=== PATIENT | male | born 1980 | race Caucasian/White ===

== ENCOUNTER 2017-05-12 15:44 | Emergency (ER) | payer OTHER ==
[2017-05-12 16:05] VITALS: TEMP 97.9; BMI 31.6
[2017-05-12] MEDS ORDERED: HEMOQUE TEST 1 EACH EACH ONE (16:27)
[2017-05-12] MEDS ORDERED: SODIUM CHLORIDE 1,000 ML IV STA ×2 (16:53→16:54)
[2017-05-12 17:10] LABS: BASOPHIL 0.4 % (0-2.0); EOSINOPHIL 1.1 % (0-4.5); MCH 30.8 pg (25.7-33.7); MCHC 35.2 g/dl (32.0-35.9); MEAN CELL VOLUME 87.4 fl (80-96); MEAN PLT VOLUME 8.4 fl (7.5-11.1); NEUTROPHILS 58.8 % (42.8-82.8); PLATELET COUNT 168 K/MM3 (134-434); RDW 12.6 % (11.9-15.9); WHITE BLOOD COUNT 4.2 K/mm3 (4.0-10.0)
[2017-05-12 17:41] LABS: ALBUMIN 3.3 g/dl (3.4-5.0); ALK PHOS 137 U/L (45-117); ANION GAP 11 (8-16); BILIRUBIN,TOTAL 0.6 mg/dL (0.2-1.0); CALCIUM 8.2 mg/dL (8.5-10.1); CO2 25 mmol/L (21-32); CREATININE 1.1 mg/dL (0.7-1.3); SGPT/ALT 50 U/L (12-78); TOT PROT 6.2 g/dl (6.4-8.2)
[2017-05-12 17:42] LABS: URINE APPEARANCE CLEAR; URINE BILIRUBIN NEGATIVE (NEGATIVE); URINE BLOOD NEGATIVE (NEGATIVE); URINE COLOR LTYELLOW; URINE GLUCOSE (UA) 3+ (NEGATIVE); URINE KETONE NEGATIVE (NEGATIVE); URINE NITRITE NEGATIVE (NEGATIVE); URINE PROTEIN NEGATIVE (NEGATIVE); URINE UROBILINOGEN NEGATIVE mg/dL (0.2-1.0)
[2017-05-12 18:00] LABS: SGOT/AST 27 U/L (15-37)
--- NOTE | 2017-05-12 18:01 | PDOC ---
History of Present Illness - General Chief Complaint: Blood Sugar Problem Stated Complaint: BLOOD SUGAR PROBLEM Time Seen by Provider: 05/12/17 16:31 History Source: Patient Exam Limitations: No Limitations - History of Present Illness Initial Comments: 05/12/17 17:07 36-year-old male presents to the ED with complaints of high glucose readings states took his glucose this morning was above 500 although he took his Glucophage and his blood pressure medications this morning. Patient states yesterday his glucose was 400 and also states was off his medication about a week ago, a ran out of the medication for about 1 week. Patient denies any polyuria polydipsia polyphagia. Patient denies headache, chest pain, dizziness, visual changes, nausea or abdominal pain. Patient states is not staying and is leaving by 7 since yesterday at work to pay his bills. Timing/Duration: unsure Severity: mild Associated Symptoms: reports: denies symptoms Past History - Travel Traveled outside of the country in the last 30 days: Yes - Past Medical History Allergies/Adverse Reactions: Allergies Allergy/AdvReac Type Severity Reaction Status Date / Time Penicillins Allergy Verified 05/12/17 16:02 Home Medications: Ambulatory Orders Insulin Lispro [Humalog Kwikpen U-100] 15 unit SQ BID #900 units 05/12/17 Lisinopril/Hydrochlorothiazide [Lisinopril-Hctz 20-12.5 mg Tab] 1 each PO DAILY 05/12/17 Metformin HCl 500 mg PO BID 05/12/17 Diabetes: Yes (IDDM) HTN: Yes Psychiatric Problems: Yes (DEPRESSION) - Suicide/Smoking/Psychosocial Hx Smoking History: Never smoked Hx Alcohol Use: No Drug/Substance Use Hx: No Substance Use Type: None Patient Lives Alone: No Lives with/in: spouse/SO Review of Systems - Review of Systems Able to Perform ROS?: Yes Constitutional: No: Symptoms Reported HEENTM: No: Symptoms Reported Respiratory: No: Symptoms reported Cardiac (ROS): No: Symptoms Reported ABD/GI: No: Symptoms Reported : No: Symptoms Reported Musculoskeletal: No: Symptoms Reported Integumentary: No: Symptoms Reported Neurological: No: Symptoms reported Endocrine: No: Symptoms Reported Hematologic/Lymphatic: No: Symptoms Reported *Physical Exam - Vital Signs Last Vital Signs Temp Pulse Resp BP Pulse Ox 97.9 F 112 H 19 138/84 98 05/12/17 16:02 05/12/17 16:02 05/12/17 16:02 05/12/17 16:02 05/12/17 16:02 - Physical Exam General Appearance: Yes: Nourished, Appropriately Dressed. No: Apparent Distress HEENT: positive: Pharynx Normal Neck: positive: Supple Respiratory/Chest: positive: Lungs Clear, Normal Breath Sounds. negative: Respiratory Distress, Accessory Muscle Use Cardiovascular: positive: Regular Rhythm, Regular Rate. negative: Murmur Gastrointestinal/Abdominal: positive: Soft. negative: Tenderness Integumentary: positive: Normal Color, Warm, Moist Neurologic: positive: Normal Mood/Affect, Motor Strength 11/17 ED Treatment Course - LABORATORY CBC & Chemistry Diagram: 05/12/17 17:01 05/12/17 17:01 - ADDITIONAL ORDERS Additional order review: Laboratory Results 05/12/17 17:30 Urine Color Ltyellow Urine Appearance Clear Urine pH 6.0 Urine Protein Negative Urine Glucose (UA) 3+ H Urine Ketones Negative Urine Blood Negative Urine Nitrite Negative Urine Bilirubin Negative Urine Urobilinogen Negative 05/12/17 17:01 RBC 4.64 MCV 87.4 MCHC 35.2 RDW 12.6 MPV 8.4 Neutrophils % 58.8 Lymphocytes % 31.1 Monocytes % 8.6 Eosinophils % 1.1 Basophils % 0.4 - Medications Given in the ED: ED Medications Discontinued Medications Generic Name Dose Route Start Last Admin Trade Name Freq PRN Reason Stop Dose Admin Sodium Chloride 1,000 mls @ 1,000 mls/hr 05/12/17 16:53 05/12/17 17:03 Normal Saline - IV 05/12/17 17:52 1,000 mls/hr ASDIR STA Administration Sodium Chloride 1,000 mls @ 1,000 mls/hr 05/12/17 16:54 05/12/17 17:03 Normal Saline - IV 05/12/17 17:53 1,000 mls/hr ASDIR STA Administration Medical Decision Making - Medical Decision Making 05/12/17 18:00 Patient here for elevated glucose at home. Patient had no other complaints at this time. Patient ordered for labs, fluids in urine. Patient ordered for BGM to be completed after 2 L of fluid and decide disposition. Patient alert he stated he is not staying since he is to be at work at 7. *DC/Admit/Observation/Transfer Diagnosis at time of Disposition: High blood sugar, Insulin dependent diabetes mellitus - Prescriptions Prescriptions: Insulin Lispro [Humalog Kwikpen U-100] 15 unit SQ BID #900 units - Referrals Referrals: Raissa Campbell [Primary Care Provider] - 24 hours - Patient Instructions Printed Discharge Instructions: DI for Hyperglycemia -- Adult Additional Instructions: Please follow up with your primary care doctor on Sunday. Your insulin was refilled today. Drink plenty of fluids Return to the ED if you find your sugars are high, if you feel weak, dizzy, light headed or have any changes in your symptoms. Por favor abi un seguimiento con green mdico de atencin primaria el . Green insulina se volvi a llenar hoy. Beber mucho lquido Regrese al departamento de emergencias si encuentra que domenic azcares son altos, si se siente dbil, mareado, liviano o si tiene algn cambio en domenic sntomas. Print Language: ESTONIAN
--- NOTE | 2017-05-12 18:01 | PDOC ---
*Physical Exam - Vital Signs Last Vital Signs Temp Pulse Resp BP Pulse Ox 97.9 F 112 H 19 138/84 98 05/12/17 16:02 05/12/17 16:02 05/12/17 16:02 05/12/17 16:02 05/12/17 16:02 - Physical Exam Comments: 05/12/17 18:01 The patient was examined by NANNETTE Walker] under my direct supervision. I personally evaluated the patient. I concur with the above findings and the plan of care. ED Treatment Course - LABORATORY CBC & Chemistry Diagram: 05/12/17 17:01 05/12/17 17:01 - ADDITIONAL ORDERS Additional order review: Laboratory Results 05/12/17 17:30 Urine Color Ltyellow Urine Appearance Clear Urine pH 6.0 Urine Protein Negative Urine Glucose (UA) 3+ H Urine Ketones Negative Urine Blood Negative Urine Nitrite Negative Urine Bilirubin Negative Urine Urobilinogen Negative 05/12/17 17:01 RBC 4.64 MCV 87.4 MCHC 35.2 RDW 12.6 MPV 8.4 Neutrophils % 58.8 Lymphocytes % 31.1 Monocytes % 8.6 Eosinophils % 1.1 Basophils % 0.4 - Medications Given in the ED: ED Medications Discontinued Medications Generic Name Dose Route Start Last Admin Trade Name Freq PRN Reason Stop Dose Admin Sodium Chloride 1,000 mls @ 1,000 mls/hr 05/12/17 16:53 05/12/17 17:03 Normal Saline - IV 05/12/17 17:52 1,000 mls/hr ASDIR STA Administration Sodium Chloride 1,000 mls @ 1,000 mls/hr 05/12/17 16:54 05/12/17 17:03 Normal Saline - IV 05/12/17 17:53 1,000 mls/hr ASDIR STA Administration *DC/Admit/Observation/Transfer Diagnosis at time of Disposition: High blood sugar, Insulin dependent diabetes mellitus - Prescriptions Prescriptions: Insulin Lispro [Humalog Kwikpen U-100] 15 unit SQ BID #900 units - Referrals Referrals: Raissa Campbell [Primary Care Provider] - 24 hours - Patient Instructions Printed Discharge Instructions: DI for Hyperglycemia -- Adult Additional Instructions: Please follow up with your primary care doctor on Sunday. Your insulin was refilled today. Drink plenty of fluids Return to the ED if you find your sugars are high, if you feel weak, dizzy, light headed or have any changes in your symptoms. Por favor abi un seguimiento con green mdico de atencin primaria el es. Green insulina se volvi a llenar hoy. Beber mucho lquido Regrese al departamento de emergencias si encuentra que domenic azcares son altos, si se siente dbil, mareado, liviano o si tiene algn cambio en domenic sntomas. Print Language: LAO
[2017-05-12 18:02] LABS: GLUCOSE,RANDOM 487 mg/dL (74-106)
--- NOTE | 2017-05-12 18:18 | PDOC ---
*Physical Exam - Vital Signs Last Vital Signs Temp Pulse Resp BP Pulse Ox 97.9 F 112 H 19 138/84 98 05/12/17 16:02 05/12/17 16:02 05/12/17 16:02 05/12/17 16:02 05/12/17 16:02 - Physical Exam General Appearance: Yes: Nourished, Appropriately Dressed, Other (AAOx3). No: Apparent Distress Respiratory/Chest: positive: Lungs Clear, Normal Breath Sounds. negative: Respiratory Distress, Accessory Muscle Use Cardiovascular: positive: Regular Rhythm, Regular Rate, S1, S2 (present). negative: Edema, JVD, Murmur Gastrointestinal/Abdominal: positive: Normal Bowel Sounds, Soft, Protuberent. negative: Tender, Flat, Organomegaly, Pulsatile Mass Neurologic: positive: anaesthetic technician II-XII NML intact, Fully Oriented, Alert, Normal Mood/ Affect, Normal Response, Motor Strength 5/5 ED Treatment Course - LABORATORY CBC & Chemistry Diagram: 05/12/17 17:01 05/12/17 17:01 - ADDITIONAL ORDERS Additional order review: Laboratory Results 05/12/17 05/12/17 17:30 17:01 Sodium 132 L Potassium 4.5 Chloride 96 L Carbon Dioxide 25 Anion Gap 11 BUN 28 H Creatinine 1.1 Creat Clearance w eGFR > 60 Random Glucose 487 H* Calcium 8.2 L Total Bilirubin 0.6 AST 27 ALT 50 Alkaline Phosphatase 137 H Total Protein 6.2 L Albumin 3.3 L Urine Color Ltyellow Urine Appearance Clear Urine pH 6.0 Urine Protein Negative Urine Glucose (UA) 3+ H Urine Ketones Negative Urine Blood Negative Urine Nitrite Negative Urine Bilirubin Negative Urine Urobilinogen Negative 05/12/17 17:01 RBC 4.64 MCV 87.4 MCHC 35.2 RDW 12.6 MPV 8.4 Neutrophils % 58.8 Lymphocytes % 31.1 Monocytes % 8.6 Eosinophils % 1.1 Basophils % 0.4 - Medications Given in the ED: ED Medications Discontinued Medications Generic Name Dose Route Start Last Admin Trade Name Freq PRN Reason Stop Dose Admin Sodium Chloride 1,000 mls @ 1,000 mls/hr 05/12/17 16:53 05/12/17 17:03 Normal Saline - IV 05/12/17 17:52 1,000 mls/hr ASDIR STA Administration Sodium Chloride 1,000 mls @ 1,000 mls/hr 05/12/17 16:54 05/12/17 17:03 Normal Saline - IV 05/12/17 17:53 1,000 mls/hr ASDIR STA Administration Medical Decision Making - Medical Decision Making 05/12/17 18:49 Sugar coming down after two units of saline. Repeat sugar 408. Will give 8 units of insulin SQ at this time. 05/12/17 18:50 Pt. takes Humalog 15 units twice daily at home. Pt. ran out. Will refill rx. Pt. requesting to leave. Will d/c as pt has no gap and sugars are coming down. *DC/Admit/Observation/Transfer Diagnosis at time of Disposition: High blood sugar, Insulin dependent diabetes mellitus - Discharge Dispostion Admit: No - Prescriptions Prescriptions: Insulin Lispro [Humalog Kwikpen U-100] 15 unit SQ BID #900 units - Referrals Referrals: Raissa Campbell [Primary Care Provider] - 24 hours - Patient Instructions Printed Discharge Instructions: DI for Hyperglycemia -- Adult Additional Instructions: Please follow up with your primary care doctor on Sunday. Your insulin was refilled today. Drink plenty of fluids Return to the ED if you find your sugars are high, if you feel weak, dizzy, light headed or have any changes in your symptoms. Por favor abi un seguimiento con green mdico de atencin primaria el . Green insulina se volvi a llenar hoy. Beber mucho lquido Regrese al departamento de emergencias si encuentra que domenic azcares son altos, si se siente dbil, mareado, liviano o si tiene algn cambio en domenic sntomas. Print Language: FIJIAN
[2017-05-12] MEDS ORDERED: INSULIN REGULAR HUMAN 100 UNITS/ML *VIAL SQ ONE (18:49)
[2017-05-12 19:02] VITALS: BP 134/74; PULSE 97
[2017-05-12 20:23] LABS: ACETONE SERUM NEGATIVE (NEGATIVE)
[2017-05-12 22:28] LABS: URINE LEUK ESTERASE Negative (NEGATIVE)
== END 2017-05-12 19:01 | disposition home or self-care (01) ==
LOC: JER 15:44
PROC: 3E013VG Introduction of Insulin into Subcutaneous Tissue, Percutaneous Approach (ICD-10-PCS; principal; 2017-05-12)
PROC: 3E0337Z Introduction of Electrolytic and Water Balance Substance into Peripheral Vein, Percutaneous Approach (ICD-10-PCS; 2017-05-12)
DX: R73.9 Hyperglycemia, unspecified (principal); E11.9 Type 2 diabetes mellitus without complications; Z79.4 Long term (current) use of insulin
CPT/HCPCS: 36415; 80053; 81003; 82009; 83735; 85025; 96361; 96372; 99283-25

== ENCOUNTER 2017-10-24 20:41 | Emergency (ER) | payer OTHER ==
--- NOTE | 2017-10-24 20:54 | PDOC ---
Rapid Medical Evaluation Time Seen by Provider: 10/24/17 20:50 Medical Evaluation: Allergies Allergy/AdvReac Type Severity Reaction Status Date / Time Penicillins Allergy Verified 05/12/17 16:02 10/24/17 20:51 I have performed a brief in-person evaluation of this patient. The patient presents with a chief complaint of: chronic wound to R foot, now new wound, was supposed to be admitted end of september for abx but refused , just [place] from [place] Pertinent physical exam findings: diabetic ulcers to R foot, HR 120s I have ordered the following: labs, x-ray The patient will proceed to the ED for further evaluation. Discharge Disposition - Diagnosis Wound, open, foot - Referrals - Patient Instructions - Post Discharge Activity
[2017-10-24 20:56] VITALS: BP 137/106; PULSE 114; TEMP 98.1; BMI 32.3
[2017-10-24 21:26] LABS: BASO % 1.4 % (0-2.0); EOS % 2.1 % (0-4.5); HEMATOCRIT 39.3 % (35.4-49); HEMOGLOBIN 14.1 GM/dL (11.7-16.9); LYMPH % 36.8 % (8-40); MCH 30.6 pg (25.7-33.7); MCHC 35.8 g/dl (32.0-35.9); MEAN CELL VOLUME 85.5 fl (80-96); MEAN PLT VOLUME 8.2 fl (7.5-11.1); MONO % 7.3 % (3.8-10.2); NEUT % 52.4 % (42.8-82.8); PLATELET COUNT 183 K/MM3 (134-434); WHITE BLOOD COUNT 5.4 K/mm3 (4.0-10.0)
[2017-10-24 21:42] LABS: INR 1.03 (0.82-1.09); PROTHROMBIN TIME (PATIENT) 11.6 SEC (9.98-11.88)
[2017-10-24 21:53] LABS: ALBUMIN 3.6 g/dl (3.4-5.0); ANION GAP 8 (8-16); BILIRUBIN,TOTAL 0.6 mg/dL (0.2-1.0); BLOOD UREA NITROGEN 20 mg/dL (7-18); CALCIUM 8.6 mg/dL (8.5-10.1); CHLORIDE 101 mmol/L (98-107); CO2 25 mmol/L (21-32); CREATININE 1.2 mg/dL (0.7-1.3); POTASSIUM 4.4 mmol/L (3.5-5.1); SGOT/AST 15 U/L (15-37); SGPT/ALT 44 U/L (12-78); SODIUM 134 mmol/L (136-145); TOT PROT 6.9 g/dl (6.4-8.2)
--- NOTE | 2017-10-24 21:53 | PDOC ---
History of Present Illness - General History Source: Patient Exam Limitations: No Limitations - History of Present Illness Initial Comments: 10/24/17 22:01 The patient is a 37 year old male, with a significant past medical history of diabetes, hypertension, hyperlipidemia, and depression, who presents to the emergency department with worsening right foot wound. Patient reports a chronic right foot wound, for which he was previously admitted and treated with antibiotics for last month. Patient reports he was recently away in the [place] wearing closed toed shoes in the warm weather, which caused one of his wounds to open. Patient denies any recent trauma, erythema, fever, chills, nausea, or vomiting. Patient reports drainage from the wound at the right pinky toe, that was clear in color. Today, patient reports calling his PCPs office regarding his symptoms, and was recommended to follow up in the ED for further evaluation and another antibiotic course. He denies any other symptoms. Allergies: Penicillins Past Surgical History: None reported Social History: Non smoker. No ETOH or recreational drug use. PCP: Dr. Villalta <Elinor Sousa - Last Filed: 10/24/17 22:01> <Rissa Gorman - Last Filed: 10/25/17 00:08> - General Chief Complaint: Wound Stated Complaint: PAIN Time Seen by Provider: 10/24/17 20:50 Past History <Elinor Sousa - Last Filed: 10/24/17 22:01> - Past Medical History Diabetes: Yes (IDDM) HTN: Yes Psychiatric Problems: Yes (DEPRESSION) - Suicide/Smoking/Psychosocial Hx Smoking History: Never smoked Have you smoked in the past 12 months: No Information on smoking cessation initiated: No Hx Alcohol Use: No Drug/Substance Use Hx: No Substance Use Type: None <Rissa Gorman - Last Filed: 10/25/17 00:08> - Past Medical History Allergies/Adverse Reactions: Allergies Allergy/AdvReac Type Severity Reaction Status Date / Time Penicillins Allergy Verified 10/24/17 20:57 Home Medications: Ambulatory Orders Insulin Lispro [Humalog Kwikpen U-100] 15 unit SQ BID #900 units 05/12/17 Lisinopril/Hydrochlorothiazide [Lisinopril-Hctz 20-12.5 mg Tab] 1 each PO DAILY 05/12/17 Metformin HCl 500 mg PO BID 05/12/17 Review of Systems - Review of Systems Able to Perform ROS?: Yes Comments:: 10/24/17 22:01 GENERAL/CONSTITUTIONAL: No fever or chills. No weakness. HEAD, EYES, EARS, NOSE AND THROAT: No change in vision. No ear pain or discharge. No sore throat. GASTROINTESTINAL: No nausea, vomiting, diarrhea or constipation. GENITOURINARY: No dysuria, frequency, or change in urination. CARDIOVASCULAR: No chest pain or shortness of breath. RESPIRATORY: No cough, wheezing, or hemoptysis. MUSCULOSKELETAL: Yes right foot ulcers. No joint or muscle swelling or pain. No neck or back pain. SKIN: No rash NEUROLOGIC: No headache, vertigo, loss of consciousness, or change in strength/ sensation. ENDOCRINE: No increased thirst. No abnormal weight change. HEMATOLOGIC/LYMPHATIC: No anemia, easy bleeding, or history of blood clots. ALLERGIC/IMMUNOLOGIC: No hives or skin allergy. <Elinor Sousa - Last Filed: 10/24/17 22:01> *Physical Exam - Vital Signs Last Vital Signs Temp Pulse Resp BP Pulse Ox 98.1 F 114 H 16 137/106 100 10/24/17 20:53 10/24/17 20:53 10/24/17 20:53 10/24/17 20:53 10/24/17 20:53 - Physical Exam Comments: 10/24/17 22:02 Constitutional: Awake, alert, oriented. No acute distress. Head: Normocephalic. Atraumatic Eyes: PERRL. EOMI. Conjunctivae are not pale. ENT: Mucous membranes are moist and intact. Posterior pharynx without exudates or erythema. Uvula midline. Neck: Supple. Full ROM. No lymphadenopathy. Cardiovascular: Regular rate. Regular rhythm. S1, S2 regular. Distal pulses are 2+ and symmetric. Pulmonary/Chest: No evidence of respiratory distress. Clear to auscultation bilaterally No wheezing, rales or rhonchi. Abdominal: Soft and non-distended. There is no tenderness. No rebound, guarding or rigidity. No organomegaly. No palpable masses. Good bowel sounds. Back: No CVA tenderness. Musculoskeletal: Ulcer at the right 1st toe, but not open, actively draining, or erythematous. Open wound, about the size of a nickel at the Distal aspect of the right 5th toe, but no active drainage or erythema. Distal sensation intact at RLE. 1+ pitting edema to right lower extremity. No cyanosis. No clubbing. Full range of motion in all extremities. No calf tenderness. Radial/pedal pulses are intact and 2+ bilaterally Skin: Skin is warm and dry. No petechiae. No purpura. Neurological: Alert and oriented to person, place, and time. Cranial nerves II -XII are grossly intact. Normal speech. Strength is grossly symmetric. No sensory deficits. <Elinor Sousa - Last Filed: 10/24/17 22:01> - Vital Signs Last Vital Signs Temp Pulse Resp BP Pulse Ox 98.1 F 114 H 16 137/106 100 10/24/17 20:53 10/24/17 20:53 10/24/17 20:53 10/24/17 20:53 10/24/17 20:53 <Rissa Gorman - Last Filed: 10/25/17 00:08> ED Treatment Course - LABORATORY CBC & Chemistry Diagram: 10/24/17 21:10 10/24/17 21:10 - ADDITIONAL ORDERS Additional order review: Laboratory Results 10/24/17 21:10 Sodium 134 L Potassium 4.4 Chloride 101 Carbon Dioxide 25 Anion Gap 8 BUN 20 H D Creatinine 1.2 Creat Clearance w eGFR > 60 Random Glucose 369 H* D Calcium 8.6 Total Bilirubin 0.6 AST 15 D ALT 44 Alkaline Phosphatase 112 Total Protein 6.9 Albumin 3.6 <Elinor Sousa - Last Filed: 10/24/17 22:01> - LABORATORY CBC & Chemistry Diagram: 10/24/17 21:10 10/24/17 21:10 <Rissa Gorman - Last Filed: 10/25/17 00:08> Medical Decision Making - Medical Decision Making 10/24/17 23:55 a/p: 37yo male currently on abx for 2 weeks for a diabetic foot wound -was supposed to be admitted in September for IV abx for a diabetic foot wound -now with a nickel size wound to R plantar surface under the pinky toe -new blister under 1st metatarsal -has not seen wound care -follows with Dr. Villalta -will check labs, xray 10/24/17 23:56 re-eval: no fevers, no redness, no warmth, no drainage from the site however concern for diabetic nonhealing foot wound discussed with the patient staying for wound care eval and vasc sx eval for poss wound debridement pt states he cannot stay states he only wants abx and will not stay 10/24/17 23:58 discussed signing out AMA with the patient pt states he wants to sign out AMA discussed all risks/benefits of signing out ama and an uncontrolled DM with a foot wound discussed that he is already on abx discussed he needs to finish those and follow up with vascular/endocrine/ and dr villalta Note: The patient insists on leaving the emergency dept and is signing out against medical advice. The patient understands the risks and complications that may result from the refusal of medical care and admission which includes and permanent disability. The patient has the mental capacity of understanding the risks of refusing care and is capable of making an informed decision. The patient was instructed to return to the emergency department should he change his mind regarding medical care or should his condition worsen. The patient signed the Against Medical Advice form. <Rissa Gorman - Last Filed: 10/25/17 00:08> *DC/Admit/Observation/Transfer - Attestations Scribe Attestion: 10/24/17 22:02 Documentation prepared by Elinor Sousa, acting as medical instrument cable fabricator for Rissa Gorman DO. <Elinor Sousa - Last Filed: 10/24/17 22:01> - Discharge Dispostion Admit: No - Attestations Physician Attestion: 10/25/17 00:01 I, Dr. Rissa Gorman DO, attest that this document has been prepared under my direction and personally reviewed by me in its entirety. I further attest, that it accurately reflects all work, treatment, procedures and medical decision -making performed by me. <Rissa Gorman - Last Filed: 10/25/17 00:08> Diagnosis at time of Disposition: Wound, open, foot, Diabetic foot ulcer, High blood sugar - Discharge Dispostion Disposition: AGAINST MEDICAL ADVICE Condition at time of disposition: Unchanged/Unknown - Referrals Referrals: Raissa Villalta [Primary Care Provider] - Dionisio Malloy MD [Staff Physician] - - Patient Instructions Printed Discharge Instructions: DI for Diabetic Foot Ulcer Additional Instructions: Please complete your antibiotics as prescribed. Please make an appointment to see the wound doctors jessica. Please make an appointment to see Dr. Villalta tomorrow. Please return to the ED JESSICA with any further concerns. - Post Discharge Activity
[2017-10-24 21:54] LABS: ALK PHOS 112 U/L (45-117)
[2017-10-24 22:00] LABS: GLUCOSE,RANDOM 369 mg/dL (74-106)
== END 2017-10-25 00:10 | disposition left against medical advice (07) ==
LOC: JER 20:41
DX: E11.621 Type 2 diabetes mellitus with foot ulcer (principal); L97.419 Non-pressure chronic ulcer of right heel and midfoot with unspecified severity; I10 Essential (primary) hypertension; F32.9 Major depressive disorder, single episode, unspecified; E78.5 Hyperlipidemia, unspecified
CPT/HCPCS: 36415; 73630-TC-RT-FY; 80053; 85025; 85610; 99282-25

== ENCOUNTER 2017-12-31 11:50 | Inpatient (IN) | payer OTHER ==
--- NOTE | 2017-12-31 12:16 | PDOC ---
History of Present Illness - General Chief Complaint: Blood Sugar Problem Stated Complaint: SUGAR PROBLEM Time Seen by Provider: 12/31/17 12:16 - History of Present Illness Initial Comments: 12/31/17 12:16 Mr. Wilson is a 37 yo male w/ pmh of DM, HTN, HLD, Depression who presents for evaluation of 1 day history of tingling in his hands and feet. He reports that this prompted him to take his blood sugar and he found that he had a BGM of over 500. He otherwise feels well however is concerned about the tingling and blood glucose value. The patient denies chest pain, shortness of breath, headache and dizziness. Denies fever, chills, nausea, vomit, diarrhea and constipation. Denies dysuria, frequency, urgency and hematuria. Allergies: Penicillins Past History - Past Medical History Allergies/Adverse Reactions: Allergies Allergy/AdvReac Type Severity Reaction Status Date / Time Penicillins Allergy Verified 12/31/17 11:56 Home Medications: Ambulatory Orders Lisinopril/Hydrochlorothiazide [Lisinopril-Hctz 20-12.5 mg Tab] 1 each PO DAILY 05/12/17 metFORMIN HCL [Metformin HCl] 1,000 mg PO BID 05/12/17 Atorvastatin Ca [Lipitor] 20 mg PO DAILY 12/31/17 Insulin Glargine,Hum.rec.anlog [Basaglar Kwikpen U-100] 36 unit SQ HS 12/31/17 Insulin Lispro Protamin/Lispro [Humalog Mix 75-25 Kwikpen] 30 unit SQ TID COPD: No Diabetes: Yes (IDDM) HTN: Yes Psychiatric Problems: Yes (DEPRESSION) - Suicide/Smoking/Psychosocial Hx Smoking History: Never smoked Have you smoked in the past 12 months: No Hx Alcohol Use: No Drug/Substance Use Hx: No Substance Use Type: None Review of Systems - Review of Systems Comments:: 12/31/17 12:18 GENERAL/CONSTITUTIONAL: No fever or chills. No weakness. HEAD, EYES, EARS, NOSE AND THROAT: No change in vision. No ear pain or discharge. No sore throat. CARDIOVASCULAR: No chest pain or shortness of breath RESPIRATORY: No cough, wheezing, or hemoptysis. GASTROINTESTINAL: No nausea, vomiting, diarrhea or constipation. GENITOURINARY: No dysuria, frequency, or change in urination. MUSCULOSKELETAL: +Hand and foot parenthesias as described. No joint or muscle swelling or pain. No neck or back pain. SKIN: No rash NEUROLOGIC: No headache, vertigo, loss of consciousness, or change in strength/ sensation. ENDOCRINE: No increased thirst. No abnormal weight change HEMATOLOGIC/LYMPHATIC: No anemia, easy bleeding, or history of blood clots. ALLERGIC/IMMUNOLOGIC: No hives or skin allergy. *Physical Exam - Vital Signs Last Vital Signs Temp Pulse Resp BP Pulse Ox 99.1 F 136 H 20 138/70 97 12/31/17 11:56 12/31/17 11:56 12/31/17 11:56 12/31/17 11:56 12/31/17 11:56 - Physical Exam Comments: 12/31/17 12:19 GENERAL: Awake, alert, and fully oriented, in no acute distress HEAD: No signs of trauma, normocephalic, atraumatic EYES: PERRLA, EOMI, sclera anicteric, conjunctiva clear ENT: Auricles normal inspection, hearing grossly normal, nares patent, oropharynx clear without exudates. Moist mucosa NECK: Normal ROM, supple, no lymphadenopathy, JVD, or masses LUNGS: No distress, speaks full sentences, clear to auscultation bilaterally HEART: Regular rate and rhythm, normal S1 and S2, no murmurs, rubs or gallops, peripheral pulses normal and equal bilaterally. ABDOMEN: Soft, nontender, normoactive bowel sounds. No guarding, no rebound. No masses EXTREMITIES: +2cm ulcer noted at base of right foot. Mild cellulitic process noted to RLE. Normal range of motion, no edema. No clubbing or cyanosis. NEUROLOGICAL: Cranial nerves II through XII grossly intact. Normal speech, normal gait, no focal sensorimotor deficits SKIN: Warm, Dry, normal turgor, no rashes or lesions noted. ED Treatment Course - LABORATORY CBC & Chemistry Diagram: 12/31/17 13:00 12/31/17 13:00 Medical Decision Making - Medical Decision Making 12/31/17 15:51 Mr. Wilson is a 37 yo male w/ pmh as described who presents for evaluation of elevated BGM w/ symptoms concerning for sepsis. Sepsis protocol activated. Patient found to have draining ulcer as described on exam. XR sent for r/o osteo. Patient labs as below concerning for WBC 19.8, lactate 2.9 and BGM 519. Will admit patient for treatment of r/o osteo and sepsis. Laboratory Results - last 24 hr 12/31/17 12/31/17 12/31/17 13:00 13:00 13:00 WBC 19.8 H D RBC 4.91 Hgb 14.1 Hct 42.1 MCV 85.7 MCH 28.7 MCHC 33.6 RDW 12.8 Plt Count 194 MPV 8.3 Absolute Neuts (auto) 18.3 Neutrophils % 92.5 H D Lymphocytes % 4.2 L D Monocytes % 3.1 L Eosinophils % 0.0 D Basophils % 0.2 Nucleated RBC % 0 ESR PT with INR 12.30 INR 1.09 PTT (Actin FS) 27.7 VBG pH POC VBG pCO2 POC VBG pO2 Mixed VBG HCO3 Sodium Potassium Chloride Carbon Dioxide Anion Gap BUN Creatinine Creat Clearance w eGFR Random Glucose Lactic Acid Calcium Total Bilirubin AST ALT Alkaline Phosphatase Troponin I C-Reactive Protein Total Protein Albumin Urine Color Straw Urine Appearance Clear Urine pH 7.0 Ur Specific [place] 1.028 Urine Protein 1+ H Urine Glucose (UA) 3+ H Urine Ketones Negative Urine Blood Negative Urine Nitrite Negative Urine Bilirubin Negative Urine Urobilinogen 2.0 Ur Leukocyte Esterase Negative Urine WBC (Auto) 1 Urine RBC (Auto) None Ur Epithelial Cells Rare 12/31/17 12/31/17 12/31/17 13:00 13:00 13:00 WBC RBC Hgb Hct MCV MCH MCHC RDW Plt Count MPV Absolute Neuts (auto) Neutrophils % Lymphocytes % Monocytes % Eosinophils % Basophils % Nucleated RBC % ESR PT with INR INR PTT (Actin FS) VBG pH 7.47 H POC VBG pCO2 33.8 L POC VBG pO2 33.3 Mixed VBG HCO3 24.5 Sodium 129 L Potassium 4.3 Chloride 94 L Carbon Dioxide 24 Anion Gap 11 BUN 23 H Creatinine 1.4 H Creat Clearance w eGFR 56.72 Random Glucose 519 H* D Lactic Acid 2.9 H* Calcium 9.2 Total Bilirubin 1.1 H D AST 17 ALT 39 Alkaline Phosphatase 99 Troponin I C-Reactive Protein Total Protein 7.4 Albumin 3.8 Urine Color Urine Appearance Urine pH Ur Specific [place] Urine Protein Urine Glucose (UA) Urine Ketones Urine Blood Urine Nitrite Urine Bilirubin Urine Urobilinogen Ur Leukocyte Esterase Urine WBC (Auto) Urine RBC (Auto) Ur Epithelial Cells 12/31/17 12/31/17 13:00 14:50 WBC RBC Hgb Hct MCV MCH MCHC RDW Plt Count MPV Absolute Neuts (auto) Neutrophils % Lymphocytes % Monocytes % Eosinophils % Basophils % Nucleated RBC % ESR 18 H PT with INR INR PTT (Actin FS) VBG pH POC VBG pCO2 POC VBG pO2 Mixed VBG HCO3 Sodium Potassium Chloride Carbon Dioxide Anion Gap BUN Creatinine Creat Clearance w eGFR Random Glucose Lactic Acid Calcium Total Bilirubin AST ALT Alkaline Phosphatase Troponin I < 0.02 C-Reactive Protein 8.0 H Total Protein Albumin Urine Color Urine Appearance Urine pH Ur Specific [place] Urine Protein Urine Glucose (UA) Urine Ketones Urine Blood Urine Nitrite Urine Bilirubin Urine Urobilinogen Ur Leukocyte Esterase Urine WBC (Auto) Urine RBC (Auto) Ur Epithelial Cells *DC/Admit/Observation/Transfer Diagnosis at time of Disposition: Sepsis Qualifiers: Sepsis type: sepsis due to unspecified organism Qualified Code(s): A41.9 - Sepsis, unspecified organism Diabetic foot ulcer Qualifiers: Diabetic foot ulcer location: unspecified part of foot Diabetes mellitus type: other specified (including KNENETH) Laterality: unspecified laterality Non- pressure ulcer stage: unspecified non-pressure ulcer stage Qualified Code(s): E13.621 - Other specified diabetes mellitus with foot ulcer; L97.509 - Non- pressure chronic ulcer of other part of unspecified foot with unspecified severity - Discharge Dispostion Decision to Admit order: Yes - Referrals Referrals: Raissa Campbell [Primary Care Provider] - - Patient Instructions - Post Discharge Activity
[2017-12-31] MEDS ORDERED: IBUPROFEN 400 MG TABLET (FP) PO ONE ×2 (12:49→13:03)
[2017-12-31] MEDS ORDERED: SODIUM CHLORIDE 1,000 ML IV STA ×2 (12:50→14:02)
--- NOTE | 2017-12-31 13:03 | PDOC ---
Attending Attestation - HPI HPI: 12/31/17 14:46 The patient is a 37 year old male with a significant PMH of DM, depression, hypertension, and hyperlipidemia who presents to the emergency department with tingling sensation in his hands and feet for 1 day. The patient reports that he proceeded to check his blood sugar at home and he found it to be elevated to over 500. The patient reports that he was concerned for his symptoms in his extremities. He denies any other symptoms. He denies any fever, chills, nausea, vomit, diarrhea, constipation or urinary symptoms. He denies any chest pain, shortness of breath, headache and dizziness. The patient denies any other complaints. PCP: Dr. Campbell Allergies: Penicillins - Physicial Exam PE: 12/31/17 14:46 Vitals: Triage vital signs reviewed General Appearance: No acute distress, well nourished, well developed Head: Atraumatic Neck: Supple; No nuchal rigidity Chest Wall: Nontender Cardiac: Regular rate and rhythm, no murmurs, no rubs, no gallops Lungs: Clear to auscultation bilateral, good air movement bilaterally Abdomen: Soft, nondistended, normal bowel sounds, nontender to palpation Genitourinary: Rectal: Exam deferred Extremities: (+) 2 cm ulcer to right foot, cellulitis to right calf. Full range of motion to all extremities, no cyanosis, clubbing, or edema Skin: Warm and dry, no rashes or lesions, no rash, no petechiae Neuro: AOX3; Cranial Nerves 2-12 grossly intact, Strength intact to all extremities, Sensation intact to all extremities, gait normal Psych: Normal mood, normal affect Documentation prepared by Sherwin Munroe, acting as medical assistant supervisor for Sachin Colorado MD. - Medical Decision Making 12/31/17 14:46 The patient is a 37 year old male with a significant PMH of DM, depression, hypertension, and hyperlipidemia who presents to the emergency department with tingling sensation in his hands and feet for 1 day. The patient will receive labs, Right foot CT, and EKG. <Sherwin Munroe - Last Filed: 12/31/17 14:46> - Resident Resident Name: Quinn Cassidy - ED Attending Attestation I have performed the following: I have examined & evaluated the patient, The case was reviewed & discussed with the resident, I agree w/resident's findings & plan, Exceptions are as noted - Critical Care Time Total Critical Care Time: 35 Critical Care Statement: The care of this patient involved high complexity decision making to prevent further life threatening deterioration of the patient 's condition and/or to evaluate & treat vital organ system(s) failure or risk of failure. - Medical Decision Making Fever tachycardia elevated white blood cell count issue with cellulitis of the right lower extremity as well as a deep right foot ulcer. No evidence of acute infection of the right foot ulcer however given drainage and symptomatology there is a concern that this foot ulcer may be the nidus for an osteomyelitis Patient covered broad-spectrum antibiotics. He'll be admitted to medicine for further management and to rule out osteomyelitis. <Sachin Colorado - Last Filed: 12/31/17 16:50>
[2017-12-31 13:27] LABS: BASO % 0.2 % (0-2.0); HEMATOCRIT 42.1 % (35.4-49); HEMOGLOBIN 14.1 GM/dL (11.7-16.9); LYMPH % 4.2 % (8-40); MCH 28.7 pg (25.7-33.7); MCHC 33.6 g/dl (32.0-35.9); MEAN CELL VOLUME 85.7 fl (80-96); MEAN PLT VOLUME 8.3 fl (7.5-11.1); MONO % 3.1 % (3.8-10.2); NEUT % 92.5 % (42.8-82.8); PLATELET COUNT 194 K/MM3 (134-434); RBC 4.91 M/mm3 (4.00-5.60); RDW 12.8 % (11.9-15.9); WHITE BLOOD COUNT 19.8 K/mm3 (4.0-10.0)
[2017-12-31 13:32] LABS: URINE APPEARANCE CLEAR; URINE BILIRUBIN NEGATIVE (<2.0 mg/dL); URINE COLOR STRAW; URINE GLUCOSE (UA) 3+ (NEGATIVE); URINE KETONE NEGATIVE (NEGATIVE); URINE LEUK ESTERASE NEGATIVE (NEGATIVE); URINE NITRITE NEGATIVE (NEGATIVE)
[2017-12-31 13:33] LABS: VENOUS PC02 33.8 mmHg (38-52); VENOUS PH 7.47 (7.32-7.42); VENOUS PO2 33.3 mmHg (28-48)
[2017-12-31 13:36] LABS: URINE PROTEIN 1+ (NEGATIVE)
[2017-12-31 13:37] LABS: EPI CELLS RARE /HPF (FEW)
[2017-12-31 13:39] LABS: INR 1.09 (0.82-1.09); PROTHROMBIN TIME (PATIENT) 12.3 SEC (9.7-13.0)
[2017-12-31 13:41] LABS: ACTIVATED PTT 27.7 SECONDS (25.2-36.5)
[2017-12-31 14:11] LABS: ALBUMIN 3.8 g/dl (3.4-5.0); ALK PHOS 99 U/L (45-117); ANION GAP 11 (8-16); BILIRUBIN,TOTAL 1.1 mg/dL (0.2-1.0); BLOOD UREA NITROGEN 23 mg/dL (7-18); CALCIUM 9.2 mg/dL (8.5-10.1); CHLORIDE 94 mmol/L (98-107); CO2 24 mmol/L (21-32); CREATININE 1.4 mg/dL (0.7-1.3); POTASSIUM 4.3 mmol/L (3.5-5.1); SGOT/AST 17 U/L (15-37); SGPT/ALT 39 U/L (12-78); SODIUM 129 mmol/L (136-145); TOT PROT 7.4 g/dl (6.4-8.2)
[2017-12-31 14:23] LABS: GLUCOSE,RANDOM 519 mg/dL (74-106)
[2017-12-31] MEDS ORDERED: AZTREONAM 1 GM in DEXTROSE 5%-WATER - 50 ML IVPB ONE (15:39)
[2017-12-31] MEDS ORDERED: CIPROFLOXACIN 400 MG/D5W 400 MG/200 ML IVPB IVPB ONE (15:39)
[2017-12-31] MEDS ORDERED: VANCOMYCIN 1 GM PREMIX - 1 GM/200 ML BAG IVPB ONE (15:39)
[2017-12-31] MEDS ORDERED: VANCOMYCIN 1 GRAM (PRE-DOCKED) 1,000 MG/250 ML BAG IVPB ONE (16:21)
[2017-12-31] MEDS ORDERED: INSULIN REGULAR HUMAN 100 UNITS/ML *VIAL SQ ONE (16:41)
[2017-12-31] MEDS ORDERED: INSULIN REGULAR HUMAN 100 UNITS/ML *VIAL ONE (16:52)
[2017-12-31 17:00] LABS: PLATELET ESTIMATE ADEQUATE
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
[2017-12-31] MEDS: SODIUM CHLORIDE 1,000 ML IV SCH (18:41)
--- NOTE | 2017-12-31 18:53 | PN ---
Teaching Attending Note Name of Resident: Renato Malloy ATTENDING PHYSICIAN STATEMENT I saw and evaluated the patient. I reviewed the resident's note and discussed the case with the resident. I agree with the resident's findings and plan as documented. SUBJECTIVE: CC: light headedness and fatigue. HPI: 37 y/o man with h/o HLP, HTN, and IDDM who presented with light headedness and not feeling well. patient started feeling unwell wiht light headedness x 4 days . 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 he checked sugar and was 400 , so he took 36 units of levemir. he has DM and takes levemir HS and 75/25 mix AC. He reports compliance with his meds. he reports being treated for R foot ulcer with unknown Abx for unknown duration , he finished 1 week ago. he has chronic ulcer on R foot for which he was advised to take IV abx twice but he declined staying in hospital. he had MRI in September which showed no OM. he rpeorts clear drainage of his wound but no purulent drainage he was supposed to see podiatry ( unknown name ) , but he could not schedule apt OBJECTIVE: NAD. AAox3. MMM. no thrush , can't visualize oropharynx CV: RRR Lungs: CTAB Abd: obese , NT, ND < NL BS . Ext: RLE with erythema , edema and increased warmth on posterior, medial and lateral calf. no TTP. edema over foot. a small ulcer on solar aspect of foot ( 5th MTP joint ) wiht no drainage , clean, no tenderness, no surrounding erythema . L leg with pedal edema , no erythema DP 2+ b/l neuro : EOMi, round equal pupils , reactive to light . tongue at mid line . strength 5/5 in upper and lower ext proximally and distally,sensatio to light touch NL. re ASSESSMENT AND PLAN: 37 y/o man with h/o HLP, HTN, and IDDM who presented with light headedness and not feeling well, and he was found to have sepsis due to RLE cellulitis . 1- Sepsis : due to RLE cellulitis. need to r/o DVT . port of entry could be his foot ulcer . foot ulcer dose not look infected. - given aztreonam and vanco in ER . due to PEN allergy. cont same for now pending ID eval - check US doppler to r/o DVT - podiatry eval for ulcer. ? MRI - IVF - repeat lactic aacid and CBC 2- Severe hyperglycemia due to uncontrolled DM : reports complianc e - place on 40 units of levemir q HS - place on high dose SSI . ACHS - no evidence of DKA 3- DOUGLAS : likley due to volume depletionand sepsis - IVF 4- Pseudohyponaremia : corrected NA 135.4. 5- HTN: hold lisinopril and HCTZ due to DOUGLAS. if needed can start norvac temporarily tomorrow DVT PX: Heparin sq
[2017-12-31 20:17] LABS: BASO % 0.2 % (0-2.0); EOS % 0.1 % (0-4.5); HEMATOCRIT 36.6 % (35.4-49); HEMOGLOBIN 12.4 GM/dL (11.7-16.9); LYMPH % 5.6 % (8-40); MCH 28.8 pg (25.7-33.7); MCHC 33.8 g/dl (32.0-35.9); MEAN CELL VOLUME 85.2 fl (80-96); MEAN PLT VOLUME 8.2 fl (7.5-11.1); MONO % 5.5 % (3.8-10.2); NEUT % 88.6 % (42.8-82.8); PLATELET COUNT 162 K/MM3 (134-434); RBC 4.29 M/mm3 (4.00-5.60); RDW 13.2 % (11.9-15.9); WHITE BLOOD COUNT 13.6 K/mm3 (4.0-10.0)
[2017-12-31 20:40] LABS: ANION GAP 8 (8-16); BLOOD UREA NITROGEN 22 mg/dL (7-18); CALCIUM 8.2 mg/dL (8.5-10.1); CHLORIDE 100 mmol/L (98-107); CO2 25 mmol/L (21-32); CREATININE 1.2 mg/dL (0.7-1.3); POTASSIUM 3.8 mmol/L (3.5-5.1); SODIUM 133 mmol/L (136-145)
[2017-12-31 20:44] LABS: GLUCOSE,RANDOM 357 mg/dL (74-106)
[2017-12-31 21:03] VITALS: BMI 33.7
[2017-12-31] MEDS: ACETAMINOPHEN 325 MG TABLET (FP) PO PRN (21:09)
[2017-12-31] MEDS ORDERED: INSULIN SLIDING SCALE (NOVOLOG) 1 VIAL SQ SCH (22:00)
[2017-12-31] MEDS ORDERED: INSULIN (NOVOLOG) ASPART 100 UNITS/ML 10ML VIAL ONE (22:13)
[2017-12-31] MEDS: INSULIN SLIDING SCALE (NOVOLOG) 1 VIAL SQ SCH (22:46)
[2017-12-31] MEDS: INSULIN (LEVEMIR) 100 UNITS/ML UNITS SQ SCH (22:46)
[2018-01-01] MEDS ORDERED: AZTREONAM 1 GM in DEXTROSE 5%-WATER - 50 ML IVPB ONE ×2 (03:00)
[2018-01-01] MEDS ORDERED: VANCOMYCIN 1,000 MG in DEXTROSE 5%-WATER - 250 ML IVPB ONE ×2 (03:00→10:00)
[2018-01-01] MEDS: INSULIN SLIDING SCALE (NOVOLOG) 1 VIAL SQ SCH ×4 (06:35→21:11)
[2018-01-01] MEDS: HEPARIN NA (PORCINE) 5,000 UNITS/ML 1ML VIAL SQ SCH ×3 (06:35→21:11)
[2018-01-01] MEDS ORDERED: INSULIN (NOVOLOG) ASPART 100 UNITS/ML 10ML VIAL ONE ×4 (06:50→20:13)
[2018-01-01 07:34] LABS: BASO % 0.4 % (0-2.0); EOS % 1.6 % (0-4.5); HEMATOCRIT 35.6 % (35.4-49); HEMOGLOBIN 12.3 GM/dL (11.7-16.9); LYMPH % 9.1 % (8-40); MCH 29.7 pg (25.7-33.7); MCHC 34.7 g/dl (32.0-35.9); MEAN CELL VOLUME 85.8 fl (80-96); MEAN PLT VOLUME 7.9 fl (7.5-11.1); MONO % 6.5 % (3.8-10.2); NEUT % 82.4 % (42.8-82.8); PLATELET COUNT 137 K/MM3 (134-434); RBC 4.15 M/mm3 (4.00-5.60); WHITE BLOOD COUNT 10.3 K/mm3 (4.0-10.0)
[2018-01-01 08:01] LABS: ANION GAP 7 (8-16); BLOOD UREA NITROGEN 18 mg/dL (7-18); CHLORIDE 102 mmol/L (98-107); CO2 27 mmol/L (21-32); CREATININE 0.9 mg/dL (0.7-1.3); GLUCOSE,RANDOM 274 mg/dL (74-106); POTASSIUM 4.2 mmol/L (3.5-5.1); SODIUM 136 mmol/L (136-145)
[2018-01-01] MEDS: SODIUM CHLORIDE 1,000 ML IV SCH (08:16)
[2018-01-01] MEDS: ACETAMINOPHEN 325 MG TABLET (FP) PO PRN (08:20)
--- NOTE | 2018-01-01 12:09 | PN ---
Progress Note (short form) - Note Progress Note: ID consult dictated imp/reccd 37 year old man with DM chronic plantar ulcer/callus- came to ed yesterday with dizziness and hyperglycemia found to have elevated wbc , glucose of 487 and lactic acid 2.9 exam with possible cllulitis of RLE- started on vanco/azactam has pen allergy- ? rash- he is not sure overall poor historian plantar ulcer is dry sepsis syndrome ?RLE cellulitis plantar ulcer is chronic and looks dry pen allergy poorly controlled DM will review xray of foot continue vanco/azactam podiatry to evaluate ?po clindamycin as outpt for several for the cellulitis
[2018-01-01] MEDS ORDERED: PT OWN MED DRAWER 7, Y5N ONE ×3 (13:34→17:40)
[2018-01-01] MEDS: VANCOMYCIN 1,250 MG in SODIUM CHLORIDE 250 ML IVPB SCH (13:50)
[2018-01-01] MEDS: AZTREONAM 1 GM in SODIUM CHLORIDE 50 ML IVPB SCH ×2 (13:50→17:22)
--- NOTE | 2018-01-01 15:10 | CONS ---
INFECTIOUS DISEASE CONSULTATION DATE OF CONSULTATION: DATE OF DICTATION: 01/01/2018 REQUESTING PHYSICIAN: The hospitalist service. This is a 37-year-old man with a history of diabetes, hypertension, hyperlipidemia. Originally, in September, he presented to [facility] apparently with a chronic right foot wound and cellulitis. He left there AMA. He did have an MRI on the that was negative for osteomyelitis. Subsequently came to the ER in October, was again offered admission for his foot. He left AMA. He reports he has been following up with Dr. Campbell and has been on oral antibiotics. He has no idea what, for a very long time, which was stopped about 2 weeks ago. He came yesterday to the ER because he was feeling like his hands and feet were numb and tingling, and he was dizzy. He was found to have a very elevated sugar with a glucose in the 400s. He had a positive lactic acid and a white count of 19.8. He was admitted for sepsis. On exam, he was noted to have venous stasis bilaterally and some warmth and mild erythema of his right lower extremity. He was started on vancomycin, Azactam, and he got a dose of Cipro. I am asked to see him for further recommendations. He is allergic to PENICILLIN. He thinks perhaps his allergy is rash, but he is not sure. As an outpatient, he takes atorvastatin, insulin, metformin, lisinopril, hydrochlorothiazide. PAST MEDICAL HISTORY: As stated before is notable for hypertension, diabetes, hyperlipidemia, and he has had this chronic ulcer on his foot. ALLERGIES: As stated. SOCIAL HISTORY: He is . He was recently in . He got back in October. 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 REVIEW OF SYSTEMS: He denies any purulence or drainage from the foot. FAMILY HISTORY: Positive for diabetes. PHYSICAL EXAMINATION: General: He is awake and alert. Reports feeling much better today. Vital Signs: Temperature is 98.4, pulse of 107, blood pressure 156/95, respiratory rate is 20, saturating 95% on room air. HEENT: He is normocephalic. His eyes are anicteric. Neck: Supple. Lungs: Clear to auscultation. Heart: Regular rate and rhythm. Abdomen: Soft, protuberant. Extremities: He has a dry callus on the lateral aspect of his right foot. There is no drainage or erythema. He has some venous stasis changes with some marked out areas from where he had some mild erythema of the foot, that appears improved. He has bilateral dorsalis pedis pulses that are 2+. DIAGNOSTIC DATA: White count was 19.8 on admission. Today, it is 10.3. BUN is 18 and creatinine 0.9. His hemoglobin A1c is 12.5. His lactic acid was 2.9; on repeat 1.9. Liver function tests are normal except for a total bilirubin of 1.1. Urinalysis is notable for 3+ glucose, 1+ protein. Cultures are pending. Urine culture is negative, and blood cultures are pending. In summary, this is a 37-year-old man with sepsis syndrome, possible right lower extremity cellulitis, plantar ulcer that appears chronic and looks dry, PENICILLIN allergy, and poorly controlled diabetes. Would review the x-ray of his foot. Would continue vancomycin and Azactam for now, with Podiatry to evaluate. Further recommendations to follow. Potentially, if he is ready to go tomorrow, p.o. clindamycin as outpatient for several days for the cellulitis. ROSALIA GONZALEZ M.D. [id number]
--- NOTE | 2018-01-01 15:10 | CONSULT ---
Consult - text type - Consultation Consultation Note: Podiatry Consultation: 37 year old poorly controlled IDDM M presents with elevated blood sugars and diabetic ulcer right foot. Patient has had ulcer since September as it had started as a blister. He notes worsening of ulcer over the past few weeks. Just completed course of PO abx. 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 Blood sugars have been poorly controlled at home. PMHx: poorly controlled IDDM, HTN, HLP Meds: noted ALL: PCN MICHEAL: R foot: pedal pulses palpable, TG wnl, CFT brisk to all toes. Sub-fifth metatarsal diabetic ulcer with mixed fibrogranular base, hyperkeratotic borders , probes about 1.0 cm, no bone palpated, no purulent drainage, no fluctuance, no soft tissue crepitus, ascending cellulitis improved, no tenderness to palpation. WBC: 10.3 ESR: 18 CRP: 8.0 R foot XR: no evidence of osteomyelitis Imp: 37 year old poorly controlled non-compliant IDDM M with R foot diabetic ulcer, cellulitis 1. Abx per Infectious Disease 2. Rx santyl to R foot daily 3. Partial WB R heel with surgical offloading shoe 4. Rx MRI R foot to evaluate for osteomyelitis 5. Discussed case with infectious disease and primary team 6. Discussed with patient his non-compliance. He is clearly at risk for worsening of ulcer, worsening of infection, limb loss given his current situation. He has no intentions to stop working and stay off his foot. He is amenable to outpatient f/u at wound healing center however. I strongly recommend close f/u given patient's hesitancy to pursure treatment. [facility] #[phone]. 7. Will follow. Dilcia Turner DPM
--- NOTE | 2018-01-01 15:15 | EKG ---
Test Reason : Blood Pressure : / mmHG Vent. Rate : 124 BPM Atrial Rate : 124 BPM P-R Int : 154 ms QRS Dur : 074 ms QT Int : 312 ms P-R-T Axes : 065 022 039 degrees QTc Int : 448 ms SINUS TACHYCARDIA OTHERWISE NORMAL ECG WHEN COMPARED WITH ECG OF 26-SEP-2017 16:34, NO SIGNIFICANT CHANGE WAS FOUND Confirmed by MD Ervin Edward ([id number]) on 01/01/2018 3:15:24 PM Referred By: Confirmed By:Oliver Ervin MD
[2018-01-01] MEDS: IBUPROFEN 400 MG TABLET (FP) PO PRN (17:54)
--- NOTE | 2018-01-01 19:03 | PN ---
Teaching Attending Note Name of Resident: Cleve Hendrickson ATTENDING PHYSICIAN STATEMENT I saw and evaluated the patient. I reviewed the resident's note and discussed the case with the resident. I agree with the resident's findings and plan as documented. SUBJECTIVE: No fever or chills. No abd pain. leg feels better OBJECTIVE: 37 y/o man with h/o HLP, HTN, and IDDM who presented with light headedness and not feeling well. patient started feeling unwell wiht light headedness x 4 days . 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 he checked sugar and was 400 , so he took 36 units of levemir. he has DM and takes levemir HS and 75/25 mix AC. He reports compliance with his meds. he reports being treated for R foot ulcer with unknown Abx for unknown duration , he finished 1 week ago. he has chronic ulcer on R foot for which he was advised to take IV abx twice but he declined staying in hospital. he had MRI in September which showed no OM. he rpeorts clear drainage of his wound but no purulent drainage he was supposed to see podiatry ( unknown name ) , but he could not schedule apt OBJECTIVE: NAD. AAox3. CV: RRR Lungs: CTAB Abd: obese , NT, ND ,NL BS . Ext: RLE with erythema , edema and increased warmth on posterior, medial and lateral calf ( much improved form yesterday). a small ulcer on solar aspect of foot ( 5th MTP joint ) wihth no drainage , clean, no tenderness, no surrounding erythema . L leg with pedal edema , no erythema DP 2+ b/l ASSESSMENT AND PLAN: 37 y/o man with h/o HLP, HTN, and IDDM who presented with light headedness and not feeling well, and he was found to have sepsis due to RLE cellulitis . 1- Sepsis : due to RLE cellulitis. - cont aztreonam and vanco - US with no DVT - d/w Dr. Turner . MRI needed to r/o OM 2- Severe hyperglycemia due to uncontrolled DM: - cont 40 units of levemir q HS - increase dose of SSI 3- DOUGLAS : resolved 4- HTN: resume lisinopril . cont to hld HCTZ . can resume later if needed DVT PX: Heparin sq
[2018-01-01] MEDS: INSULIN (LEVEMIR) 100 UNITS/ML UNITS SQ SCH (21:11)
--- NOTE | 2018-01-01 21:49 | PN ---
Physical Exam: SUBJECTIVE: Yesterday presented with worsening RLE pain found to have RLE cellulitis with a diabetic foot ulcer (noninfected). Today pt feels much better. He denies any fever/chills, SOB, CP/discomfort, palpitations, diarrhea, abdominal pain. OBJECTIVE: Vital Signs Period Temp Pulse Resp BP Sys/Marinelli Pulse Ox Last 24 Hr 98 F-98.5 F 94-107 18-20 131-161/65-95 95 GENERAL: The patient is awake, alert, and fully oriented, in no acute distress. HEENT: EOMI, DACIA, sclera anicteric, No Jvd, MMM LUNGS: CTA bilaterally, no wheezes, no crackles, no accessory muscle use. HEART: RRR, S1, S2 without murmur ABDOMEN: Soft, nontender, nondistended, normoactive bowel sounds, no guarding EXTREMITIES: 2+ DP pulses, Hot RLE with receeding erythema below originally drawn line. Diabetic ulcer on R foot noted to be without erythema or purulence or drainage at this point NEUROLOGICAL: Strenght of LExt 5/5 in all mendez, sensation intact. Normal speech, gait not observed. PSYCH: Normal mood, normal affect. SKIN: See EXT exam Laboratory Results - last 24 hr 12/31/17 12/31/17 01/01/18 18:37 22:42 06:00 WBC 10.3 H RBC 4.15 Hgb 12.3 Hct 35.6 MCV 85.8 MCH 29.7 MCHC 34.7 RDW 13.0 Plt Count 137 MPV 7.9 Absolute Neuts (auto) 8.5 Neutrophils % 82.4 Lymphocytes % 9.1 D Monocytes % 6.5 Eosinophils % 1.6 D Basophils % 0.4 Nucleated RBC % 0 Sodium Potassium Chloride Carbon Dioxide Anion Gap BUN Creatinine Creat Clearance w eGFR POC Glucometer 255 Random Glucose Hemoglobin A1c % 12.5 H Calcium Blood Type Antibody Screen 01/01/18 01/01/18 01/01/18 06:00 06:00 06:33 WBC RBC Hgb Hct MCV MCH MCHC RDW Plt Count MPV Absolute Neuts (auto) Neutrophils % Lymphocytes % Monocytes % Eosinophils % Basophils % Nucleated RBC % Sodium 136 Potassium 4.2 Chloride 102 Carbon Dioxide 27 Anion Gap 7 L BUN 18 Creatinine 0.9 D Creat Clearance w eGFR > 60 POC Glucometer 312 Random Glucose 274 H D Hemoglobin A1c % Calcium 8.0 L Blood Type O POSITIVE Antibody Screen Negative 01/01/18 01/01/18 01/01/18 09:40 11:10 16:18 WBC RBC Hgb Hct MCV MCH MCHC RDW Plt Count MPV Absolute Neuts (auto) Neutrophils % Lymphocytes % Monocytes % Eosinophils % Basophils % Nucleated RBC % Sodium Potassium Chloride Carbon Dioxide Anion Gap BUN Creatinine Creat Clearance w eGFR POC Glucometer 310 242 Random Glucose Hemoglobin A1c % Calcium Blood Type O POSITIVE Antibody Screen 01/01/18 21:09 WBC RBC Hgb Hct MCV MCH MCHC RDW Plt Count MPV Absolute Neuts (auto) Neutrophils % Lymphocytes % Monocytes % Eosinophils % Basophils % Nucleated RBC % Sodium Potassium Chloride Carbon Dioxide Anion Gap BUN Creatinine Creat Clearance w eGFR POC Glucometer 332 Random Glucose Hemoglobin A1c % Calcium Blood Type Antibody Screen Active Medications Generic Name Dose Route Start Last Admin Trade Name Freq PRN Reason Stop Dose Admin Acetaminophen 650 mg 12/31/17 18:12 01/01/18 08:20 Tylenol - PO 650 mg Q4H PRN Administration FEVER Collagenase 1 applic 01/02/18 10:00 Santyl - TP DAILY JORDY Heparin Sodium (Porcine) 5,000 unit 01/01/18 06:00 01/01/18 21:11 Heparin - SQ 5,000 unit TID JORDY Administration Sodium Chloride 1,000 mls @ 125 mls/hr 12/31/17 18:45 01/01/18 08:16 Normal Saline - IV 125 mls/hr ASDIR JORDY Administration Aztreonam 1 gm/ Sodium 50 mls @ 100 mls/hr 01/01/18 12:15 01/01/18 17:22 Chloride IVPB 100 mls/hr Q8H-IV JORDY Administration Protocol Vancomycin HCl 1,250 mg/ 250 mls @ 166.667 mls/hr 01/01/18 14:00 01/01/18 13: 50 Sodium Chloride IVPB 166.667 mls/hr Q12H JORDY Administration Protocol Ibuprofen 400 mg 01/01/18 17:37 01/01/18 17:54 Motrin - PO 400 mg Q6H PRN Administration Pain 6-10 Insulin Aspart 1 vial 12/31/17 22:00 01/01/18 21:11 Novolog Vial Sliding Scale - SQ 8 unit HS JORDY Administration Protocol Insulin Aspart 1 vial 01/02/18 07:00 Novolog Vial Sliding Scale - SQ TIDAC [facility] Protocol Insulin Detemir 40 units 12/31/17 22:00 01/01/18 21:11 Levemir Vial SQ 40 units HS [facility] Administration Lisinopril 20 mg 01/02/18 10:00 Prinivil PO DAILY [facility] ASSESSMENT/PLAN: 1) Sepsis 2/2 to RLE cellulitis --Pt currently on Aztreonam and Vancomycin --Vanc trough 30min before 4th dose --Pt pen allergic with unknown reaction (can't remember) --Doppler US w/o DVTs 2) Diabetic foot ulcer --Does not look like infected ulcer at the time --Dr. Turner on the case --MRI tonight to r/o osteo --Santyl to wound 3) Hyperglycemia --Resolving back to pt's baseline --Likely increased due to infection --Continue Levemir 40U HS --ISS with adjusted scale due to persistent elevated levels FEN: Fluids: NS@125cc/hr electrolyte abnormalities: none currently Nutrition: diabetic diet PPX: Heparin Sq - DVT Dispo: continue monitoring; markedly improving Case discussed with Dr. Eleni Hendrickson, DO - IM PGY-1 Visit type - Emergency Visit Emergency Visit: No - New Patient This patient is new to me today: Yes Date on this admission: 01/01/18 - Critical Care Critical Care patient: No
[2018-01-02] MEDS ORDERED: PT OWN MED DRAWER 7, Y5N ONE ×3 (01:19→09:15)
[2018-01-02] MEDS: SODIUM CHLORIDE 1,000 ML IV SCH ×4 (01:21→20:58)
[2018-01-02] MEDS: IBUPROFEN 400 MG TABLET (FP) PO PRN ×4 (01:21→21:02)
[2018-01-02] MEDS: AZTREONAM 1 GM in SODIUM CHLORIDE 50 ML IVPB SCH ×3 (01:21→17:41)
[2018-01-02] MEDS: VANCOMYCIN 1,250 MG in SODIUM CHLORIDE 250 ML IVPB SCH ×2 (02:47→13:11)
[2018-01-02] MEDS: HEPARIN NA (PORCINE) 5,000 UNITS/ML 1ML VIAL SQ SCH ×3 (06:24→21:04)
[2018-01-02] MEDS: INSULIN SLIDING SCALE (NOVOLOG) 1 VIAL SQ SCH ×4 (06:24→21:00)
[2018-01-02 07:47] LABS: HEMATOCRIT 34.6 % (35.4-49); HEMOGLOBIN 12.1 GM/dL (11.7-16.9); MCH 29.7 pg (25.7-33.7); MCHC 34.9 g/dl (32.0-35.9); MEAN CELL VOLUME 85.1 fl (80-96); PLATELET COUNT 133 K/MM3 (134-434); RBC 4.06 M/mm3 (4.00-5.60); RDW 12.9 % (11.9-15.9); WHITE BLOOD COUNT 5.2 K/mm3 (4.0-10.0)
[2018-01-02 08:11] LABS: CHLORIDE 103 mmol/L (98-107); POTASSIUM 4.5 mmol/L (3.5-5.1); SODIUM 137 mmol/L (136-145)
[2018-01-02 08:16] LABS: ANION GAP 6 (8-16); BLOOD UREA NITROGEN 11 mg/dL (7-18); CALCIUM 7.7 mg/dL (8.5-10.1); CO2 28 mmol/L (21-32); CREATININE 0.9 mg/dL (0.7-1.3); GLUCOSE,RANDOM 258 mg/dL (74-106)
--- NOTE | 2018-01-02 09:04 | PN ---
Progress Note (short form) - Note Progress Note: ID vancomycin aztreonam Selected Entries 01/02/18 06:00 Temperature 98.1 F Pulse Rate 100 H Respiratory 20 Rate Blood Pressure 148/97 Exam RLE confluent erythema improving Dry plantar ulcer 5th metatarsal Microbiology 12/31/17 13:15 Throat Throat Culture - Final 12/31/17 13:15 Throat Group A Strep Rapid Antigen - Final NO BETA HEMOLYTIC STREPTOCOCCI ISOLATED 12/31/17 13:00 Urine - Urine Clean Catch Urine Culture - Final NO GROWTH OBTAINED 12/31/17 13:10 Blood - Peripheral Venous Blood Culture - Preliminary NO GROWTH OBTAINED AFTER 24 HOURS, INCUBATION TO CONTINUE FOR 4 DAYS. 12/31/17 13:00 Blood - Peripheral Venous Blood Culture - Preliminary NO GROWTH OBTAINED AFTER 24 HOURS, INCUBATION TO CONTINUE FOR 4 DAYS. Laboratory Tests 12/31/17 01/02/18 01/02/18 14:50 06:45 06:45 WBC 5.2 D Hgb 12.1 Hct 34.6 L Plt Count 133 L ESR 18 H BUN 11 D Creatinine 0.9 Assessment Cellulitis improving Plantar ulcer Diabetes Low platelets ? secondary SSTI Plan Could consider oral Clindamycin for discharge Should have HIV test if he has not had one recently Outpt follow up for SSTI ulcer and low platelets Alejandra PATTERSON
[2018-01-02] MEDS ORDERED: LISINOPRIL 20 MG TABLET (FP) PO SCH (10:00)
[2018-01-02] MEDS ORDERED: COLLAGENASE CLOSTRIDIUM HIST. 30 GRAMS TUBE TP SCH (10:00)
[2018-01-02] MEDS ORDERED: INSULIN (NOVOLOG) ASPART 100 UNITS/ML 10ML VIAL ONE ×3 (11:09→20:55)
--- NOTE | 2018-01-02 17:27 | PN ---
Physical Exam: SUBJECTIVE: Patient seen and examined OBJECTIVE: Vital Signs Period Temp Pulse Resp BP Sys/Marinelli Pulse Ox Last 24 Hr 97.7 F-99.2 F 90-100 18-21 148-163/84-101 95-98 GENERAL: The patient is awake, alert, and fully oriented, in no acute distress. HEAD: Normal with no signs of trauma. EYES: PERRL, extraocular movements intact, sclera anicteric, conjunctiva clear. No ptosis. ENT: Ears normal, nares patent, oropharynx clear without exudates, moist mucous membranes. NECK: Trachea midline, full range of motion, supple. LUNGS: Breath sounds equal, clear to auscultation bilaterally, no wheezes, no crackles, no accessory muscle use. HEART: Regular rate and rhythm, S1, S2 without murmur, rub or gallop. ABDOMEN: Soft, nontender, nondistended, normoactive bowel sounds, no guarding, no rebound, no hepatosplenomegaly, no masses. EXTREMITIES: 2+ pulses, warm, well-perfused, no edema. NEUROLOGICAL: Cranial nerves II through XII grossly intact. Normal speech, gait not observed. PSYCH: Normal mood, normal affect. SKIN: Warm, dry, normal turgor, no rashes or lesions noted Laboratory Results - last 24 hr 01/01/18 01/02/18 01/02/18 21:09 06:23 06:45 WBC 5.2 D RBC 4.06 Hgb 12.1 Hct 34.6 L MCV 85.1 MCH 29.7 MCHC 34.9 RDW 12.9 Plt Count 133 L MPV 8.0 Sodium Potassium Chloride Carbon Dioxide Anion Gap BUN Creatinine Creat Clearance w eGFR POC Glucometer 332 256 Random Glucose Calcium 01/02/18 01/02/18 01/02/18 06:45 10:59 16:33 WBC RBC Hgb Hct MCV MCH MCHC RDW Plt Count MPV Sodium 137 Potassium 4.5 Chloride 103 Carbon Dioxide 28 Anion Gap 6 L BUN 11 D Creatinine 0.9 Creat Clearance w eGFR > 60 POC Glucometer 302 289 Random Glucose 258 H Calcium 7.7 L Active Medications Generic Name Dose Route Start Last Admin Trade Name Freq PRN Reason Stop Dose Admin Acetaminophen 650 mg 12/31/17 18:12 01/01/18 08:20 Tylenol - PO 650 mg Q4H PRN Administration FEVER Collagenase 1 applic 01/02/18 10:00 01/02/18 09:20 Santyl - TP 1 applic DAILY JORDY Administration Heparin Sodium (Porcine) 5,000 unit 01/01/18 06:00 01/02/18 13:11 Heparin - SQ 5,000 unit TID JORDY Administration Sodium Chloride 1,000 mls @ 125 mls/hr 12/31/17 18:45 01/02/18 09:21 Normal Saline - IV 125 mls/hr ASDIR JORDY Administration Aztreonam 1 gm/ Sodium 50 mls @ 100 mls/hr 01/01/18 12:15 01/02/18 09:20 Chloride IVPB 100 mls/hr Q8H-IV JORDY Administration Protocol Vancomycin HCl 1,250 mg/ 250 mls @ 166.667 mls/hr 01/01/18 14:00 01/02/18 13: 11 Sodium Chloride IVPB 166.667 mls/hr Q12H JORDY Administration Protocol Ibuprofen 400 mg 01/01/18 17:37 01/02/18 13:11 Motrin - PO 400 mg Q6H PRN Administration Pain 6-10 Insulin Aspart 1 vial 12/31/17 22:00 01/01/18 21:11 Novolog Vial Sliding Scale - SQ 8 unit HS JORDY Administration Protocol Insulin Aspart 1 vial 01/02/18 07:00 01/02/18 16:54 Novolog Vial Sliding Scale - SQ 12 unit TIDAC JORDY Administration Protocol Insulin Detemir 40 units 12/31/17 22:00 01/01/18 21:11 Levemir Vial SQ 40 units HS JORDY Administration Lisinopril 20 mg 01/02/18 10:00 01/02/18 09:19 Prinivil PO 20 mg DAILY JORDY Administration ASSESSMENT/PLAN:
[2018-01-02] MEDS: ACETAMINOPHEN 325 MG TABLET (FP) PO PRN (17:52)
--- NOTE | 2018-01-02 19:00 | PN ---
Teaching Attending Note Name of Resident: Cleve Hendrickson ATTENDING PHYSICIAN STATEMENT I saw and evaluated the patient. I reviewed the resident's note and discussed the case with the resident. I agree with the resident's findings and plan as documented. SUBJECTIVE: Patient is comfortable with no acute distress. No fever or chills. OBJECTIVE: Vital Signs Temperature 98.1 F 01/02/18 18:00 Pulse Rate 96 H 01/02/18 18:00 Respiratory Rate 18 01/02/18 18:00 Blood Pressure 165/95 01/02/18 18:00 O2 Sat by Pulse Oximetry (%) 98 01/02/18 09:00 CBCD WBC 5.2 K/mm3 (4.0-10.0) D 01/02/18 06:45 RBC 4.06 M/mm3 (4.00-5.60) 01/02/18 06:45 Hgb 12.1 GM/dL (11.7-16.9) 01/02/18 06:45 Hct 34.6 % (35.4-49) L 01/02/18 06:45 MCV 85.1 fl (80-96) 01/02/18 06:45 MCHC 34.9 g/dl (32.0-35.9) 01/02/18 06:45 RDW 12.9 % (11.9-15.9) 01/02/18 06:45 Plt Count 133 K/MM3 (134-434) L 01/02/18 06:45 MPV 8.0 fl (7.5-11.1) 01/02/18 06:45 CMP Sodium 137 mmol/L (136-145) 01/02/18 06:45 Potassium 4.5 mmol/L (3.5-5.1) 01/02/18 06:45 Chloride 103 mmol/L (98-107) 01/02/18 06:45 Carbon Dioxide 28 mmol/L (21-32) 01/02/18 06:45 Anion Gap 6 (8-16) L 01/02/18 06:45 BUN 11 mg/dL (7-18) D 01/02/18 06:45 Creatinine 0.9 mg/dL (0.7-1.3) 01/02/18 06:45 Creat Clearance w eGFR > 60 (>60) 01/02/18 06:45 Random Glucose 258 mg/dL (74-106) H 01/02/18 06:45 Calcium 7.7 mg/dL (8.5-10.1) L 01/02/18 06:45 Total Bilirubin 1.1 mg/dL (0.2-1.0) H D 12/31/17 13:00 AST 17 U/L (15-37) 12/31/17 13:00 ALT 39 U/L (12-78) 12/31/17 13:00 Alkaline Phosphatase 99 U/L (45-117) 12/31/17 13:00 Total Protein 7.4 g/dl (6.4-8.2) 12/31/17 13:00 Albumin 3.0 g/dl (3.4-5.0) L D 12/31/17 19:55 CARDIAC ENZYMES Troponin I < 0.02 ng/ml (0.00-0.05) 12/31/17 13:00 Current Medications Generic Name Dose Route Start Last Admin Trade Name Freq PRN Reason Stop Dose Admin Acetaminophen 650 mg 12/31/17 18:12 01/02/18 17:52 Tylenol - PO 650 mg Q4H PRN Administration FEVER Collagenase 1 applic 01/02/18 10:00 01/02/18 09:20 Santyl - TP 1 applic DAILY JORDY Administration Heparin Sodium (Porcine) 5,000 unit 01/01/18 06:00 01/02/18 13:11 Heparin - SQ 5,000 unit TID JORDY Administration Sodium Chloride 1,000 mls @ 125 mls/hr 12/31/17 18:45 01/02/18 09:21 Normal Saline - IV 125 mls/hr ASDIR JORDY Administration Aztreonam 1 gm/ Sodium 50 mls @ 100 mls/hr 01/01/18 12:15 01/02/18 17:41 Chloride IVPB 100 mls/hr Q8H-IV JORDY Administration Protocol Vancomycin HCl 1,250 mg/ 250 mls @ 166.667 mls/hr 01/01/18 14:00 01/02/18 13: 11 Sodium Chloride IVPB 166.667 mls/hr Q12H JORDY Administration Protocol Ibuprofen 400 mg 01/01/18 17:37 01/02/18 13:11 Motrin - PO 400 mg Q6H PRN Administration Pain 6-10 Insulin Aspart 1 vial 12/31/17 22:00 01/01/18 21:11 Novolog Vial Sliding Scale - SQ 8 unit HS JORDY Administration Protocol Insulin Aspart 1 vial 01/02/18 07:00 01/02/18 16:54 Novolog Vial Sliding Scale - SQ 12 unit TIDAC JORDY Administration Protocol Insulin Detemir 40 units 12/31/17 22:00 01/01/18 21:11 Levemir Vial SQ 40 units HS JORDY Administration Lisinopril 20 mg 01/02/18 10:00 01/02/18 09:19 Prinivil PO 20 mg DAILY JORDY Administration Home Medications Medication Instructions Recorded Lisinopril/Hydrochlorothiazide 1 each PO DAILY 05/12/17 [Lisinopril-Hctz 20-12.5 mg Tab] metFORMIN HCL [Metformin HCl] 1,000 mg PO BID 05/12/17 Atorvastatin Ca [Lipitor] 20 mg PO DAILY 12/31/17 Insulin Glargine,Hum.rec.anlog 36 unit SQ HS 12/31/17 [Basaglar Kwikpen U-100] Insulin Lispro Protamin/Lispro 30 unit SQ TID 12/31/17 [Humalog Mix 75-25 Kwikpen] US : no DVT ASSESSMENT AND PLAN: Patient is a 37 y/o man with h/o HLP, HTN, and IDDM who presented with light headedness and not feeling well, and he was found to have sepsis due to RLE cellulitis . # Sepsis : due to RLE cellulitis. on Azactam and Vancomycin level is 13.5 continue s/p MRI reported no Osteomyelitis. # Severe hyperglycemia due to uncontrolled DM: continue Levemir 40 Units q HS, with SSI # DOUGLAS : resolved # HTN: continue lisinopril since DOUGLAS resolved DVT PX: Heparin sq
[2018-01-02] MEDS ORDERED: amLODIPine BESYLATE 10 MG TABLET (FP) PO ONE (21:00)
[2018-01-02] MEDS: INSULIN (LEVEMIR) 100 UNITS/ML UNITS SQ SCH (21:04)
[2018-01-03] MEDS ORDERED: PT OWN MED DRAWER 7, Y5N ONE (00:39)
[2018-01-03 00:55] VITALS: BP 149/90; PULSE 96; TEMP 97.8
[2018-01-03] MEDS: AZTREONAM 1 GM in SODIUM CHLORIDE 50 ML IVPB SCH (01:04)
[2018-01-03] MEDS: VANCOMYCIN 1,250 MG in SODIUM CHLORIDE 250 ML IVPB SCH (01:04)
[2018-01-03] MEDS: HEPARIN NA (PORCINE) 5,000 UNITS/ML 1ML VIAL SQ SCH (06:47)
[2018-01-03] MEDS: INSULIN SLIDING SCALE (NOVOLOG) 1 VIAL SQ SCH (06:47)
[2018-01-03] MEDS ORDERED: INSULIN (NOVOLOG) ASPART 100 UNITS/ML 10ML VIAL ONE (06:54)
--- NOTE | 2018-01-03 08:01 | DS ---
Physical Exam: SUBJECTIVE: Patient seen and examined OBJECTIVE: Vital Signs Period Temp Pulse Resp BP Sys/Marinelli Pulse Ox Last 24 Hr 97.7 F-98.5 F 92-97 18-21 149-186/90-105 96-98 PHYSICAL EXAM GENERAL: The patient is awake, alert, and fully oriented, in no acute distress. HEAD: Normal with no signs of trauma. EYES: PERRL, extraocular movements intact, sclera anicteric, conjunctiva clear. ENT: Ears normal, nares patent, oropharynx clear without exudates, moist mucous membranes. NECK: Trachea midline, full range of motion, supple. LUNGS: Breath sounds equal, clear to auscultation bilaterally, no wheezes, no crackles, no accessory muscle use. HEART: Regular rate and rhythm, S1, S2 without murmur, rub or gallop. ABDOMEN: Soft, nontender, nondistended, normoactive bowel sounds, no guarding, no rebound, no hepatosplenomegaly, no masses. EXTREMITIES: 2+ pulses, warm, well-perfused, no edema. NEUROLOGICAL: Cranial nerves II through XII grossly intact. Normal speech, gait not observed. PSYCH: Normal mood, normal affect. SKIN: Warm, dry, normal turgor, no rashes or lesions noted. LABS Laboratory Results - last 24 hr 01/02/18 01/02/18 01/02/18 06:45 06:45 10:59 WBC 5.2 D RBC 4.06 Hgb 12.1 Hct 34.6 L MCV 85.1 MCH 29.7 MCHC 34.9 RDW 12.9 Plt Count 133 L MPV 8.0 Sodium 137 Potassium 4.5 Chloride 103 Carbon Dioxide 28 Anion Gap 6 L BUN 11 D Creatinine 0.9 Creat Clearance w eGFR > 60 POC Glucometer 302 Random Glucose 258 H Calcium 7.7 L 01/02/18 01/02/18 01/03/18 16:33 20:41 06:46 WBC RBC Hgb Hct MCV MCH MCHC RDW Plt Count MPV Sodium Potassium Chloride Carbon Dioxide Anion Gap BUN Creatinine Creat Clearance w eGFR POC Glucometer 289 253 240 Random Glucose Calcium HOSPITAL COURSE: Date of Admission:12/31/17 Date of Discharge: 01/03/18 <Cleve Hendrickson - Last Filed: 01/03/18 08:01> Physical Exam: Patient left against medical advise. Given Rx for clindamycin as per recommendation of ID. <Chika Hall - Last Filed: 01/03/18 14:43> Discharge Summary Reason For Visit: DIABETIC FOOT ULCER/SEPSIS Current Active Problems Diabetic foot ulcer (Acute) Sepsis (Acute) - Home Medications Comprehensive Discharge Medication List: Ambulatory Orders Lisinopril/Hydrochlorothiazide [Lisinopril-Hctz 20-12.5 mg Tab] 1 each PO DAILY 05/12/17 metFORMIN HCL [Metformin HCl] 1,000 mg PO BID 05/12/17 Atorvastatin Ca [Lipitor] 20 mg PO DAILY 12/31/17 Insulin Glargine,Hum.rec.anlog [Basaglar Kwikpen U-100] 36 unit SQ HS 12/31/17 Insulin Lispro Protamin/Lispro [Humalog Mix 75-25 Kwikpen] 30 unit SQ TID Clindamycin [Cleocin -] 300 mg PO Q6HPO #12 capsule 01/03/18 <Cleve Hendrickson - Last Filed: 01/03/18 08:01> - Home Medications Comprehensive Discharge Medication List: Ambulatory Orders Lisinopril/Hydrochlorothiazide [Lisinopril-Hctz 20-12.5 mg Tab] 1 each PO DAILY 05/12/17 metFORMIN HCL [Metformin HCl] 1,000 mg PO BID 05/12/17 Atorvastatin Ca [Lipitor] 20 mg PO DAILY 12/31/17 Insulin Glargine,Hum.rec.anlog [Basaglar Kwikpen U-100] 36 unit SQ HS 12/31/17 Insulin Lispro Protamin/Lispro [Humalog Mix 75-25 Kwikpen] 30 unit SQ TID Clindamycin [Cleocin -] 300 mg PO Q6HPO #12 capsule 01/03/18 <Chika Hall - Last Filed: 01/03/18 14:43> Condition: Fair - Instructions Diet, Activity, Other Instructions: You were seen here for your skin infection of your leg. You did not have any infection of your bone. MEDICATIONS: You will be given Clindamycin 300mg to take FOUR TIMES DAILY for 4 more days. --This medication has been sent to your pharmacy at [facility] You can continue to take your diabetes medication as you have been prior to your hospital stay. FOLLOW-UPs: You should follow-up with Dr. Roberts in his clinic to see if the infection has resolved next week You should also continue to follow-up with your primary doctor to let him know what has happened during your hospital stay. Referrals: Junior Roberts MD [Staff Physician] - Raissa Campbell [Primary Care Provider] - Disposition: AGAINST MEDICAL ADVICE
== END 2018-01-03 10:42 | disposition left against medical advice (07) | DRG 720 ==
LOC: JER 11:50 → JERBED 15:53 → J7W 18:55
PROVIDERS: ADMIT Internal Medicine; ATTEND Internal Medicine
DX: A41.9 Sepsis, unspecified organism (principal); N17.9 Acute kidney failure, unspecified; E11.621 Type 2 diabetes mellitus with foot ulcer; E11.65 Type 2 diabetes mellitus with hyperglycemia; E87.1 Hypo-osmolality and hyponatremia; I10 Essential (primary) hypertension; E78.5 Hyperlipidemia, unspecified; Z79.84 Long term (current) use of oral hypoglycemic drugs; Z79.4 Long term (current) use of insulin; L03.115 Cellulitis of right lower limb; Z88.0 Allergy status to penicillin; Z91.14 Patient's other noncompliance with medication regimen
CPT/HCPCS: 36415; 71045-TC-FY; 73630-TC-RT-FY; 73718-TC; 80048; 80053; 81003; 81015; 82040; 82803; 82962; 83036; 83605; 84484; 85025; 85027; 85610; 85651; 85730; 86140; 86850; 86900; 86901; 87040; 87070; 87086; 87430; 93005; 93010; 93971-TC; 99284-25; J1644; J7030

== ENCOUNTER 2018-02-17 08:13 | Inpatient (IN) | payer OTHER ==
[2018-02-17 08:30] VITALS: BMI 33.0
--- NOTE | 2018-02-17 08:57 | PDOC ---
History of Present Illness - General Chief Complaint: Respiratory Stated Complaint: BODY PAIN Time Seen by Provider: 02/17/18 08:48 - History of Present Illness Initial Comments: 02/17/18 11:14 The patient is a 37 year old male with a history of IDDM, HTN who presents for evaluation of generalized body aches and tingling in the extremities. The patient reports onset of generalized body aches and tingling in his hands and feet prompting his presentation to the ED for further evaluation. He notes some increased thirst and upper back pain, but otherwise denies fevers, chills, SOB, chest pain, nausea, vomiting, abdominal pain or changes with urination or bowel movements. Past History - Past Medical History Allergies/Adverse Reactions: Allergies Allergy/AdvReac Type Severity Reaction Status Date / Time Penicillins Allergy Verified 02/17/18 08:30 Home Medications: Ambulatory Orders Lisinopril/Hydrochlorothiazide [Lisinopril-Hctz 20-12.5 mg Tab] 1 each PO DAILY 05/12/17 metFORMIN HCL [Metformin HCl] 1,000 mg PO BID 05/12/17 Atorvastatin Ca [Lipitor] 20 mg PO DAILY 12/31/17 Insulin Glargine,Hum.rec.anlog [Basaglar Kwikpen U-100] 36 unit SQ HS 12/31/17 Insulin Lispro Protamin/Lispro [Humalog Mix 75-25 Kwikpen] 30 unit SQ TID Clindamycin [Cleocin -] 300 mg PO Q6HPO #12 capsule 01/03/18 COPD: No Diabetes: Yes (IDDM) HTN: Yes Psychiatric Problems: Yes (DEPRESSION) - Suicide/Smoking/Psychosocial Hx Smoking History: Never smoked Have you smoked in the past 12 months: No Hx Alcohol Use: No Drug/Substance Use Hx: No Substance Use Type: None Hx Substance Use Treatment: No Review of Systems - Review of Systems Comments:: 02/17/18 11:17 Constitutional: Fatigue, Body aches. No fevers, chills HEENT: No Rhinorrhea, nasal congestion, visual changes Cardiovascular: No chest pain, syncope, palpitations, lightheadedness Respiratory: No Cough, SOB, Hemoptysis, Gastrointestinal: No Abdominal pain, Nausea, Vomiting, Constipation, Diarrhea, Melena Genitourinary: No Dysuria, Frequency, Urgency, Hesitancy, Hematuria, Flank pain Musculoskeletal: Back pain. No Myalgia, arthralgia Skin: No rashes, itching, bruising, pallor Neurologic: No Headache, Dizziness, Numbness, Weakness, or Tingling Psychiatric: No Hallucinations. No SI or HI *Physical Exam - Vital Signs Last Vital Signs Temp Pulse Resp BP Pulse Ox 98.6 F 140 H 20 166/95 98 02/17/18 08:26 02/17/18 08:26 02/17/18 08:26 02/17/18 08:26 02/17/18 08:26 - Physical Exam Comments: 02/17/18 11:22 General Appearance: Nourished. No Apparent Distress HEENT: No Pharyngeal Erythema, Tonsillar Exudate, Tonsillar Erythema Neck: No Cervical Lymphadenopathy Respiratory/Chest: Lungs Clear, Normal Breath Sounds. No Crackles, Rales, Rhonchi, Wheezing Cardiovascular: Regular Rhythm, Tachycardic Rate. No Murmur, Gallops, Rubs Gastrointestinal/Abdominal: Normal Bowel Sounds, Soft. No Guarding, Rebound, Tenderness Musculoskeletal: No CVA Tenderness Extremity: Erythma and warmth to the right lower extremity. Normal Capillary Refill Integumentary: Normal Color, Dry, Warm Neurologic: Fully Oriented, Alert, Normal Mood/Affect, Normal Response, Heart Score/ECG Review #1 ECG reviewed & interpreted by me at: 09:12 (Sinus Tachycardia) General ECG Interpretation: Sinus Rhythm, Normal Intervals, No acute ischemic changes ED Treatment Course - LABORATORY CBC & Chemistry Diagram: 02/17/18 09:20 02/17/18 09:20 Medical Decision Making - Medical Decision Making 02/17/18 11:26 The patient is a 37 year old male with a history of IDDM, HTN who presents for evaluation of generalized body aches and tingling in the extremities. Differential include but is not limited to: DKA, DVT, Pneumonia, Infectious, Metabolic Derangement. Given the patient's history and physical exam, we will obtain a cbc, cmp, d-dimer, dvt US, vbg, acetone, chest plain film, ekg to evaluate further. We will treat the patient with iv fluids and tylenol and continue to monitor and reassess while here in the ED. 02/17/18 16:24 CBC demonstrates a wbc to 18. Glucose is elevated to 300s. Given the patient' s persistent tachycardia and elevated WBC, we believe he requires admission for further management. We will treat the patient with vancomycin as the only source of the patients elevated wbc is a possible cellulitis to the patient's right lower extremity. We will continue to treat the patient with iv fluids. We discussed the case with the admitting team who accepted the patient for admission. *DC/Admit/Observation/Transfer Diagnosis at time of Disposition: Tachycardia Cellulitis Qualifiers: Site of cellulitis: unspecified site Qualified Code(s): L03.90 - Cellulitis, unspecified - Discharge Dispostion Condition at time of disposition: Stable Decision to Admit order: Yes - Referrals - Patient Instructions - Post Discharge Activity
--- NOTE | 2018-02-17 09:07 | PDOC ---
Attending Attestation - Resident Resident Name: Jean Carlos Garcia - ED Attending Attestation I have performed the following: I have examined & evaluated the patient, The case was reviewed & discussed with the resident, I agree w/resident's findings & plan, Exceptions are as noted - HPI HPI: 02/17/18 09:06 The patient is a 37 year old male, with a significant past medical history of DM , depression, hypertension, and hyperlipidemia, who presents to the emergency department with,nset of body aches last night (extermity, backpain, headache). 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 He describes his back pain as achy and as if someone punched him, worsening when standing, and alleviated while lying on his side. The patient reports associated chills, tingling of his hands and feet and rapid breathing without shortness of breath, and diffuse body aches. The patient checks his blood sugars everyday but, reports not checking his levels yesterday. His baseline blood glucose range is between 190-200 and occasionally within the 400s. Pt also endorses some frequency recently. He reports similar episodes in the past which he followed up with his PCP. He denies any calf pain. He denies any change in bowel movements. He denies any recent head trauma. He denies any recent dizziness. He denies any recent diarrhea or constipation. He denies any recent chest pain or shortness of breath. He denies any recent dysuria, urgency or hematuria. Allergies: Penicillins Past surgical history: None reported. Social History: Nonsmoker. Denies EtOH use and recreational drug use. Primary Care Physician: Dr. Campbell - Physicial Exam PE: 02/17/18 11:08 GENERAL: The patient is awake, alert, and fully oriented, Nontoxic - in no acute distress. HEAD: Normocephalic, atraumatic. EYES: extraocular movements intact, sclera anicteric, conjunctiva clear. ENT: Normal voice, Moist mucous membranes. NECK: Normal range of motion, supple, without signs of meningismus LUNGS: Breath sounds equal, clear to auscultation bilaterally. No wheezes, no rhonchi, no rales. HEART: Regular rate and rhythm, normal S1 and S2 without murmur, rub or gallop. ABDOMEN: Soft, nontender, No guarding, no rebound. No CVA tenderness EXTREMITIES: R centeno - circumferential erythema/warmth to the touch, nontender, neg homans, no calf tenderness NEUROLOGICAL: No facial assymetry, Normal speech, PSYCH: Normal mood, normal affect. SKIN: Warm, Dry, normal turgor, - Medical Decision Making 02/17/18 09:36 37y M hx of IDDM, hypertension, hyperlipidemia, and depression, pw complaint body aches/bacl pain , polyuria exam noted for tachycardia, mild warmtherythema to his RLE ddx dka, dvt/pe, metabolic derangement will ck labs will give fluids/tylenol for pain/tachycarida dvt study will send dimer to screen for pe 02/17/18 11:34 labs reviewed - noted for leukocytosis 02/17/18 12:19 D-dimer resulted (but not on meditech ) - discussed with lab <200 Heart Score/ECG Review - ECG Impressions Comment:: 02/17/18 09:45 Twelve-lead EKG was performed and reviewed by me. There is normal sinus rhythm with a rate of 136 The axis is normal. The intervals are normal. There is normal R wave progression There are no ST or T wave abnormalities. Impression: sinus tachcyardia
[2018-02-17] MEDS ORDERED: SODIUM CHLORIDE 1,000 ML IV ONE ×2 (09:31→11:54)
[2018-02-17] MEDS ORDERED: ACETAMINOPHEN 325 MG TABLET (FP) PO ONE (09:31)
[2018-02-17 10:00] LABS: HEMATOCRIT 41.6 % (35.4-49); HEMOGLOBIN 14.5 GM/dL (11.7-16.9); MCH 29.2 pg (25.7-33.7); MCHC 34.9 g/dl (32.0-35.9); MEAN CELL VOLUME 83.6 fl (80-96); MEAN PLT VOLUME 7.9 fl (7.5-11.1); PLATELET COUNT 160 K/MM3 (134-434); RBC 4.98 M/mm3 (4.00-5.60); RDW 13.3 % (11.9-15.9); WHITE BLOOD COUNT 18.8 K/mm3 (4.0-10.0)
[2018-02-17] MEDS ORDERED: ACETAMINOPHEN 325 MG TABLET (FP) ONE (10:00)
[2018-02-17 10:05] LABS: VENOUS PC02 34.6 mmHg (38-52); VENOUS PH 7.48 (7.32-7.42); VENOUS PO2 27.2 mmHg (28-48)
[2018-02-17 10:24] LABS: ALBUMIN 3.5 g/dl (3.4-5.0); ALK PHOS 101 U/L (45-117); ANION GAP 10 (8-16); BLOOD UREA NITROGEN 19 mg/dL (7-18); CHLORIDE 100 mmol/L (98-107); CO2 25 mmol/L (21-32); CREATININE 1.2 mg/dL (0.7-1.3); POTASSIUM 4.3 mmol/L (3.5-5.1); SGOT/AST 21 U/L (15-37); SGPT/ALT 35 U/L (12-78); SODIUM 135 mmol/L (136-145); TOT PROT 6.7 g/dl (6.4-8.2)
[2018-02-17 10:34] LABS: GLUCOSE,RANDOM 374 mg/dL (74-106)
[2018-02-17 11:20] LABS: URINE APPEARANCE CLEAR; URINE BILIRUBIN NEGATIVE (<2.0 mg/dL); URINE COLOR LTYELLOW; URINE GLUCOSE (UA) 3+ (NEGATIVE); URINE KETONE NEGATIVE (NEGATIVE); URINE LEUK ESTERASE NEGATIVE (NEGATIVE); URINE NITRITE NEGATIVE (NEGATIVE); URINE UROBILINOGEN NEGATIVE mg/dL (0.2-1.0)
[2018-02-17 11:46] LABS: URINE PROTEIN 2+ (NEGATIVE)
[2018-02-17] MEDS ORDERED: VANCOMYCIN 1,500 MG in DEXTROSE 5%-WATER - 500 ML IVPB ONE (11:59)
[2018-02-17] MEDS ORDERED: SODIUM CHLORIDE 1,000 ML IV STA (12:05)
[2018-02-17 12:10] LABS: PLATELET ESTIMATE ADEQUATE
--- NOTE | 2018-02-17 13:49 | HP ---
CHIEF COMPLAINT: back pain PCP: HISTORY OF PRESENT ILLNESS: 37M w/ pmhx of DM, depression, HTN, HLD who presented in the ED with fever, chills, back pain, and diffuse body aches that started last night during his driving shift aroun 9pm. 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 He says he took Motrin that alleviated the back pain. He also admits to associated symptoms of tingling in his hands and feet and rapid rapid breathing. Upon initial examination in the ED, he denied fever/chills, headaches, shortness of breath. He did admit to persistent back pain in the mid-thoracic region that radiates to the upper thoracics. ER course was notable for: (1) Vancomycin 1500cc @ 250cc/hr (2) ECG showed sinus tachycardia (3) LE Doppler U/S showed no evidence of acute DVT Recent Travel: PAST MEDICAL HISTORY: DM, depression, HTN, HLD PAST SURGICAL HISTORY: hand sx, childhood foot sx, childhood Social History: Smoking: denies Alcohol: denies Drugs: denies Family History: Father- HTN Allergies Penicillins Allergy (Verified 02/17/18 08:30) HOME MEDICATIONS: Home Medications Medication Instructions Recorded Lisinopril/Hydrochlorothiazide 1 each PO DAILY 05/12/17 [Lisinopril-Hctz 20-12.5 mg Tab] metFORMIN HCL [Metformin HCl] 1,000 mg PO BID 05/12/17 Atorvastatin Ca [Lipitor] 20 mg PO DAILY 12/31/17 Insulin Glargine,Hum.rec.anlog 36 unit SQ HS 12/31/17 [Basaglar Kwikpen U-100] Insulin Lispro Protamin/Lispro 30 unit SQ TID 12/31/17 [Humalog Mix 75-25 Kwikpen] Clindamycin [Cleocin -] 300 mg PO Q6HPO #12 capsule 01/03/18 REVIEW OF SYSTEMS CONSTITUTIONAL: Denies fever, chills HEENT: Denies headaches, dizziness, fainting episodes, loss of appetite Absent: rhinorrhea, nasal congestion, throat pain, throat swelling, difficulty swallowing, mouth swelling, ear pain, eye pain, visual changes CARDIOVASCULAR: Denies chest pain, palpitations, lightheadedness, syncope RESPIRATORY: Denies cough, shortness of breath, wheezing GASTROINTESTINAL: Denies abdominal pain, nausea, vomiting, diarrhea, constipation, blood in stool Absent: abdominal pain, abdominal distension, nausea, vomiting, diarrhea, constipation, melena, hematochezia GENITOURINARY: Denies urinary symptoms, denies hematuria or flank pain MUSCULOSKELETAL: Admits to mid-thoracic back pain that radiates to the upper thoracic region SKIN: Denies rash, itching, pallor HEMATOLOGIC/IMMUNOLOGIC: Admits to a healing R foot wound ulcer NEUROLOGIC: Denies headache, dizziness, unsteady gait, bladder or bowel incontinence PHYSICAL EXAMINATION Vital Signs - 24 hr 02/17/18 02/17/18 02/17/18 08:26 11:19 12:28 Temperature 98.6 F 97.8 F 97.8 F Pulse Rate 140 H Pulse Rate [ 124 H 113 H Left Apical] Respiratory 20 18 18 Rate Blood Pressure 166/95 Blood Pressure 128/77 124/86 [Left Arm] O2 Sat by Pulse 98 98 98 Oximetry (%) GENERAL: AAOx3. NAD. Resting comfortably. Obese. HEENT: AT/NC. Moist mucus membranes. NECK: Normal range of motion, supple without lymphadenopathy, JVD, or masses. LUNGS: CTA B/L. No wheezes, rhonchi, rales noted. No use of accessory muscles. HEART: Tachycardic. Normal S1, S2. No murmurs, rubs, or gallop noted. ABDOMEN: Soft, nontender, not distended, normoactive bowel sounds, no guarding, no rebound, no masses. No hepatomegaly or splenomegaly. MUSCULOSKELETAL: Normal range of motion at all joints. No bony deformities or tenderness. No CVA tenderness. UPPER EXTREMITIES: 2+ pulses, warm, well-perfused. No cyanosis. No clubbing. No peripheral edema. 5/5 muscle strength b/l. LOWER EXTREMITIES: 2+ pulses, warm, well-perfused. No calf tenderness. No peripheral edema. 5/5 muscle strength b/l. NEUROLOGICAL: Cranial nerves II-XII intact. Normal speech. PSYCHIATRIC: Cooperative. Good eye contact. Appropriate mood and affect. SKIN: +cellulitis in distal RLE. +0.5cm R foot wound ulcer on plantar surface at distal end of 5th metatarsal, non-draining, non-tender, non-odorous Laboratory Results - last 24 hr 08/05/18 08/05/18 08/05/18 09:20 09:20 09:20 WBC 18.8 H RBC 4.98 Hgb 14.5 Hct 41.6 D MCV 83.6 MCH 29.2 MCHC 34.9 RDW 13.3 Plt Count 160 D MPV 7.9 Absolute Neuts (auto) 17.3 Total Counted 100 Neutrophils % No Result Required. Neutrophils % (Manual) 81.0 Band Neutrophils % 11.0 Lymphocytes % No Result Required. Lymphocytes % (Manual) 4.0 L D Monocytes % (Manual) 3 L D Basophils % (Manual) 1.0 Nucleated RBC % 0 Platelet Estimate Adequate VBG pH POC VBG pCO2 POC VBG pO2 Mixed VBG HCO3 Sodium 135 L Potassium 4.3 Chloride 100 Carbon Dioxide 25 Anion Gap 10 BUN 19 H Creatinine 1.2 Creat Clearance w eGFR > 60 POC Glucometer Random Glucose 374 H* D Lactic Acid Calcium 9.0 Total Bilirubin 1.0 AST 21 D ALT 35 Alkaline Phosphatase 101 Creatine Kinase Creatine Kinase Index CK-MB (CK-2) Troponin I Total Protein 6.7 Albumin 3.5 Urine Color Ltyellow Urine Appearance Clear Urine pH 6.0 Ur Specific Renner 1.031 Urine Protein 2+ H Urine Glucose (UA) 3+ H Urine Ketones Negative Urine Blood 1+ H Urine Nitrite Negative Urine Bilirubin Negative Urine Urobilinogen Negative Ur Leukocyte Esterase Negative Urine WBC (Auto) <1 Urine RBC (Auto) 7 Acetone, Qual 02/17/18 02/17/18 02/17/18 09:20 09:20 09:35 WBC RBC Hgb Hct MCV MCH MCHC RDW Plt Count MPV Absolute Neuts (auto) Total Counted Neutrophils % Neutrophils % (Manual) Band Neutrophils % Lymphocytes % Lymphocytes % (Manual) Monocytes % (Manual) Basophils % (Manual) Nucleated RBC % Platelet Estimate VBG pH 7.48 H POC VBG pCO2 34.6 L POC VBG pO2 27.2 L Mixed VBG HCO3 25.6 H Sodium Potassium Chloride Carbon Dioxide Anion Gap BUN Creatinine Creat Clearance w eGFR POC Glucometer > 400 Random Glucose Lactic Acid Calcium Total Bilirubin AST ALT Alkaline Phosphatase Creatine Kinase Creatine Kinase Index CK-MB (CK-2) Troponin I Total Protein Albumin Urine Color Urine Appearance Urine pH Ur Specific Renner Urine Protein Urine Glucose (UA) Urine Ketones Urine Blood Urine Nitrite Urine Bilirubin Urine Urobilinogen Ur Leukocyte Esterase Urine WBC (Auto) Urine RBC (Auto) Acetone, Qual Negative 02/17/18 02/17/18 12:09 12:13 WBC RBC Hgb Hct MCV MCH MCHC RDW Plt Count MPV Absolute Neuts (auto) Total Counted Neutrophils % Neutrophils % (Manual) Band Neutrophils % Lymphocytes % Lymphocytes % (Manual) Monocytes % (Manual) Basophils % (Manual) Nucleated RBC % Platelet Estimate VBG pH POC VBG pCO2 POC VBG pO2 Mixed VBG HCO3 Sodium Potassium Chloride Carbon Dioxide Anion Gap BUN Creatinine Creat Clearance w eGFR POC Glucometer Random Glucose Lactic Acid 1.5 Calcium Total Bilirubin AST ALT Alkaline Phosphatase Creatine Kinase 192 Creatine Kinase Index 3.2 CK-MB (CK-2) 6.31 H Troponin I < 0.02 Total Protein Albumin Urine Color Urine Appearance Urine pH Ur Specific Renner Urine Protein Urine Glucose (UA) Urine Ketones Urine Blood Urine Nitrite Urine Bilirubin Urine Urobilinogen Ur Leukocyte Esterase Urine WBC (Auto) Urine RBC (Auto) Acetone, Qual ASSESSMENT/PLAN: 37M w/ pmhx of DM, depression, HTN, HLD who was admitted for sepsis 2/2 RLE cellulitis. #Sepsis 2/2 RLE cellulitis; Tachycardic 132, WBC 18.8. Pt currently afebrile. Stable. -cont Vancomycin 1500cc @ 250cc/hr -f/u blood cx and urine cx -ID consulted (Dr. Prado); await recs #R foot wound ulcer -podiatry consulted (Dr. Cohen), await recs #DM -ISS ACHS -will add long-acting agent after tomorrow according to # units needed daily #HTN -will call pharmacy for home meds #HLD -will call pharmacy for home meds #DVT Ppx -cont Heparin SQ 5000 TID #FEN -no IVf needed -recheck lytes in AM -diabetic/sodium diet dispo -cont to monitor on med-surg -needs to be med rec'd Visit type - Emergency Visit Emergency Visit: Yes ED Registration Date: 02/17/18 Care time: The patient presented to the Emergency Department on the above date and was hospitalized for further evaluation of their emergent condition. - New Patient This patient is new to me today: Yes Date on this admission: 02/17/18 - Critical Care Critical Care patient: No Hospitalist Screening - Colonoscopy Questionnaire Colonoscopy Questionnaire: Colonoscopy Questionnaire - Patient: 50 - 75 years old and never had a screening colonoscopy: Unknown History of colon or rectal polyps, or CA: Unknown History of IBD, Crohn's disease or UC: Unknown History of abdominal radiation therapy as a child: Unknown - Relative: 1 with colon or rectal CA, or polyps at age 60 or younger: Unknown Colon or rectal CA diagnosed at age 45 or younger: Unknown Multiple relatives with colon or rectal CA: Unknown - Outcome: Screening Result: Negative Screen
[2018-02-17] MEDS ORDERED: INSULIN SLIDING SCALE (NOVOLOG) 1 VIAL SQ SCH (16:30)
[2018-02-17] MEDS: INSULIN SLIDING SCALE (NOVOLOG) 1 VIAL SQ SCH ×2 (16:37→23:50)
[2018-02-17] MEDS ORDERED: INSULIN (NOVOLOG) ASPART 100 UNITS/ML 10ML VIAL ONE (17:27)
--- NOTE | 2018-02-17 19:51 | EKG ---
Test Reason : Blood Pressure : / mmHG Vent. Rate : 132 BPM Atrial Rate : 132 BPM P-R Int : 148 ms QRS Dur : 072 ms QT Int : 280 ms P-R-T Axes : 061 016 035 degrees QTc Int : 414 ms SINUS TACHYCARDIA OTHERWISE NORMAL ECG WHEN COMPARED WITH ECG OF 31-DEC-2017 13:36, NO SIGNIFICANT CHANGE WAS FOUND Confirmed by JOE NUNEZ MD ([id number]) on 02/17/2018 7:51:34 PM Referred By: Confirmed By:JOE NUNEZ MD
--- NOTE | 2018-02-17 20:58 | PN ---
Teaching Attending Note Name of Resident: Shanice Larson ATTENDING PHYSICIAN STATEMENT I saw and evaluated the patient. I reviewed the resident's note and discussed the case with the resident. I agree with the resident's findings and plan as documented. SUBJECTIVE: Patient is lying in bed with no acute distress, no shortness of breath, no nausea or vomiting. N fever, no chills. OBJECTIVE: Vital Signs Temperature 98.3 F 02/17/18 17:00 Pulse Rate 105 H 02/17/18 17:00 Respiratory Rate 18 02/17/18 17:00 Blood Pressure 138/93 02/17/18 17:00 O2 Sat by Pulse Oximetry (%) 97 02/17/18 17:00 CBCD WBC 18.8 K/mm3 (4.0-10.0) H 02/17/18 09:20 RBC 4.98 M/mm3 (4.00-5.60) 02/17/18 09:20 Hgb 14.5 GM/dL (11.7-16.9) 02/17/18 09:20 Hct 41.6 % (35.4-49) D 02/17/18 09:20 MCV 83.6 fl (80-96) 02/17/18 09:20 MCHC 34.9 g/dl (32.0-35.9) 02/17/18 09:20 RDW 13.3 % (11.9-15.9) 02/17/18 09:20 Plt Count 160 K/MM3 (134-434) D 02/17/18 09:20 MPV 7.9 fl (7.5-11.1) 02/17/18 09:20 CMP Sodium 135 mmol/L (136-145) L 02/17/18 09:20 Potassium 4.3 mmol/L (3.5-5.1) 02/17/18 09:20 Chloride 100 mmol/L (98-107) 02/17/18 09:20 Carbon Dioxide 25 mmol/L (21-32) 02/17/18 09:20 Anion Gap 10 (8-16) 02/17/18 09:20 BUN 19 mg/dL (7-18) H 02/17/18 09:20 Creatinine 1.2 mg/dL (0.7-1.3) 02/17/18 09:20 Creat Clearance w eGFR > 60 (>60) 02/17/18 09:20 Random Glucose 374 mg/dL (74-106) H* D 02/17/18 09:20 Calcium 9.0 mg/dL (8.5-10.1) 02/17/18 09:20 Total Bilirubin 1.0 mg/dL (0.2-1.0) 02/17/18 09:20 AST 21 U/L (15-37) D 02/17/18 09:20 ALT 35 U/L (12-78) 02/17/18 09:20 Alkaline Phosphatase 101 U/L (45-117) 02/17/18 09:20 Total Protein 6.7 g/dl (6.4-8.2) 02/17/18 09:20 Albumin 3.5 g/dl (3.4-5.0) 02/17/18 09:20 CARDIAC ENZYMES Creatine Kinase 192 IU/L (39-308) 02/17/18 12:09 Troponin I < 0.02 ng/ml (0.00-0.05) 02/17/18 12:09 Current Medications Generic Name Dose Route Start Last Admin Trade Name Freq PRN Reason Stop Dose Admin Heparin Sodium (Porcine) 5,000 unit 02/17/18 22:00 Heparin - SQ TID [facility] Vancomycin HCl 1,500 mg/ 500 mls @ 250 mls/hr 02/18/18 12:00 Dextrose IVPB Q24H [facility] Protocol Insulin Aspart 1 vial 02/17/18 16:23 02/17/18 16:37 Novolog Vial Sliding Scale - SQ 10 unit ACHS [facility] Administration Protocol Home Medications Medication Instructions Recorded Lisinopril/Hydrochlorothiazide 1 each PO DAILY 05/12/17 [Lisinopril-Hctz 20-12.5 mg Tab] metFORMIN HCL [Metformin HCl] 1,000 mg PO BID 05/12/17 Atorvastatin Ca [Lipitor] 20 mg PO DAILY 12/31/17 Insulin Glargine,Hum.rec.anlog 36 unit SQ HS 12/31/17 [Basaglar Kwikpen U-100] Insulin Lispro Protamin/Lispro 30 unit SQ TID 12/31/17 [Humalog Mix 75-25 Kwikpen] Clindamycin [Cleocin -] 300 mg PO Q6HPO #12 capsule 01/03/18 PE: per resident's note Extremities: cellulitis RLE ASSESSMENT AND PLAN: Patient is a 37yo male with PMHx of DM, depression, HTN, HLD who was admitted for sepsis due to having RLE cellulitis. #Sepsis due to have RLE cellulitis; ID consult, iV Vanco since allergic to PCN , Bx and Urine Cx pending #Right diabetic foot ulcer podiatry (Dr. Cohen) ,consulted #T2DM ISS ACHS, on levemir will continue , hold metformin #HTN continue lisinopril and HCtz #HLD continue with Lipitor 20mg po daily #DVT Ppx: cont Heparin SQ 5000 TID
[2018-02-17] MEDS: LISINOPRIL 20 MG TABLET (FP) PO SCH (21:25)
[2018-02-17] MEDS ORDERED: ATORVASTATIN CA 20 MG TABLET (FP) PO SCH (22:00)
[2018-02-17] MEDS: HEPARIN NA (PORCINE) 5,000 UNITS/ML 1ML VIAL SQ SCH (22:15)
[2018-02-17] MEDS ORDERED: HEPARIN NA (PORCINE) 5,000 UNITS/ML 1ML VIAL ONE (23:09)
[2018-02-17] MEDS ORDERED: ATORVASTATIN CA 40 MG TABLET (FP) ONE (23:09)
[2018-02-17] MEDS ORDERED: LISINOPRIL 20 MG TABLET (FP) ONE (23:09)
[2018-02-17] MEDS ORDERED: INSULIN REGULAR HUMAN 100 UNITS/ML *VIAL ONE (23:59)
[2018-02-18] MEDS ORDERED: INSULIN (NOVOLOG) ASPART 100 UNITS/ML 10ML VIAL ONE ×2 (00:02→22:31)
[2018-02-18] MEDS: HEPARIN NA (PORCINE) 5,000 UNITS/ML 1ML VIAL SQ SCH ×3 (06:08→22:15)
[2018-02-18] MEDS ORDERED: HEPARIN NA (PORCINE) 5,000 UNITS/ML 1ML VIAL ONE ×2 (06:43→22:30)
[2018-02-18 07:23] LABS: BASO % 0.6 % (0-2.0); EOS % 0.7 % (0-4.5); HEMATOCRIT 36.6 % (35.4-49); HEMOGLOBIN 12.9 GM/dL (11.7-16.9); LYMPH % 9.1 % (8-40); MCH 29.6 pg (25.7-33.7); MCHC 35.3 g/dl (32.0-35.9); MEAN CELL VOLUME 83.9 fl (80-96); MEAN PLT VOLUME 7.9 fl (7.5-11.1); MONO % 7.2 % (3.8-10.2); NEUT % 82.4 % (42.8-82.8); PLATELET COUNT 132 K/MM3 (134-434); RBC 4.37 M/mm3 (4.00-5.60); RDW 13.3 % (11.9-15.9); WHITE BLOOD COUNT 9.2 K/mm3 (4.0-10.0)
[2018-02-18] MEDS ORDERED: ACETAMINOPHEN 325 MG TABLET (FP) PO ONE (07:59)
[2018-02-18 08:00] LABS: CHLORIDE 99 mmol/L (98-107); SODIUM 133 mmol/L (136-145)
[2018-02-18] MEDS ORDERED: INSULIN REGULAR HUMAN 100 UNITS/ML *VIAL ONE ×3 (08:09→17:11)
[2018-02-18] MEDS ORDERED: ACETAMINOPHEN 325 MG TABLET (FP) ONE ×3 (08:09→22:30)
[2018-02-18 08:10] LABS: ALBUMIN 2.7 g/dl (3.4-5.0); ALK PHOS 72 U/L (45-117); ANION GAP 8 (8-16); BILIRUBIN,TOTAL 0.7 mg/dL (0.2-1.0); BLOOD UREA NITROGEN 16 mg/dL (7-18); CALCIUM 8.2 mg/dL (8.5-10.1); CO2 26 mmol/L (21-32); CREATININE 0.8 mg/dL (0.7-1.3); GLUCOSE,RANDOM 283 mg/dL (74-106); SGOT/AST 22 U/L (15-37); SGPT/ALT 32 U/L (12-78); TOT PROT 5.7 g/dl (6.4-8.2)
[2018-02-18] MEDS: INSULIN SLIDING SCALE (NOVOLOG) 1 VIAL SQ SCH ×4 (08:13→22:15)
--- NOTE | 2018-02-18 09:13 | PN ---
Progress Note (short form) - Note Progress Note: ID consult dictated imp/reccd cellulitis RLE diabetic foot ulcer (chronic) diabetes continue vancomycin f/u cultures esr/crp Problem List - Problems (1) Cellulitis Code(s): L03.90 - CELLULITIS, UNSPECIFIED Qualifiers: Site of cellulitis: unspecified site Qualified Code(s): L03.90 - Cellulitis , unspecified (2) Diabetic foot ulcer Code(s): E11.621 - TYPE 2 DIABETES MELLITUS WITH FOOT ULCER; L97.509 - NON- PRESSURE CHRONIC ULCER OTH PRT UNSP FOOT W UNSP SEVERITY Qualifiers: Diabetic foot ulcer location: unspecified part of foot Diabetes mellitus type: other specified (including KENNETH) Laterality: unspecified laterality Non-pressure ulcer stage: unspecified non-pressure ulcer stage Qualified Code( s): E13.621 - Other specified diabetes mellitus with foot ulcer; L97.509 - Non- pressure chronic ulcer of other part of unspecified foot with unspecified severity (3) Insulin dependent diabetes mellitus Code(s): E11.9 - TYPE 2 DIABETES MELLITUS WITHOUT COMPLICATIONS; Z79.4 - HALFWAY (CURRENT) USE OF INSULIN
[2018-02-18] MEDS: LISINOPRIL 20 MG TABLET (FP) PO SCH (10:10)
[2018-02-18] MEDS: VANCOMYCIN 1,250 MG in DEXTROSE 5%-WATER - 250 ML IVPB SCH ×2 (10:37→22:15)
[2018-02-18] MEDS ORDERED: VANCOMYCIN 1,500 MG in DEXTROSE 5%-WATER - 500 ML IVPB SCH (12:00)
[2018-02-18] MEDS ORDERED: VANCOMYCIN 1,250 MG in DEXTROSE 5%-WATER - 250 ML IVPB SCH (12:00)
[2018-02-18] MEDS: ACETAMINOPHEN 325 MG TABLET (FP) PO PRN (17:13)
--- NOTE | 2018-02-18 18:04 | PN ---
Physical Exam: SUBJECTIVE: Patient seen and examined at bedside. No acute events overnight. OBJECTIVE: Vital Signs Vital Signs - 8 hr 02/18/18 02/18/18 02/18/18 10:17 14:42 17:17 Temperature 98.8 F 98.9 F Pulse Rate [ 95 H 100 H Left Apical] Respiratory 20 16 Rate Blood Pressure 178/106 165/97 [Left Arm] O2 Sat by Pulse 96 98 98 Oximetry (%) PHYSICAL EXAMINATION GENERAL: AAOx3. NAD. Resting comfortably. Obese. HEENT: AT/NC. Moist mucus membranes. NECK: Normal range of motion, supple without lymphadenopathy, JVD, or masses. LUNGS: CTA B/L. No wheezes, rhonchi, rales noted. No use of accessory muscles. HEART: Tachycardic. Normal S1, S2. No murmurs, rubs, or gallop noted. ABDOMEN: Soft, nontender, not distended, normoactive bowel sounds, no guarding, no rebound, no masses. No hepatomegaly or splenomegaly. MUSCULOSKELETAL: Normal range of motion at all joints. No bony deformities or tenderness. No CVA tenderness. UPPER EXTREMITIES: 2+ pulses, warm, well-perfused. No cyanosis. No clubbing. No peripheral edema. 5/5 muscle strength b/l. LOWER EXTREMITIES: 2+ pulses, warm, well-perfused. No calf tenderness. No peripheral edema. 5/5 muscle strength b/l. NEUROLOGICAL: Cranial nerves II-XII intact. Normal speech. PSYCHIATRIC: Cooperative. Good eye contact. Appropriate mood and affect. SKIN: +cellulitis in distal RLE. +0.5cm R foot wound ulcer on plantar surface at distal end of 5th metatarsal, non-draining, non-tender, non-odorous Laboratory Results - last 24 hr 02/17/18 02/18/18 02/18/18 23:46 02:47 04:25 WBC RBC Hgb Hct MCV MCH MCHC RDW Plt Count MPV Absolute Neuts (auto) Neutrophils % Lymphocytes % Monocytes % Eosinophils % Basophils % Nucleated RBC % Sodium Potassium Chloride Carbon Dioxide Anion Gap BUN Creatinine Creat Clearance w eGFR POC Glucometer [phone] 317.99873 Random Glucose Calcium Total Bilirubin AST ALT Alkaline Phosphatase Total Protein Albumin HIV 1&2 Antibody Screen HIV P24 Antigen 02/18/18 02/18/18 02/18/18 06:00 06:00 06:00 WBC 9.2 RBC 4.37 Hgb 12.9 Hct 36.6 MCV 83.9 MCH 29.6 MCHC 35.3 RDW 13.3 Plt Count 132 L MPV 7.9 Absolute Neuts (auto) 7.5 Neutrophils % 82.4 Lymphocytes % 9.1 Monocytes % 7.2 Eosinophils % 0.7 Basophils % 0.6 Nucleated RBC % 0 Sodium 133 L Potassium 4.0 Chloride 99 Carbon Dioxide 26 Anion Gap 8 BUN 16 Creatinine 0.8 Creat Clearance w eGFR > 60 POC Glucometer Random Glucose 283 H D Calcium 8.2 L Total Bilirubin 0.7 AST 22 ALT 32 Alkaline Phosphatase 72 D Total Protein 5.7 L Albumin 2.7 L HIV 1&2 Antibody Screen Negative HIV P24 Antigen Negative 02/18/18 02/18/18 02/18/18 07:51 11:27 16:39 WBC RBC Hgb Hct MCV MCH MCHC RDW Plt Count MPV Absolute Neuts (auto) Neutrophils % Lymphocytes % Monocytes % Eosinophils % Basophils % Nucleated RBC % Sodium Potassium Chloride Carbon Dioxide Anion Gap BUN Creatinine Creat Clearance w eGFR POC Glucometer 304.17151 345.37578 [phone] Random Glucose Calcium Total Bilirubin AST ALT Alkaline Phosphatase Total Protein Albumin HIV 1&2 Antibody Screen HIV P24 Antigen Active Medications Generic Name Dose Route Start Last Admin Trade Name Aguila PRN Reason Stop Dose Admin Acetaminophen 650 mg 02/18/18 16:53 02/18/18 17:13 Tylenol - PO 650 mg Q6H PRN Administration PAIN 1-3 Atorvastatin Calcium 20 mg 02/17/18 22:00 02/17/18 22:10 Lipitor - PO 20 mg HS [facility] Administration Heparin Sodium (Porcine) 5,000 unit 02/17/18 22:00 02/18/18 15:02 Heparin - SQ 5,000 unit TID [facility] Administration Vancomycin HCl 1,250 mg/ 250 mls @ 166.667 mls/hr 02/18/18 10:00 02/18/18 10: 37 Dextrose IVPB 166.667 mls/hr BID [facility] Administration Protocol Insulin Aspart 1 vial 02/18/18 07:00 02/18/18 17:14 Novolog Vial Sliding Scale - SQ 11 units ACHS [facility] Administration Protocol Insulin Detemir 18 units 02/18/18 22:00 Levemir Vial SQ HS [facility] Lisinopril 20 mg 02/17/18 21:15 02/18/18 10:10 Prinivil PO 20 mg DAILY [facility] Administration ASSESSMENT/PLAN: 37M w/ pmhx of DM, depression, HTN, HLD who was admitted for sepsis 2/2 RLE cellulitis. #Sepsis 2/2 RLE cellulitis; Tachycardic 100, WBC 9.2. Pt currently afebrile. Stable. -cont Vancomycin 1500cc @ 250cc/hr -Per ID (Dr. Motta): continue vancomycin, f/u ESR/CRP -blood cx no growth x24h -urine cx pending #R foot wound ulcer -podiatry consulted (Dr. Cohen), await recs #DM -ISS ACHS -will add long-acting agent after 24h according to # units needed daily #HTN -cont Lisinopril 20 mg PO QD #HLD -cont Atorvastatin 20 mg PO HS #DVT Ppx -cont Heparin SQ 5000 TID #FEN -no IVf needed -recheck lytes in AM -diabetic/sodium diet dispo -cont to monitor on med-surg -med rec'd Visit type - Emergency Visit Emergency Visit: Yes ED Registration Date: 02/17/18 Care time: The patient presented to the Emergency Department on the above date and was hospitalized for further evaluation of their emergent condition. - New Patient This patient is new to me today: No - Critical Care Critical Care patient: No
--- NOTE | 2018-02-18 18:08 | CONS ---
DATE OF CONSULTATION: DATE OF DICTATION: 02/18/2018 INFECTIOUS DISEASE CONSULTATION REQUESTING DEMOCRAT: [facility] CONSULTING PHYSICIAN: Rosalia Gonzalez M.D. HISTORY OF PRESENT ILLNESS: This is a 37-year-old man with a past medical history of diabetes. He has hypertension. 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 He was originally in the hospital in December with a cellulitis of his leg. He has a chronic ulcer of the sole of the foot. He was PENICILLIN allergic. He had an MRI that was negative for osteomyelitis. He was discharged home on oral clindamycin. He now presents with a 1-day history of fever, chills, body aches. He again notes for the last 3 days he has had progressive erythema of his right leg. He denies any nausea, vomiting, diarrhea, or dysuria. He has chronic low back pain. PAST MEDICAL HISTORY: Notable for hypertension, diabetes, hyperlipidemia, chronic ulcer of his right foot. He is allergic to PENICILLIN; the nature of the allergy is unknown. SOCIAL HISTORY: He is . 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 There is no history of any recent travel, and there is no history of any cigarette use. SURGICAL HISTORY: Notable for hand surgery and foot surgery as a child. FAMILY HISTORY: Notable for hypertension. MEDICATION: As an outpatient include lisinopril, hydrochlorothiazide, metformin, atorvastatin, insulin, and he was discharged on clindamycin in December. REVIEW OF SYSTEMS: He is currently feeling improved. He reports his foot is markedly getting better, except especially the ulcer on his foot. PHYSICAL EXAMINATION: VITAL SIGNS: He is afebrile. He reports having had a fever at home. HEENT: Normocephalic. Eyes are anicteric. NECK: Supple. LUNGS: Clear to auscultation. HEART: Regular rate and rhythm. ABDOMEN: Soft, nontender. Protuberant. EXTREMITIES: Notable for erythema of the right lower extremity extending up to the lower knee. He has got a dry ulcer on the plantar aspect of the foot. He has 2+ pulses bilaterally. LABORATORY: White count on admission was 18.8, today is 9.2, hemoglobin 12.9, platelets of 132. BUN and creatinine are normal. Glucose of 283. Urinalysis is negative except for protein and glucose. HIV is negative. Blood and urine cultures are pending. Duplex of his leg shows no evidence of DVT. IMPRESSION: In summary, this is a 37-year-old man with cellulitis of the right lower extremity, diabetic foot ulcer chronic and diabetes. I would continue the vancomycin given his PENICILLIN allergy. Follow up his cultures and check a sedimentation rate and CRP. Further recommendations to follow. ROSALIA GONZALEZ M.D. [id number]
--- NOTE | 2018-02-18 19:12 | PN ---
Teaching Attending Note Name of Resident: Shanice Larson ATTENDING PHYSICIAN STATEMENT I saw and evaluated the patient. I reviewed the resident's note and discussed the case with the resident. I agree with the resident's findings and plan as documented. SUBJECTIVE: Patient is feeling better , no fever or chills. OBJECTIVE: Vital Signs Temperature 98.9 F 02/18/18 17:17 Pulse Rate 100 H 02/18/18 17:17 Respiratory Rate 16 02/18/18 17:17 Blood Pressure 165/97 02/18/18 17:17 O2 Sat by Pulse Oximetry (%) 98 02/18/18 17:17 CBCD WBC 9.2 K/mm3 (4.0-10.0) 02/18/18 06:00 RBC 4.37 M/mm3 (4.00-5.60) 02/18/18 06:00 Hgb 12.9 GM/dL (11.7-16.9) 02/18/18 06:00 Hct 36.6 % (35.4-49) 02/18/18 06:00 MCV 83.9 fl (80-96) 02/18/18 06:00 MCHC 35.3 g/dl (32.0-35.9) 02/18/18 06:00 RDW 13.3 % (11.9-15.9) 02/18/18 06:00 Plt Count 132 K/MM3 (134-434) L 02/18/18 06:00 MPV 7.9 fl (7.5-11.1) 02/18/18 06:00 CMP Sodium 133 mmol/L (136-145) L 02/18/18 06:00 Potassium 4.0 mmol/L (3.5-5.1) 02/18/18 06:00 Chloride 99 mmol/L (98-107) 02/18/18 06:00 Carbon Dioxide 26 mmol/L (21-32) 02/18/18 06:00 Anion Gap 8 (8-16) 02/18/18 06:00 BUN 16 mg/dL (7-18) 02/18/18 06:00 Creatinine 0.8 mg/dL (0.7-1.3) 02/18/18 06:00 Creat Clearance w eGFR > 60 (>60) 02/18/18 06:00 Random Glucose 283 mg/dL (74-106) H D 02/18/18 06:00 Calcium 8.2 mg/dL (8.5-10.1) L 02/18/18 06:00 Total Bilirubin 0.7 mg/dL (0.2-1.0) 02/18/18 06:00 AST 22 U/L (15-37) 02/18/18 06:00 ALT 32 U/L (12-78) 02/18/18 06:00 Alkaline Phosphatase 72 U/L (45-117) D 02/18/18 06:00 Total Protein 5.7 g/dl (6.4-8.2) L 02/18/18 06:00 Albumin 2.7 g/dl (3.4-5.0) L 02/18/18 06:00 CARDIAC ENZYMES Creatine Kinase 192 IU/L (39-308) 02/17/18 12:09 Troponin I < 0.02 ng/ml (0.00-0.05) 02/17/18 12:09 Current Medications Generic Name Dose Route Start Last Admin Trade Name Aguila PRN Reason Stop Dose Admin Acetaminophen 650 mg 02/18/18 16:53 02/18/18 17:13 Tylenol - PO 650 mg Q6H PRN Administration PAIN 1-3 Atorvastatin Calcium 20 mg 02/18/18 22:00 Lipitor - PO HS [facility] Heparin Sodium (Porcine) 5,000 unit 02/17/18 22:00 02/18/18 15:02 Heparin - SQ 5,000 unit TID [facility] Administration Vancomycin HCl 1,250 mg/ 250 mls @ 166.667 mls/hr 02/18/18 10:00 02/18/18 10: 37 Dextrose IVPB 166.667 mls/hr BID [facility] Administration Protocol Insulin Aspart 1 vial 02/18/18 07:00 02/18/18 17:14 Novolog Vial Sliding Scale - SQ 11 units ACHS [facility] Administration Protocol Lisinopril 20 mg 02/17/18 21:15 02/18/18 10:10 Prinivil PO 20 mg DAILY [facility] Administration Home Medications Medication Instructions Recorded Lisinopril/Hydrochlorothiazide 1 each PO DAILY 05/12/17 [Lisinopril-Hctz 20-12.5 mg Tab] metFORMIN HCL [Metformin HCl] 1,000 mg PO BID 10/28/17 Atorvastatin Ca [Lipitor] 20 mg PO DAILY 12/31/17 Insulin Glargine,Hum.rec.anlog 36 unit SQ HS 12/31/17 [Basaglar Kwikpen U-100] Insulin Lispro Protamin/Lispro 30 unit SQ TID 12/31/17 [Humalog Mix 75-25 Kwikpen] Clindamycin [Cleocin -] 300 mg PO Q6HPO #12 capsule 01/03/18 Microbiology 02/17/18 14:30 Blood - Peripheral Venous Blood Culture - Preliminary NO GROWTH OBTAINED AFTER 24 HOURS, INCUBATION TO CONTINUE FOR 4 DAYS. 02/17/18 14:30 Blood - Peripheral Venous Blood Culture - Preliminary NO GROWTH OBTAINED AFTER 24 HOURS, INCUBATION TO CONTINUE FOR 4 DAYS. PE: per resident's note Extremities: cellulitis RLE , no change from yesterday ASSESSMENT AND PLAN: Patient is a 37yo male with PMHx of DM, depression, HTN, HLD who was admitted for sepsis due to having RLE cellulitis. #Sepsis due to have RLE cellulitis; ID consult appreciated, continue iV Vanco since allergic to PCN , Bcx no growth so far, and Urine Cx pending #Right diabetic foot ulcer podiatry (Dr. Cohen) ,consulted ,appreciated #T2DM ISS ACHS, on levemir will continue , hold metformin #HTN continue lisinopril and HCtz #HLD continue with Lipitor 20mg po daily #DVT Ppx: cont Heparin SQ 5000 TID
--- NOTE | 2018-02-18 20:20 | CONSULT ---
Consult - text type - Consultation Consultation Note: Patient seen in ER about 445pm. States he had been admitted months ago for wound right foot. 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 Santyl dressing change to right foot. Will follow.
[2018-02-18] MEDS ORDERED: ATORVASTATIN CA 20 MG TABLET (FP) PO SCH (22:00)
[2018-02-18] MEDS ORDERED: INSULIN (LEVEMIR) 100 UNITS/ML UNITS SQ SCH (22:00)
[2018-02-18] MEDS ORDERED: ATORVASTATIN CA 10 MG TABLET (FP) ONE (22:30)
[2018-02-18] MEDS ORDERED: VANCOMYCIN 1 GRAM (PRE-DOCKED) 1,000 MG/250 ML BAG IVPB ONE (22:31)
[2018-02-19] MEDS: HEPARIN NA (PORCINE) 5,000 UNITS/ML 1ML VIAL SQ SCH ×3 (05:41→21:01)
[2018-02-19] MEDS: INSULIN SLIDING SCALE (NOVOLOG) 1 VIAL SQ SCH ×5 (06:42→21:02)
[2018-02-19 06:43] LABS: HEMATOCRIT 35.8 % (35.4-49); HEMOGLOBIN 12.5 GM/dL (11.7-16.9); MCH 29.3 pg (25.7-33.7); MEAN CELL VOLUME 83.6 fl (80-96); MEAN PLT VOLUME 7.8 fl (7.5-11.1); PLATELET COUNT 136 K/MM3 (134-434); RBC 4.28 M/mm3 (4.00-5.60); RDW 13.1 % (11.9-15.9); WHITE BLOOD COUNT 4.4 K/mm3 (4.0-10.0)
[2018-02-19] MEDS ORDERED: INSULIN (NOVOLOG) ASPART 100 UNITS/ML 10ML VIAL ONE (06:48)
[2018-02-19] MEDS: ACETAMINOPHEN 325 MG TABLET (FP) PO PRN (07:02)
[2018-02-19 07:04] LABS: ANION GAP 5 (8-16); BLOOD UREA NITROGEN 12 mg/dL (7-18); CALCIUM 8.5 mg/dL (8.5-10.1); CHLORIDE 98 mmol/L (98-107); CO2 31 mmol/L (21-32); CREATININE 0.8 mg/dL (0.7-1.3); GLUCOSE,RANDOM 276 mg/dL (74-106); POTASSIUM 3.8 mmol/L (3.5-5.1); SODIUM 134 mmol/L (136-145)
--- NOTE | 2018-02-19 08:55 | PN ---
Teaching Attending Note Name of Resident: Shanice Larson ATTENDING PHYSICIAN STATEMENT I saw and evaluated the patient. I reviewed the resident's note and discussed the case with the resident. I agree with the resident's findings and plan as documented. SUBJECTIVE: Patient is comfortable no fever or chills OBJECTIVE: Vital Signs Temperature 98.2 F 02/19/18 05:53 Pulse Rate 102 H 02/18/18 23:00 Respiratory Rate 20 02/19/18 05:53 Blood Pressure 173/94 02/19/18 05:53 O2 Sat by Pulse Oximetry (%) 95 02/18/18 23:40 CBCD WBC 4.4 K/mm3 (4.0-10.0) 02/19/18 06:00 RBC 4.28 M/mm3 (4.00-5.60) 02/19/18 06:00 Hgb 12.5 GM/dL (11.7-16.9) 02/19/18 06:00 Hct 35.8 % (35.4-49) 02/19/18 06:00 MCV 83.6 fl (80-96) 02/19/18 06:00 MCHC 35.0 g/dl (32.0-35.9) 02/19/18 06:00 RDW 13.1 % (11.9-15.9) 02/19/18 06:00 Plt Count 136 K/MM3 (134-434) 02/19/18 06:00 MPV 7.8 fl (7.5-11.1) 02/19/18 06:00 CMP Sodium 134 mmol/L (136-145) L 02/19/18 06:00 Potassium 3.8 mmol/L (3.5-5.1) 02/19/18 06:00 Chloride 98 mmol/L (98-107) 02/19/18 06:00 Carbon Dioxide 31 mmol/L (21-32) 02/19/18 06:00 Anion Gap 5 (8-16) L 02/19/18 06:00 BUN 12 mg/dL (7-18) 02/19/18 06:00 Creatinine 0.8 mg/dL (0.7-1.3) 02/19/18 06:00 Creat Clearance w eGFR > 60 (>60) 02/19/18 06:00 Random Glucose 276 mg/dL (74-106) H 02/19/18 06:00 Calcium 8.5 mg/dL (8.5-10.1) 02/19/18 06:00 Total Bilirubin 0.7 mg/dL (0.2-1.0) 02/18/18 06:00 AST 22 U/L (15-37) 02/18/18 06:00 ALT 32 U/L (12-78) 02/18/18 06:00 Alkaline Phosphatase 72 U/L (45-117) D 02/18/18 06:00 Total Protein 5.7 g/dl (6.4-8.2) L 02/18/18 06:00 Albumin 2.7 g/dl (3.4-5.0) L 02/18/18 06:00 CARDIAC ENZYMES Creatine Kinase 192 IU/L (39-308) 02/17/18 12:09 Troponin I < 0.02 ng/ml (0.00-0.05) 02/17/18 12:09 Current Medications Generic Name Dose Route Start Last Admin Trade Name Aguila PRN Reason Stop Dose Admin Acetaminophen 650 mg 02/18/18 16:53 02/19/18 07:02 Tylenol - PO 650 mg Q6H PRN Administration PAIN 1-3 Atorvastatin Calcium 20 mg 02/18/18 22:00 02/18/18 22:15 Lipitor - PO 20 mg HS JORDY Administration Heparin Sodium (Porcine) 5,000 unit 02/17/18 22:00 02/19/18 05:41 Heparin - SQ 5,000 unit TID [facility] Administration Vancomycin HCl 1,250 mg/ 250 mls @ 166.667 mls/hr 02/18/18 10:00 02/18/18 22: 15 Dextrose IVPB 166.667 mls/hr BID [facility] Administration Protocol Insulin Aspart 1 vial 02/18/18 07:00 02/19/18 06:42 Novolog Vial Sliding Scale - SQ 7 units ACHS [facility] Administration Protocol Lisinopril 20 mg 02/17/18 21:15 02/18/18 10:10 Prinivil PO 20 mg DAILY [facility] Administration Home Medications Medication Instructions Recorded Lisinopril/Hydrochlorothiazide 1 each PO DAILY 05/12/17 [Lisinopril-Hctz 20-12.5 mg Tab] metFORMIN HCL [Metformin HCl] 1,000 mg PO BID 05/12/17 Atorvastatin Ca [Lipitor] 20 mg PO DAILY 12/31/17 Insulin Glargine,Hum.rec.anlog 36 unit SQ HS 12/31/17 [Basaglar Kwikpen U-100] Insulin Lispro Protamin/Lispro 30 unit SQ TID 12/31/17 [Humalog Mix 75-25 Kwikpen] Clindamycin [Cleocin -] 300 mg PO Q6HPO #12 capsule 01/03/18 02/17/18 14:30 Blood - Peripheral Venous Blood Culture - Preliminary NO GROWTH OBTAINED AFTER 24 HOURS, INCUBATION TO CONTINUE FOR 4 DAYS. 02/17/18 14:30 Blood - Peripheral Venous Blood Culture - Preliminary NO GROWTH OBTAINED AFTER 24 HOURS, INCUBATION TO CONTINUE FOR 4 DAYS. PE: per resident's note Extremities: cellulitis RLE , no change from yesterday ASSESSMENT AND PLAN: Patient is a 37yo male with PMHx of DM, depression, HTN, HLD who was admitted for sepsis due to having RLE cellulitis. #Sepsis due to have RLE cellulitis; ID consult appreciated, continue iV Vanco since allergic to PCN , Bcx no growth so far, and Urine Cx pending #Right diabetic foot ulcer podiatry (Dr. Cohen) ,consulted ,appreciated #T2DM ISS ACHS, on levemir will continue , hold metformin #HTN Uncontrolled will add Norvasc 5mg ,continue lisinopril and HCtz #HLD continue with Lipitor 20mg po daily #DVT Ppx: cont Heparin SQ 5000 TID
[2018-02-19] MEDS ORDERED: PT OWN MED DRAWER 7, Y5N ONE (09:55)
[2018-02-19] MEDS ORDERED: PATIENT'S OWN MEDICATION (NON-FORMULARY) (Lisinopril/Hydrochlorothiazide [Lisinopril-Hctz PO SCH (10:00)
[2018-02-19] MEDS ORDERED: amLODIPine BESYLATE 5 MG TABLET (FP) PO SCH (10:00)
[2018-02-19] MEDS: LISINOPRIL 20 MG TABLET (FP) PO SCH (10:00)
[2018-02-19] MEDS: VANCOMYCIN 1,250 MG in DEXTROSE 5%-WATER - 250 ML IVPB SCH ×2 (10:17→23:05)
--- NOTE | 2018-02-19 12:30 | PN ---
Physical Exam: SUBJECTIVE: Patient seen and examined. No acute events overnight. Pt feels wells. Denies fever/chills, nausea, vomiting, urinary/bowel symptoms. OBJECTIVE: Vital Signs Period Temp Pulse Resp BP Sys/Marinelli Pulse Ox Last 24 Hr 98 F-99.3 F 95-105 16-20 145-178/82-106 95-98 GENERAL: AAOx3. NAD. Resting comfortably. Obese. HEENT: AT/NC. Moist mucus membranes. NECK: Normal range of motion, supple without lymphadenopathy, JVD, or masses. LUNGS: CTA B/L. No wheezes, rhonchi, rales noted. No use of accessory muscles. HEART: Tachycardic. Normal S1, S2. No murmurs, rubs, or gallop noted. ABDOMEN: Soft, nontender, not distended, normoactive bowel sounds, no guarding, no rebound, no masses. No hepatomegaly or splenomegaly. MUSCULOSKELETAL: Normal range of motion at all joints. No bony deformities or tenderness. No CVA tenderness. UPPER EXTREMITIES: 2+ pulses, warm, well-perfused. No cyanosis. No clubbing. No peripheral edema. 5/5 muscle strength b/l. LOWER EXTREMITIES: 2+ pulses, warm, well-perfused. No calf tenderness. No peripheral edema. 5/5 muscle strength b/l. NEUROLOGICAL: Cranial nerves II-XII intact. Normal speech. PSYCHIATRIC: Cooperative. Good eye contact. Appropriate mood and affect. SKIN: +cellulitis in distal RLE. +0.5cm R foot wound ulcer on plantar surface at distal end of 5th metatarsal, non-draining, non-tender, non-odorous. Laboratory Results - last 24 hr 02/18/18 02/18/18 02/18/18 07:51 11:27 16:39 WBC RBC Hgb Hct MCV MCH MCHC RDW Plt Count MPV ESR Sodium Potassium Chloride Carbon Dioxide Anion Gap BUN Creatinine Creat Clearance w eGFR POC Glucometer 304.17252 345.12617 351.62432 Random Glucose Hemoglobin A1c % Calcium C-Reactive Protein 02/18/18 02/18/18 02/19/18 21:16 22:21 05:40 WBC RBC Hgb Hct MCV MCH MCHC RDW Plt Count MPV ESR Sodium Potassium Chloride Carbon Dioxide Anion Gap BUN Creatinine Creat Clearance w eGFR POC Glucometer [phone] Random Glucose Hemoglobin A1c % Calcium C-Reactive Protein 16.8 H 02/19/18 02/19/18 02/19/18 06:00 06:00 06:00 WBC 4.4 RBC 4.28 Hgb 12.5 Hct 35.8 MCV 83.6 MCH 29.3 MCHC 35.0 RDW 13.1 Plt Count 136 MPV 7.8 ESR 68 H Sodium 134 L Potassium 3.8 Chloride 98 Carbon Dioxide 31 Anion Gap 5 L BUN 12 Creatinine 0.8 Creat Clearance w eGFR > 60 POC Glucometer Random Glucose 276 H Hemoglobin A1c % Calcium 8.5 C-Reactive Protein 02/19/18 06:00 WBC RBC Hgb Hct MCV MCH MCHC RDW Plt Count MPV ESR Sodium Potassium Chloride Carbon Dioxide Anion Gap BUN Creatinine Creat Clearance w eGFR POC Glucometer Random Glucose Hemoglobin A1c % 11.2 H D Calcium C-Reactive Protein Active Medications Generic Name Dose Route Start Last Admin Trade Name Freq PRN Reason Stop Dose Admin Acetaminophen 650 mg 02/18/18 16:53 02/19/18 07:02 Tylenol - PO 650 mg Q6H PRN Administration PAIN 1-3 Amlodipine Besylate 5 mg 02/19/18 10:00 02/19/18 10:00 Norvasc - PO 5 mg DAILY JORDY Administration Atorvastatin Calcium 20 mg 02/18/18 22:00 02/18/18 22:15 Lipitor - PO 20 mg HS JORDY Administration Heparin Sodium (Porcine) 5,000 unit 02/17/18 22:00 02/19/18 05:41 Heparin - SQ 5,000 unit TID JORDY Administration Vancomycin HCl 1,250 mg/ 250 mls @ 166.667 mls/hr 02/18/18 10:00 02/19/18 10: 17 Dextrose IVPB 166.667 mls/hr BID JORDY Administration Protocol Insulin Aspart 1 vial 02/18/18 07:00 02/19/18 12:15 Novolog Vial Sliding Scale - SQ 11 units ACHS [facility] Administration Protocol Lisinopril 20 mg 02/17/18 21:15 02/19/18 10:00 Prinivil PO 20 mg DAILY JORDY Administration IMAGING: XRAY R foot: Flexion deformity of the 2nd through 5th toe on lateral view compatible w/ hammertoes. Alignment is otherwise satisfactory w/o evidence of focal bone destruction. There is mod soft tissue swelling over dorsal aspect of the foot. MRI R foot: pending ASSESSMENT/PLAN: 37M w/ pmhx of DM, depression, HTN, HLD who was admitted for sepsis 2/2 RLE cellulitis. #Sepsis 2/2 RLE cellulitis; Pt currently afebrile with no white count. -cont Vancomycin 1500cc @ 250cc/hr (Day 2) -Per ID (Dr. Motta): continue vancomycin, f/u ESR/CRP -blood cx no growth x48h -urine cx showed no growth #R foot wound ulcer -Per pod (Dr. Cohen): Santyl dressing change to right foot. MRI foot ordered. Vasc consult ordered. #DM. BS in 200-300s. Uncontrolled. -ISS ACHS -will add long-acting agent after 24h according to # units needed daily -f/u endo consult #HTN -cont Lisinopril 20 mg PO QD #HLD -cont Atorvastatin 20 mg PO HS #DVT Ppx -cont Heparin SQ 5000 TID #FEN -no IVf needed -recheck lytes in AM -diabetic/sodium diet dispo -cont to monitor on med-surg -med rec'd Visit type - Emergency Visit Emergency Visit: Yes ED Registration Date: 02/17/18 Care time: The patient presented to the Emergency Department on the above date and was hospitalized for further evaluation of their emergent condition. - New Patient This patient is new to me today: No - Critical Care Critical Care patient: No
--- NOTE | 2018-02-19 18:26 | PN ---
Progress Note (short form) - Note Progress Note: FUV right foot. Feeling better. VSS. Tmax 97.9 +improving right foot, +redness noted from foot to mid leg right, vasculitis? cellulitis?, +wound submet 5 right, wbc=4.4, esr=68, crp=16.8 Grade 2-3 wound right cellulitis Vasculitis Vascular consult right. MRI right foot. Santyl to wound right foot. ID on case. Will follow. Xray reviewed.
[2018-02-19] MEDS: ATORVASTATIN CA 20 MG TABLET (FP) PO SCH (21:01)
[2018-02-19] MEDS: COLLAGENASE CLOSTRIDIUM HIST. 30 GRAMS TUBE TP SCH (21:15)
[2018-02-20] MEDS: ACETAMINOPHEN 325 MG TABLET (FP) PO PRN ×2 (06:44→22:10)
[2018-02-20] MEDS: INSULIN SLIDING SCALE (NOVOLOG) 1 VIAL SQ SCH ×4 (06:44→22:01)
[2018-02-20] MEDS: HEPARIN NA (PORCINE) 5,000 UNITS/ML 1ML VIAL SQ SCH ×3 (06:44→22:00)
[2018-02-20 07:28] LABS: HEMATOCRIT 37.4 % (35.4-49); HEMOGLOBIN 13.3 GM/dL (11.7-16.9); MCH 29.6 pg (25.7-33.7); MCHC 35.7 g/dl (32.0-35.9); MEAN CELL VOLUME 83.1 fl (80-96); MEAN PLT VOLUME 7.6 fl (7.5-11.1); PLATELET COUNT 168 K/MM3 (134-434); RDW 13.1 % (11.9-15.9); WHITE BLOOD COUNT 4.1 K/mm3 (4.0-10.0)
[2018-02-20 08:36] LABS: CHLORIDE 96 mmol/L (98-107); POTASSIUM 4.7 mmol/L (3.5-5.1); SODIUM 133 mmol/L (136-145)
[2018-02-20 09:07] LABS: ANION GAP 9 (8-16); BLOOD UREA NITROGEN 16 mg/dL (7-18); CALCIUM 9.1 mg/dL (8.5-10.1); CO2 28 mmol/L (21-32)
[2018-02-20 09:34] LABS: GLUCOSE,RANDOM 334 mg/dL (74-106)
[2018-02-20] MEDS ORDERED: amLODIPine BESYLATE 5 MG TABLET (FP) PO SCH (10:00)
[2018-02-20] MEDS ORDERED: LISINOPRIL 20 MG TABLET (FP) PO SCH (10:00)
[2018-02-20] MEDS: COLLAGENASE CLOSTRIDIUM HIST. 30 GRAMS TUBE TP SCH (11:00)
[2018-02-20] MEDS: VANCOMYCIN 1,250 MG in DEXTROSE 5%-WATER - 250 ML IVPB SCH ×2 (11:00→22:01)
--- NOTE | 2018-02-20 12:41 | CONSULT ---
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 he has been taking pills and insulin without improvement in sugars,he denies cough nausea or vomiting.r - History Source History Provided By: Patient - Alcohol/Substance Use Hx Alcohol Use: No - Smoking History Smoking history: Never smoked Have you smoked in the past 12 months: No Home Medications - Allergies Allergies/Adverse Reactions: Allergies Allergy/AdvReac Type Severity Reaction Status Date / Time Penicillins Allergy Verified 02/17/18 08:30 - Home Medications Home Medications: Ambulatory Orders Lisinopril/Hydrochlorothiazide [Lisinopril-Hctz 20-12.5 mg Tab] 1 each PO DAILY 05/12/17 metFORMIN HCL [Metformin HCl] 1,000 mg PO BID 05/12/17 Atorvastatin Ca [Lipitor] 20 mg PO DAILY 12/31/17 Insulin Glargine,Hum.rec.anlog [Basaglar Kwikpen U-100] 36 unit SQ HS 12/31/17 Insulin Lispro Protamin/Lispro [Humalog Mix 75-25 Kwikpen] 30 unit SQ TID Clindamycin [Cleocin -] 300 mg PO Q6HPO #12 capsule 01/03/18 Review of Systems - Review of Systems Constitutional: reports: Lethargy, Weakness Eyes: reports: No Symptoms HENT: reports: No Symptoms Neck: reports: No Symptoms Cardiovascular: reports: No Symptoms Respiratory: reports: No Symptoms Gastrointestinal: reports: Constipation Breasts: reports: No Symptoms Reported Musculoskeletal: reports: Joint Swelling, Muscle Pain, Muscle Cramps, Muscle Weakness Integumentary: reports: No Symptoms Endocrine: reports: Unexplained Weight Gain Physical Exam Vital Signs: Vital Signs Temperature 97.5 F L 02/20/18 11:10 Pulse Rate 80 02/20/18 11:10 Respiratory Rate 18 08/08/18 11:10 Blood Pressure 136/84 02/20/18 11:10 O2 Sat by Pulse Oximetry (%) 96 02/19/18 21:00 Constitutional: Yes: Anxious Eyes: Yes: EOM Intact HENT: Yes: Normocephalic Neck: Yes: Trachea Midline Cardiovascular: Yes: Regular Rate and Rhythm Respiratory: Yes: CTA Bilaterally Gastrointestinal: Yes: Normal Bowel Sounds ...Rectal Exam: Yes: Deferred Renal/: Yes: WNL Breast(s): Yes: WNL Musculoskeletal: Yes: Muscle Weakness Extremities: Yes: WNL Integumentary: Yes: Onychomycosis, Venous Stasis Changes Wound/Incision: Yes: Clean/Dry, Open to air Neurological: Yes: Alert, Oriented Labs: CBC, BMP 02/20/18 06:30 02/20/18 06:30 Problem List - Problems (1) Cellulitis Code(s): L03.90 - CELLULITIS, UNSPECIFIED Qualifiers: Site of cellulitis: unspecified site Qualified Code(s): L03.90 - Cellulitis , unspecified (2) Diabetic foot ulcer Code(s): E11.621 - TYPE 2 DIABETES MELLITUS WITH FOOT ULCER; L97.509 - NON- PRESSURE CHRONIC ULCER OTH PRT UNSP FOOT W UNSP SEVERITY Qualifiers: Diabetic foot ulcer location: unspecified part of foot Diabetes mellitus type: other specified (including KENNETH) Laterality: unspecified laterality Non-pressure ulcer stage: unspecified non-pressure ulcer stage Qualified Code( s): E13.621 - Other specified diabetes mellitus with foot ulcer; L97.509 - Non- pressure chronic ulcer of other part of unspecified foot with unspecified severity (3) Insulin dependent diabetes mellitus Code(s): E11.9 - TYPE 2 DIABETES MELLITUS WITHOUT COMPLICATIONS; Z79.4 - [place] (CURRENT) USE OF INSULIN (4) High blood sugar Code(s): R73.9 - HYPERGLYCEMIA, UNSPECIFIED Assessment/Plan Current Active Problems Cellulitis (Acute) Tachycardia (Acute) iddm hyperglycemia/ diabetic neuropathy diabetic foot infection hypertension hyperlipidemia morbid obesity Abnormal Lab Results 02/20/18 06:30 Sodium 133 L Chloride 96 L Random Glucose 334 H* D Laboratory Results - last 24 hr 02/19/18 02/19/18 02/19/18 16:30 21:00 23:11 WBC RBC Hgb Hct MCV MCH MCHC RDW Plt Count MPV Sodium Potassium Chloride Carbon Dioxide Anion Gap BUN Creatinine Creat Clearance w eGFR POC Glucometer 376 414 380 Random Glucose Calcium 02/20/18 02/20/18 02/20/18 06:22 06:30 06:30 WBC 4.1 RBC 4.50 Hgb 13.3 Hct 37.4 MCV 83.1 MCH 29.6 MCHC 35.7 RDW 13.1 Plt Count 168 D MPV 7.6 Sodium 133 L Potassium 4.7 D Chloride 96 L Carbon Dioxide 28 Anion Gap 9 BUN 16 Creatinine 1.0 Creat Clearance w eGFR > 60 POC Glucometer 340 Random Glucose 334 H* D Calcium 9.1 02/20/18 11:10 WBC RBC Hgb Hct MCV MCH MCHC RDW Plt Count MPV Sodium Potassium Chloride Carbon Dioxide Anion Gap BUN Creatinine Creat Clearance w eGFR POC Glucometer 359 Random Glucose Calcium plan: bgm qid novolog insulin doses levemir 20 units bid titirate dose of levemir as diet improves \ck hba1c ck tsh free t4 diet nutrition consult
--- NOTE | 2018-02-20 16:03 | PN ---
Teaching Attending Note Name of Resident: Shanice Larson ATTENDING PHYSICIAN STATEMENT I saw and evaluated the patient. I reviewed the resident's note and discussed the case with the resident. I agree with the resident's findings and plan as documented. SUBJECTIVE: Patient has no complaints and wants to go home because he needs to go back to work. OBJECTIVE: Vital Signs Period Temp Pulse Resp BP Sys/Marinelli Pulse Ox Last 24 Hr 97.5 F-98 F 80-109 18-20 136-167/76-94 96 HEART: S1S2, RRR LUNGS: Clear ABDOMEN: Obese, soft, non-tender, non-distended, normal BS EXTREMITIES: Venous stasis changes. Clean plantar ulcer overlying right 5th metatarsal head. Laboratory Results - last 24 hr 02/19/18 02/19/18 02/19/18 16:30 21:00 23:11 WBC RBC Hgb Hct MCV MCH MCHC RDW Plt Count MPV Sodium Potassium Chloride Carbon Dioxide Anion Gap BUN Creatinine Creat Clearance w eGFR POC Glucometer 376 414 380 Random Glucose Calcium 02/20/18 02/20/18 02/20/18 06:22 06:30 06:30 WBC 4.1 RBC 4.50 Hgb 13.3 Hct 37.4 MCV 83.1 MCH 29.6 MCHC 35.7 RDW 13.1 Plt Count 168 D MPV 7.6 Sodium 133 L Potassium 4.7 D Chloride 96 L Carbon Dioxide 28 Anion Gap 9 BUN 16 Creatinine 1.0 Creat Clearance w eGFR > 60 POC Glucometer 340 Random Glucose 334 H* D Calcium 9.1 02/20/18 11:10 WBC RBC Hgb Hct MCV MCH MCHC RDW Plt Count MPV Sodium Potassium Chloride Carbon Dioxide Anion Gap BUN Creatinine Creat Clearance w eGFR POC Glucometer 359 Random Glucose Calcium Current Medications Generic Name Dose Route Start Last Admin Trade Name Freq PRN Reason Stop Dose Admin Acetaminophen 650 mg 02/19/18 13:41 02/20/18 06:44 Tylenol - PO 650 mg Q6H PRN Administration PAIN 1-3 Amlodipine Besylate 5 mg 02/20/18 10:00 02/20/18 11:00 Norvasc - PO 5 mg DAILY JORDY Administration Atorvastatin Calcium 20 mg 02/19/18 22:00 02/19/18 21:01 Lipitor - PO 20 mg HS JORDY Administration Collagenase 1 applic 02/19/18 19:00 02/20/18 11:00 Santyl - TP 1 applic DAILY [facility] Administration Protocol Heparin Sodium (Porcine) 5,000 unit 02/19/18 14:00 02/20/18 15:25 Heparin - SQ 5,000 unit TID JORDY Administration Vancomycin HCl 1,250 mg/ 250 mls @ 150 mls/hr 02/19/18 22:00 02/20/18 11:00 Dextrose IVPB 150 mls/hr BID [facility] Administration Protocol Insulin Aspart 1 vial 02/20/18 12:18 Novolog Vial Sliding Scale - SQ ACHS [facility] Protocol Insulin Detemir 20 units 02/20/18 22:00 Levemir Vial SQ BID@0700,2200 [facility] Lisinopril 20 mg 02/20/18 10:00 02/20/18 11:00 Prinivil PO 20 mg DAILY [facility] Administration ASSESSMENT AND PLAN: This is a 37 year old man with a history of type 2 DM, depression, HTN, hyperlipidemia who was presented to the ED with fever, chills, and body aches. 1. Sepsis secondary to RLE cellulitis - Continue Vancomycin 2. Diabetic ulcer of right foot - Continue wound care with Santyl - ESR 68, C-RP 16.8 - MRI pending 3. Type 2 DM, uncontrolled - Metformin held - Continue Levemir, Novolog sliding scale 4. HTN - Continue Lisinopril, Norvasc 5. Hyperlipidemia - Continue Lipitor 6. Depression 7. Obesity
--- NOTE | 2018-02-20 17:36 | PN ---
Progress Note (short form) - Note Progress Note: erythema improved no complaints Vital Signs Period Temp Pulse Resp BP Sys/Marinelli Pulse Ox Last 24 Hr 97.5 F-98 F 80-109 18-20 136-167/76-94 96 +venous stasis decreased erythema of the RLE +plantar ulcer CBC, BMP 02/20/18 06:30 02/20/18 06:30 Laboratory Tests 12/31/17 12/31/17 12/31/17 13:00 13:00 14:50 ESR 18 H Hemoglobin A1c % Lactic Acid 2.9 H* C-Reactive Protein 8.0 H 12/31/17 02/18/18 02/19/18 18:37 21:16 06:00 ESR 68 H Hemoglobin A1c % 12.5 H Lactic Acid C-Reactive Protein 16.8 H Microbiology 02/17/18 14:30 Blood - Peripheral Venous Blood Culture - Preliminary NO GROWTH OBTAINED AFTER 72 HOURS, INCUBATION TO CONTINUE FOR 2 DAYS. 02/17/18 14:30 Blood - Peripheral Venous Blood Culture - Preliminary NO GROWTH OBTAINED AFTER 72 HOURS, INCUBATION TO CONTINUE FOR 2 DAYS. 02/17/18 17:30 Urine - Urine Clean Catch Urine Culture - Final NO GROWTH OBTAINED imp/reccd cellulitis RLE diabetic foot ulcer (chronic) diabetes continue vancomycin check vancomycin trough MRI ordered by podiatry Problem List - Problems (1) Cellulitis Code(s): L03.90 - CELLULITIS, UNSPECIFIED Qualifiers: Site of cellulitis: unspecified site Qualified Code(s): L03.90 - Cellulitis , unspecified (2) Diabetic foot ulcer Code(s): E11.621 - TYPE 2 DIABETES MELLITUS WITH FOOT ULCER; L97.509 - NON- PRESSURE CHRONIC ULCER OTH PRT UNSP FOOT W UNSP SEVERITY Qualifiers: Diabetic foot ulcer location: unspecified part of foot Diabetes mellitus type: other specified (including KENNETH) Laterality: unspecified laterality Non-pressure ulcer stage: unspecified non-pressure ulcer stage Qualified Code( s): E13.621 - Other specified diabetes mellitus with foot ulcer; L97.509 - Non- pressure chronic ulcer of other part of unspecified foot with unspecified severity (3) Insulin dependent diabetes mellitus Code(s): E11.9 - TYPE 2 DIABETES MELLITUS WITHOUT COMPLICATIONS; Z79.4 - [facility] (CURRENT) USE OF INSULIN
--- NOTE | 2018-02-20 18:11 | PN ---
Physical Exam: SUBJECTIVE: Patient seen and examined. No acute events overnight. Pt feels wells. Denies fever/chills, nausea, vomiting, urinary/bowel symptoms. OBJECTIVE: Vital Signs Period Temp Pulse Resp BP Sys/Marinelli Pulse Ox Last 24 Hr 97.5 F-97.8 F 80-109 18-20 136-167/76-94 96 GENERAL: AAOx3. NAD. Resting comfortably. Obese. HEENT: AT/NC. Moist mucus membranes. NECK: Normal range of motion, supple without lymphadenopathy, JVD, or masses. LUNGS: CTA B/L. No wheezes, rhonchi, rales noted. No use of accessory muscles. HEART: Tachycardic. Normal S1, S2. No murmurs, rubs, or gallop noted. ABDOMEN: Soft, nontender, not distended, normoactive bowel sounds, no guarding, no rebound, no masses. No hepatomegaly or splenomegaly. MUSCULOSKELETAL: Normal range of motion at all joints. No bony deformities or tenderness. No CVA tenderness. UPPER EXTREMITIES: 2+ pulses, warm, well-perfused. No cyanosis. No clubbing. No peripheral edema. 5/5 muscle strength b/l. LOWER EXTREMITIES: 2+ pulses, warm, well-perfused. No calf tenderness. No peripheral edema. 5/5 muscle strength b/l. NEUROLOGICAL: Cranial nerves II-XII intact. Normal speech. PSYCHIATRIC: Cooperative. Good eye contact. Appropriate mood and affect. SKIN: +cellulitis in distal RLE. +0.5cm R foot wound ulcer on plantar surface at distal end of 5th metatarsal, non-draining, non-tender, non-odorous. Laboratory Results - last 24 hr 02/19/18 02/19/18 02/20/18 21:00 23:11 06:22 WBC RBC Hgb Hct MCV MCH MCHC RDW Plt Count MPV Sodium Potassium Chloride Carbon Dioxide Anion Gap BUN Creatinine Creat Clearance w eGFR POC Glucometer 414 380 340 Random Glucose Calcium 02/20/18 02/20/18 02/20/18 06:30 06:30 11:10 WBC 4.1 RBC 4.50 Hgb 13.3 Hct 37.4 MCV 83.1 MCH 29.6 MCHC 35.7 RDW 13.1 Plt Count 168 D MPV 7.6 Sodium 133 L Potassium 4.7 D Chloride 96 L Carbon Dioxide 28 Anion Gap 9 BUN 16 Creatinine 1.0 Creat Clearance w eGFR > 60 POC Glucometer 359 Random Glucose 334 H* D Calcium 9.1 02/20/18 17:17 WBC RBC Hgb Hct MCV MCH MCHC RDW Plt Count MPV Sodium Potassium Chloride Carbon Dioxide Anion Gap BUN Creatinine Creat Clearance w eGFR POC Glucometer 426 Random Glucose Calcium Active Medications Generic Name Dose Route Start Last Admin Trade Name Freq PRN Reason Stop Dose Admin Acetaminophen 650 mg 02/19/18 13:41 02/20/18 06:44 Tylenol - PO 650 mg Q6H PRN Administration PAIN 1-3 Amlodipine Besylate 5 mg 02/20/18 10:00 02/20/18 11:00 Norvasc - PO 5 mg DAILY JORDY Administration Atorvastatin Calcium 20 mg 02/19/18 22:00 02/19/18 21:01 Lipitor - PO 20 mg HS JORDY Administration Collagenase 1 applic 02/19/18 19:00 02/20/18 11:00 Santyl - TP 1 applic DAILY [facility] Administration Protocol Heparin Sodium (Porcine) 5,000 unit 02/19/18 14:00 02/20/18 15:25 Heparin - SQ 5,000 unit TID JORDY Administration Vancomycin HCl 1,250 mg/ 250 mls @ 150 mls/hr 02/19/18 22:00 02/20/18 11:00 Dextrose IVPB 150 mls/hr BID JORDY Administration Protocol Insulin Aspart 1 vial 02/20/18 12:18 02/20/18 17:21 Novolog Vial Sliding Scale - SQ 12 unit ACHS [facility] Administration Protocol Insulin Detemir 20 units 02/20/18 22:00 Levemir Vial SQ BID@0700,2200 [facility] Lisinopril 20 mg 02/20/18 10:00 02/20/18 11:00 Prinivil PO 20 mg DAILY JORDY Administration ASSESSMENT/PLAN: IMAGING: XRAY R foot: Flexion deformity of the 2nd through 5th toe on lateral view compatible w/ hammertoes. Alignment is otherwise satisfactory w/o evidence of focal bone destruction. There is mod soft tissue swelling over dorsal aspect of the foot. MRI R foot: pending ASSESSMENT/PLAN: 37M w/ pmhx of DM, depression, HTN, HLD who was admitted for sepsis 2/2 RLE cellulitis. #Sepsis 2/2 RLE cellulitis; Pt currently afebrile with no white count. -cont Vancomycin 1500cc @ 250cc/hr (Day 3) -Per ID (Dr. Motta): continue vancomycin, Check vanc trough before 4th dose -blood cx no growth x48h -urine cx showed no growth -ESR 68, CRP 16.8 #R foot wound ulcer -Per pod (Dr. Cohen): Santyl dressing change to right foot. MRI foot ordered. Vasc consult ordered. #DM. BS in 200-300s. Uncontrolled. -ISS ACHS -Per Endo: startd on Levemir 20U BID #HTN -cont Lisinopril 20 mg PO QD #HLD -cont Atorvastatin 20 mg PO HS #DVT Ppx -cont Heparin SQ 5000 TID #FEN -no IVf needed -recheck lytes in AM -diabetic/sodium diet dispo -cont to monitor on med-surg -med rec'd Visit type - Emergency Visit Emergency Visit: Yes ED Registration Date: 02/17/18 Care time: The patient presented to the Emergency Department on the above date and was hospitalized for further evaluation of their emergent condition. - New Patient This patient is new to me today: No - Critical Care Critical Care patient: No
[2018-02-20] MEDS ORDERED: INSULIN (LEVEMIR) 100 UNITS/ML UNITS SQ ONE (18:45)
--- NOTE | 2018-02-20 21:13 | PN ---
Progress Note (short form) - Note Progress Note: FUV right foot. Patient seen this am. Feeling better. VSS. Tmax 98.8 +improving right foot, +redness noted from foot to mid leg right, vasculitis? cellulitis?, +wound submet 5 right, wbc=4.1, esr=68, crp=16.8 Grade 2-3 wound right cellulitis Vasculitis Vascular consult right. MRI right foot not done yet. Santyl to wound right foot. ID on case. Will follow. HGBA1c tomorrow.
[2018-02-20] MEDS: ATORVASTATIN CA 20 MG TABLET (FP) PO SCH (22:00)
[2018-02-20] MEDS ORDERED: INSULIN (LEVEMIR) 100 UNITS/ML UNITS SQ SCH (22:00)
--- NOTE | 2018-02-20 23:41 | CONSULT ---
Consult - History of Present Illness History of Present Illness: 37 year old man DM with peripheral neuropathy. No history of PAD. He has a plantar ulcer of the right 5th metatarsal. No evidence for abscess or sepsis. - Alcohol/Substance Use Hx Alcohol Use: No - Smoking History Smoking history: Never smoked Have you smoked in the past 12 months: No Home Medications - Allergies Allergies/Adverse Reactions: Allergies Allergy/AdvReac Type Severity Reaction Status Date / Time Penicillins Allergy Verified 02/17/18 08:30 - Home Medications Home Medications: Ambulatory Orders Lisinopril/Hydrochlorothiazide [Lisinopril-Hctz 20-12.5 mg Tab] 1 each PO DAILY 05/12/17 metFORMIN HCL [Metformin HCl] 1,000 mg PO BID 05/12/17 Atorvastatin Ca [Lipitor] 20 mg PO DAILY 12/31/17 Insulin Glargine,Hum.rec.anlog [Basaglar Kwikpen U-100] 36 unit SQ HS 12/31/17 Insulin Lispro Protamin/Lispro [Humalog Mix 75-25 Kwikpen] 30 unit SQ TID Clindamycin [Cleocin -] 300 mg PO Q6HPO #12 capsule 01/03/18 Physical Exam Vital Signs: Vital Signs Temperature 98.8 F 02/20/18 18:00 Pulse Rate 96 H 02/20/18 18:00 Respiratory Rate 20 02/20/18 18:00 Blood Pressure 109/72 02/20/18 18:00 O2 Sat by Pulse Oximetry (%) 96 02/19/18 21:00 Edema: LLE: 1+, RLE: 1+ Peripheral Pulses WNL: Yes (Palpable DP bilaterally) Wound/Incision: Yes: Other (Right 5th met head mal perforans ulcer. Callused edges, no erythema.) Labs: CBC, BMP 02/20/18 06:30 02/20/18 06:30 Problem List - Problems (1) Diabetic foot ulcer Assessment/Plan: Right plantar ulcer. Work-up for osteomyelitis pending. No evidence for arterial insufficiency or vascultitis. Code(s): E11.621 - TYPE 2 DIABETES MELLITUS WITH FOOT ULCER; L97.509 - NON- PRESSURE CHRONIC ULCER OTH PRT UNSP FOOT W UNSP SEVERITY Qualifiers: Diabetic foot ulcer location: unspecified part of foot Diabetes mellitus type: other specified (including KENNETH) Laterality: unspecified laterality Non-pressure ulcer stage: unspecified non-pressure ulcer stage Qualified Code( s): E13.621 - Other specified diabetes mellitus with foot ulcer; L97.509 - Non- pressure chronic ulcer of other part of unspecified foot with unspecified severity
[2018-02-21] MEDS ORDERED: INSULIN (LEVEMIR) 100 UNITS/ML UNITS SQ SCH (00:28)
[2018-02-21 01:05] VITALS: BP 163/87; PULSE 90; TEMP 98.7
[2018-02-21] MEDS: HEPARIN NA (PORCINE) 5,000 UNITS/ML 1ML VIAL SQ SCH (06:32)
--- NOTE | 2018-02-21 18:00 | PN ---
Teaching Attending Note Name of Resident: Shanice Larson ATTENDING PHYSICIAN STATEMENT I saw and evaluated the patient. I reviewed the resident's note and discussed the case with the resident. I agree with the resident's findings and plan as documented. SUBJECTIVE: Patient wants to leave. He refused to talk or be examined. OBJECTIVE: Vital Signs Period Temp Pulse Resp BP Sys/Marinelli Pulse Ox Last 24 Hr 98.7 F-98.8 F 90-96 20-20 109-163/72-87 Examination refused Laboratory Results - last 24 hr 02/20/18 21:59 POC Glucometer 400 ASSESSMENT AND PLAN: This is a 37 year old man with a history of type 2 DM, depression, HTN, hyperlipidemia who was presented to the ED with fever, chills, and body aches. Patient refusing examination and treatment as he wants to leave to go back to work. Risks of leaving explained to him and he understands. Patient is leaving against medical advice. 1. Sepsis secondary to RLE cellulitis 2. Diabetic ulcer of right foot 3. Type 2 DM, uncontrolled 4. HTN 5. Hyperlipidemia 6. Depression 7. Obesity
--- NOTE | 2018-02-21 18:45 | DS ---
Physical Exam: SUBJECTIVE: Patient patient examined at bedside. Refused examination and requested to sign out AMA. OBJECTIVE: Vital Signs Period Temp Pulse Resp BP Sys/Marinelli Pulse Ox Last 24 Hr 98.7 F 90 20 163/87 PHYSICAL EXAM GENERAL: AAOx3. NAD. Resting comfortably. Obese. HEENT: AT/NC. Moist mucus membranes. NECK: Normal range of motion, supple without lymphadenopathy, JVD, or masses. LUNGS: CTA B/L. No wheezes, rhonchi, rales noted. No use of accessory muscles. HEART: Tachycardic. Normal S1, S2. No murmurs, rubs, or gallop noted. ABDOMEN: Soft, nontender, not distended, normoactive bowel sounds, no guarding, no rebound, no masses. No hepatomegaly or splenomegaly. MUSCULOSKELETAL: Normal range of motion at all joints. No bony deformities or tenderness. No CVA tenderness. UPPER EXTREMITIES: 2+ pulses, warm, well-perfused. No cyanosis. No clubbing. No peripheral edema. 5/5 muscle strength b/l. LOWER EXTREMITIES: 2+ pulses, warm, well-perfused. No calf tenderness. No peripheral edema. 5/5 muscle strength b/l. NEUROLOGICAL: Cranial nerves II-XII intact. Normal speech. PSYCHIATRIC: Cooperative. Good eye contact. Appropriate mood and affect. SKIN: +cellulitis in distal RLE. +0.5cm R foot wound ulcer on plantar surface at distal end of 5th metatarsal, non-draining, non-tender, non-odorous. LABS Laboratory Results - last 24 hr 02/20/18 21:59 POC Glucometer 400 HOSPITAL COURSE: Date of Admission:02/17/18 IMAGING: XRAY R foot: Flexion deformity of the 2nd through 5th toe on lateral view compatible w/ hammertoes. Alignment is otherwise satisfactory w/o evidence of focal bone destruction. There is mod soft tissue swelling over dorsal aspect of the foot. 37M w/ pmhx of uncontrolled DM, depression, HTN, HLD was admitted for sepsis 2/ 2 RLE cellulitis. Upon initial presentation, pt was found to be tachycardic, with no fever. Physical exam was remarkable for a RLE cellulitis as well as an open diabetic wound ulcer on the plantar surface of the R foot located at the distal end of the 5th metatarsal. In the ED, pt was given Vancomycin. A RLE Doppler U/S showed no evidence of acute DVT. Lab work was significant for elevated WBC. ID was consulted. Upon ID eval, pt was continued on vancomycin. Due to pt's nonhealing wound ulcer, podiatry was consulted. Upon podiatry eval, an Xray was ordered that showed flexion deformity of the 2nd through 5th toe on lateral view compatible w/ hammertoes; alignment otherwise satisfactory w/o evidence of focal bone destruction and mod soft tissue swelling over dorsal aspect of the foot. Wound ulcer was treated with Santyl and dry dressings. Additionally, blood glucose checks revealed sugars in the 200-300s. Hgb A1C was noted to be 11.2. Endo was consulted. Pt was subsequently started on insulin for glucose control. Per podiatry recommendation, an MRI was ordered to rule out osteomyelitis, however, pt elected to leave AMA prior to having MRI done. By leaving AMA, pt was advised of risks including risk of spread of his current infection, bacteremia, osteomyelitis, amputation of the limb, and . He verbalized understanding of these risks and agreed to leave AMA. He was given the option to return to the ED if he wanted to be treated medically in the future. Date of Discharge: 02/21/18 Minutes to complete discharge: 35 Discharge Summary Reason For Visit: CELLULITIS; TACHYCARDIA Condition: Stable - Instructions Diet, Activity, Other Instructions: You were treated for a skin infection of your right leg. You were given antibiotics to treat your infection. You were supposed to get an MRI to rule out osteomyelitis, but you elected to sign out AMA. You were given the risks and benefits when signing out AMA including: risk of spread of infection, worsening of your infection, blood infection, bone infection, amputation of your limb, and/or . You were given a recommendation to return to the emergency room at any time if you feel you start to experience worsening symptoms and would like to be treated. Referrals: Raissa Campbell [Primary Care Provider] - Disposition: AGAINST MEDICAL ADVICE - Home Medications Comprehensive Discharge Medication List: Ambulatory Orders Lisinopril/Hydrochlorothiazide [Lisinopril-Hctz 20-12.5 mg Tab] 1 each PO DAILY 05/12/17 metFORMIN HCL [Metformin HCl] 1,000 mg PO BID 05/12/17 Atorvastatin Ca [Lipitor] 20 mg PO DAILY 12/31/17 Insulin Glargine,Hum.rec.anlog [Basaglar Kwikpen U-100] 36 unit SQ HS 12/31/17 Insulin Lispro Protamin/Lispro [Humalog Mix 75-25 Kwikpen] 30 unit SQ TID Clindamycin [Cleocin -] 300 mg PO Q6HPO #12 capsule 01/03/18 This patient is new to me today: No Emergency Visit: Yes ED Registration Date: 02/17/18 Care time: The patient presented to the Emergency Department on the above date and was hospitalized for further evaluation of their emergent condition. Critical Care patient: No - Discharge Referral Referred to [facility] No
== END 2018-02-21 08:41 | disposition left against medical advice (07) | DRG 720 ==
LOC: JER 08:13 → JERBED 12:20 → J4S 02-18 23:13 → J7W 02-19 12:50
PROVIDERS: ADMIT Internal Medicine; ATTEND Internal Medicine
DX: A41.9 Sepsis, unspecified organism (principal); E11.621 Type 2 diabetes mellitus with foot ulcer; L97.519 Non-pressure chronic ulcer of other part of right foot with unspecified severity; E11.65 Type 2 diabetes mellitus with hyperglycemia; E66.01 Morbid (severe) obesity due to excess calories; E11.40 Type 2 diabetes mellitus with diabetic neuropathy, unspecified; L03.115 Cellulitis of right lower limb; Z79.4 Long term (current) use of insulin; R00.0 Tachycardia, unspecified; F32.9 Major depressive disorder, single episode, unspecified; E78.5 Hyperlipidemia, unspecified; I10 Essential (primary) hypertension; Z88.0 Allergy status to penicillin; Z68.33 Body mass index [BMI] 33.0-33.9, adult
CPT/HCPCS: 36415; 71046-TC-FY; 73630-TC-RT-FY; 80048; 80053; 81003; 81015; 82009; 82550; 82553; 82803; 82962; 83036; 83605; 84484; 85025; 85027; 85379; 85651; 86140; 87040; 87086; 87389; 93005; 93010; 93970-TC; 99285-25; J1644; J7030

== ENCOUNTER 2018-05-12 10:56 | Emergency (ER) | payer OTHER ==
[2018-05-12 11:02] VITALS: BMI 32.0
--- NOTE | 2018-05-12 11:08 | PDOC ---
History of Present Illness - General Chief Complaint: Blood Sugar Problem Stated Complaint: SUGAR PROBLEM - History of Present Illness Initial Comments: The patient is a 37M w/ a PMH of HTH, HLD, T2DM presenting for evaluation of hyperglycemia reported to him by his MD 3d ago. Patient denies any symptoms or complaints since that time. Patient denies recent illness, fevers/chill, [place], chest pain, SOB, abdominal pain, N/V/C/D. BG 200-300 avg @ home Endorses associated peripheral neuropathy, chronic PCP: Dr. Campbell Insulin regimen 36 Glargine at night 12 Humalog TID s/p meals 05/12/18 11:33 Past History - Past Medical History Allergies/Adverse Reactions: Allergies Allergy/AdvReac Type Severity Reaction Status Date / Time Penicillins Allergy Verified 05/12/18 11:02 Home Medications: Ambulatory Orders Lisinopril/Hydrochlorothiazide [Lisinopril-Hctz 20-12.5 mg Tab] 1 each PO DAILY 05/12/17 metFORMIN HCL [Metformin HCl] 1,000 mg PO BID 05/12/17 Atorvastatin Ca [Lipitor] 20 mg PO DAILY 12/31/17 Insulin Glargine,Hum.rec.anlog [Basaglar Kwikpen U-100] 36 unit SQ HS 12/31/17 Insulin Lispro Protamin/Lispro [Humalog Mix 75-25 Kwikpen] 36 unit SQ TID Gabapentin 300 mg PO BID 05/12/18 COPD: No Diabetes: Yes (IDDM) HTN: Yes Hypercholesterolemia: Yes Psychiatric Problems: Yes (DEPRESSION) - Suicide/Smoking/Psychosocial Hx Smoking History: Never smoked Have you smoked in the past 12 months: No Hx Alcohol Use: No Drug/Substance Use Hx: No Substance Use Type: None Hx Substance Use Treatment: No Review of Systems - Review of Systems Able to Perform ROS?: Yes Comments:: GENERAL/CONSTITUTIONAL: No fever or chills. No weakness HEAD, EYES, EARS, NOSE AND THROAT: No change in vision. No ear pain or discharge. No sore throat CARDIOVASCULAR: No chest pain or shortness of breath RESPIRATORY: No cough, wheezing, or hemoptysis GASTROINTESTINAL: No nausea, vomiting, diarrhea or constipation GENITOURINARY: No dysuria, frequency, or change in urination MUSCULOSKELETAL: No joint or muscle swelling or pain. No neck or back pain SKIN: No rash NEUROLOGIC: +chronic neuropathy BLE ENDOCRINE: No increased thirst. No abnormal weight change HEMATOLOGIC/LYMPHATIC: No anemia, easy bleeding, or history of blood clots ALLERGIC/IMMUNOLOGIC: No hives or skin allergy 05/12/18 11:25 Is the patient limited Moldovan proficient: No *Physical Exam - Vital Signs Last Vital Signs Temp Pulse Resp BP Pulse Ox 97.7 F 114 H 20 173/99 H 99 05/12/18 10:59 05/12/18 10:59 05/12/18 10:59 05/12/18 10:59 05/12/18 10:59 - Physical Exam Comments: GENERAL: Awake, alert, and fully oriented, in no acute distress HEAD: No signs of trauma, normocephalic, atraumatic EYES: PERRL, EOMI, sclera anicteric, conjunctiva clear ENT: Hearing grossly normal, nares patent, oropharynx clear without exudates NECK: Normal ROM, supple, no lymphadenopathy LUNGS: No distress, speaks full sentences, clear to auscultation bilaterally HEART:Regular rate and rhythm, normal S1 and S2, no murmurs appreciated, peripheral pulses normal and equal bilaterally ABDOMEN: Soft, nontender, normoactive bowel sounds. No guarding, no rebound EXTREMITIES : Normal inspection, Normal range of motion, 2+ edema BLE. No clubbing or cyanosis NEUROLOGICAL: Cranial nerves II through XII grossly intact. Normal speech, normal gait SKIN: Warm, Dry, normal turgor, no rashes or lesions noted 05/12/18 11:24 ED Treatment Course - LABORATORY CBC & Chemistry Diagram: 05/12/18 12:00 05/12/18 12:00 Medical Decision Making - Medical Decision Making The patient is a 37M w/ a history of T2DM, HTN, HLD who presents for evaluation of hyperglycemia BG 369 -Will give Insulin 6u SQ once CMP, CBC 05/12/18 11:21 Mild protinuria Acetone still pending Lytes wnl No leukocytosis No anemia 05/12/18 13:01 Acetone negative Blood sugar 305 Plan for D/C w/ PCP f/u. Patient reports that he will see his PCP tomorrow. Discharge instructions and return precautions given Patient is in agreement and verbalized understanding Dispo: Home 05/12/18 14:40 *DC/Admit/Observation/Transfer Diagnosis at time of Disposition: Hyperglycemia - Discharge Dispostion Disposition: HOME Condition at time of disposition: Improved Decision to Admit order: No - Referrals Referrals: Raissa Campbell [Primary Care Provider] - Emma Albert [Other] (Turbo Operator) - Patient Instructions Printed Discharge Instructions: DI for Hyperglycemia -- Adult Additional Instructions: You were seen in the Emergency Department today for hyperglycemia (high blood sugar). Please review the handouts provided at discharge. Please follow up with your primary care provider within the next 1-3 days. Return to the Emergency Department if you develop fevers/chills, nausea/vomiting , abdominal pain, or any new/concerning symptoms. Print Language: UGANDAN - Post Discharge Activity
--- NOTE | 2018-05-12 11:39 | PDOC ---
Attending Attestation - Resident Resident Name: Theo Sullivan - ED Attending Attestation I have performed the following: I have examined & evaluated the patient, The case was reviewed & discussed with the resident, I agree w/resident's findings & plan, Exceptions are as noted - HPI HPI: 05/12/18 11:34 The patient is a 37-year-old male with past medical history significant for HTN , HLD, DM Type 2 was sent to the emergency department by PCP for elevated blood sugar. The patient reports following up with PCP 3 days ago, where he was instructed to follow up at the ER for hyperglycemia. The patient reports her average blood sugar level is 200-300 at home. The patient reports an additional concern of tingling to the fingers, thats chronic. The patient denies fever, chills, chest pain shortness of breath, abdominal pain. Increased thirst, urinary frequency, blurry vision, fatigue or a headache. Allergies: Penicillins Social history: No past or present use of tobacco, alcohol or recreational drug use. PCP: Dr. Campbell - Physicial Exam PE: 05/12/18 13:12 General: no acute distress Abd: obese, nontender card: rrr no mrg pulm: cta b/l - Medical Decision Making 05/12/18 13:13 suspect hyperglycemia due to poorly controlled DM seconary to dietary indiscretion will ck labs to r/o dka fluids;insulin pt seems to have poor insight into dietary habits/exercise - had extensive discussion with the patient regarding importance of avoiding carbohydrates, increasing vegetables/protein as substitue also recommended increased physical activity, pt expressed interest in going to the gym will have pt fu with PMD if pts labs unremarkble
[2018-05-12] MEDS ORDERED: SODIUM CHLORIDE 0.9% 500 ML INFUS.BAG IV ONE (11:54)
[2018-05-12 12:09] LABS: VENOUS PH 7.35 (7.32-7.42); VENOUS PO2 35.6 mmHg (28-48)
[2018-05-12 12:10] LABS: HEMATOCRIT 41.7 % (35.4-49); HEMOGLOBIN 14.2 GM/dL (11.7-16.9); MCH 29.1 pg (25.7-33.7); MCHC 34.1 g/dl (32.0-35.9); MEAN CELL VOLUME 85.3 fl (80-96); MEAN PLT VOLUME 7.7 fl (7.5-11.1); PLATELET COUNT 196 K/MM3 (134-434); RBC 4.89 M/mm3 (4.00-5.60); WHITE BLOOD COUNT 5.2 K/mm3 (4.0-10.0)
[2018-05-12 12:21] LABS: URINE APPEARANCE SLCLOUDY; URINE BILIRUBIN NEGATIVE (<2.0 mg/dL); URINE COLOR LTYELLOW; URINE GLUCOSE (UA) 3+ (NEGATIVE); URINE KETONE NEGATIVE (NEGATIVE); URINE LEUK ESTERASE TRACE (NEGATIVE); URINE NITRITE NEGATIVE (NEGATIVE); URINE PROTEIN 2+ (NEGATIVE); URINE UROBILINOGEN NEGATIVE mg/dL (0.2-1.0)
[2018-05-12 12:30] LABS: EPI CELLS FEW /HPF (FEW); URINE MUCUS RARE
[2018-05-12 12:38] LABS: ALBUMIN 3.5 g/dl (3.4-5.0); ALK PHOS 116 U/L (45-117); ANION GAP 12 MMOL/L (8-16); BILIRUBIN,TOTAL 0.4 mg/dL (0.2-1); BLOOD UREA NITROGEN 30 mg/dL (7-18); CALCIUM 8.7 mg/dL (8.5-10.1); CHLORIDE 100 mmol/L (98-107); CO2 23 mmol/L (21-32); CREATININE 1.2 mg/dL (0.55-1.3); POTASSIUM 4.6 mmol/L (3.5-5.1); SGOT/AST 16 U/L (15-37); SGPT/ALT 36 U/L (13-61); SODIUM 135 mmol/L (136-145); TOT PROT 6.8 g/dl (6.4-8.2)
[2018-05-12 12:40] LABS: GLUCOSE,RANDOM 340 mg/dL (74-106)
[2018-05-12 12:57] LABS: ACETONE SERUM NEGATIVE (NEGATIVE)
[2018-05-12] MEDS ORDERED: INSULIN (NOVOLOG) ASPART 100 UNITS/ML 10ML VIAL SQ ONE (13:25)
[2018-05-12] MEDS ORDERED: INSULIN (NOVOLOG) ASPART 100 UNITS/ML 10ML VIAL ONE (13:29)
[2018-05-12 14:53] VITALS: BP 149/89; PULSE 94; TEMP 98
== END 2018-05-12 14:54 | disposition home or self-care (01) ==
LOC: JER 10:56
PROC: 3E013VG Introduction of Insulin into Subcutaneous Tissue, Percutaneous Approach (ICD-10-PCS; principal; 2018-05-12)
DX: E11.65 Type 2 diabetes mellitus with hyperglycemia (principal); Z79.4 Long term (current) use of insulin; I10 Essential (primary) hypertension; E78.00 Pure hypercholesterolemia, unspecified; F32.9 Major depressive disorder, single episode, unspecified; I73.9 Peripheral vascular disease, unspecified
CPT/HCPCS: 36415; 80053; 81003; 81015; 82009; 82803; 82962; 85027; 96372; 99283-25

== ENCOUNTER 2018-07-02 15:41 | Emergency (ER) | payer OTHER ==
[2018-07-02 15:48] VITALS: TEMP 97.9; BMI 32.0
--- NOTE | 2018-07-02 15:48 | PDOC ---
Rapid Medical Evaluation Chief Complaint: Blood Sugar Problem Medical Evaluation: Allergies Allergy/AdvReac Type Severity Reaction Status Date / Time Penicillins Allergy Verified 07/02/18 15:44 07/02/18 15:45 I have performed a brief in-person evaluation of this patient. The patient presents with a chief complaint of:headache, called by PMD, told to come from WITH bs yesterday 700. Pertinent physical exam findings: pale, HR 120, I have ordered the following: CBC, CMP, Acetone, IV The patient will proceed to the ED for further evaluation. Discharge Disposition - Diagnosis Hyperglycemia - Referrals Referrals: Raissa Campbell [Primary Care Provider] - - Patient Instructions - Post Discharge Activity
[2018-07-02 16:16] LABS: BASO % 0.9 % (0-2.0); EOS % 2.9 % (0-4.5); HEMATOCRIT 41.8 % (35.4-49); HEMOGLOBIN 14.8 GM/dL (11.7-16.9); LYMPH % 24.4 % (8-40); MCH 30.3 pg (25.7-33.7); MCHC 35.4 g/dl (32.0-35.9); MEAN CELL VOLUME 85.6 fl (80-96); MEAN PLT VOLUME 8.6 fl (7.5-11.1); NEUT % 63.8 % (42.8-82.8); PLATELET COUNT 183 K/MM3 (134-434); RBC 4.89 M/mm3 (4.00-5.60); WHITE BLOOD COUNT 5.8 K/mm3 (4.0-10.0)
--- NOTE | 2018-07-02 16:32 | PDOC ---
History of Present Illness - General Chief Complaint: Blood Sugar Problem Stated Complaint: BLOOD SUGAR PROBLEM Time Seen by Provider: 07/02/18 15:53 History Source: Patient Exam Limitations: No Limitations - History of Present Illness Initial Comments: 07/02/18 16:27 38 YOM with h/o IDDM (also on metformin, does not take insulin regularly), HTN, and HLD who p/w mild lightheadedness in the setting of having routine chemistry labs resulting with high BG as drawn at his PCP's office yesterday. The patient denies any current symptoms, no LOC, chest pain, SOB, f/c/n/v/d/c, abdominal pain, imbalance, vertigo, headache, neck pain, n/t/w focally, polyuria, polydipsia, etc. Past History - Past Medical History Allergies/Adverse Reactions: Allergies Allergy/AdvReac Type Severity Reaction Status Date / Time Penicillins Allergy Verified 07/02/18 15:44 Home Medications: Ambulatory Orders Lisinopril/Hydrochlorothiazide [Lisinopril-Hctz 20-12.5 mg Tab] 1 each PO DAILY 05/12/17 metFORMIN HCL [Metformin HCl] 1,000 mg PO BID 05/12/17 Atorvastatin Ca [Lipitor] 20 mg PO DAILY 12/31/17 Insulin Glargine,Hum.rec.anlog [Basaglar Kwikpen U-100] 36 unit SQ HS 12/31/17 Insulin Lispro Protamin/Lispro [Humalog Mix 75-25 Kwikpen] 0 unit SQ TID Gabapentin 300 mg PO BID 05/12/18 Acetaminophen [Mapap] 325 mg PO Q8H 07/02/18 Docusate Sodium [Doc-Q-Lace] 100 mg PO BID 07/02/18 Famotidine [Pepcid] 40 mg PO DAILY 07/02/18 COPD: No Diabetes: Yes (IDDM) HTN: Yes Hypercholesterolemia: Yes Psychiatric Problems: Yes (DEPRESSION) - Suicide/Smoking/Psychosocial Hx Smoking History: Never smoked Have you smoked in the past 12 months: No Hx Alcohol Use: No Drug/Substance Use Hx: No Substance Use Type: None Hx Substance Use Treatment: No Review of Systems - Review of Systems Able to Perform ROS?: Yes Comments:: 07/02/18 16:29 GEN: no fever, chills, malaise, generalized weakness, or weight change HEENT: no ear pain, sore throat, vision change, or eye pain CV: mild lightheadedness, no chest pain, palpitations, syncope, or edema RESP: no cough, wheezing, or SOB GI: no abdominal pain, nausea, vomiting, diarrhea, constipation, or white/black/ bloody stool : no dysuria, hematuria, incontinence, retention, bleeding, or discharge ENDO: no polyuria or polydipsia, MSK: no neck/back pain, muscle weakness/pain, or joint swelling/pain NEURO: no headache, seizure, vertigo, numbness, tingling, or focal weakness PSYCH: no substance use, no behavior change SKIN: no jaundice, no rash ROS otherwise negative except as noted in HPI *Physical Exam - Vital Signs Last Vital Signs Temp Pulse Resp BP Pulse Ox 97.9 F 120 H 18 155/101 H 99 07/02/18 15:45 07/02/18 15:45 07/02/18 15:45 07/02/18 15:45 07/02/18 15:45 07/02/18 16:30 GENERAL: comfortable, well-appearing, A/Ox4, no distress, answers questions appropriately, Nigerien speaking, initially talking on phone HEENT: PERRLA, EOMI, moist mucous membranes NECK/BACK: no midline ttp, no spinal stepoff or deformity, no hematoma, full ROM , neck supple CARDIOVASCULAR: regular rate/rhythm, normal S1S2, no MGR, strong peripheral pulses, capillary refill <2 seconds, extremities wwp, no edema LUNGS/RESPIRATORY: no respiratory distress, CTAB GI/ABDOMEN: protuberant, symmetric [id number], normoactive BS, soft, no ttp, no midline pulsatile masses : no CVA tenderness EXTREMITIES: no muscle atrophy, no acute deformity, no edema SKIN: warm and dry, no pallor, no jaundice, no rash, no bruising, no skin breakdown, no cuts, no lesions NEUROLOGICAL: GCS 15, CN II-XII grossly intact, 5/5 strength proximally and distally, no facial droop Moderate Sedation - Procedure Monitoring Vital Signs: Procedure Monitoring Vital Signs Temperature 97.9 F 07/02/18 15:45 Pulse Rate 120 H 07/02/18 15:45 Respiratory Rate 18 07/02/18 15:45 Blood Pressure 155/101 H 07/02/18 15:45 O2 Sat by Pulse Oximetry (%) 99 07/02/18 15:45 ED Treatment Course - LABORATORY CBC & Chemistry Diagram: 07/02/18 15:40 07/02/18 15:40 - ADDITIONAL ORDERS Additional order review: 07/02/18 15:40 RBC 4.89 MCV 85.6 MCHC 35.4 RDW 13.0 MPV 8.6 D Neutrophils % 63.8 D Lymphocytes % 24.4 D Monocytes % 8.0 Eosinophils % 2.9 D Basophils % 0.9 Medical Decision Making - Medical Decision Making 07/02/18 16:32 Pt with DM p/w hyperglycemia without AMS, polydipsia, abdominal pain, or other symptoms. Initial Vital Signs Temp Pulse Resp BP Pulse Ox 97.9 F 120 H 18 155/101 H 99 07/02/18 15:45 07/02/18 15:45 07/02/18 15:45 07/02/18 15:45 07/02/18 15:45 Exam: As noted in Physical Exam section. DDX IBNLT: simple hyperglycemia (e.g. non-adherence, stress hyperglycemia, etc) , HHS, DKA, possible provoking factors non-adherence, infection/inflammation/ sepsis (i.e. UTI/pyelonephritis, PNA, bronchitis, skin infection, pancreatitis, etc), very unlikely to be any of the following: alcoholic ketosis, starvation ketosis, drug-induced acidosis, salicylate toxicity, uremic acidosis, or provoking factors of ACS, CVA/TIA, renal failure, etc. W/U ordered: CBCD CMP Serum Acetone VBG EKGUA UCx Initial TX ordered: IVF EKG: Reviewed; results as noted in ECG Review section. Laboratory Tests 07/02/18 07/02/18 07/02/18 15:40 15:40 15:40 WBC 5.8 RBC 4.89 Hgb 14.8 Hct 41.8 MCV 85.6 MCH 30.3 MCHC 35.4 RDW 13.0 Plt Count 183 MPV 8.6 D Absolute Neuts (auto) 3.7 Neutrophils % 63.8 D Lymphocytes % 24.4 D Monocytes % 8.0 Eosinophils % 2.9 D Basophils % 0.9 Nucleated RBC % 0 VBG pH POC VBG pCO2 POC VBG pO2 Mixed VBG HCO3 Sodium 130 L Potassium 4.5 Chloride 94 L Carbon Dioxide 28 Anion Gap 8 BUN 29 H Creatinine 1.4 H Creat Clearance w eGFR 56.42 Random Glucose 511 H* Calcium 8.5 Total Bilirubin 0.5 AST 21 ALT 38 Alkaline Phosphatase 123 H Total Protein 7.0 Albumin 3.4 Urine Color Urine Appearance Urine pH Ur Specific [place] Urine Protein Urine Glucose (UA) Urine Ketones Urine Blood Urine Nitrite Urine Bilirubin Urine Urobilinogen Ur Leukocyte Esterase Urine WBC (Auto) Urine RBC (Auto) Ur Epithelial Cells Acetone, Qual Negative 07/02/18 07/02/18 16:18 16:45 WBC RBC Hgb Hct MCV MCH MCHC RDW Plt Count MPV Absolute Neuts (auto) Neutrophils % Lymphocytes % Monocytes % Eosinophils % Basophils % Nucleated RBC % VBG pH 7.35 POC VBG pCO2 50.6 POC VBG pO2 25.6 L Mixed VBG HCO3 27.4 H Sodium Potassium Chloride Carbon Dioxide Anion Gap BUN Creatinine Creat Clearance w eGFR Random Glucose Calcium Total Bilirubin AST ALT Alkaline Phosphatase Total Protein Albumin Urine Color Straw Urine Appearance Clear Urine pH 6.0 Ur Specific [place] 1.025 Urine Protein 1+ H Urine Glucose (UA) 3+ H Urine Ketones Negative Urine Blood Negative Urine Nitrite Negative Urine Bilirubin Negative Urine Urobilinogen Negative Ur Leukocyte Esterase Negative Urine WBC (Auto) 2 Urine RBC (Auto) 3 Ur Epithelial Cells Rare Acetone, Qual Patient given the IVF bolus and 6 U IVPUSH insulin. Repeat FSBG is 261. On last reassessment, vitals are wnl, and exam is benign. Workup is not concerning for emergency-level pathology at this time. This patient is appropriate for discharge with close outpatient follow up. They are comfortable with this plan and will follow up with their PCP tomorrow. Specific return precautions are discussed and they will come back to the ER if necessary. *DC/Admit/Observation/Transfer Diagnosis at time of Disposition: Hyperglycemia - Discharge Dispostion Disposition: HOME Condition at time of disposition: Stable Decision to Admit order: No - Referrals Referrals: Raissa Campbell [Primary Care Provider] - - Patient Instructions Additional Instructions: You were seen in the ER for high blood sugar of 511. We did blood and urine laboratories, and there was nothing detected on this workup that requires admission to the hospital. We gave you insulin and this brought your blood sugar down to 261. After our assessment, we do not believe you are having a medical emergency at this time, and we believe you are safe to go home. Please take all your diabetes medications as prescribed. Letting your blood sugar go too high or too low can be very dangerous and can result in severe confusion/ coma/ in the short term, and heart/kidney/vascular complications in the snf. Please follow up with your primary care provider in 1-3 days. Call their clinic as soon as possible, tell them you were seen in the ER, and tell them you need an appointment. If you have any new or worsening symptoms, especially inability to control your blood sugars, loss of consciousness, excessive thirst or urination, abdominal pain, or other symptoms, please come back to the ER at any time (24 hours a day). If you are having severe or life threatening symptoms, or symptoms that make it unsafe to drive or have someone drive you, please call 911. - Post Discharge Activity
[2018-07-02] MEDS ORDERED: SODIUM CHLORIDE 0.9% 500 ML INFUS.BAG IV ONE (16:33)
[2018-07-02 16:34] LABS: VENOUS PC02 50.6 mmHg (38-52); VENOUS PH 7.35 (7.32-7.42); VENOUS PO2 25.6 mmHg (28-48)
--- NOTE | 2018-07-02 16:41 | PDOC ---
Attending Attestation - Resident Resident Name: Elsy Howard - ED Attending Attestation I have performed the following: I have examined & evaluated the patient, The case was reviewed & discussed with the resident, I agree w/resident's findings & plan, Exceptions are as noted - HPI HPI: 07/02/18 18:52 38 M hx of IDDM, HTN, and HLD who presents to the ED for elevated BGL. Pt states he was encouraged to visit the ED after having chemistries drawn from PCP yesterday which resulted in a BGL around 700. He notes his BGL is around 200 -300 at baseline. Pt states he is compliant with his insulin and metformin regiment. Pt has no other complaints at this time. Denies polyuria, polydipsia, melena, and diarrhea. No cp, sob, palpitations, abd pain, back pain, dysuria, diarrhea, melena. - Physicial Exam PE: 07/02/18 16:59 GENERAL: The patient is awake, alert, and fully oriented, Nontoxic - in no acute distress. HEAD: Normocephalic, atraumatic. EYES: extraocular movements intact, sclera anicteric, conjunctiva clear. ENT: Normal voice, Moist mucous membranes. NECK: Normal range of motion, supple LUNGS: Breath sounds equal, clear to auscultation bilaterally. No wheezes, no rhonchi, no rales. HEART: Tachycardic ABDOMEN: Soft, nontender, abdomen slightly distended. No guarding, no rebound. . No CVA tenderness EXTREMITIES: Normal range of motion, no edema. No clubbing or cyanosis. No cords, erythema, or tenderness. NEUROLOGICAL: No facial assymetry, Normal speech, PSYCH: Normal mood, normal affect. SKIN: Warm, Dry, normal turgor, - Medical Decision Making 07/02/18 16:40 38y M hx of IDDM, htn, hl presenst with elevated BGM, denies any other sypmtoms. had lab work done showing elevated BGM yesterday - an was notified and told to come to the ED today. pt dnies any focal complaints. 07/02/18 16:59 The patient noted be tachycardic at triage, suspect possible a lot of volume contraction, will hydrate, will obtain blood work rule out metabolic derangements, DKA Give fluids for hydration, will give insulin once we have electrolyts back.. 07/02/18 18:54 Patient's labs were reviewed the patient's creatinine is 1.4 up from previously 1.2. Patient's glucose is elevated, there are no signs of DKA. We'll give the patient's fluids, insulin to bring his glucose down anticipate discharge with outpatient management. Heart Score/ECG Review - ECG Impressions Comment:: 07/02/18 17:00 Twelve-lead EKG was performed and reviewed by me. There is normal sinus rhythm with a rate opf [address]-T wave changes suggestive of acute infarction NIH Stroke Scale - Initial Evaluation Motor Function: Right Leg: No effort against gravity
[2018-07-02 16:49] LABS: ALBUMIN 3.4 g/dl (3.4-5.0); ALK PHOS 123 U/L (45-117); ANION GAP 8 MMOL/L (8-16); BILIRUBIN,TOTAL 0.5 mg/dL (0.2-1); BLOOD UREA NITROGEN 29 mg/dL (7-18); CALCIUM 8.5 mg/dL (8.5-10.1); CHLORIDE 94 mmol/L (98-107); CO2 28 mmol/L (21-32); CREATININE 1.4 mg/dL (0.55-1.3); POTASSIUM 4.5 mmol/L (3.5-5.1); SGOT/AST 21 U/L (15-37); SGPT/ALT 38 U/L (13-61); SODIUM 130 mmol/L (136-145)
[2018-07-02 16:50] LABS: GLUCOSE,RANDOM 511 mg/dL (74-106)
[2018-07-02 16:52] LABS: URINE APPEARANCE CLEAR; URINE BILIRUBIN NEGATIVE (<2.0 mg/dL); URINE COLOR STRAW; URINE GLUCOSE (UA) 3+ (NEGATIVE); URINE KETONE NEGATIVE (NEGATIVE); URINE LEUK ESTERASE NEGATIVE (NEGATIVE); URINE NITRITE NEGATIVE (NEGATIVE); URINE PROTEIN 1+ (NEGATIVE); URINE UROBILINOGEN NEGATIVE mg/dL (0.2-1.0)
[2018-07-02 16:54] LABS: EPI CELLS RARE /HPF (FEW)
[2018-07-02] MEDS ORDERED: INSULIN REGULAR HUMAN 100 UNITS/ML *VIAL IVPUSH ONE (18:20)
[2018-07-02 18:24] VITALS: BP 157/92; PULSE 105
[2018-07-02] MEDS ORDERED: INSULIN REGULAR HUMAN 100 UNITS/ML *VIAL ONE (18:37)
--- NOTE | 2018-07-03 09:50 | EKG ---
Test Reason : Blood Pressure : / mmHG Vent. Rate : 114 BPM Atrial Rate : 114 BPM P-R Int : 152 ms QRS Dur : 080 ms QT Int : 318 ms P-R-T Axes : 053 028 037 degrees QTc Int : 438 ms SINUS TACHYCARDIA OTHERWISE NORMAL ECG WHEN COMPARED WITH ECG OF 17-FEB-2018 08:34, NO SIGNIFICANT CHANGE WAS FOUND Confirmed by JOE NUNEZ MD ([id number]) on 07/03/2018 9:50:18 AM Referred By: Confirmed By:JOE NUNEZ MD
== END 2018-07-02 20:10 | disposition home or self-care (01) ==
LOC: JER 15:41
PROC: 3E013VG Introduction of Insulin into Subcutaneous Tissue, Percutaneous Approach (ICD-10-PCS; principal; 2018-07-02)
DX: E10.65 Type 1 diabetes mellitus with hyperglycemia (principal); Z79.4 Long term (current) use of insulin; Z79.84 Long term (current) use of oral hypoglycemic drugs; I10 Essential (primary) hypertension; E78.00 Pure hypercholesterolemia, unspecified
CPT/HCPCS: 36415; 80053; 81003; 81015; 82009; 82803; 82962; 85025; 87086; 93005; 93010; 99283-25

== ENCOUNTER 2018-09-11 16:36 | Inpatient (IN) | payer OTHER ==
[2018-09-11 16:58] VITALS: BMI 31.6
--- NOTE | 2018-09-11 16:58 | PDOC ---
Rapid Medical Evaluation Time Seen by Provider: 09/11/18 16:56 Medical Evaluation: Allergies Allergy/AdvReac Type Severity Reaction Status Date / Time Penicillins Allergy Verified 07/02/18 15:44 09/11/18 16:56 I have performed a brief in-person evaluation of this patient. The patient presents with a chief complaint of: Body aches w/ malaise w/ fever x 2 days. H/o IDDM, chronic ulcer to R foot Pertinent physical exam findings:marnie uncomfortable w/ HR of 117 I have ordered the following:Flu swab/labs The patient will proceed to the ED for further evaluation. Discharge Disposition - Diagnosis Malaise - Referrals - Patient Instructions - Post Discharge Activity
[2018-09-11 17:28] LABS: BASO % 1.2 % (0-2.0); EOS % 10.5 % (0-4.5); HEMATOCRIT 39.6 % (35.4-49); HEMOGLOBIN 14.2 GM/dL (11.7-16.9); LYMPH % 13.2 % (8-40); MCH 30.5 pg (25.7-33.7); MCHC 35.9 g/dl (32.0-35.9); MEAN CELL VOLUME 85.1 fl (80-96); MEAN PLT VOLUME 8.4 fl (7.5-11.1); NEUT % 67.1 % (42.8-82.8); PLATELET COUNT 219 K/MM3 (134-434); RBC 4.66 M/mm3 (4.00-5.60); RDW 12.6 % (11.9-15.9); WHITE BLOOD COUNT 7.4 K/mm3 (4.0-10.0)
[2018-09-11 17:50] LABS: ALBUMIN 3.3 g/dl (3.4-5.0); ALK PHOS 145 U/L (45-117); ANION GAP 5 MMOL/L (8-16); BILIRUBIN,TOTAL 0.5 mg/dL (0.2-1); BLOOD UREA NITROGEN 31 mg/dL (7-18); CALCIUM 8.9 mg/dL (8.5-10.1); CHLORIDE 97 mmol/L (98-107); CO2 25 mmol/L (21-32); CREATININE 1.5 mg/dL (0.55-1.3); POTASSIUM 4.8 mmol/L (3.5-5.1); SGOT/AST 16 U/L (15-37); SGPT/ALT 32 U/L (13-61); SODIUM 127 mmol/L (136-145); TOT PROT 7.1 g/dl (6.4-8.2)
[2018-09-11] MEDS ORDERED: ACETAMINOPHEN 1000 MG/100 ML VIAL (NON FORMULARY) IVPB ONE (17:54)
[2018-09-11] MEDS ORDERED: SODIUM CHLORIDE 1,000 ML IV STA (17:54)
--- NOTE | 2018-09-11 17:59 | PDOC ---
Attending Attestation - HPI HPI: 09/11/18 20:16 The patient is a 38 year old male, with a significant past medical history of IDDM and diabetic foot wounds (uncontrolled), HTN, and HLD (uncontrolled) who presents to the emergency department with generalized body aches and pain on his right foot for the past 2 weeks. The patient notes his right foot diabetic wound has gotten worse and has had bloody drainage. The patient notes he has been cleaning the wound everyday and it has not gotten better. 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 The patient denies chest pain, shortness of breath, headache or dizziness. The patient denies fever, chills, nausea, vomit, diarrhea or constipation. The patient denies dysuria, frequency, urgency or hematuria. Allergies: penicillins Past surgical history:None reported Social history: None reported PCP:Odalis Samuel - Physicial Exam PE: 09/11/18 20:18 GENERAL: (+) obese. Awake, alert, and fully oriented, in no acute distress HEAD: No signs of trauma EYES: PERRLA, EOMI, sclera anicteric, conjunctiva clear ENT: Auricles normal inspection, hearing grossly normal, nares patent, oropharynx clear without exudates. Moist mucosa NECK: Normal ROM, supple, no lymphadenopathy, JVD, or masses LUNGS: Breath sounds equal, clear to auscultation bilaterally. No wheezes, and no crackles HEART: Regular rate and rhythm, normal S1 and S2, no murmurs, rubs or gallops ABDOMEN: Soft, nontender, normoactive bowel sounds. No guarding, no rebound. No masses EXTREMITIES: (+) 1+ pitting edema warm to touch. (+) cracked heels bilaterally. Normal range of motion, no edema. No clubbing or cyanosis. No cords, erythema , or tenderness NEUROLOGICAL: Cranial nerves II through XII grossly intact. Normal speech, normal gait SKIN: Warm, Dry, normal turgor. <Bisi Chin - Last Filed: 09/11/18 20:16> - Resident Resident Name: Bertha Reyes - ED Attending Attestation I have performed the following: I have examined & evaluated the patient, The case was reviewed & discussed with the resident, I agree w/resident's findings & plan, Exceptions are as noted - Medical Decision Making 09/11/18 17:59 I, Dr. Rissa Gorman DO, attest that this document has been prepared under my direction and personally reviewed by me in its entirety. I further attest, that it accurately reflects all work, treatment, procedures and medical decision -making performed by me. 09/11/18 19:39 a/p: 38yo male with hx of dm - uncontrolled and diabetic foot wounds that are not healing with elevated glucose and redness to RLE -pt with diabetic foot wound to b/l feet under 5th metatarsal -mold serous drainage from R wound -RLE cellulitis-redness/erythema -will obtain xrays -will need cultures/labs/iv abx -will need admission 09/11/18 19:41 will start broad spectrum abx 09/11/18 19:41 elevated glucose-will give insulin and ivf hydraiton, no gap 09/11/18 19:41 pt will need admission for iv abx for diabetic foot wound and cellulitis to RLE 09/11/18 19:43 microblog sent to [facility] 09/11/18 20:35 case discussed with resident from [facility] who accept pt under dr. Lazar <Rissa Gorman - Last Filed: 09/11/18 20:37> *DC/Admit/Observation/Transfer - Attestations Scribe Attestion: 09/11/18 20:18 Documentation prepared by Bisi Chin, acting as pediatrician/medical doctor for Rissa Gorman DO, MD <Bisi Chin - Last Filed: 09/11/18 20:16> - Discharge Dispostion Decision to Admit order: Yes <Rissa Gorman - Last Filed: 09/11/18 20:37> Diagnosis at time of Disposition: Malaise, Cellulitis, Hyperglycemia, Diabetic foot ulcer - Discharge Dispostion Condition at time of disposition: Guarded - Referrals Referrals: Raissa Campbell [Primary Care Provider] - - Patient Instructions - Post Discharge Activity Heart Score/ECG Review - ECG Intrepretation Comment:: 09/11/18 20:36 sinus tach at 108, nl axis, nl interval, no acute st/t wave findings <Rissa Gorman - Last Filed: 09/11/18 20:37>
[2018-09-11 18:09] LABS: GLUCOSE,RANDOM 518 mg/dL (74-106)
[2018-09-11] MEDS ORDERED: INSULIN REGULAR HUMAN 100 UNITS/ML *VIAL SQ ONE (18:34)
--- NOTE | 2018-09-11 18:45 | PDOC ---
History of Present Illness - General Chief Complaint: Wound Stated Complaint: BODY PAIN Time Seen by Provider: 09/11/18 16:56 History Source: Patient Exam Limitations: No Limitations - History of Present Illness Initial Comments: Pt is a 38 yo M, with PMH of IDDM (with prior hx of DM foot ulcers), HTN, HLD, who is presenting with complaints of generalized body aches and pain on the plantar side of his R foot, which has worsened over the past 2 weeks. Pt states he also noticed purulent and sometimes bloody drainage from the non-healing ulcer on his R foot. 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 He has noticed his lower R leg appears more red and swollen than the left. Pt denies any recent fevers/chills, headache, vision changes, syncope, chest pain, palpitations, SOB, nausea/vomiting, abdominal pain, urinary symptoms, or diarrhea/constipation. Social: Pt denies any cigarette, alcohol, or drug use. Pt denies any recent travel or sick contacts. Surgical: no relevant history. Family: no relevant history. 09/12/18 23:07 Past History - Travel Traveled outside of the country in the last 30 days: No Close contact w/someone who was outside of country & ill: No - Past Medical History Allergies/Adverse Reactions: Allergies Allergy/AdvReac Type Severity Reaction Status Date / Time Penicillins Allergy Verified 09/11/18 16:58 Home Medications: Ambulatory Orders Lisinopril/Hydrochlorothiazide [Lisinopril-Hctz 20-12.5 mg Tab] 1 each PO DAILY 05/12/17 metFORMIN HCL [Metformin HCl] 1,000 mg PO BID 05/12/17 Atorvastatin Ca [Lipitor] 20 mg PO DAILY 12/31/17 Insulin Glargine,Hum.rec.anlog [Basaglar Kwikpen U-100] 36 unit SQ HS 12/31/17 Insulin Lispro Protamin/Lispro [Humalog Mix 75-25 Kwikpen] 0 unit SQ TID Gabapentin 300 mg PO BID 05/12/18 Acetaminophen [Mapap] 325 mg PO Q8H 07/02/18 Docusate Sodium [Doc-Q-Lace] 100 mg PO BID 07/02/18 Famotidine [Pepcid] 40 mg PO DAILY 07/02/18 COPD: No Diabetes: Yes (IDDM) HTN: Yes Hypercholesterolemia: Yes Psychiatric Problems: Yes (DEPRESSION) - Suicide/Smoking/Psychosocial Hx Smoking History: Never smoked Have you smoked in the past 12 months: No Hx Alcohol Use: No Drug/Substance Use Hx: No Substance Use Type: None Hx Substance Use Treatment: No Review of Systems - Review of Systems Able to Perform ROS?: Yes Is the patient limited Moldovan proficient: No Constitutional: Yes: Malaise, Weight Stable. No: Chills, Diaphoresis, Fever, Loss of Appetite, Weakness HEENTM: No: Recent change in vision, Double Vision, Nose Congestion, Throat Pain , Throat Swelling Respiratory: No: Cough, Shortness of Breath Cardiac (ROS): No: Chest Pain, Edema, Irregular Heart Rate, Lightheadedness, Palpitations, Syncope, Chest Tightness ABD/GI: No: Constipated, Diarrhea, Nausea, Poor Appetite, Poor Fluid Intake, Vomiting : No: Burning, Dysuria, Pain, Urgency Musculoskeletal: Yes: See HPI, Joint Pain, Joint Swelling. No: Back Pain, Muscle Pain, Muscle Weakness Integumentary: Yes: See HPI, Erythema. No: Rash Neurological: No: Headache, Numbness, Paresthesia, Tingling, Weakness, Dizziness Psychiatric: No: Sleep Pattern Change, Change in Appetite Endocrine: No: Increased Urine, Change in Weight Hematologic/Lymphatic: No: Anemia, Blood Clots, Easy Bleeding All Other Systems: Reviewed and Negative *Physical Exam - Vital Signs Last Vital Signs Temp Pulse Resp BP Pulse Ox 98.0 F 117 H 18 139/98 97 09/11/18 16:54 09/11/18 16:54 09/11/18 16:54 09/11/18 16:54 09/11/18 16:54 - Physical Exam Comments: Vitals stable, pt afebrile. Pt in NAD, obese body habitus. PE showed pt alert and oriented. nutritional chemist generally intact, muscular strength and sensation intact. Eyes PERRLA, EOMI. Oropharynx without erythema or exudates, no LAD b/l. No nasal congestion, hearing intact. Clear heart sounds, S1/S2, no JVD, b/l pedal edema, or heart murmur. Clear lung sounds, no respiratory distress, wheezes, crackles, or accessory muscle use. No abdominal or CVA tenderness to palpation, no rebound, no guarding. Abdomen soft, non-distended, and with normoactive bowel sounds. RLE erythematous to mid-centeno, more edematous than the L. Open 1 cm circular ulcer present on plantar R 1st metatarsal, no active drainage at this time. Muscle strength and sensation equal in b/l feet and ankles. DP pulses equal and strong b/l. 09/12/18 23:14 Moderate Sedation - Procedure Monitoring Vital Signs: Procedure Monitoring Vital Signs Temperature 98.0 F 09/11/18 16:54 Pulse Rate 117 H 09/11/18 16:54 Respiratory Rate 18 09/11/18 16:54 Blood Pressure 139/98 09/11/18 16:54 O2 Sat by Pulse Oximetry (%) 97 09/11/18 16:54 ED Treatment Course - LABORATORY CBC & Chemistry Diagram: 09/12/18 05:20 09/12/18 05:20 - ADDITIONAL ORDERS Additional order review: Laboratory Results 09/11/18 17:03 Sodium 127 L Potassium 4.8 Chloride 97 L Carbon Dioxide 25 Anion Gap 5 L BUN 31 H Creatinine 1.5 H Creat Clearance w eGFR 52.10 Random Glucose 518 H* Calcium 8.9 Total Bilirubin 0.5 AST 16 ALT 32 Alkaline Phosphatase 145 H Total Protein 7.1 Albumin 3.3 L 09/11/18 17:03 RBC 4.66 MCV 85.1 MCHC 35.9 RDW 12.6 MPV 8.4 Neutrophils % 67.1 Lymphocytes % 13.2 D Monocytes % 8.0 Eosinophils % 10.5 H D Basophils % 1.2 - RADIOLOGY Radiology Studies Ordered: Category Date Time Status FOOT-RIGHT [RAD] Stat Radiology 09/11/18 18:09 Ordered DUPLEX VASCUL US-1 LEG [US] Stat Ultrasound 09/11/18 17:54 Ordered Medical Decision Making - Medical Decision Making Pt was seen at bedside, also will be seen by attending Dr. Gorman. Pt presenting with complaints of generalized body aches and pain on the plantar side of his R foot, which has worsened over the past 2 weeks. Pt states he also noticed purulent and sometimes bloody drainage from the non-healing ulcer on his R foot. 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 He has noticed his lower R leg appears more red and swollen than the left. Pt denies any recent fevers/chills, headache, vision changes, syncope, chest pain, palpitations, SOB, nausea/vomiting, abdominal pain, urinary symptoms , or diarrhea/constipation. Vitals stable, pt afebrile. Pt in NAD, obese body habitus. PE showed pt alert and oriented. nutritional chemist generally intact, muscular strength and sensation intact. Eyes PERRLA, EOMI. Oropharynx without erythema or exudates, no LAD b/l. No nasal congestion, hearing intact. Clear heart sounds, S1/S2, no JVD, b/l pedal edema, or heart murmur. Clear lung sounds, no respiratory distress, wheezes, crackles, or accessory muscle use. No abdominal or CVA tenderness to palpation, no rebound, no guarding. Abdomen soft, non-distended, and with normoactive bowel sounds. RLE erythematous to mid-centeno, more edematous than the L. Open 1 cm circular ulcer present on plantar R 1st metatarsal, no active drainage at this time. Muscle strength and sensation equal in b/l feet and ankles. DP pulses equal and strong b/l. Considering superficial cellulitis vs osteomyelitis; unlikely DVT as pulses are intact distally, margins of erythema appear clear, and pt has active drainage from R foot. Ordered work-up including CBC, CMP, blood cultures, UA, chest x-ray, R foot x- ray, ECG. Provided 2 g aztreonam, 1.5 g vanc, 1 g ofirmev, 1 L IV NS, 6 units SQ insulin for improvement of antibiotic control and hyperglycemia. Will continue to reassess pt and monitor for symptomatic improvement. 09/11/18 18:37 CBC WNL CMP: BUN/Cr 31/1.5, glucose 518 -- providing fluids and insulin; no anion gap present. Pending R foot x-ray and chest x-ray. Pt was signed out to Dr. Gorman; pt was pending admission to hospitalist service for IV antibiotics and x-ray images. Pt was stable and pain was controlled. 09/11/18 19:13 09/12/18 23:03 *DC/Admit/Observation/Transfer Diagnosis at time of Disposition: Malaise, Hyperglycemia Cellulitis Qualifiers: Site of cellulitis: extremity Site of cellulitis of extremity: lower extremity Laterality: right Qualified Code(s): L03.115 - Cellulitis of right lower limb Diabetic foot ulcer Qualifiers: Diabetic foot ulcer location: toe Diabetes mellitus type: type 2 Laterality: right Non-pressure ulcer stage: unspecified non-pressure ulcer stage Qualified Code(s): E11.621 - Type 2 diabetes mellitus with foot ulcer; L97.519 - Non- pressure chronic ulcer of other part of right foot with unspecified severity - Discharge Dispostion Condition at time of disposition: Stable Decision to Admit order: Yes - Referrals - Patient Instructions - Post Discharge Activity
[2018-09-11] MEDS ORDERED: AZTREONAM 2 GM in DEXTROSE 5%-WATER 100 ML IVPB ONE (18:56)
[2018-09-11] MEDS ORDERED: VANCOMYCIN 1,500 MG in DEXTROSE 5%-WATER - 250 ML IVPB ONE (18:56)
[2018-09-11] MEDS ORDERED: ACETAMINOPHEN INJECTION 100 ML IVPB ONE (19:15)
[2018-09-11] MEDS ORDERED: INSULIN REGULAR HUMAN 100 UNITS/ML *VIAL ONE (19:16)
[2018-09-11] MEDS ORDERED: SODIUM CHLORIDE 0.9% 1000 ML INFUS.BAG IV ONE (20:37)
--- NOTE | 2018-09-11 20:48 | PN ---
Teaching Attending Note Name of Resident: Isamar Cole ATTENDING PHYSICIAN STATEMENT I saw and evaluated the patient. I reviewed the resident's note and discussed the case with the resident. I agree with the resident's findings and plan as documented. SUBJECTIVE: Patient is a 38 year old man with a PMH of Insulin-treated DM, Penicillin allergy, chronic diabetic foot wounds, HTN and HLD who presents to the ER with generalized body aches and pain on his right foot for the past 2 weeks. The patient notes his right foot diabetic wound has gotten worse and has had bloody drainage. The patient notes he has been cleaning the wound everyday and it has not gotten better. 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 Patient denies fever, chills, nausea, vomit, change in bowel habit, chest pain, shortness of breath, headache, dizziness,dysuria, frequency, urgency or hematuria. OBJECTIVE: Alert Vital Signs Period Temp Pulse Resp BP Sys/Marinelli Pulse Ox Last 24 Hr 98.0 F 117 18 139/98 97 HEENT: No Jaundice, eye redness or discharge, PERRLA, EOMI. Normocephalic, atraumatic. External ears are normal and hearing is grossly intact. No nasal discharge. Neck: Supple, nontender. No palpable adenopathy or thyromegaly. No JVD Chest: Good effort. Clear to auscultation and percussion. Heart: Regular. No S3, rub or murmur Abdomen: Not distended, soft, nontender and no HSM. No rebound or guarding. Normoactive bowel sounds. Ext: Peripheral pulses intact. Leg edema. Ulcer on plantar surface of right foot just below the 5th toe with purulent discharge. Cracked heels. Skin: Warm and dry. No petechiae, rash or ecchymosis. Neuro: Alert. Oriented x3. CN 2-12 grossly intact. Sensation grossly intact in all four extremities and DTR are symmetric. Home Medications Medication Instructions Recorded Lisinopril/Hydrochlorothiazide 1 each PO DAILY 05/12/17 [Lisinopril-Hctz 20-12.5 mg Tab] metFORMIN HCL [Metformin HCl] 1,000 mg PO BID 05/12/17 Atorvastatin Ca [Lipitor] 20 mg PO DAILY 12/31/17 Insulin Glargine,Hum.rec.anlog 36 unit SQ HS 12/31/17 [Basaglar Kwikpen U-100] Insulin Lispro Protamin/Lispro 0 unit SQ TID 12/31/17 [Humalog Mix 75-25 Kwikpen] Gabapentin 300 mg PO BID 05/12/18 Acetaminophen [Mapap] 325 mg PO Q8H 07/02/18 Docusate Sodium [Doc-Q-Lace] 100 mg PO BID 07/02/18 Famotidine [Pepcid] 40 mg PO DAILY 07/02/18 Abnormal Lab Results 09/11/18 09/11/18 17:03 17:03 Eosinophils % 10.5 H D Sodium 127 L Chloride 97 L Anion Gap 5 L BUN 31 H Creatinine 1.5 H Random Glucose 518 H* Alkaline Phosphatase 145 H Albumin 3.3 L ASSESSMENT AND PLAN: 1. Right foot infected diabetic foot wound - Patient completed a 7 day course of oral antibiotics yesterday - does not remember the name but says he took it twice a day. Wound culture sent. Will send blood cultures and Urinalysis. Treat with IV vancomycin, aztreonam and flagyl. Daily wound care. Consult ID and Wound Care service. Flu swab negative. 2. Hypoalbuminemia - Possibly due to combined effects of malnutrition and inflammation associated with comorbid chronic conditions. Will ensure adequate dietary protein intake and also consult backside grinder. Rule out proteinuria. 3. DM Uncontrolled DM. Getting IVF and insulin. No evidence of DKA. Will hold the home diabetes drugs and implement sliding scale insulin regimen. Provide comprehensive diabetes care with patient teaching and counseling about the importance of adherence to prescribed diabetes regimen, euglycemia, eye care and foot care. 4. Obesity - Will provide patient all the necessary assistance, counseling and positive reinforcement to facilitate weight loss. Consult backside grinder. 5. Hypertension - Restart outpatient antihypertensive drugs and revise regimen to ensure smooth [id number] good BP control. Nonpharmacologic measures to control hypertension like weight loss, salt restriction and exercise discussed. 6. DOUGLAS - Likely due to dehydartion though he has risk factors for CKD. Being hydrated. Will avoid nephrotoxic agents such as NSAIDS, aminoglycosides, contrast dyes and certain Alternative medicine products. Consult nephrology if azotemia fails to resolve with hydration. 7. DVT prophylaxis - Heparin 5000 u SQ q tid. 8. Advance directives - Full code
[2018-09-11] MEDS ORDERED: INSULIN (LEVEMIR) 100 UNITS/ML UNITS SQ SCH (22:00)
[2018-09-11] MEDS ORDERED: SODIUM CHLORIDE 1,000 ML IV SCH (22:00)
--- NOTE | 2018-09-11 22:04 | HP ---
CHIEF COMPLAINT:right foot wound PCP:Dr. Campbell HISTORY OF PRESENT ILLNESS: Patient is a 38 year old male with past medical history of IDDM, HTN, HLD, and chronic right foot wound, presented with non-healing draining right plantar foot wound for 2 weeks. Patient had the right foot wound for about a year. He has had multiple admissions where he was treated with antibiotics and debridement of the wound, with the last done in February 2018. Patient has not been compliant with follow-ups and has had multiple ED visits, where poor glucose control was noted. Two weeks ago, carlin noted some yellowish discharge on his right plantar foot wound. He denies any warmth or tenderness in the area, and he would press on the wound "to get the discharge out". He was seen by his PCP and was given antibiotics, but could not recall the name, which he completed for 7 days. For the last 2 days, patient has been having generalized body aches and fatigue. Today, patient wasn't feeling well and decided to go to the ED. He denies any fever, chills, headache, dizziness, nausea, vomiting, chest pain, SOB, abdominal pain, diarrhea, urinary symptoms. ER course was notable for: (1)Na 127, BUN/Cr 31/1.5, glu 518 (2)Vanc, Aztreonam (3)Insulin 6units Recent Travel:denies PAST MEDICAL HISTORY: IDDM HTN HLD PAST SURGICAL HISTORY: none Social History: Smoking:denies Alcohol:denies Drugs: denies Family History: noncontributory Allergies Penicillins Allergy (Verified 09/11/18 16:58) HOME MEDICATIONS: Home Medications Medication Instructions Recorded Lisinopril/Hydrochlorothiazide 1 each PO DAILY 05/12/17 [Lisinopril-Hctz 20-12.5 mg Tab] metFORMIN HCL [Metformin HCl] 1,000 mg PO BID 05/12/17 Atorvastatin Ca [Lipitor] 20 mg PO DAILY 12/31/17 Insulin Glargine,Hum.rec.anlog 36 unit SQ HS 12/31/17 [Basaglar Kwikpen U-100] Insulin Lispro Protamin/Lispro 0 unit SQ TID 12/31/17 [Humalog Mix 75-25 Kwikpen] Gabapentin 300 mg PO BID 05/12/18 Acetaminophen [Mapap] 325 mg PO Q8H 07/02/18 Docusate Sodium [Doc-Q-Lace] 100 mg PO BID 07/02/18 Famotidine [Pepcid] 40 mg PO DAILY 07/02/18 REVIEW OF SYSTEMS CONSTITUTIONAL: Absent: fever, chills, diaphoresis, generalized weakness, malaise, loss of appetite, weight change HEENT: Absent: rhinorrhea, nasal congestion, throat pain, throat swelling, difficulty swallowing, mouth swelling, ear pain, eye pain, visual changes CARDIOVASCULAR: Absent: chest pain, syncope, palpitations, irregular heart rate, lightheadedness , peripheral edema RESPIRATORY: Absent: cough, shortness of breath, dyspnea with exertion, orthopnea, wheezing, stridor, hemoptysis GASTROINTESTINAL: Absent: abdominal pain, abdominal distension, nausea, vomiting, diarrhea, constipation, melena, hematochezia GENITOURINARY: Absent: dysuria, frequency, urgency, hesitancy, hematuria, flank pain, genital pain MUSCULOSKELETAL: Absent: myalgia, arthralgia, joint swelling, back pain, neck pain SKIN: Absent: rash, itching, pallor HEMATOLOGIC/IMMUNOLOGIC: Absent: easy bleeding, easy bruising, lymphadenopathy, frequent infections ENDOCRINE: Absent: unexplained weight gain, unexplained weight loss, heat intolerance, cold intolerance NEUROLOGIC: Absent: headache, focal weakness or paresthesias, dizziness, unsteady gait, seizure, mental status changes, bladder or bowel incontinence PSYCHIATRIC: Absent: anxiety, depression, suicidal or homicidal ideation, hallucinations. PHYSICAL EXAMINATION Vital Signs - 24 hr 09/11/18 16:54 Temperature 98.0 F Pulse Rate 117 H Respiratory 18 Rate Blood Pressure 139/98 O2 Sat by Pulse 97 Oximetry (%) GENERAL: Awake, alert, and fully oriented, in no acute distress. HEAD: Normal with no signs of trauma. EYES: PERRLA, EOMI, sclera anicteric, conjunctiva clear. EARS, NOSE, THROAT: Ears normal, oropharynx clear without exudates. Moist mucous membranes. NECK: Normal range of motion, supple without lymphadenopathy, JVD, or masses. LUNGS: Breath sounds equal, clear to auscultation bilaterally. HEART: Regular rate and rhythm, normal S1 and S2 without murmur, rub or gallop. ABDOMEN: Soft, nontender, not distended, normoactive bowel sounds. MUSCULOSKELETAL: Normal range of motion at all joints.No CVA tenderness. UPPER EXTREMITIES: 2+ pulses, warm, well-perfused. No peripheral edema. LOWER EXTREMITIES: 2+ pulses, warm, well-perfused. No calf tenderness. RLE: +1 nonpitting edema, no tenderness or warmth, +right plantar foot wound with purulent discharge with no surrounding warmth, tenderness or erythema. NEUROLOGICAL: Cranial nerves II-XII intact. Motor strength 5/5, Sensation intact. Normal speech. Normal gait. PSYCHIATRIC: Cooperative. Good eye contact. Appropriate mood and affect. SKIN: Warm, dry, normal turgor, no rashes or lesions noted. Laboratory Results - last 24 hr 09/11/18 09/11/18 09/11/18 17:00 17:03 17:03 WBC 7.4 RBC 4.66 Hgb 14.2 Hct 39.6 MCV 85.1 MCH 30.5 MCHC 35.9 RDW 12.6 Plt Count 219 MPV 8.4 Absolute Neuts (auto) 4.9 Neutrophils % 67.1 Lymphocytes % 13.2 D Monocytes % 8.0 Eosinophils % 10.5 H D Basophils % 1.2 Nucleated RBC % 0 Sodium 127 L Potassium 4.8 Chloride 97 L Carbon Dioxide 25 Anion Gap 5 L BUN 31 H Creatinine 1.5 H Creat Clearance w eGFR 52.10 Random Glucose 518 H* Calcium 8.9 Total Bilirubin 0.5 AST 16 ALT 32 Alkaline Phosphatase 145 H Total Protein 7.1 Albumin 3.3 L Influenza A (Rapid) Negative Influenza B (Rapid) Negative ASSESSMENT/PLAN: Patient is a 38 year old male with past medical history of IDDM, HTN, HLD, and chronic right foot wound, presented with non-healing draining right plantar foot wound for 2 weeks. #Right diabetic foot wound -Given Aztreonam and Vancomycin in the ED -Will continue Aztreonam 2gm q8, Vancomycin 1000mg daily -Add Flagyl 500mg q8h -Wound culture -Blood culture pending -ID (Dr. Motta) consulted -Podiatry (Dr. Cohen) consulted -wound care -MRI of R foot to rule out osteomyelitis -Tylenol PRN for pain #IDDM:uncontrolled -Hold home metformin and humalog -Continue Basaglar 36units at bedtime -Insulin sliding scale implemented -BGM ACHS #Hyponatremia -Corrected Na 134 -Will start IV NS #HTN -Continue home Lisinopril/HCTZ 20/12.5 daily #HLD -Continue home Lipitor 20mg daily #FEN -Iv NS @100cc/hr -Routine bmp monitoring -Diabetic/sodium restricted diet #Prophylaxis -Heparin 5000units sq tid #Disposition -full code -med-surg Visit type - Emergency Visit Emergency Visit: Yes ED Registration Date: 09/11/18 Care time: The patient presented to the Emergency Department on the above date and was hospitalized for further evaluation of their emergent condition. - New Patient This patient is new to me today: Yes Date on this admission: 09/13/18 - Critical Care Critical Care patient: No
[2018-09-12] MEDS: DOCUSATE SODIUM 100 MG CAPSULE (FP) PO SCH ×3 (00:30→22:57)
[2018-09-12] MEDS: GABAPENTIN 300 MG CAPSULE (FP) PO SCH ×3 (00:30→22:57)
[2018-09-12] MEDS ORDERED: INSULIN (LEVEMIR) 100 UNITS/ML UNITS SQ ONE (01:24)
[2018-09-12] MEDS: INSULIN SLIDING SCALE (NOVOLOG) 1 VIAL SQ SCH ×5 (01:29→22:59)
[2018-09-12] MEDS ORDERED: AZTREONAM 2 GM in DEXTROSE 5%-WATER 100 ML IVPB SCH (02:00)
[2018-09-12] MEDS: AZTREONAM 2 GM in DEXTROSE 5%-WATER 100 ML IVPB SCH ×2 (03:02→19:44)
[2018-09-12 06:29] LABS: EOS % 14.6 % (0-4.5); HEMATOCRIT 35.9 % (35.4-49); HEMOGLOBIN 12.4 GM/dL (11.7-16.9); LYMPH % 18.6 % (8-40); MCHC 34.6 g/dl (32.0-35.9); MEAN CELL VOLUME 83.8 fl (80-96); MEAN PLT VOLUME 8.2 fl (7.5-11.1); MONO % 10.1 % (3.8-10.2); NEUT % 55.7 % (42.8-82.8); PLATELET COUNT 200 K/MM3 (134-434); RBC 4.29 M/mm3 (4.00-5.60); RDW 12.7 % (11.9-15.9); WHITE BLOOD COUNT 6.8 K/mm3 (4.0-10.0)
[2018-09-12] MEDS: HEPARIN NA (PORCINE) 5,000 UNITS/ML 1ML VIAL SQ SCH ×3 (06:39→23:00)
[2018-09-12 07:12] LABS: ALBUMIN 2.7 g/dl (3.4-5.0); ALK PHOS 111 U/L (45-117); ANION GAP 5 MMOL/L (8-16); BILIRUBIN,TOTAL 0.4 mg/dL (0.2-1); BLOOD UREA NITROGEN 26 mg/dL (7-18); CALCIUM 7.9 mg/dL (8.5-10.1); CHLORIDE 99 mmol/L (98-107); CO2 29 mmol/L (21-32); CREATININE 1.3 mg/dL (0.55-1.3); MAGNESIUM 2.2 mg/dL (1.8-2.4); PHOSPHOROUS 2.6 mg/dL (2.5-4.9); POTASSIUM 4.4 mmol/L (3.5-5.1); SGOT/AST 13 U/L (15-37); SGPT/ALT 27 U/L (13-61); SODIUM 133 mmol/L (136-145)
[2018-09-12 07:21] LABS: GLUCOSE,RANDOM 340 mg/dL (74-106)
--- NOTE | 2018-09-12 08:03 | PN ---
Teaching Attending Note Name of Resident: Ras Funk ATTENDING PHYSICIAN STATEMENT I saw and evaluated the patient. I reviewed the resident's note and discussed the case with the resident. I agree with the resident's findings and plan as documented. SUBJECTIVE: Feels less pain not in distress OBJECTIVE: Vital Signs Temperature 98.0 F 09/11/18 16:54 Pulse Rate 117 H 09/11/18 16:54 Respiratory Rate 18 09/11/18 16:54 Blood Pressure 139/98 09/11/18 16:54 O2 Sat by Pulse Oximetry (%) 97 09/11/18 16:54 Middle aged M not in distress HEENT: Mm moist, no anemia, PERRLA EOMI NECK: No JVd nO Bruit CHEST: CTA b/l good AE CVS: S1S2 Irr ABD: No distention, non tender Bs + EXT: + edema feet, no calf tenderness, Rt foot at great toe base chronic ulcer with serous exudates. APPLICATION DEVELOPMENT CONSULTANT: AOX3 non focal, somnolent but answering appropriately, non focal LABS: CBC, BMP 09/12/18 05:20 09/12/18 05:20 Active Medications Acetaminophen (Tylenol -) 650 mg PO Q6H PRN PRN Reason: PAIN OR FEVER Atorvastatin Calcium (Lipitor -) 20 mg PO HS [facility]ORDY Docusate Sodium (Colace -) 100 mg PO BID [facility] Last Admin: 09/12/18 00:30 Dose: 100 mg Gabapentin (Neurontin -) 300 mg PO BID [facility] Last Admin: 09/12/18 00:30 Dose: 300 mg Heparin Sodium (Porcine) (Heparin -) 5,000 unit SQ TID [facility] Last Admin: 09/12/18 06:39 Dose: 5,000 unit Hydrochlorothiazide (Hctz -) 12.5 mg PO DAILY [facility] Sodium Chloride (Normal Saline -) 1,000 mls @ 100 mls/hr IV ASDIR [facility]ORDY Last Admin: 09/12/18 00:31 Dose: 100 mls/hr Aztreonam 2 gm/ Dextrose 100 mls @ 100 mls/hr IVPB Q8H-IV JORDY; Protocol Metronidazole (Flagyl 500mg Premixed Ivpb -) 500 mg in 100 mls @ 100 mls/hr IVPB Q6H-IV [facility]ORDY Last Admin: 09/12/18 04:00 Dose: 100 mls/hr Aztreonam 2 gm/ Dextrose 100 mls @ 200 mls/hr IVPB Q8H-IV JORDY Stop: 09/12/18 10:29 Last Admin: 09/12/18 03:02 Dose: 200 mls/hr Vancomycin HCl (Vancomycin (Pre-Docked)) 1,000 mg in 250 mls @ 250 mls/hr IVPB ONCE ONE Stop: 09/12/18 10:59 Insulin Aspart (Novolog Vial Sliding Scale -) 1 vial SQ ACHS JORDY; Protocol Last Admin: 09/12/18 01:29 Dose: 12 units Insulin Detemir (Levemir Vial) 36 units SQ HS [facility]ORDY Last Admin: 09/12/18 01:28 Dose: 36 unit Lisinopril (Prinivil) 20 mg PO DAILY [facility] Ranitidine HCl (Zantac -) 300 mg PO DAILY [facility]ORDY Vancomycin HCl (Vancomycin (Pre-Docked)) 1,000 mg IVPB DAILY JORDY; Protocol ASSESSMENT AND PLAN: 38 yrs old man with long standing T2DM, Diabetic neuropathy cjhronic non healing ulcer Rt foot, HTN, Dyslipedemia, obesity, present with uncontrolled T2DM with hyperglycemia and Rt foot pain and body pain, in the Ed lab shows uncontrolled DM with RPG > 500 and DOUGLAS , X ray foot shows possible OM. Problem List - Problems (1) Diabetic foot ulcer Assessment/Plan: PCn allergy on IV aztrenam, Flagyl and vancomycine f/u ESR, CRP, Culture, MRI to R/o OM ID and Podiatry consult wound care. Code(s): E11.621 - TYPE 2 DIABETES MELLITUS WITH FOOT ULCER; L97.509 - NON- PRESSURE CHRONIC ULCER OTH PRT UNSP FOOT W UNSP SEVERITY (2) Hyperglycemia Assessment/Plan: Uncontrolled T2DM due to non compliance and infectious process , increse Levimir to 45 units and 13 unit pre meal bolus with correction dose insulin hold Metformin. Encourage PO Hydration. Code(s): R73.9 - HYPERGLYCEMIA, UNSPECIFIED (3) DOUGLAS (acute kidney injury) Assessment/Plan: Due to dehydration improving f/u BMP Code(s): N17.9 - ACUTE KIDNEY FAILURE, UNSPECIFIED (4) HTN (hypertension) Assessment/Plan: resume Lisinopril once Creat at base line Hold HCTZ Code(s): I10 - ESSENTIAL (PRIMARY) HYPERTENSION (5) Diabetic neuropathy Assessment/Plan: Cont Gabapentin Podiatry consult Code(s): E11.40 - TYPE 2 DIABETES MELLITUS WITH DIABETIC NEUROPATHY, UNSP Qualifiers: Diabetes mellitus type: type 2 (6) Obesity (BMI 30.0-34.9) Assessment/Plan: Nutrition consult. Code(s): E66.9 - OBESITY, UNSPECIFIED (7) Hyponatremia Assessment/Plan: improving on IV NS infusion F/U BMP Code(s): E87.1 - HYPO-OSMOLALITY AND HYPONATREMIA
--- NOTE | 2018-09-12 08:41 | CONSULT ---
Consult Consult Specialty:: Podiatry Reason for Consultation:: wound right foot 1 month - History of Present Illness Chief Complaint: wound right foot History of Present Illness: 1 month duration wound right foot. - History Source History Provided By: Patient - Alcohol/Substance Use Hx Alcohol Use: No - Smoking History Smoking history: Never smoked Have you smoked in the past 12 months: No Home Medications - Allergies Allergies/Adverse Reactions: Allergies Allergy/AdvReac Type Severity Reaction Status Date / Time Penicillins Allergy Verified 09/11/18 16:58 - Home Medications Home Medications: Ambulatory Orders Lisinopril/Hydrochlorothiazide [Lisinopril-Hctz 20-12.5 mg Tab] 1 each PO DAILY 05/12/17 metFORMIN HCL [Metformin HCl] 1,000 mg PO BID 05/12/17 Atorvastatin Ca [Lipitor] 20 mg PO DAILY 12/31/17 Insulin Glargine,Hum.rec.anlog [Basaglar Kwikpen U-100] 36 unit SQ HS 12/31/17 Insulin Lispro Protamin/Lispro [Humalog Mix 75-25 Kwikpen] 0 unit SQ TID Gabapentin 300 mg PO BID 05/12/18 Acetaminophen [Mapap] 325 mg PO Q8H 07/02/18 Docusate Sodium [Doc-Q-Lace] 100 mg PO BID 07/02/18 Famotidine [Pepcid] 40 mg PO DAILY 07/02/18 Physical Exam Vital Signs: Vital Signs Temperature 98.0 F 09/11/18 16:54 Pulse Rate 117 H 09/11/18 16:54 Respiratory Rate 18 09/11/18 16:54 Blood Pressure 139/98 09/11/18 16:54 O2 Sat by Pulse Oximetry (%) 97 09/11/18 16:54 Extremities: Yes: Other (+grade 2-3 wound sub met 5 right, -drainage, + granulation, +localized vellulitis, +changes on 5th met head as compared to ,) Labs: CBC, BMP 09/12/18 05:20 09/12/18 05:20 Imaging - Results X-ray: Image Reviewed (compared to 02/18/18 film changes noted at 5th met head) Assessment/Plan om? diabetic neuropathic wound Wound c&s to be done. Dimitri after culture to wound daily. MRI to be ordered due to changes noted on xray from 02/18/18. Post op shoe. Will follow. Vascular consult Dr. Malloy.
[2018-09-12] MEDS ORDERED: INSULIN (LEVEMIR) 100 UNITS/ML UNITS SQ SCH ×2 (08:52→22:00)
[2018-09-12] MEDS ORDERED: PT OWN MED DRAWER 7, Y5N ONE ×2 (09:37→14:15)
[2018-09-12] MEDS: LISINOPRIL 20 MG TABLET (FP) PO SCH (09:41)
[2018-09-12] MEDS: RANITIDINE HCL 150 MG TABLET (FP) PO SCH (09:41)
[2018-09-12] MEDS: HYDROCHLOROTHIAZIDE 12.5 MG CAPSULE (FP) PO SCH (09:41)
[2018-09-12] MEDS ORDERED: PATIENT'S OWN MEDICATION (NON-FORMULARY) (Lisinopril/Hydrochlorothiazide [Lisinopril-Hctz PO SCH (10:00)
[2018-09-12] MEDS ORDERED: VANCOMYCIN 1 GM in D5W (PRE-DOCKED) 1,000 MG/250 ML IVPB SCH (10:00)
[2018-09-12] MEDS ORDERED: VANCOMYCIN 1 GRAM (PRE-DOCKED) 1,000 MG/250 ML BAG IVPB ONE (10:00)
[2018-09-12] MEDS ORDERED: INSULIN (NOVOLOG) ASPART 100 UNITS/ML 10ML VIAL SQ SCH (11:00)
[2018-09-12] MEDS ORDERED: Insulin (LOG) Aspart 100 UNITS/ML VIAL SQ SCH (11:00)
--- NOTE | 2018-09-12 12:01 | CONSULT ---
<Tano Steve - Last Filed: 09/12/18 12:45> - Consultation REQUESTING PROVIDER: CONSULT REQUEST: We have been asked to surgically evaluate this patient for (R foot ulcer). PCP:Conrad Jaimes MD HISTORY OF PRESENT ILLNESS: 38 y/o M w/ PMHx IDDM (diagnosed 10 years ago; last a1c in February 23.2), HTN, HLD, now admitted for evaluation of R foot ulcer. Pt reports ulcer first began 1 year ago at the site of a callus, he has had multiple admissions for IV abx and debridement of the wound with Podiatry, last done in February 2018. Reports ulcer healed 2months ago, however reopened 2 weeks ago after he soaked his foot in an Epsom salt bath for a prolonged period of time. States he has been able to express "white and red stuff" from the wound for the past few days. Was seen by his PCP who gave him a 1 week antibiotic prescription which he reports he completed (unsure of name). Endorses subjective fevers. Has been cleaning the wound with water and applying Betadine solution. Does not have Diabetic shoes, does not follow with a Right Of Way Worker regularly. Denies cp/sob, n/v/d, calf pain/edema. Denies h/o tobacco use. PMHx: as above PSHx: denies Home Medications Medication Instructions Recorded Lisinopril/Hydrochlorothiazide 1 each PO DAILY 05/12/17 [Lisinopril-Hctz 20-12.5 mg Tab] metFORMIN HCL [Metformin HCl] 1,000 mg PO BID 05/12/17 Atorvastatin Ca [Lipitor] 20 mg PO DAILY 12/31/17 Insulin Glargine,Hum.rec.anlog 36 unit SQ HS 12/31/17 [Basaglar Kwikpen U-100] Insulin Lispro Protamin/Lispro 0 unit SQ TID 12/31/17 [Humalog Mix 75-25 Kwikpen] Gabapentin 300 mg PO BID 05/12/18 Acetaminophen [Mapap] 325 mg PO Q8H 07/02/18 Docusate Sodium [Doc-Q-Lace] 100 mg PO BID 07/02/18 Famotidine [Pepcid] 40 mg PO DAILY 07/02/18 Allergies Allergy/AdvReac Type Severity Reaction Status Date / Time Penicillins Allergy Verified 09/11/18 16:58 REVIEW OF SYSTEMS: CONSTITUTIONAL: Absent: + subjective fevers CARDIOVASCULAR: Absent: chest pain, syncope RESPIRATORY: Absent: cough, shortness of breath GASTROINTESTINAL: Absent: abdominal pain hallucinations. PHYSICAL EXAM: GENERAL: Awake, alert, and fully oriented, in no acute distress. HEAD: Normal with no signs of trauma. LUNGS: Unlabored on RA. LOWER EXTREMITIES: B/L le's with +hyperpigmented scaling skin c/w Ichthyosis vulgaris. +xerosis b/l feet. R foot with approx 2x2cm circular ulcer over 5th metatarsal head, with approx 1cm of undermining medially. Wound bed granular with callused edges. +Seropurulent drainage expressed, no surrounding erythema, no ttp. R foot with 1+ edema to ankle. Vasc: 2+ dp/pt pulses, warm, well-perfused. Vital Signs Temperature 97.7 F 09/12/18 09:41 Pulse Rate 112 H 09/12/18 09:41 Respiratory Rate 20 09/12/18 09:41 Blood Pressure 120/64 09/12/18 09:41 O2 Sat by Pulse Oximetry (%) 98 09/12/18 10:08 Lab Results WBC 6.8 K/mm3 (4.0-10.0) 09/12/18 05:20 RBC 4.29 M/mm3 (4.00-5.60) 09/12/18 05:20 Hgb 12.4 GM/dL (11.7-16.9) 09/12/18 05:20 Hct 35.9 % (35.4-49) 09/12/18 05:20 MCV 83.8 fl (80-96) 09/12/18 05:20 MCHC 34.6 g/dl (32.0-35.9) 09/12/18 05:20 RDW 12.7 % (11.9-15.9) 09/12/18 05:20 Plt Count 200 K/MM3 (134-434) 09/12/18 05:20 Sodium 133 mmol/L (136-145) L 09/12/18 05:20 Potassium 4.4 mmol/L (3.5-5.1) 09/12/18 05:20 Chloride 99 mmol/L (98-107) 09/12/18 05:20 Carbon Dioxide 29 mmol/L (21-32) 09/12/18 05:20 Anion Gap 5 MMOL/L (8-16) L 09/12/18 05:20 BUN 26 mg/dL (7-18) H 09/12/18 05:20 Creatinine 1.3 mg/dL (0.55-1.3) 09/12/18 05:20 Random Glucose 340 mg/dL (74-106) H* 09/12/18 05:20 Calcium 7.9 mg/dL (8.5-10.1) L 09/12/18 05:20 A/P: 38 y/o M w/ PMHx IDDM (diagnosed 10 years ago; last a1c in February 23.2), HTN, HLD, now admitted for evaluation of R foot ulcer. R foot ulcer, no signs of sepsis. No arterial insufficiency. Osteomyelitis workup ongoing -No acute vascular intervention at this time -F/U MRI -Glucose control -Wound care per DPM -Continue abx per primary team d/w attending Dr Jones <Ba Jones - Last Filed: 09/13/18 08:31> - Consultation REQUESTING PROVIDER: CONSULT REQUEST: We have been asked to surgically evaluate this patient for ( specify). PCP:Conrad Jaimes MD HISTORY OF PRESENT ILLNESS: PMHx: PSHx: Home Medications Medication Instructions Recorded Lisinopril/Hydrochlorothiazide 1 each PO DAILY 05/12/17 [Lisinopril-Hctz 20-12.5 mg Tab] metFORMIN HCL [Metformin HCl] 1,000 mg PO BID 05/12/17 Atorvastatin Ca [Lipitor] 20 mg PO DAILY 12/31/17 Insulin Glargine,Hum.rec.anlog 36 unit SQ HS 12/31/17 [Basaglar Kwikpen U-100] Insulin Lispro Protamin/Lispro 0 unit SQ TID 12/31/17 [Humalog Mix 75-25 Kwikpen] Gabapentin 300 mg PO BID 05/12/18 Acetaminophen [Mapap] 325 mg PO Q8H 07/02/18 Docusate Sodium [Doc-Q-Lace] 100 mg PO BID 07/02/18 Famotidine [Pepcid] 40 mg PO DAILY 07/02/18 Allergies Allergy/AdvReac Type Severity Reaction Status Date / Time Penicillins Allergy Verified 09/11/18 16:58 REVIEW OF SYSTEMS: CONSTITUTIONAL: Absent: fever, chills, diaphoresis, generalized weakness, malaise, loss of appetite, weight change CARDIOVASCULAR: Absent: chest pain, syncope, palpitations, irregular heart rate, lightheadedness , peripheral edema RESPIRATORY: Absent: cough, shortness of breath, dyspnea with exertion, wheezing, stridor, hemoptysis GASTROINTESTINAL: Absent: abdominal pain, abdominal distension, nausea, vomiting, diarrhea, constipation, melena, hematochezia GENITOURINARY: Absent: dysuria, frequency, urgency, hesitancy, hematuria, flank pain, genital pain MUSCULOSKELETAL: Absent: myalgia, arthralgia, joint swelling, back pain, neck pain SKIN: Absent: rash, itching, pallor HEMATOLOGIC/IMMUNOLOGIC: Absent: easy bleeding, easy bruising, lymphadenopathy NEUROLOGIC: Absent: headache, focal weakness, paresthesias, dizziness, unsteady gait, seizure, mental status changes, bladder or bowel incontinence PSYCHIATRIC: Absent: anxiety, depression, suicidal or homicidal ideation, hallucinations. PHYSICAL EXAM: GENERAL: Awake, alert, and fully oriented, in no acute distress. HEAD: Normal with no signs of trauma. EYES: PERRL, sclera anicteric, conjunctiva clear. NECK: Normal ROM, supple without lymphadenopathy, JVD, or masses. LUNGS: Clear to auscultation bilat anteriorly. No wheezes, and no crackles. No accessory muscle use. HEART: Regular rate and rhythm. No murmurs ABDOMEN: Soft, nontender, not distended, normoactive bowel sounds, no guarding, no rebound, no masses. No organomegaly. MUSCULOSKELETAL: Normal ROM at all joints. No bony deformities or tenderness. No CVA tenderness. UPPER EXTREMITIES: 2+ pulses, warm, well-perfused. No cyanosis. Cap refill <2 seconds. No peripheral edema. LOWER EXTREMITIES: 2+ pulses, warm, well-perfused. No calf tenderness. No peripheral edema. NEUROLOGICAL: Normal speech, gait not observed. PSYCH: Cooperative. Good eye contact. Appropriate mood and affect. SKIN: Warm, dry, normal turgor, no rashes or lesions noted. Vital Signs Temperature 99.5 F 09/13/18 06:00 Pulse Rate 114 H 09/13/18 06:00 Respiratory Rate 20 09/13/18 06:00 Blood Pressure 150/94 09/13/18 06:00 O2 Sat by Pulse Oximetry (%) 98 09/12/18 21:00 Lab Results WBC 9.2 K/mm3 (4.0-10.0) 09/13/18 06:20 RBC 4.11 M/mm3 (4.00-5.60) 09/13/18 06:20 Hgb 12.3 GM/dL (11.7-16.9) 09/13/18 06:20 Hct 34.7 % (35.4-49) L 09/13/18 06:20 MCV 84.5 fl (80-96) 09/13/18 06:20 MCHC 35.5 g/dl (32.0-35.9) 09/13/18 06:20 RDW 12.5 % (11.9-15.9) 09/13/18 06:20 Plt Count 179 K/MM3 (134-434) 09/13/18 06:20 Sodium 133 mmol/L (136-145) L 09/12/18 05:20 Potassium 4.4 mmol/L (3.5-5.1) 09/12/18 05:20 Chloride 99 mmol/L (98-107) 09/12/18 05:20 Carbon Dioxide 29 mmol/L (21-32) 09/12/18 05:20 Anion Gap 5 MMOL/L (8-16) L 09/12/18 05:20 BUN 26 mg/dL (7-18) H 09/12/18 05:20 Creatinine 1.3 mg/dL (0.55-1.3) 09/12/18 05:20 Random Glucose 340 mg/dL (74-106) H* 09/12/18 05:20 Calcium 7.9 mg/dL (8.5-10.1) L 09/12/18 05:20 Patient seen in February 2018 with diabetic foot ulcer and palpable pulses. He still has diabetic ulcer, palpable pulses and abscess on MRI Podiatry needs to intervene. No vascular issues requiring care at this time.
[2018-09-12] MEDS: INSULIN (NOVOLOG) ASPART 100 UNITS/ML 10ML VIAL SQ SCH ×2 (12:37→18:25)
--- NOTE | 2018-09-12 12:40 | PN ---
Physical Exam: SUBJECTIVE: Patient seen and examined no new events over night blood sugar running high ID and vascular on case mri pending Pt states he has this wound from year . It heals up and opens up again, When ever it opens up he gets antibiotics from his primary. Last time it opened up about 2 week ago when he removed the callus. reporst yesterday he had fever s o he came to hospital. No foul discharge but reports watery discharge. OBJECTIVE: Vital Signs Period Temp Pulse Resp BP Sys/Marinelli Pulse Ox Last 24 Hr 97.7 F-98.0 F 112-117 18-20 120-158/64-98 97-98 GENERAL: Awake, alert, and fully oriented, in no acute distress. HEAD: Normal with no signs of trauma. LUNGS: Breath sounds equal, clear to auscultation bilaterally. HEART: Regular rate and rhythm, normal S1 and S2 without murmur, rub or gallop. ABDOMEN: Soft, nontender, not distended, normoactive bowel sounds. UPPER EXTREMITIES: 2+ pulses, warm, well-perfused. No peripheral edema. LOWER EXTREMITIES: 2+ pulses, warm, well-perfused. No calf tenderness. RLE: +1 pitting edema, no tenderness, +right plantar foot wound, no discharge, granuloma present. NEUROLOGICAL: Cranial nerves II-XII intact. Motor strength 5/5, Sensation intact. Normal speech. Normal gait. PSYCHIATRIC: Cooperative. Good eye contact. Appropriate mood and affect. SKIN: Warm, dry, Laboratory Results - last 24 hr 09/11/18 09/11/18 09/11/18 17:00 17:03 17:03 WBC 7.4 RBC 4.66 Hgb 14.2 Hct 39.6 MCV 85.1 MCH 30.5 MCHC 35.9 RDW 12.6 Plt Count 219 MPV 8.4 Absolute Neuts (auto) 4.9 Neutrophils % 67.1 Lymphocytes % 13.2 D Monocytes % 8.0 Eosinophils % 10.5 H D Basophils % 1.2 Nucleated RBC % 0 ESR Sodium 127 L Potassium 4.8 Chloride 97 L Carbon Dioxide 25 Anion Gap 5 L BUN 31 H Creatinine 1.5 H Creat Clearance w eGFR 52.10 POC Glucometer Random Glucose 518 H* Calcium 8.9 Phosphorus Magnesium Total Bilirubin 0.5 AST 16 ALT 32 Alkaline Phosphatase 145 H C-Reactive Protein Total Protein 7.1 Albumin 3.3 L Influenza A (Rapid) Negative Influenza B (Rapid) Negative 09/12/18 09/12/18 09/12/18 00:49 04:19 05:20 WBC 6.8 RBC 4.29 Hgb 12.4 Hct 35.9 MCV 83.8 MCH 29.0 MCHC 34.6 RDW 12.7 Plt Count 200 MPV 8.2 Absolute Neuts (auto) 3.8 Neutrophils % 55.7 Lymphocytes % 18.6 D Monocytes % 10.1 Eosinophils % 14.6 H Basophils % 1.0 Nucleated RBC % 0 ESR Sodium Potassium Chloride Carbon Dioxide Anion Gap BUN Creatinine Creat Clearance w eGFR POC Glucometer 434 359 Random Glucose Calcium Phosphorus Magnesium Total Bilirubin AST ALT Alkaline Phosphatase C-Reactive Protein Total Protein Albumin Influenza A (Rapid) Influenza B (Rapid) 09/12/18 09/12/18 09/12/18 05:20 06:30 09:17 WBC RBC Hgb Hct MCV MCH MCHC RDW Plt Count MPV Absolute Neuts (auto) Neutrophils % Lymphocytes % Monocytes % Eosinophils % Basophils % Nucleated RBC % ESR 72 H Sodium 133 L Potassium 4.4 Chloride 99 Carbon Dioxide 29 Anion Gap 5 L BUN 26 H Creatinine 1.3 Creat Clearance w eGFR > 60 POC Glucometer 330 Random Glucose 340 H* Calcium 7.9 L Phosphorus 2.6 Magnesium 2.2 Total Bilirubin 0.4 AST 13 L ALT 27 Alkaline Phosphatase 111 C-Reactive Protein 7.9 H Total Protein 6.0 L Albumin 2.7 L Influenza A (Rapid) Influenza B (Rapid) 09/12/18 12:12 WBC RBC Hgb Hct MCV MCH MCHC RDW Plt Count MPV Absolute Neuts (auto) Neutrophils % Lymphocytes % Monocytes % Eosinophils % Basophils % Nucleated RBC % ESR Sodium Potassium Chloride Carbon Dioxide Anion Gap BUN Creatinine Creat Clearance w eGFR POC Glucometer 373 Random Glucose Calcium Phosphorus Magnesium Total Bilirubin AST ALT Alkaline Phosphatase C-Reactive Protein Total Protein Albumin Influenza A (Rapid) Influenza B (Rapid) Active Medications Generic Name Dose Route Start Last Admin Trade Name Freq PRN Reason Stop Dose Admin Acetaminophen 650 mg 09/11/18 21:49 Tylenol - PO Q6H PRN PAIN OR FEVER Atorvastatin Calcium 20 mg 09/12/18 22:00 Lipitor - PO HS JORDY Collagenase 1 applic 09/12/18 10:00 Santyl - TP DAILY JORDY Protocol Docusate Sodium 100 mg 09/11/18 22:00 09/12/18 09:41 Colace - PO 100 mg BID JORDY Administration Gabapentin 300 mg 09/11/18 22:00 09/12/18 09:41 Neurontin - PO 300 mg BID JORDY Administration Heparin Sodium (Porcine) 5,000 unit 09/12/18 06:00 09/12/18 06:39 Heparin - SQ 5,000 unit TID JORDY Administration Hydrochlorothiazide 12.5 mg 09/12/18 10:00 09/12/18 09:41 Hctz - PO 12.5 mg DAILY JORDY Administration Aztreonam 2 gm/ Dextrose 100 mls @ 100 mls/hr 09/12/18 02:00 IVPB Q8H-IV JORDY Protocol Metronidazole 500 mg in 100 mls @ 100 mls/hr 09/12/18 03:00 09/12/18 10:01 Flagyl 500mg Premixed Ivpb - IVPB 100 mls/hr Q6H-IV JORDY Administration Insulin Aspart 1 vial 09/11/18 22:00 09/12/18 09:32 Novolog Vial Sliding Scale - SQ 8 units ACHS JORDY Administration Protocol Insulin Aspart 10 units 09/12/18 12:23 Novolog Vial SQ TIDAC JORDY Insulin Detemir 45 units 09/12/18 22:00 Levemir Vial SQ HS [facility] Lisinopril 20 mg 09/12/18 10:00 09/12/18 09:41 Prinivil PO 20 mg DAILY JORDY Administration Ranitidine HCl 300 mg 09/12/18 10:00 09/12/18 09:41 Zantac - PO 300 mg DAILY JORDY Administration Vancomycin HCl 1,000 mg 09/12/18 10:00 Vancomycin (Pre-Docked) IVPB DAILY [facility] Protocol ASSESSMENT/PLAN: Patient is a 38 year old male with past medical history of IDDM, HTN, HLD, and chronic right foot wound, presented with non-healing draining right plantar foot wound for 2 weeks. #Right diabetic foot wound ? osteo on vanco, aztreonam, flagyl mri pending crp 7.9 esr 72 podiatry vascular suregry on case. id on case #IDDM:uncontrolled hba1c levemir 45 standing coverage of 10unit tid sliding scale diabetic diet bgm #pseudoHyponatremia monitor #HTN -Continue home Lisinopril/HCTZ 20/12.5 daily #HLD -Continue home Lipitor 20mg daily #FEN - orally allowed -Routine bmp monitoring -Diabetic/sodium restricted diet #Prophylaxis -Heparin 5000units sq tid #Disposition -full code -med-surg Visit type - Emergency Visit Emergency Visit: Yes ED Registration Date: 09/11/18 Care time: The patient presented to the Emergency Department on the above date and was hospitalized for further evaluation of their emergent condition. - New Patient This patient is new to me today: No - Critical Care Critical Care patient: No
--- NOTE | 2018-09-12 12:49 | PN ---
Progress Note (short form) - Note Progress Note: ID CONSULT DICTATED INFECTED DIABETIC FOOT ULCER R/O FOOT ABSCESS/ OSTEOMYELITIS AZOTEMIA PCN ALLERGY AWAIT C/S MRI EMPIRIC VANCO/AZTREONAM/ FLAGYL
--- NOTE | 2018-09-12 13:39 | CONS ---
DATE OF CONSULTATION: DATE OF DICTATION: 09/12/2018 HISTORY OF PRESENT ILLNESS: The patient is a 38-year-old insulin-dependent diabetic who is evaluated for infected diabetic foot wound. The patient has had a longstanding history of right diabetic foot wound. He does not give a reliable history. He reports that it has been present for several months and sometimes worsens and sometimes improves with his home remedies. He reports that at times he was able to express pus from that area. He now presents with a 2-day history of body ache, malaise, and subjective fever. He reports that he has had a wound present on the right foot for approximately 1 month. He apparently had taken an oral antibiotic for 7 days prior to admission without significant improvement. He presented to the hospital where he was found to have a foot ulcer over the right 5th metatarsal head. X-rays of the foot showed soft tissue swelling and subcutaneous air adjacent to the wound. He reports expressing purulent drainage from that area. The patient was admitted to the hospital and empirically treated with vancomycin, Azactam, and Flagyl. His course has been complicated by uncontrolled blood sugars. Patient has had foot infections in the past. He was hospitalized in February of last year. He gives a history of PENICILLIN allergy, reporting rash and questionable shortness of breath after receiving PENICILLIN in childhood. He has received Azactam in the past without adverse reaction. On review of his cultures, there are no wound cultures present in the chart from previous visits. No documented history of MRSA. PAST MEDICAL HISTORY: Positive for insulin-dependent diabetes mellitus, diabetic peripheral neuropathy, hypertension, hyperlipidemia. ALLERGIES: To PENICILLIN. MEDICATIONS: Include lisinopril, metformin, Lipitor, insulin, Neurontin, Pepcid. SOCIAL HISTORY: Negative for tobacco use. 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 LABORATORY DATA: White count 6.8, hematocrit 35.9, platelet count 200. BUN 26, creatinine 1.3, blood sugar 340, ESR 72, C-reactive protein 7.9. Cultures are pending. PHYSICAL EXAMINATION: General: He is awake and alert. He is in no acute distress. Vital signs: Temperature 97.7, blood pressure 120/64, pulse 112 and regular, respirations per minute. HEENT: Sclerae anicteric. Heart: Heart sounds S1, S2. Lungs: Clear. Abdomen: Soft, obese, nontender. Extremities: Right foot, there is a 1-cm ulceration present over the lateral aspect of the right 5th metatarsal head. There is swelling at the area of the 5th metatarsal head with some questionable fluctuance. There is no expressible pus. No tenderness elicited. No crepitus. No erythema noted. IMPRESSION: 1. Infected diabetic foot wound. 2. Rule out underlying soft tissue abscess/osteomyelitis. 3. Uncontrolled diabetes mellitus. 4. Azotemia. 5. PENICILLIN allergy. Await cultures, podiatry followup, may need incision and drainage of the area, MRI to rule out soft tissue abscess and osteomyelitis, empiric antibiotic coverage in this patient with PENICILLIN allergy with vancomycin, Azactam, and Flagyl, local wound care. Thank you for the kind referral. PABLO SOTO M.D. PATTI/[id number]
[2018-09-12 13:50] LABS: URINE APPEARANCE CLEAR; URINE BILIRUBIN NEGATIVE (<2.0 mg/dL); URINE COLOR YELLOW; URINE GLUCOSE (UA) 3+ (NEGATIVE); URINE KETONE NEGATIVE (NEGATIVE); URINE LEUK ESTERASE NEGATIVE (NEGATIVE); URINE NITRITE NEGATIVE (NEGATIVE); URINE PROTEIN 2+ (NEGATIVE)
[2018-09-12 13:52] LABS: EPI CELLS RARE /HPF (FEW)
[2018-09-12] MEDS: VANCOMYCIN 1 GRAM (PRE-DOCKED) 1,000 MG/250 ML BAG IVPB SCH (14:11)
[2018-09-12] MEDS: COLLAGENASE CLOSTRIDIUM HIST. 30 GRAMS TUBE TP SCH (14:40)
[2018-09-12] MEDS: AZTREONAM 1 GM in DEXTROSE 5%-WATER - 50 ML IVPB SCH ×2 (14:40→18:28)
--- NOTE | 2018-09-12 16:56 | EKG ---
Test Reason : Blood Pressure : / mmHG Vent. Rate : 108 BPM Atrial Rate : 108 BPM P-R Int : 152 ms QRS Dur : 076 ms QT Int : 312 ms P-R-T Axes : 060 034 031 degrees QTc Int : 418 ms SINUS TACHYCARDIA OTHERWISE NORMAL ECG WHEN COMPARED WITH ECG OF 02-JUL-2018 16:55, NO SIGNIFICANT CHANGE WAS FOUND Confirmed by FABIOLA TAMAYO MD ([id number]) on 09/12/2018 4:56:24 PM Referred By: Confirmed By:FABIOLA TAMAYO MD
[2018-09-12] MEDS: ACETAMINOPHEN 325 MG TABLET (FP) PO PRN (18:30)
[2018-09-12] MEDS ORDERED: INSULIN (NOVOLOG) ASPART 100 UNITS/ML 10ML VIAL ONE ×2 (18:44→21:20)
[2018-09-12] MEDS ORDERED: KETOROLAC TROMETHAMINE 10 MG TABLET PO ONE (19:59)
[2018-09-12] MEDS ORDERED: ATORVASTATIN CA 20 MG TABLET (FP) PO SCH (22:00)
[2018-09-13] MEDS ORDERED: PT OWN MED DRAWER 7, Y5N ONE ×2 (00:55→10:54)
[2018-09-13] MEDS: AZTREONAM 1 GM in DEXTROSE 5%-WATER - 50 ML IVPB SCH ×2 (02:10→11:01)
[2018-09-13] MEDS: ACETAMINOPHEN 325 MG TABLET (FP) PO PRN ×2 (03:08→11:40)
[2018-09-13] MEDS: HEPARIN NA (PORCINE) 5,000 UNITS/ML 1ML VIAL SQ SCH ×2 (06:50→14:47)
[2018-09-13] MEDS: INSULIN SLIDING SCALE (NOVOLOG) 1 VIAL SQ SCH ×4 (06:55→21:55)
[2018-09-13] MEDS ORDERED: INSULIN (LEVEMIR) 100 UNITS/ML UNITS SQ SCH ×4 (07:00→22:00)
[2018-09-13 07:34] LABS: BASO % 0.6 % (0-2.0); EOS % 6.9 % (0-4.5); HEMATOCRIT 34.7 % (35.4-49); HEMOGLOBIN 12.3 GM/dL (11.7-16.9); LYMPH % 8.6 % (8-40); MCHC 35.5 g/dl (32.0-35.9); MEAN CELL VOLUME 84.5 fl (80-96); MONO % 10.2 % (3.8-10.2); NEUT % 73.7 % (42.8-82.8); PLATELET COUNT 179 K/MM3 (134-434); RBC 4.11 M/mm3 (4.00-5.60); RDW 12.5 % (11.9-15.9); WHITE BLOOD COUNT 9.2 K/mm3 (4.0-10.0)
[2018-09-13] MEDS: INSULIN (NOVOLOG) ASPART 100 UNITS/ML 10ML VIAL SQ SCH ×3 (07:52→16:32)
[2018-09-13 08:38] LABS: ALBUMIN 2.4 g/dl (3.4-5.0); ALK PHOS 118 U/L (45-117); ANION GAP 8 MMOL/L (8-16); BILIRUBIN,TOTAL 0.5 mg/dL (0.2-1); BLOOD UREA NITROGEN 36 mg/dL (7-18); CALCIUM 8.3 mg/dL (8.5-10.1); CHLORIDE 100 mmol/L (98-107); CO2 24 mmol/L (21-32); CREATININE 1.3 mg/dL (0.55-1.3); POTASSIUM 4.5 mmol/L (3.5-5.1); SGOT/AST 39 U/L (15-37); SGPT/ALT 50 U/L (13-61); SODIUM 132 mmol/L (136-145); TOT PROT 5.8 g/dl (6.4-8.2)
--- NOTE | 2018-09-13 09:03 | PN ---
Teaching Attending Note Name of Resident: Ras Funk ATTENDING PHYSICIAN STATEMENT I saw and evaluated the patient. I reviewed the resident's note and discussed the case with the resident. I agree with the resident's findings and plan as documented. SUBJECTIVE: Remained afebrile wound is improving OBJECTIVE: Vital Signs Temperature 99.5 F 09/13/18 06:00 Pulse Rate 114 H 09/13/18 06:00 Respiratory Rate 20 09/13/18 06:00 Blood Pressure 150/94 09/13/18 06:00 O2 Sat by Pulse Oximetry (%) 98 09/12/18 21:00 Middle aged M not in distress HEENT: Mm moist, no anemia, PERRLA EOMI NECK: No JVd nO Bruit CHEST: CTA b/l good AE CVS: S1S2 R ABD: No distention, non tender Bs + EXT: + edema feet, no calf tenderness, Rt foot at great toe base chronic ulcer with serous exudates. CPR INSTRUCTOR: AOX3 non focal, LABS: CBC, BMP 09/13/18 06:20 09/13/18 06:20 Active Medications Acetaminophen (Tylenol -) 650 mg PO Q6H PRN PRN Reason: PAIN OR FEVER Atorvastatin Calcium (Lipitor -) 20 mg PO HS JORDY Docusate Sodium (Colace -) 100 mg PO BID [facility] Last Admin: 09/12/18 00:30 Dose: 100 mg Gabapentin (Neurontin -) 300 mg PO BID [facility] Last Admin: 09/12/18 00:30 Dose: 300 mg Heparin Sodium (Porcine) (Heparin -) 5,000 unit SQ TID [facility] Last Admin: 09/12/18 06:39 Dose: 5,000 unit Hydrochlorothiazide (Hctz -) 12.5 mg PO DAILY [facility] Sodium Chloride (Normal Saline -) 1,000 mls @ 100 mls/hr IV ASDIR JORDY Last Admin: 09/12/18 00:31 Dose: 100 mls/hr Aztreonam 2 gm/ Dextrose 100 mls @ 100 mls/hr IVPB Q8H-IV JORDY; Protocol Metronidazole (Flagyl 500mg Premixed Ivpb -) 500 mg in 100 mls @ 100 mls/hr IVPB Q6H-IV JORDY Last Admin: 09/12/18 04:00 Dose: 100 mls/hr Aztreonam 2 gm/ Dextrose 100 mls @ 200 mls/hr IVPB Q8H-IV JORDY Stop: 09/12/18 10:29 Last Admin: 09/12/18 03:02 Dose: 200 mls/hr Vancomycin HCl (Vancomycin (Pre-Docked)) 1,000 mg in 250 mls @ 250 mls/hr IVPB ONCE ONE Stop: 09/12/18 10:59 Insulin Aspart (Novolog Vial Sliding Scale -) 1 vial SQ ACHS [facility]; Protocol Last Admin: 09/12/18 01:29 Dose: 12 units Insulin Detemir (Levemir Vial) 36 units SQ HS JORDY Last Admin: 09/12/18 01:28 Dose: 36 unit Lisinopril (Prinivil) 20 mg PO DAILY JORDY Ranitidine HCl (Zantac -) 300 mg PO DAILY JORDY Vancomycin HCl (Vancomycin (Pre-Docked)) 1,000 mg IVPB DAILY [facility]; Protocol ASSESSMENT AND PLAN: 38 yrs old man with long standing T2DM, Diabetic neuropathy cjhronic non healing ulcer Rt foot, HTN, Dyslipedemia, obesity, present with uncontrolled T2DM with hyperglycemia and Rt foot pain and body pain, in the Ed lab shows uncontrolled DM with RPG > 500 and DOUGLAS , X ray foot shows possible OM. MRI discussed with the patient ID and Podiatry considering OM and fluid collection patient will go for I&D, bone and soft tissue resection 5thmetatarsophalangeal joint, and possible amputation of 5th toe right Problem List - Problems (1) Diabetic foot ulcer Assessment/Plan: PCn allergy on IV aztrenam, Flagyl and vancomycine f/u MRI shows OM and fluid collection, MRI discussed with the patient ID and Podiatry considering OM and fluid collection patient will go for I&D, bone and soft tissue resection 5thmetatarsophalangeal joint, and possible amputation of 5th toe right Code(s): E11.621 - TYPE 2 DIABETES MELLITUS WITH FOOT ULCER; L97.509 - NON- PRESSURE CHRONIC ULCER OTH PRT UNSP FOOT W UNSP SEVERITY Qualifiers: Diabetic foot ulcer location: toe Diabetes mellitus type: type 2 Laterality: right Non-pressure ulcer stage: unspecified non-pressure ulcer stage Qualified Code(s): E11.621 - Type 2 diabetes mellitus with foot ulcer; L97.519 - Non-pressure chronic ulcer of other part of right foot with unspecified severity (2) Hyperglycemia Assessment/Plan: Uncontrolled T2DM due to non compliance and infectious process , increse Levimir to 50 units and 15 unit pre meal bolus with correction dose insulin hold Metformin. Encourage PO Hydration. Code(s): R73.9 - HYPERGLYCEMIA, UNSPECIFIED (3) DOUGLAS (acute kidney injury) Assessment/Plan: Due to dehydration improving f/u BMP Code(s): N17.9 - ACUTE KIDNEY FAILURE, UNSPECIFIED (4) HTN (hypertension) Code(s): I10 - ESSENTIAL (PRIMARY) HYPERTENSION (5) Diabetic neuropathy Assessment/Plan: Cont Gabapentin Podiatry consult Code(s): E11.40 - TYPE 2 DIABETES MELLITUS WITH DIABETIC NEUROPATHY, UNSP Qualifiers: Diabetes mellitus type: type 2 (6) Obesity (BMI 30.0-34.9) Assessment/Plan: Nutrition consult. Code(s): E66.9 - OBESITY, UNSPECIFIED (7) Hyponatremia Assessment/Plan: improving on IV NS infusion F/U BMP Code(s): E87.1 - HYPO-OSMOLALITY AND HYPONATREMIA
--- NOTE | 2018-09-13 10:04 | PN ---
Progress Note (short form) - Note Progress Note: Patient seen in bed today. vss, tmax 99.5 +mri for om, +abscess on MRI, +cellutis, +drainage, -mal odor, +fluctuant om abscess? foreign body or gas? Discussed case with vascular, ID, and Radiology. After discussion patient would be best served by I&D and debridement of bone and or soft tissue. Vascular cleared for intervention. Discused with radiology Dr. Bronson. More likely gas/air than foreign body. Discussed with Dr. Prado as well. Discussed at length with patient. Options given were as follows: No surgery and tx with just abx and hbo, I&D bone bippsy abx and HBO, I&D, bone and soft tissue resection 5th metatrsal head and possible 5th toe. Patient understood all options fully. Patient has consented to I&D, bone and soft tissue resection 5th metatarsophalangeal joint, HBO, and possible amputation of 5th toe right. Nurse present to witness. Had long conversation about post operative compliance and complications if patient continues to live his life carelessly without proper medical treatment for his diabetes and co-morbidities. Patient had breakfast at 8am. OR scheduled for 4:30pm today.
--- NOTE | 2018-09-13 10:39 | PN ---
Progress Note, Physician History of Present Illness: NO C/O FOOT PAIN NO FEVER/ CHILLS MRI SHOWS FLUID COLLECTION BC, WOUND C/S PENDING ESR 72 CRP 7.9 - Current Medication List Current Medications: Active Medications Acetaminophen (Tylenol -) 650 mg PO Q6H PRN PRN Reason: PAIN OR FEVER Last Admin: 09/13/18 03:08 Dose: 650 mg Atorvastatin Calcium (Lipitor -) 20 mg PO HS [facility] Last Admin: 09/12/18 22:57 Dose: 20 mg Collagenase (Santyl -) 1 applic TP DAILY [facility]; Protocol Last Admin: 09/12/18 14:40 Dose: 1 applic Docusate Sodium (Colace -) 100 mg PO BID [facility] Last Admin: 09/12/18 22:57 Dose: 100 mg Gabapentin (Neurontin -) 300 mg PO BID [facility] Last Admin: 09/12/18 22:57 Dose: 300 mg Heparin Sodium (Porcine) (Heparin -) 5,000 unit SQ TID [facility] Last Admin: 09/13/18 06:50 Dose: 5,000 unit Hydrochlorothiazide (Hctz -) 12.5 mg PO DAILY [facility] Last Admin: 09/12/18 09:41 Dose: 12.5 mg Vancomycin HCl (Vancomycin (Pre-Docked)) 1,000 mg in 250 mls @ 166.667 mls/hr IVPB Q24H [facility]; Protocol Last Admin: 09/12/18 14:11 Dose: Not Given Metronidazole (Flagyl 500mg Premixed Ivpb -) 500 mg in 100 mls @ 100 mls/hr IVPB Q8H-IV [facility] Last Admin: 09/13/18 02:10 Dose: 100 mls/hr Aztreonam 1 gm/ Dextrose 50 mls @ 100 mls/hr IVPB Q8H-IV [facility]; Protocol Last Admin: 09/13/18 02:10 Dose: 100 mls/hr Insulin Aspart (Novolog Vial Sliding Scale -) 1 vial SQ ACHS [facility]; Protocol Last Admin: 09/13/18 06:55 Dose: 12 units Insulin Aspart (Novolog Vial) 10 units SQ TIDAC [facility] Last Admin: 09/13/18 07:52 Dose: Not Given Insulin Detemir (Levemir Vial) 50 units SQ HS [facility] Insulin Detemir (Levemir Vial) 14 units SQ AM JORDY Lisinopril (Prinivil) 20 mg PO DAILY [facility] Last Admin: 09/12/18 09:41 Dose: 20 mg Ranitidine HCl (Zantac -) 300 mg PO DAILY [facility] Last Admin: 09/12/18 09:41 Dose: 300 mg - Objective Vital Signs: Vital Signs Temperature 99.5 F 09/13/18 06:00 Pulse Rate 114 H 09/13/18 06:00 Respiratory Rate 20 09/13/18 06:00 Blood Pressure 150/94 09/13/18 06:00 O2 Sat by Pulse Oximetry (%) 98 09/12/18 21:00 Constitutional: Yes: No Distress Cardiovascular: Yes: Regular Rate and Rhythm, S1, S2 Respiratory: Yes: CTA Bilaterally Gastrointestinal: Yes: Normal Bowel Sounds, Soft. No: Tenderness Extremities: Yes: Other (+ DRY ULCER R [address]TH [address] WITH [address] FLUCTUANCE; NO ERYTHEMA OR EXPRESSIBLE PUS) Labs: CBC, BMP 09/13/18 06:20 09/13/18 06:20 Assessment/Plan INFECTED DIABETIC FOOT WOUND ? SOFT TISSUE ABSCESS PODIATRY FOLLOW UP ?I&D CONTINUE EMPIRIC VANCO/AZTREONAM/ FLAGYL
[2018-09-13] MEDS: DOCUSATE SODIUM 100 MG CAPSULE (FP) PO SCH ×2 (11:01→21:53)
[2018-09-13] MEDS: GABAPENTIN 300 MG CAPSULE (FP) PO SCH ×2 (11:01→21:53)
[2018-09-13] MEDS: HYDROCHLOROTHIAZIDE 12.5 MG CAPSULE (FP) PO SCH (11:01)
[2018-09-13] MEDS: LISINOPRIL 20 MG TABLET (FP) PO SCH (11:02)
[2018-09-13] MEDS: COLLAGENASE CLOSTRIDIUM HIST. 30 GRAMS TUBE TP SCH (11:02)
[2018-09-13] MEDS: RANITIDINE HCL 150 MG TABLET (FP) PO SCH (11:03)
[2018-09-13 12:52] LABS: GLUCOSE,RANDOM 390 mg/dL (74-106)
[2018-09-13] MEDS: VANCOMYCIN 1 GRAM (PRE-DOCKED) 1,000 MG/250 ML BAG IVPB SCH (13:00)
[2018-09-13] MEDS ORDERED: ACETAMINOPHEN 1000 MG/100 ML VIAL (NON FORMULARY) IVPB ONE (14:54)
[2018-09-13] MEDS ORDERED: LIDOCAINE HCL 1%, 10 MG/ML (20ML VIAL) ONE (16:10)
[2018-09-13] MEDS ORDERED: INSULIN REGULAR HUMAN 100 UNITS/ML *VIAL IVPUSH ONE ×3 (16:58→19:07)
--- NOTE | 2018-09-13 17:44 | PN ---
Physical Exam: SUBJECTIVE: Patient seen and examined no new complaints overnight OBJECTIVE: Vital Signs Period Temp Pulse Resp BP Sys/Marinelli Pulse Ox Last 24 Hr 98.0 F-99.5 F 59-114 20-20 139-182/83-101 98-100 GENERAL: Awake, alert, and fully oriented, in no acute distress. HEAD: Normal with no signs of trauma. LUNGS: Breath sounds equal, clear to auscultation bilaterally. HEART: Regular rate and rhythm, normal S1 and S2 without murmur, rub or gallop. ABDOMEN: Soft, nontender, not distended, normoactive bowel sounds. UPPER EXTREMITIES: 2+ pulses, warm, well-perfused. No peripheral edema. LOWER EXTREMITIES: 2+ pulses, warm, well-perfused. No calf tenderness. RLE: +1 pitting edema, no tenderness, +right plantar foot wound, no discharge, granuloma present. NEUROLOGICAL: Cranial nerves II-XII intact. Motor strength 5/5, Sensation intact. Normal speech. Normal gait. PSYCHIATRIC: Cooperative. Good eye contact. Appropriate mood and affect. SKIN: Warm, dry, Laboratory Results - last 24 hr 09/12/18 09/12/18 09/13/18 18:24 22:24 06:20 WBC RBC Hgb Hct MCV MCH MCHC RDW Plt Count MPV Absolute Neuts (auto) Neutrophils % Lymphocytes % Monocytes % Eosinophils % Basophils % Nucleated RBC % Sodium Potassium Chloride Carbon Dioxide Anion Gap BUN Creatinine Creat Clearance w eGFR POC Glucometer 339 469 Random Glucose Hemoglobin A1c % < 4.2 L Calcium Total Bilirubin AST ALT Alkaline Phosphatase Total Protein Albumin 09/13/18 09/13/18 09/13/18 06:20 06:20 06:54 WBC 9.2 RBC 4.11 Hgb 12.3 Hct 34.7 L MCV 84.5 MCH 30.0 MCHC 35.5 RDW 12.5 Plt Count 179 MPV 8.0 Absolute Neuts (auto) 6.8 Neutrophils % 73.7 D Lymphocytes % 8.6 D Monocytes % 10.2 Eosinophils % 6.9 H Basophils % 0.6 Nucleated RBC % 0 Sodium 132 L Potassium 4.5 Chloride 100 Carbon Dioxide 24 Anion Gap 8 BUN 36 H Creatinine 1.3 Creat Clearance w eGFR > 60 POC Glucometer 410 Random Glucose 390 H* Hemoglobin A1c % Calcium 8.3 L Total Bilirubin 0.5 AST 39 H ALT 50 Alkaline Phosphatase 118 H Total Protein 5.8 L Albumin 2.4 L 09/13/18 09/13/18 09/13/18 11:13 16:16 17:28 WBC RBC Hgb Hct MCV MCH MCHC RDW Plt Count MPV Absolute Neuts (auto) Neutrophils % Lymphocytes % Monocytes % Eosinophils % Basophils % Nucleated RBC % Sodium Potassium Chloride Carbon Dioxide Anion Gap BUN Creatinine Creat Clearance w eGFR POC Glucometer 381 363 335 Random Glucose Hemoglobin A1c % Calcium Total Bilirubin AST ALT Alkaline Phosphatase Total Protein Albumin Active Medications Generic Name Dose Route Start Last Admin Trade Name Freq PRN Reason Stop Dose Admin Acetaminophen 650 mg 09/11/18 21:49 09/13/18 11:40 Tylenol - PO 650 mg Q6H PRN Administration PAIN OR FEVER Atorvastatin Calcium 20 mg 09/12/18 22:00 09/12/18 22:57 Lipitor - PO 20 mg HS JORDY Administration Collagenase 1 applic 09/12/18 10:00 09/13/18 11:02 Santyl - TP Not Given DAILY JORDY Protocol Docusate Sodium 100 mg 09/11/18 22:00 09/13/18 11:01 Colace - PO Not Given BID JORDY Gabapentin 300 mg 09/11/18 22:00 09/13/18 11:01 Neurontin - PO 300 mg BID JORDY Administration Heparin Sodium (Porcine) 5,000 unit 09/12/18 06:00 09/13/18 14:47 Heparin - SQ Not Given TID JORDY Hydrochlorothiazide 12.5 mg 09/12/18 10:00 09/13/18 11:01 Hctz - PO 12.5 mg DAILY JORDY Administration Vancomycin HCl 1,000 mg in 250 mls @ 166.667 mls/hr 09/12/18 13:00 09/13/18 13:00 Vancomycin (Pre-Docked) IVPB 166.667 mls/hr Q24H JORDY Administration Protocol Metronidazole 500 mg in 100 mls @ 100 mls/hr 09/12/18 13:00 09/13/18 11:01 Flagyl 500mg Premixed Ivpb - IVPB 100 mls/hr Q8H-IV JORDY Administration Aztreonam 1 gm/ Dextrose 50 mls @ 100 mls/hr 09/12/18 13:00 09/13/18 11:01 IVPB 100 mls/hr Q8H-IV JORDY Administration Protocol Insulin Aspart 1 vial 02/27/19 22:00 09/13/18 16:32 Novolog Vial Sliding Scale - SQ Not Given ACHS JORDY Protocol Insulin Aspart 10 units 09/12/18 12:23 09/13/18 16:32 Novolog Vial SQ Not Given TIDAC JORDY Insulin Detemir 50 units 09/13/18 22:00 Levemir Vial SQ HS [facility] Insulin Detemir 14 units 09/13/18 08:52 Levemir Vial SQ AM [facility] Insulin Human Regular 5 units 09/13/18 16:58 Novolin R Vial *For Ivpush Or Iv Drip Only* IVPUSH 09/13/18 16:59 ONCE ONE Lisinopril 20 mg 09/12/18 10:00 09/13/18 11:02 Prinivil PO 20 mg DAILY JORDY Administration Ranitidine HCl 300 mg 09/12/18 10:00 09/13/18 11:03 Zantac - PO Not Given DAILY [facility] ASSESSMENT/PLAN: Patient is a 38 year old male with past medical history of IDDM , HTN, HLD, and chronic right foot wound, presented with non-healing draining right plantar foot wound for 2 weeks. #Right diabetic foot wound with osteo on vanco, aztreonam, flagyl mri pending crp 7.9 esr 72 id on case culyure pending going for debridement today #IDDM:uncontrolled hba1c levemir 50 in hs, 10 in am standing coverage of 14unit tid sliding scale diabetic diet bgm #pseudoHyponatremia monitor #HTN -Continue home Lisinopril/HCTZ 20/12.5 daily #HLD -Continue home Lipitor 20mg daily #FEN - orally allowed -Routine bmp monitoring -Diabetic/sodium restricted diet #Prophylaxis -Heparin 5000units sq tid #Disposition -full code -med-surg Visit type - Emergency Visit Emergency Visit: Yes ED Registration Date: 09/11/18 Care time: The patient presented to the Emergency Department on the above date and was hospitalized for further evaluation of their emergent condition. - New Patient This patient is new to me today: No - Critical Care Critical Care patient: No
[2018-09-13] MEDS ORDERED: MIDAZOLAM HCL 2 MG/2 ML SINGLE DOSE VIAL ONE ×2 (18:04)
[2018-09-13] MEDS ORDERED: BACITRACIN 50,000 UNITS VIAL TP ONE (18:11)
[2018-09-13] MEDS ORDERED: PROMETHAZINE HCL 25 MG/1 ML VIAL IVPUSH PRN (18:46)
[2018-09-13] MEDS ORDERED: ONDANSETRON 4 MG/2 ML VIAL IVPUSH PRN (18:46)
--- NOTE | 2018-09-13 18:51 | OP ---
Operative Note - Note: Operative Date: 09/13/18 Pre-Operative Diagnosis: abscess, om, possible air/gas/foreign body Operation: Incision and drainage right foot fifth metatarsal phalangeal joint. Resection distal 5th metatarsal including head. Wound culture. Bone Culture. Bone Biopsy. Findings: abscess, necrotic soft tissue, bony changes 5th met head area Post-Operative Diagnosis: Other (no evidence of foreign body, no evidence of gas ) Surgeon: Wing Cohen Relationship Assoc: [facility] Anesthesia: MAC Specimens Removed: bone and soft tissue Estimated Blood Loss (mls): 30 Instrument used (Debridements only): blade, power saw, Drains & Tubes with Location: 1/4 inch iodoform packing Operative Report Dictated: No
[2018-09-13 21:21] LABS: BASO % 0.5 % (0-2.0); EOS % 2.5 % (0-4.5); HEMATOCRIT 35.2 % (35.4-49); HEMOGLOBIN 12.3 GM/dL (11.7-16.9); LYMPH % 4.9 % (8-40); MCH 29.8 pg (25.7-33.7); MEAN CELL VOLUME 85.3 fl (80-96); MEAN PLT VOLUME 8.2 fl (7.5-11.1); MONO % 6.8 % (3.8-10.2); NEUT % 85.3 % (42.8-82.8); PLATELET COUNT 196 K/MM3 (134-434); RBC 4.12 M/mm3 (4.00-5.60); RDW 12.7 % (11.9-15.9); WHITE BLOOD COUNT 11.9 K/mm3 (4.0-10.0)
[2018-09-13] MEDS: oxyCODONE HCL 5 MG TABLET PO PRN (21:51)
[2018-09-13] MEDS: ATORVASTATIN CA 20 MG TABLET (FP) PO SCH (21:53)
[2018-09-14 01:00] LABS: URINE APPEARANCE CLEAR; URINE BILIRUBIN NEGATIVE (<2.0 mg/dL); URINE COLOR YELLOW; URINE GLUCOSE (UA) 3+ (NEGATIVE); URINE KETONE TRACE (NEGATIVE); URINE LEUK ESTERASE NEGATIVE (NEGATIVE); URINE NITRITE NEGATIVE (NEGATIVE); URINE PROTEIN 2+ (NEGATIVE)
[2018-09-14 01:07] LABS: EPI CELLS RARE /HPF (FEW); URINE MUCUS RARE
[2018-09-14] MEDS: AZTREONAM 1 GM in DEXTROSE 5%-WATER - 50 ML IVPB SCH ×3 (02:58→17:37)
[2018-09-14] MEDS: oxyCODONE HCL 5 MG TABLET PO PRN ×3 (06:49→22:34)
[2018-09-14] MEDS: INSULIN (NOVOLOG) ASPART 100 UNITS/ML 10ML VIAL SQ SCH ×3 (06:50→17:01)
[2018-09-14] MEDS: INSULIN SLIDING SCALE (NOVOLOG) 1 VIAL SQ SCH ×4 (06:50→22:34)
[2018-09-14] MEDS: INSULIN (LEVEMIR) 100 UNITS/ML UNITS SQ SCH ×2 (06:52→22:35)
--- NOTE | 2018-09-14 07:59 | PN ---
Progress Note, Physician Chief Complaint: no complaints History of Present Illness: 38 yrs old man with long standing T2DM, Diabetic neuropathy cjhronic non healing ulcer Rt foot, HTN, Dyslipedemia, obesity, present with uncontrolled T2DM with hyperglycemia and Rt foot pain and body pain, in the Ed lab shows uncontrolled DM with RPG > 500 and DOUGLAS , X ray foot shows possible OM. MRI confirmed OM of 5th toe with abscess formation, underwent surgery 09/13/2018. - Current Medication List Current Medications: Active Medications Acetaminophen (Tylenol -) 650 mg PO Q6H PRN PRN Reason: PAIN OR FEVER Atorvastatin Calcium (Lipitor -) 20 mg PO HS [facility] Last Admin: 09/13/18 21:53 Dose: 20 mg Docusate Sodium (Colace -) 100 mg PO BID [facility] Last Admin: 09/13/18 21:53 Dose: 100 mg Gabapentin (Neurontin -) 300 mg PO BID [facility] Last Admin: 09/13/18 21:53 Dose: 300 mg Hydrochlorothiazide (Hctz -) 12.5 mg PO DAILY [facility] Aztreonam 1 gm/ Dextrose 50 mls @ 100 mls/hr IVPB Q8H-IV JORDY; Protocol Last Admin: 09/14/18 02:58 Dose: 100 mls/hr Metronidazole (Flagyl 500mg Premixed Ivpb -) 500 mg in 100 mls @ 100 mls/hr IVPB Q8H-IV JORDY Last Admin: 09/14/18 02:59 Dose: 100 mls/hr Vancomycin HCl (Vancomycin (Pre-Docked)) 1,000 mg in 250 mls @ 166.667 mls/hr IVPB Q24H JORDY; Protocol Insulin Aspart (Novolog Vial) 10 units SQ TIDAC [facility] Last Admin: 09/14/18 06:50 Dose: 10 units Insulin Aspart (Novolog Vial Sliding Scale -) 1 vial SQ ACHS JORDY; Protocol Last Admin: 09/14/18 06:50 Dose: 8 units Insulin Detemir (Levemir Vial) 50 units SQ HS [facility] Last Admin: 09/13/18 21:54 Dose: 50 units Insulin Detemir (Levemir Vial) 14 units SQ AM [facility] Last Admin: 09/14/18 06:52 Dose: 14 units Lisinopril (Prinivil) 20 mg PO DAILY [facility] Ondansetron HCl (Zofran Injection) 4 mg IVPUSH Q6H PRN PRN Reason: NAUSEA AND/OR VOMITING Oxycodone HCl (Roxicodone -) 10 mg PO Q4H PRN PRN Reason: PAIN LEVEL 6-10 Last Admin: 09/14/18 06:49 Dose: 10 mg Promethazine HCl (Phenergan Injection -) 12.5 mg IVPUSH Q6H PRN PRN Reason: NAUSEA-FOR RESCUE AFTER 15 MIN Ranitidine HCl (Zantac -) 300 mg PO DAILY JORDY - Objective Vital Signs: Vital Signs Temperature 98.1 F 09/14/18 06:24 Pulse Rate 90 09/14/18 06:24 Respiratory Rate 20 09/14/18 06:24 Blood Pressure 150/90 09/14/18 06:24 O2 Sat by Pulse Oximetry (%) 98 09/13/18 21:00 Middle aged M not in distress HEENT: Mm moist, no anemia, PERRLA EOMI NECK: No JVd nO Bruit CHEST: CTA b/l good AE CVS: S1S2 R ABD: No distention, non tender Bs + EXT: Rt LE + edema feet, no calf tenderness, Rt foot s/p surgery in dressing.. INTERMEDIATE FRAME TENDER: AOX3 non focal, Labs: CBC, BMP 09/14/18 07:00 09/14/18 07:00 Problem List - Problems (1) Diabetic foot ulcer Assessment/Plan: On IV abx MRI shows OM and collection of fluid s/p I and D F/U culture result prelim culture Grew Polymicrobial growth. Code(s): E11.621 - TYPE 2 DIABETES MELLITUS WITH FOOT ULCER; L97.509 - NON- PRESSURE CHRONIC ULCER OTH PRT UNSP FOOT W UNSP SEVERITY Qualifiers: Diabetic foot ulcer location: toe Diabetes mellitus type: type 2 Laterality: right Non-pressure ulcer stage: unspecified non-pressure ulcer stage Qualified Code(s): E11.621 - Type 2 diabetes mellitus with foot ulcer; L97.519 - Non-pressure chronic ulcer of other part of right foot with unspecified severity (2) Hyperglycemia Assessment/Plan: Uncontrolled T2DM due to non compliance and infectious process , increse Levimir to 50 units and 15 unit pre meal bolus with correction dose insulin hold Metformin. Encourage PO Hydration. Code(s): R73.9 - HYPERGLYCEMIA, UNSPECIFIED (3) DOUGLAS (acute kidney injury) Assessment/Plan: Due to dehydration improving f/u BMP Code(s): N17.9 - ACUTE KIDNEY FAILURE, UNSPECIFIED (4) HTN (hypertension) Assessment/Plan: resume Lisinopril once Creat at base line Hold HCTZ Code(s): I10 - ESSENTIAL (PRIMARY) HYPERTENSION (5) Diabetic neuropathy Assessment/Plan: Cont Gabapentin Podiatry consult Code(s): E11.40 - TYPE 2 DIABETES MELLITUS WITH DIABETIC NEUROPATHY, UNSP Qualifiers: Diabetes mellitus type: type 2 (6) Obesity (BMI 30.0-34.9) Assessment/Plan: Nutrition consult. Code(s): E66.9 - OBESITY, UNSPECIFIED (7) Hyponatremia Assessment/Plan: improving on IV NS infusion F/U BMP Code(s): E87.1 - HYPO-OSMOLALITY AND HYPONATREMIA (8) T2DM (type 2 diabetes mellitus) Assessment/Plan: uncontrolled increase basal insulin to 55 units with correction dose insulin and premeal 15 units TID AC Code(s): E11.9 - TYPE 2 DIABETES MELLITUS WITHOUT COMPLICATIONS
[2018-09-14 08:06] LABS: BASO % 0.2 % (0-2.0); EOS % 0.9 % (0-4.5); HEMATOCRIT 35.6 % (35.4-49); HEMOGLOBIN 12.6 GM/dL (11.7-16.9); LYMPH % 9.7 % (8-40); MCHC 35.3 g/dl (32.0-35.9); MEAN PLT VOLUME 8.1 fl (7.5-11.1); MONO % 6.7 % (3.8-10.2); NEUT % 82.5 % (42.8-82.8); PLATELET COUNT 201 K/MM3 (134-434); RBC 4.19 M/mm3 (4.00-5.60); RDW 12.7 % (11.9-15.9); WHITE BLOOD COUNT 10.8 K/mm3 (4.0-10.0)
[2018-09-14 08:44] LABS: ANION GAP 7 MMOL/L (8-16); BLOOD UREA NITROGEN 27 mg/dL (7-18); CALCIUM 8.3 mg/dL (8.5-10.1); CHLORIDE 99 mmol/L (98-107); CO2 28 mmol/L (21-32); CREATININE 1.1 mg/dL (0.55-1.3); POTASSIUM 4.7 mmol/L (3.5-5.1); SODIUM 134 mmol/L (136-145)
[2018-09-14 09:28] LABS: GLUCOSE,RANDOM 317 mg/dL (74-106)
[2018-09-14] MEDS ORDERED: PT OWN MED DRAWER 7, Y5N ONE ×2 (10:09→16:43)
[2018-09-14] MEDS: LISINOPRIL 20 MG TABLET (FP) PO SCH (10:59)
[2018-09-14] MEDS: HYDROCHLOROTHIAZIDE 12.5 MG CAPSULE (FP) PO SCH (10:59)
[2018-09-14] MEDS: GABAPENTIN 300 MG CAPSULE (FP) PO SCH ×2 (10:59→22:34)
[2018-09-14] MEDS: DOCUSATE SODIUM 100 MG CAPSULE (FP) PO SCH ×2 (10:59→22:34)
[2018-09-14] MEDS: RANITIDINE HCL 150 MG TABLET (FP) PO SCH (10:59)
[2018-09-14] MEDS: VANCOMYCIN 1 GRAM (PRE-DOCKED) 1,000 MG/250 ML BAG IVPB SCH (14:02)
[2018-09-14] MEDS: ACETAMINOPHEN 325 MG TABLET (FP) PO PRN (14:08)
--- NOTE | 2018-09-14 16:54 | PN ---
Progress Note (short form) - Note Progress Note: Patient seen in bed today. Postoperative day one. no pain on palpation. vss, tmax 97.8 +clean, dry dressing right foot, no xray available post op, wbc=10.8 om Dressing change Sunday or Sunday. Bathroom privelages. Do not remove dressing. Post op shoe right. x-rays re-ordered.
[2018-09-14] MEDS: ATORVASTATIN CA 20 MG TABLET (FP) PO SCH (22:34)
[2018-09-15] MEDS: AZTREONAM 1 GM in DEXTROSE 5%-WATER - 50 ML IVPB SCH ×3 (02:11→17:48)
[2018-09-15] MEDS: oxyCODONE HCL 5 MG TABLET PO PRN ×2 (02:42→17:51)
[2018-09-15] MEDS: INSULIN (NOVOLOG) ASPART 100 UNITS/ML 10ML VIAL SQ SCH ×3 (06:47→17:21)
[2018-09-15] MEDS: INSULIN (LEVEMIR) 100 UNITS/ML UNITS SQ SCH ×2 (06:47→21:56)
[2018-09-15] MEDS: INSULIN SLIDING SCALE (NOVOLOG) 1 VIAL SQ SCH ×4 (06:48→21:56)
[2018-09-15 07:05] LABS: BASO % 0.7 % (0-2.0); HEMATOCRIT 34.2 % (35.4-49); HEMOGLOBIN 11.9 GM/dL (11.7-16.9); LYMPH % 19.1 % (8-40); MCH 29.9 pg (25.7-33.7); MCHC 34.9 g/dl (32.0-35.9); MEAN CELL VOLUME 85.6 fl (80-96); MEAN PLT VOLUME 7.9 fl (7.5-11.1); MONO % 10.9 % (3.8-10.2); NEUT % 56.3 % (42.8-82.8); PLATELET COUNT 213 K/MM3 (134-434); RBC 3.99 M/mm3 (4.00-5.60); RDW 12.9 % (11.9-15.9); WHITE BLOOD COUNT 6.8 K/mm3 (4.0-10.0)
[2018-09-15 07:28] LABS: ANION GAP 6 MMOL/L (8-16); BLOOD UREA NITROGEN 27 mg/dL (7-18); CALCIUM 8.4 mg/dL (8.5-10.1); CHLORIDE 100 mmol/L (98-107); CO2 29 mmol/L (21-32); CREATININE 1.1 mg/dL (0.55-1.3); GLUCOSE,RANDOM 292 mg/dL (74-106); POTASSIUM 4.3 mmol/L (3.5-5.1); SODIUM 134 mmol/L (136-145)
[2018-09-15] MEDS ORDERED: PT OWN MED DRAWER 7, Y5N ONE (09:43)
[2018-09-15] MEDS: DOCUSATE SODIUM 100 MG CAPSULE (FP) PO SCH ×2 (09:46→21:56)
[2018-09-15] MEDS: HYDROCHLOROTHIAZIDE 12.5 MG CAPSULE (FP) PO SCH (09:47)
[2018-09-15] MEDS: RANITIDINE HCL 150 MG TABLET (FP) PO SCH (09:47)
[2018-09-15] MEDS: GABAPENTIN 300 MG CAPSULE (FP) PO SCH ×2 (09:47→21:56)
[2018-09-15] MEDS: LISINOPRIL 20 MG TABLET (FP) PO SCH (09:47)
[2018-09-15] MEDS: VANCOMYCIN 1 GRAM (PRE-DOCKED) 1,000 MG/250 ML BAG IVPB SCH (13:18)
--- NOTE | 2018-09-15 14:26 | PN ---
Progress Note, Physician Chief Complaint: no complaints History of Present Illness: 38 yrs old man with long standing T2DM, Diabetic neuropathy cjhronic non healing ulcer Rt foot, HTN, Dyslipedemia, obesity, present with uncontrolled T2DM with hyperglycemia and Rt foot pain and body pain, in the Ed lab shows uncontrolled DM with RPG > 500 and DOUGALS , X ray foot shows possible OM. MRI confirmed OM of 5th toe with abscess formation, underwent surgery 09/13/2018. - Current Medication List Current Medications: Active Medications Acetaminophen (Tylenol -) 650 mg PO Q6H PRN PRN Reason: PAIN OR FEVER Last Admin: 09/14/18 14:08 Dose: 650 mg Atorvastatin Calcium (Lipitor -) 20 mg PO HS [facility] Last Admin: 09/14/18 22:34 Dose: 20 mg Docusate Sodium (Colace -) 100 mg PO BID [facility] Last Admin: 09/15/18 09:46 Dose: 100 mg Gabapentin (Neurontin -) 300 mg PO BID [facility] Last Admin: 09/15/18 09:47 Dose: 300 mg Hydrochlorothiazide (Hctz -) 12.5 mg PO DAILY [facility] Last Admin: 09/15/18 09:47 Dose: 12.5 mg Aztreonam 1 gm/ Dextrose 50 mls @ 100 mls/hr IVPB Q8H-IV JORDY; Protocol Last Admin: 09/15/18 11:00 Dose: 100 mls/hr Metronidazole (Flagyl 500mg Premixed Ivpb -) 500 mg in 100 mls @ 100 mls/hr IVPB Q8H-IV JORDY Last Admin: 09/15/18 09:52 Dose: 100 mls/hr Vancomycin HCl (Vancomycin (Pre-Docked)) 1,000 mg in 250 mls @ 166.667 mls/hr IVPB Q24H JORDY; Protocol Last Admin: 09/15/18 13:18 Dose: 166.667 mls/hr Insulin Aspart (Novolog Vial Sliding Scale -) 1 vial SQ ACHS [facility]; Protocol Last Admin: 09/15/18 11:00 Dose: 4 units Insulin Aspart (Novolog Vial) 15 units SQ TIDAC [facility] Last Admin: 09/15/18 11:01 Dose: 15 units Insulin Detemir (Levemir Vial) 55 units SQ HS [facility] Last Admin: 09/14/18 22:35 Dose: 55 units Insulin Detemir (Levemir Vial) 20 units SQ AM [facility] Lisinopril (Prinivil) 20 mg PO DAILY [facility] Last Admin: 09/15/18 09:47 Dose: 20 mg Ondansetron HCl (Zofran Injection) 4 mg IVPUSH Q6H PRN PRN Reason: NAUSEA AND/OR VOMITING Oxycodone HCl (Roxicodone -) 10 mg PO Q4H PRN PRN Reason: PAIN LEVEL 6-10 Last Admin: 09/15/18 02:42 Dose: 10 mg Ranitidine HCl (Zantac -) 300 mg PO DAILY [facility] Last Admin: 09/15/18 09:47 Dose: 300 mg - Objective Vital Signs: Vital Signs Temperature 97.2 F L 09/15/18 06:00 Pulse Rate 80 09/15/18 10:00 Respiratory Rate 18 09/15/18 10:00 Blood Pressure 130/78 09/15/18 10:00 O2 Sat by Pulse Oximetry (%) 98 09/15/18 09:00 Middle aged M not in distress HEENT: Mm moist, no anemia, PERRLA EOMI NECK: No JVd nO Bruit CHEST: CTA b/l good AE CVS: S1S2 R ABD: No distention, non tender Bs + EXT: Rt LE + edema feet, no calf tenderness, Rt foot s/p surgery in dressing.. BEAUTY COUNSELOR: AOX3 non focal, Labs: CBC, BMP 09/15/18 06:25 09/15/18 06:25 Problem List - Problems (1) Diabetic foot ulcer Assessment/Plan: On IV abx MRI shows OM and collection of fluid s/p 5th toe amputtaion on Rt F/ U culture result prelim culture Grew Polymicrobial growth. Code(s): E11.621 - TYPE 2 DIABETES MELLITUS WITH FOOT ULCER; L97.509 - NON- PRESSURE CHRONIC ULCER OTH PRT UNSP FOOT W UNSP SEVERITY Qualifiers: Diabetic foot ulcer location: toe Diabetes mellitus type: type 2 Laterality: right Non-pressure ulcer stage: unspecified non-pressure ulcer stage Qualified Code(s): E11.621 - Type 2 diabetes mellitus with foot ulcer; L97.519 - Non-pressure chronic ulcer of other part of right foot with unspecified severity (2) Hyperglycemia Assessment/Plan: Uncontrolled T2DM due to non compliance and infectious process , increse Levimir to 55 units PM 20 units am and 15 unit pre meal bolus with correction dose insulin hold Metformin. Encourage PO Hydration. Code(s): R73.9 - HYPERGLYCEMIA, UNSPECIFIED (3) DOUGLAS (acute kidney injury) Assessment/Plan: Due to dehydration improving f/u BMP Code(s): N17.9 - ACUTE KIDNEY FAILURE, UNSPECIFIED (4) HTN (hypertension) Assessment/Plan: resume Lisinopril once Creat at base line Hold HCTZ Code(s): I10 - ESSENTIAL (PRIMARY) HYPERTENSION (5) Diabetic neuropathy Assessment/Plan: Cont Gabapentin Podiatry consult Code(s): E11.40 - TYPE 2 DIABETES MELLITUS WITH DIABETIC NEUROPATHY, UNSP Qualifiers: Diabetes mellitus type: type 2 (6) Obesity (BMI 30.0-34.9) Code(s): E66.9 - OBESITY, UNSPECIFIED (7) Hyponatremia Code(s): E87.1 - HYPO-OSMOLALITY AND HYPONATREMIA (8) T2DM (type 2 diabetes mellitus) Assessment/Plan: uncontrolled increase basal insulin to 55 units with correction dose insulin and premeal 15 units TID AC Code(s): E11.9 - TYPE 2 DIABETES MELLITUS WITHOUT COMPLICATIONS
[2018-09-15] MEDS ORDERED: MAG HYDROX/AL HYDROX/SIMETH 30 ML UNIT-DOSE CUP PO PRN (17:12)
[2018-09-15] MEDS: ATORVASTATIN CA 20 MG TABLET (FP) PO SCH (21:56)
[2018-09-15] MEDS: ACETAMINOPHEN 325 MG TABLET (FP) PO PRN (22:03)
[2018-09-16 01:50] VITALS: PULSE 92
[2018-09-16] MEDS: AZTREONAM 1 GM in DEXTROSE 5%-WATER - 50 ML IVPB SCH (02:00)
[2018-09-16] MEDS: INSULIN (NOVOLOG) ASPART 100 UNITS/ML 10ML VIAL SQ SCH ×2 (07:55→08:16)
[2018-09-16] MEDS: INSULIN (LEVEMIR) 100 UNITS/ML UNITS SQ SCH ×2 (07:55→08:17)
[2018-09-16] MEDS: INSULIN SLIDING SCALE (NOVOLOG) 1 VIAL SQ SCH ×2 (07:56→08:16)
[2018-09-16 08:26] LABS: BASO % 0.8 % (0-2.0); EOS % 14.9 % (0-4.5); HEMATOCRIT 37.1 % (35.4-49); LYMPH % 20.5 % (8-40); MCH 29.4 pg (25.7-33.7); MCHC 35.1 g/dl (32.0-35.9); MEAN CELL VOLUME 83.6 fl (80-96); MEAN PLT VOLUME 7.5 fl (7.5-11.1); MONO % 9.7 % (3.8-10.2); NEUT % 54.1 % (42.8-82.8); PLATELET COUNT 288 K/MM3 (134-434); RBC 4.43 M/mm3 (4.00-5.60); RDW 12.7 % (11.9-15.9); WHITE BLOOD COUNT 5.5 K/mm3 (4.0-10.0)
[2018-09-16 08:53] LABS: ANION GAP 6 MMOL/L (8-16); BLOOD UREA NITROGEN 22 mg/dL (7-18); CALCIUM 8.3 mg/dL (8.5-10.1); CHLORIDE 97 mmol/L (98-107); CO2 30 mmol/L (21-32); GLUCOSE,RANDOM 273 mg/dL (74-106); POTASSIUM 4.7 mmol/L (3.5-5.1); SODIUM 133 mmol/L (136-145)
[2018-09-16] MEDS ORDERED: PT OWN MED DRAWER 7, Y5N ONE ×2 (09:01→09:04)
[2018-09-16] MEDS ORDERED: INSULIN (NOVOLOG) ASPART 100 UNITS/ML 10ML VIAL ONE (09:02)
[2018-09-16 09:15] VITALS: BP 122/108
[2018-09-16] MEDS: GABAPENTIN 300 MG CAPSULE (FP) PO SCH (09:15)
[2018-09-16] MEDS: DOCUSATE SODIUM 100 MG CAPSULE (FP) PO SCH (09:15)
[2018-09-16] MEDS: LISINOPRIL 20 MG TABLET (FP) PO SCH (09:15)
[2018-09-16] MEDS: HYDROCHLOROTHIAZIDE 12.5 MG CAPSULE (FP) PO SCH (09:15)
[2018-09-16] MEDS: RANITIDINE HCL 150 MG TABLET (FP) PO SCH ×2 (09:15→09:25)
[2018-09-16 09:29] VITALS: TEMP 98
--- NOTE | 2018-09-16 09:44 | PN ---
Physical Exam: SUBJECTIVE: Patient seen and examined OBJECTIVE: Vital Signs Period Temp Pulse Resp BP Sys/Marinelli Pulse Ox Last 24 Hr 97.7 F-98.3 F 80-92 18-20 122-158/77-108 98 GENERAL: The patient is awake, alert, and fully oriented, in no acute distress. LUNGS: Breath sounds equal, clear to auscultation bilaterally, no wheezes, no crackles, no accessory muscle use. HEART: Regular rate and rhythm, S1, S2 without murmur, rub or gallop. ABDOMEN: Soft, nontender, nondistended, normoactive bowel sounds, no guarding, no rebound, no hepatosplenomegaly, no masses. EXTREMITIES: dressing present on right foot PSYCH: Normal mood, normal affect. SKIN: Warm, dry, normal turgor, no rashes or lesions noted Laboratory Results - last 24 hr 09/15/18 09/15/18 09/15/18 11:00 17:17 20:49 WBC RBC Hgb Hct MCV MCH MCHC RDW Plt Count MPV Absolute Neuts (auto) Neutrophils % Lymphocytes % Monocytes % Eosinophils % Basophils % Nucleated RBC % Sodium Potassium Chloride Carbon Dioxide Anion Gap BUN Creatinine Creat Clearance w eGFR POC Glucometer 241 259 250 Random Glucose Calcium 09/16/18 09/16/18 09/16/18 07:35 07:35 08:13 WBC 5.5 RBC 4.43 Hgb 13.0 Hct 37.1 MCV 83.6 MCH 29.4 MCHC 35.1 RDW 12.7 Plt Count 288 D MPV 7.5 Absolute Neuts (auto) 3.0 Neutrophils % 54.1 Lymphocytes % 20.5 Monocytes % 9.7 Eosinophils % 14.9 H Basophils % 0.8 Nucleated RBC % 0 Sodium 133 L Potassium 4.7 Chloride 97 L Carbon Dioxide 30 Anion Gap 6 L BUN 22 H Creatinine 1.0 Creat Clearance w eGFR > 60 POC Glucometer 280 Random Glucose 273 H Calcium 8.3 L Active Medications Generic Name Dose Route Start Last Admin Trade Name Freq PRN Reason Stop Dose Admin Acetaminophen 650 mg 09/13/18 19:07 09/15/18 22:03 Tylenol - PO 650 mg Q6H PRN Administration PAIN OR FEVER Al Hydroxide/Mg Hydroxide 30 ml 09/15/18 17:12 09/15/18 23:58 Mylanta Oral Suspension - PO 30 ml Q6H PRN Administration DYSPEPSIA Atorvastatin Calcium 20 mg 09/13/18 22:00 09/15/18 21:56 Lipitor - PO 20 mg HS JORDY Administration Docusate Sodium 100 mg 09/13/18 22:00 09/16/18 09:15 Colace - PO 100 mg BID JORDY Administration Gabapentin 300 mg 09/13/18 22:00 09/16/18 09:15 Neurontin - PO 300 mg BID JORDY Administration Hydrochlorothiazide 12.5 mg 09/14/18 10:00 09/16/18 09:15 Hctz - PO 12.5 mg DAILY JORDY Administration Aztreonam 1 gm/ Dextrose 50 mls @ 100 mls/hr 09/14/18 02:00 09/16/18 02:00 IVPB 100 mls/hr Q8H-IV JORDY Administration Protocol Metronidazole 500 mg in 100 mls @ 100 mls/hr 09/14/18 02:00 09/16/18 02:26 Flagyl 500mg Premixed Ivpb - IVPB 100 mls/hr Q8H-IV JORDY Administration Vancomycin HCl 1,000 mg in 250 mls @ 166.667 mls/hr 09/14/18 13:00 09/15/18 13:18 Vancomycin (Pre-Docked) IVPB 166.667 mls/hr Q24H JORDY Administration Protocol Insulin Aspart 1 vial 09/13/18 22:00 09/16/18 08:16 Novolog Vial Sliding Scale - SQ 6 units ACHS JORDY Administration Protocol Insulin Aspart 15 units 09/15/18 07:00 09/16/18 08:16 Novolog Vial SQ 15 units TIDAC JORDY Administration Insulin Detemir 55 units 09/14/18 10:25 09/15/18 21:56 Levemir Vial SQ 55 units HS JORDY Administration Insulin Detemir 20 units 09/15/18 14:24 09/16/18 08:17 Levemir Vial SQ 20 units AM JORDY Administration Lisinopril 20 mg 09/14/18 10:00 09/16/18 09:15 Prinivil PO 20 mg DAILY JORDY Administration Ondansetron HCl 4 mg 09/13/18 18:46 Zofran Injection IVPUSH Q6H PRN NAUSEA AND/OR VOMITING Oxycodone HCl 10 mg 09/13/18 18:46 09/15/18 17:51 Roxicodone - PO 10 mg Q4H PRN Administration PAIN LEVEL 6-10 Ranitidine HCl 300 mg 09/14/18 10:00 09/16/18 09:25 Zantac - PO Not Given DAILY JORDY ASSESSMENT/PLAN: Pt wants to sign ama. Pt exlained in detail rearding complications of levaing without completing a treatment. We have also explained it to him that he needs IV antibiotics. He understands and still wants to leave. We have explained it to him that if is notgoing to complete a course of antibiotics required he can loose his foot. He understands and still wants to leave ama. We have also explained him that his blood sugar is running high and he needs to be complaint with his meds. Pt states that he will follow up with his primary care doctor today or tomorrow. Discussed with ID if pt wants to to sign ama we can give him clinda as culutre reports is still not finalized and is growing eneterocccous and ot is allergic to penicillin so it will be bifficult to treat if pt leaves ama. Again discussed with pt and still wants to leave ama. Pt also states that he will follow up with podiatry. Rx for clindamycin 300mg q8h sent to [facility]. Pt informed Visit type - Emergency Visit Emergency Visit: Yes ED Registration Date: 09/11/18 Care time: The patient presented to the Emergency Department on the above date and was hospitalized for further evaluation of their emergent condition. - New Patient This patient is new to me today: No - Critical Care Critical Care patient: No
--- NOTE | 2018-09-16 13:52 | PN ---
Progress Note (short form) - Note Progress Note: Went in to see patient around 12pm. Had already signed out AMA. Told everyone he would follow up in office.
--- NOTE | 2018-09-18 16:22 | PATH ---
Surgical Pathology Report Patient Name: WILLIAM STARKS [facility]. Rec. #: [id number] /Age/Gender: 1980 (Age: 38) / M Account: [id number] Location: [address] [place] [address]/[facility] Taken: 09/13/2018 Received: 09/16/2018 Reported: 09/18/2018 Physicians: ABIMAEL Lechuga M.D. Specimen(s) Received FIFTH METATARSAL BONE Clinical History Diabetic foot ulcer, cellulitis, hyperglycemia Final Diagnosis FIFTH METATARSAL BONE, EXCISION: BONE WITH FOCAL ACUTE OSTEOMYELITIS. Electronically Signed Kyle Duffy M.D. Gross Description Received in formalin labeled "fifth metatarsal bone," is a 1.8 x 1.4 x 1.3 cm de santiago portion of bone. A senior sales representative section is submitted in one cassette, following decalcification. /09/17/201809/17/2018
== END 2018-09-16 10:10 | disposition left against medical advice (07) | DRG 314 ==
LOC: JER 16:36 → JERBED 19:44 → J5S 09-12 07:18
PROVIDERS: ADMIT Internal Medicine
PROC: 0QTN0ZZ Resection of Right Metatarsal, Open Approach (ICD-10-PCS; 2018-09-13)
PROC: 0QBN0ZX Excision of Right Metatarsal, Open Approach, Diagnostic (ICD-10-PCS; 2018-09-13)
PROC: 0S9M0ZX Drainage of Right Metatarsal-Phalangeal Joint, Open Approach, Diagnostic (ICD-10-PCS; principal; 2018-09-13 16:30)
DX: E11.69 Type 2 diabetes mellitus with other specified complication (principal); E11.40 Type 2 diabetes mellitus with diabetic neuropathy, unspecified; I10 Essential (primary) hypertension; E78.5 Hyperlipidemia, unspecified; E11.65 Type 2 diabetes mellitus with hyperglycemia; E11.621 Type 2 diabetes mellitus with foot ulcer; L97.519 Non-pressure chronic ulcer of other part of right foot with unspecified severity; N17.9 Acute kidney failure, unspecified; E66.9 Obesity, unspecified; Z68.31 Body mass index [BMI] 31.0-31.9, adult; E87.1 Hypo-osmolality and hyponatremia; L03.115 Cellulitis of right lower limb; E86.0 Dehydration; R79.89 Other specified abnormal findings of blood chemistry; E46 Unspecified protein-calorie malnutrition; M86.171 Other acute osteomyelitis, right ankle and foot
CPT/HCPCS: 36415; 71046-TC-FY; 73630-TC-RT-FY; 73718-TC-RT; 80048; 80053; 81003; 81015; 82962; 83036; 83735; 84100; 85025; 85651; 86140; 87040; 87070; 87076; 87077; 87186; 87205; 87804; 88304-TC; 88311-TC; 93005; 93010; 93970-TC; 94760; 99283-25; J0131; J1644; J7030

== ENCOUNTER 2018-10-03 14:47 | Inpatient (IN) | payer OTHER ==
--- NOTE | 2018-10-03 15:16 | PDOC ---
Rapid Medical Evaluation Chief Complaint: Pain Time Seen by Provider: 10/03/18 15:13 Medical Evaluation: Allergies Allergy/AdvReac Type Severity Reaction Status Date / Time Penicillins Allergy Verified 09/11/18 16:58 10/03/18 15:14 Pt c/o: rt foot wound x 1 month, on abx, sent from [facility] for iv abx, pt denies fever, bs this am 266, no smoking hx pt on brief exam: vss, dressing not removed (placed by wound care 1/2 hr ago) pt ordered for: labs and imaging pt to proceed to the ED
[2018-10-03 16:42] LABS: BASO % 1.2 % (0-2.0); HEMATOCRIT 38.4 % (35.4-49); HEMOGLOBIN 13.5 GM/dL (11.7-16.9); LYMPH % 28.6 % (8-40); MCH 29.8 pg (25.7-33.7); MCHC 35.2 g/dl (32.0-35.9); MEAN CELL VOLUME 84.8 fl (80-96); MEAN PLT VOLUME 7.9 fl (7.5-11.1); MONO % 8.2 % (3.8-10.2); PLATELET COUNT 217 K/MM3 (134-434); RBC 4.52 M/mm3 (4.00-5.60); RDW 13.2 % (11.9-15.9); WHITE BLOOD COUNT 5.6 K/mm3 (4.0-10.0)
[2018-10-03 16:54] LABS: INR 0.97 (0.83-1.09); PROTHROMBIN TIME (PATIENT) 11.5 SEC (9.7-13.0)
[2018-10-03 17:26] LABS: ALBUMIN 3.3 g/dl (3.4-5.0); ALK PHOS 122 U/L (45-117); ANION GAP 7 MMOL/L (8-16); BILIRUBIN,TOTAL 0.4 mg/dL (0.2-1); BLOOD UREA NITROGEN 27 mg/dL (7-18); CALCIUM 8.9 mg/dL (8.5-10.1); CHLORIDE 100 mmol/L (98-107); CO2 25 mmol/L (21-32); CREATININE 1.1 mg/dL (0.55-1.3); POTASSIUM 4.7 mmol/L (3.5-5.1); SGOT/AST 17 U/L (15-37); SGPT/ALT 28 U/L (13-61); SODIUM 132 mmol/L (136-145); TOT PROT 7.1 g/dl (6.4-8.2)
[2018-10-03 17:33] LABS: GLUCOSE,RANDOM 361 mg/dL (74-106)
--- NOTE | 2018-10-03 18:15 | PDOC ---
History of Present Illness - General Chief Complaint: Pain Stated Complaint: RT FOOT PAIN Time Seen by Provider: 10/03/18 15:13 History Source: Patient Exam Limitations: Clinical Condition - History of Present Illness Initial Comments: 10/03/18 18:15 Patient with history of diabetes and diabetic also to right foot to the base of fifth metatarsal which is being followed up by wound care for almost a year now. Patient was seen and wound care 3 weeks ago and debridement done to days of fifth metatarsal and wound care clinic and patient given Levaquin and clindamycin antibiotics which patient has been taking Levaquin orally and be putting clindamycin capsule into the wound. Patient went to wound care clinic today and was told to come into ER for IV antibiotics given cellulitis and possible ulcer myelitis or base of right fifth metatarsal. Patient denies any fever or chills. She denies any other symptoms Past History - Past Medical History Allergies/Adverse Reactions: Allergies Allergy/AdvReac Type Severity Reaction Status Date / Time Penicillins Allergy Verified 09/11/18 16:58 Home Medications: Ambulatory Orders Lisinopril/Hydrochlorothiazide [Lisinopril-Hctz 20-12.5 mg Tab] 1 each PO DAILY 05/12/17 metFORMIN HCL [Metformin HCl] 1,000 mg PO BID 05/12/17 Atorvastatin Ca [Lipitor] 20 mg PO DAILY 12/31/17 Insulin Glargine,Hum.rec.anlog [Basaglar Kwikpen U-100] 36 unit SQ HS 12/31/17 Insulin Lispro Protamin/Lispro [Humalog Mix 75-25 Kwikpen] 0 unit SQ TID Gabapentin 300 mg PO BID 05/12/18 Acetaminophen [Mapap] 325 mg PO Q8H 07/02/18 Docusate Sodium [Doc-Q-Lace] 100 mg PO BID 07/02/18 Famotidine [Pepcid] 40 mg PO DAILY 07/02/18 Clindamycin [Cleocin -] 300 mg PO Q8H #30 capsule 09/16/18 Clindamycin [Cleocin -] 300 mg PO TID #21 capsule 09/26/18 Lactobacillus Acidophilus [Bacid -] 1 each PO DAILY #30 capsule 09/26/18 levoFLOXacin [Levaquin -] 500 mg PO DAILY #14 tablet 09/26/18 Anemia: No Asthma: No Cancer: No Cardiac Disorders: Yes (OCC PALIPATIONS) CVA: No COPD: No CHF: No Dementia: No Diabetes: Yes (IDDM) GI Disorders: No Disorders: No HTN: Yes Hypercholesterolemia: Yes Liver Disease: No Psychiatric Problems: Yes (DEPRESSION) Seizures: No Thyroid Disease: No - Surgical History Abdominal Surgery: No Appendectomy: No Cardiac Surgery: No Cholecystectomy: No Lung Surgery: No Neurologic Surgery: No Orthopedic Surgery: Yes (r hand surgery and l le surgery) - Suicide/Smoking/Psychosocial Hx Smoking History: Never smoked Have you smoked in the past 12 months: No Cigars Per Day: 0 Information on smoking cessation initiated: No Hx Alcohol Use: No Drug/Substance Use Hx: No Substance Use Type: None Hx Substance Use Treatment: No Review of Systems - Review of Systems Able to Perform ROS?: Yes Is the patient limited Lao proficient: No Constitutional: No: Chills, Fever HEENTM: No: Symptoms Reported Respiratory: No: Symptoms reported Cardiac (ROS): No: Symptoms Reported ABD/GI: No: Symptoms Reported Musculoskeletal: Yes: See HPI, Muscle Pain (swelling and redness to base of right 5th toe) Integumentary: Yes: See HPI, Erythema (redness and swelling to right lateral side of foot over base of right 5th toe), Other (open wound of right lateral side of toe) All Other Systems: Reviewed and Negative *Physical Exam - Vital Signs Last Vital Signs Temp Pulse Resp BP Pulse Ox 98.6 F 98 H 20 167/92 100 10/03/18 15:12 10/03/18 15:12 10/03/18 15:12 10/03/18 15:12 10/03/18 15:12 - Physical Exam Comments: 10/03/18 18:18 GENERAL: Well developed, well nourished. Awake and alert. No acute distress. CARDIOVASCULAR: Regular rate and rhythm. No murmurs, rubs, or gallops. PULMONARY: No evidence of respiratory distress. Lungs clear to auscultation bilaterally. No wheezing, rales or rhonchi. ABDOMINAL: Soft. Non-tender. Non-distended. No rebound or guarding. No organomegaly. Normoactive bowel sounds MUSCULOSKELETAL : Moderate swelling and erythema over the 3 cm wound to lateral aspect of the base of right fifth metatarsal. Yellow discoloration of skin over wound area and base of fifth metatarsal NEUROLOGICAL: Alert, awake, appropriate. No motor deficits in the lower extremities. PSYCHIATRIC: Cooperative. Good eye contact. Appropriate mood and affect. General Appearance: Yes: Nourished, Appropriately Dressed. No: Apparent Distress Moderate Sedation - Procedure Monitoring Vital Signs: Procedure Monitoring Vital Signs Temperature 98.6 F 10/03/18 15:12 Pulse Rate 98 H 10/03/18 15:12 Respiratory Rate 20 10/03/18 15:12 Blood Pressure 167/92 10/03/18 15:12 O2 Sat by Pulse Oximetry (%) 100 10/03/18 15:12 ED Treatment Course - LABORATORY CBC & Chemistry Diagram: 10/03/18 16:30 10/03/18 16:30 - ADDITIONAL ORDERS Additional order review: Laboratory Results 10/03/18 10/03/18 10/03/18 16:30 16:30 16:30 PT with INR 11.50 INR 0.97 Sodium 132 L Potassium 4.7 Chloride 100 Carbon Dioxide 25 Anion Gap 7 L BUN 27 H Creatinine 1.1 Creat Clearance w eGFR 74.52 Random Glucose 361 H* Lactic Acid 1.6 Calcium 8.9 Total Bilirubin 0.4 AST 17 ALT 28 Alkaline Phosphatase 122 H Total Protein 7.1 Albumin 3.3 L 10/03/18 16:30 RBC 4.52 MCV 84.8 MCHC 35.2 RDW 13.2 MPV 7.9 Neutrophils % 45.0 Lymphocytes % 28.6 D Monocytes % 8.2 Eosinophils % 17.0 H Basophils % 1.2 Medical Decision Making - Medical Decision Making 10/03/18 18:20 Patient with history of diabetes and diabetic ulcer to [facility] of right metatarsal sent in from wound care clinic for IV antibiotics after patient was seen 3 weeks ago for debridement of ulcer and given home antibiotics of Levaquin and clindamycin and patient has not been compliant with antibiotics. Patient has bee putting clindamycin capsule directly into the wound.Patient feels outpatient management for cellulitis and also myelitis of Base of right third metatarsal. Patient with no fever now. Exam significant for moderate swelling and erythema over the 3 cm wound to lateral aspect of the base of right fifth metatarsal. Yellow discoloration of skin over wound area and base of fifth metatarsal CBC, CMP, Blood cultures sent. Patient will be admitted for IV Abx for possible osteomylitis. Patient will started on IV levaquin and vanco and microblog sent to medicine for admission *DC/Admit/Observation/Transfer Diagnosis at time of Disposition: T2DM (type 2 diabetes mellitus) Qualifiers: Diabetes mellitus tank terminal gauger insulin use: without shelter use Diabetes mellitus complication status: with skin complications Diabetes mellitus complication detail: with foot ulcer Qualified Code(s): E11.621 - Type 2 diabetes mellitus with foot ulcer Diabetic foot ulcer Qualifiers: Diabetic foot ulcer location: unspecified part of foot Diabetes mellitus type: type 2 Laterality: right Non-pressure ulcer stage: with bone involvement without evidence of necrosis Qualified Code(s): E11.621 - Type 2 diabetes mellitus with foot ulcer Cellulitis Qualifiers: Site of cellulitis: extremity Site of cellulitis of extremity: lower extremity Laterality: right Qualified Code(s): L03.115 - Cellulitis of right lower limb - Discharge Dispostion Condition at time of disposition: Stable Decision to Admit order: Yes - Referrals Referrals: Raissa Campbell [Primary Care Provider] - - Patient Instructions - Post Discharge Activity
[2018-10-03] MEDS ORDERED: VANCOMYCIN 1 GM in D5W (PRE-DOCKED) 1,000 MG/250 ML IVPB ONE (19:11)
--- NOTE | 2018-10-03 19:48 | PN ---
Teaching Attending Note Name of Resident: Franc Corrales ATTENDING PHYSICIAN STATEMENT I saw and evaluated the patient. I reviewed the resident's note and discussed the case with the resident. I agree with the resident's findings and plan as documented. SUBJECTIVE: Seen and examined; please refer to resident note for further historical documentation. Briefly, this is a 38 y/o male PMH HTN, IDDM, chronic non- healing R-foot wound who follows with Dr. Cohen as an OP. He was directed to come to the ER as he was using abx improperly (taking LQ PO and putting clindamycin pills topically on the foot). He left AMA from the hospital on his last admission in early September where he was seen for osteomyelitis and has been following up with Dr. Cohen and Dr. Motta since. Dr. Motta's last note is 09/26 where she added the levaquin for 1 week (so today would be last day ). Per reviewing the chart, bone culture from proximal bone was sent for culture only not path and is negative for microbes; bone from distal aspect of toe sent for path showing the confirmed osteo. This implies that the osteo was completely resected and that the abscess present at the time was drained. Patient himself has no complaints to offer and he is afebrile and hemodynamically stable. Noted to be hyperglycemic. Monitoring on the floor with ID and podiatry consult. 10 sys ROS done and negative aside from HPI PMH, PSH, Social Hx, Family Hx reviewed Medication list reviewed; pending reconciliation Home Medications Medication Instructions Recorded Lisinopril/Hydrochlorothiazide 1 each PO DAILY 05/12/17 [Lisinopril-Hctz 20-12.5 mg Tab] metFORMIN HCL [Metformin HCl] 1,000 mg PO BID 05/12/17 Atorvastatin Ca [Lipitor] 20 mg PO DAILY 12/31/17 Insulin Glargine,Hum.rec.anlog 36 unit SQ HS 12/31/17 [Basaglar Kwikpen U-100] Insulin Lispro Protamin/Lispro 0 unit SQ TID 12/31/17 [Humalog Mix 75-25 Kwikpen] Gabapentin 300 mg PO BID 05/12/18 Acetaminophen [Mapap] 325 mg PO Q8H 07/02/18 Docusate Sodium [Doc-Q-Lace] 100 mg PO BID 07/02/18 Famotidine [Pepcid] 40 mg PO DAILY 07/02/18 Clindamycin [Cleocin -] 300 mg PO Q8H #30 capsule 09/16/18 Clindamycin [Cleocin -] 300 mg PO TID #21 capsule 09/26/18 Lactobacillus Acidophilus [Bacid -] 1 each PO DAILY #30 capsule 09/26/18 levoFLOXacin [Levaquin -] 500 mg PO DAILY #14 tablet 09/26/18 OBJECTIVE: VS, labs, imaging reviewed NAD, AAO, resting comfortably in bed [facility] R-foot bandaged c/d/i with affected area with some induration and granulation tissue. RRR s1/2 no mgr Lungs CTAB, w/ sym exp NT ND +BS CN2-12 wnl, no fnd Normal mood, appropriate behavior Prior micro/consults/imaging studies reviewed ASSESSMENT AND PLAN: Patient presents with worsening of his DM foot wound after discovered inappropriate abx route; he was recently admitted for this and left AMA. Appears to have had complete resection of the osteo with last procedure. Admitting and consulting Dr. Motta and Dr. Cohen; appreciate expert opinion 1) DM Foot wound with hx osteomyelitis -Reviewed prior admits and consults with micro/imaging, etc. He is asx and his pain is controlled -Placing him on IV clinda/levaquin (which is what he was on as OP). Checking ESR/CRP and can trend. Consult Dr. Motta for help determining the length of tx, any adjustments, etc. -Defer wound care to podiatry -Continue probiotics 2) Uncontrolled DM -Given 10 units IV push by myself on the floor; followup fsg and continue his home scheduled with SSI supplementation, increasing the dose of basal based on requirements. 3) HTN -Continue home meds 4) Hyponatremia -Likely pseudohyponatremia due to elevated glucose; treat his underlying hyperglycemia then recheck 5) Proteinuria -Noted on prior labs; likely 2/2 DM nephropathy FENA -PO fluids -PRN replete -Diabetic -As tolerated Full Code
[2018-10-03] MEDS ORDERED: VANCOMYCIN 1 GRAM (PRE-DOCKED) 1,000 MG/250 ML BAG IVPB ONE (20:18)
--- NOTE | 2018-10-03 21:44 | HP ---
<Franc Corrales - Last Filed: 10/04/18 08:34> CHIEF COMPLAINT: sent by Dr katz for for diabetic wound ulcer non compliant with abx PCP: Dr. ANDREWS HISTORY OF PRESENT ILLNESS: Patient is a 38 year old male with past medical history of IDDM, HTN, HLD, and chronic right foot wound, presented with non-healing wound right plantar foot wound for 1 yea. pt was following up as out pt with wound clinic but was non complaint with antibiotic Levaquin and doxcycline was using one oral and the other one apply topical on the wound , pt sent by Dr Katz for IV abx . [facility] poor glucose control and wound inection. today pt denies any fever , chills , N/V/D/C , denies any headache , blurry visoon , chest pain , sob , leg swelling , denies any abdominal pain , or urinary symptoms. ER course was notable for: (1)Afebrile , no wbc (2)BGM 361 (3) abx vanco 1gm IV , levaquin 750 IV Recent Travel: denies PAST MEDICAL HISTORY: HTN, DM , HLD PAST SURGICAL HISTORY: denies Social History: Smoking:denies Alcohol:denies Drugs: denies Family History:DM Allergies Penicillins Allergy (Verified 09/11/18 16:58) HOME MEDICATIONS: Home Medications Medication Instructions Recorded Lisinopril/Hydrochlorothiazide 1 each PO DAILY 05/12/17 [Lisinopril-Hctz 20-12.5 mg Tab] metFORMIN HCL [Metformin HCl] 1,000 mg PO BID 05/12/17 Atorvastatin Ca [Lipitor] 20 mg PO DAILY 12/31/17 Insulin Glargine,Hum.rec.anlog 36 unit SQ HS 12/31/17 [Basaglar Kwikpen U-100] Insulin Lispro Protamin/Lispro 0 unit SQ TID 12/31/17 [Humalog Mix 75-25 Kwikpen] Gabapentin 300 mg PO BID 05/12/18 Acetaminophen [Mapap] 325 mg PO Q8H 07/02/18 Docusate Sodium [Doc-Q-Lace] 100 mg PO BID 07/02/18 Famotidine [Pepcid] 40 mg PO DAILY 07/02/18 Clindamycin [Cleocin -] 300 mg PO Q8H #30 capsule 03/04/19 Clindamycin [Cleocin -] 300 mg PO TID #21 capsule 09/26/18 Lactobacillus Acidophilus [Bacid -] 1 each PO DAILY #30 capsule 09/26/18 levoFLOXacin [Levaquin -] 500 mg PO DAILY #14 tablet 09/26/18 REVIEW OF SYSTEMS swelling in left foot with 2 wound non healing 1x1 cm each CONSTITUTIONAL: Absent: fever, chills, diaphoresis, generalized weakness, malaise, loss of appetite, weight change HEENT: Absent: rhinorrhea, nasal congestion, throat pain, throat swelling, difficulty swallowing, mouth swelling, ear pain, eye pain, visual changes CARDIOVASCULAR: Absent: chest pain, syncope, palpitations, irregular heart rate, lightheadedness , peripheral edema RESPIRATORY: Absent: cough, shortness of breath, dyspnea with exertion, orthopnea, wheezing, stridor, hemoptysis GASTROINTESTINAL: Absent: abdominal pain, abdominal distension, nausea, vomiting, diarrhea, constipation, melena, hematochezia GENITOURINARY: Absent: dysuria, frequency, urgency, hesitancy, hematuria, flank pain, genital pain MUSCULOSKELETAL: Absent: myalgia, arthralgia, joint swelling, back pain, neck pain SKIN: Absent: rash, itching, pallor HEMATOLOGIC/IMMUNOLOGIC: Absent: easy bleeding, easy bruising, lymphadenopathy, frequent infections ENDOCRINE: Absent: unexplained weight gain, unexplained weight loss, heat intolerance, cold intolerance NEUROLOGIC: Absent: headache, focal weakness or paresthesias, dizziness, unsteady gait, seizure, mental status changes, bladder or bowel incontinence PSYCHIATRIC: Absent: anxiety, depression, suicidal or homicidal ideation, hallucinations. PHYSICAL EXAMINATION Vital Signs - 24 hr 10/03/18 15:12 Temperature 98.6 F Pulse Rate 98 H Respiratory 20 Rate Blood Pressure 167/92 O2 Sat by Pulse 100 Oximetry (%) GENERAL: AAOx3 in NAD HEAD: NC/AT EYES: EOMI, Conjunctiva clear, sclera anicteric ENT: moist mucous membrane NECK: Supple, no JVD LUNGS: CTA B/L, no crackles no wheezing no accessory muscle use. HEART: RRR, NSR, normal s1, s2, no M/R/G ABDOMEN:obese Soft, ND, NT, +BS 4 Q, no CVA Tenderness LOWER EXTREMITIES: no edema, +2DP pulse, left foot swoolen with non healing wound 1x1 cm on latteral aspect next 5th digit and plantar aspect beneath 5th matatarsal NEUROLOGICAL: No focal deficit. Normal speech. gait not observed. PSYCHIATRIC: Cooperative. Good eye contact. Appropriate mood and affect. SKIN: Warm, dry, Laboratory Results - last 24 hr 10/03/18 10/03/18 10/03/18 16:30 16:30 16:30 WBC 5.6 RBC 4.52 Hgb 13.5 Hct 38.4 MCV 84.8 MCH 29.8 MCHC 35.2 RDW 13.2 Plt Count 217 D MPV 7.9 Absolute Neuts (auto) 2.5 Neutrophils % 45.0 Lymphocytes % 28.6 D Monocytes % 8.2 Eosinophils % 17.0 H Basophils % 1.2 Nucleated RBC % 0 PT with INR 11.50 INR 0.97 Sodium 132 L Potassium 4.7 Chloride 100 Carbon Dioxide 25 Anion Gap 7 L BUN 27 H Creatinine 1.1 Creat Clearance w eGFR 74.52 Random Glucose 361 H* Lactic Acid Calcium 8.9 Total Bilirubin 0.4 AST 17 ALT 28 Alkaline Phosphatase 122 H Total Protein 7.1 Albumin 3.3 L Blood Type Antibody Screen 10/03/18 10/03/18 16:30 16:30 WBC RBC Hgb Hct MCV MCH MCHC RDW Plt Count MPV Absolute Neuts (auto) Neutrophils % Lymphocytes % Monocytes % Eosinophils % Basophils % Nucleated RBC % PT with INR INR Sodium Potassium Chloride Carbon Dioxide Anion Gap BUN Creatinine Creat Clearance w eGFR Random Glucose Lactic Acid 1.6 Calcium Total Bilirubin AST ALT Alkaline Phosphatase Total Protein Albumin Blood Type O POSITIVE Antibody Screen Negative CBC, BMP 10/03/18 16:30 10/03/18 16:30 09/12/18 recent MRI with osteomyliis in the 5th metatarsal bone with fluids in the 5th metatarsal joint , and sot tissue abscess ASSESSMENT/PLAN: Patient is a 38 year old male with past medical history of IDDM, HTN, HLD, and chronic right foot wound, presented with non-healing draining right plantar foot wound for one montt sent by Dr katz for IV abx due to non compliance with oral meds #Right diabetic foot wound non healed with osteomilitis failed treatment out pt -Given Levaquin and Vancomycin in the ED, cont with levaquin IV daily and clindamycin 900 Q 8hr - treated last visist with Aztreonam 2gm q8, Vancomycin 1000mg daily, Flagyl 500mg q8h -Wound culture last visit show enterococcus , streptococcis viridans and lactobacillus -Blood culture pending -ID (Dr. vega ) consulted -wound care -MRI of R foot show osteomyelitis -Tylenol PRN for pain #IDDM:uncontrolled -Hold home metformin and humalog -start levemir 38units HS -ISS ACHS -BGM ACHS #Hyponatremia -Corrected Na 132 -Will start IV NS @ 100 CC/hr #HTN -Continue home Lisinopril/HCTZ 20/12.5 daily #HLD -Continue home Lipitor 20mg daily #FEN -Iv NS @100cc/hr -Routine bmp monitoring -Diabetic/sodium restricted diet #Prophylaxis -SCDs, Lovenox 40 SQ daily #Disposition -full code -med-surg Visit type - Emergency Visit Emergency Visit: Yes ED Registration Date: 10/03/18 Care time: The patient presented to the Emergency Department on the above date and was hospitalized for further evaluation of their emergent condition. - New Patient This patient is new to me today: Yes Date on this admission: 10/04/18 - Critical Care Critical Care patient: No <Leighton Everett - Last Filed: 11/04/18 21:44> Seen and examined; agree with above aside from what is supplemented in my own documentation. Repeated all bro parts of exam, supervised all vital parts of patient care.
[2018-10-03] MEDS: SODIUM CHLORIDE 1,000 ML IV SCH (23:14)
[2018-10-04] MEDS ORDERED: MEROPENEM 500 MG in DEXTROSE 5%-WATER 100 ML IVPB SCH (02:00)
[2018-10-04] MEDS ORDERED: AZTREONAM 2 GM in DEXTROSE 5%-WATER - 100 ML IVPB SCH (02:00)
[2018-10-04] MEDS: INSULIN SLIDING SCALE (NOVOLOG) 1 VIAL SQ SCH ×5 (02:39→22:52)
[2018-10-04] MEDS ORDERED: INSULIN REGULAR HUMAN 100 UNITS/ML *VIAL IVPUSH ONE (02:45)
[2018-10-04] MEDS ORDERED: SODIUM CHLORIDE 1,000 ML IV SCH (03:45)
[2018-10-04] MEDS: CLINDAMYCIN 900 MG PREMIX IVPB 900 MG/50 ML BAG IVPB SCH ×2 (05:10→09:28)
[2018-10-04] MEDS ORDERED: INSULIN (LEVEMIR) 100 UNITS/ML UNITS SQ ONE ×2 (08:32→10:29)
[2018-10-04 08:51] LABS: BASO % 1.6 % (0-2.0); HEMATOCRIT 34.8 % (35.4-49); HEMOGLOBIN 12.3 GM/dL (11.7-16.9); LYMPH % 30.5 % (8-40); MCH 29.7 pg (25.7-33.7); MCHC 35.4 g/dl (32.0-35.9); MEAN CELL VOLUME 83.9 fl (80-96); MEAN PLT VOLUME 7.9 fl (7.5-11.1); MONO % 9.1 % (3.8-10.2); NEUT % 40.8 % (42.8-82.8); PLATELET COUNT 156 K/MM3 (134-434); RBC 4.14 M/mm3 (4.00-5.60); RDW 13.5 % (11.9-15.9)
[2018-10-04 09:00] LABS: INR 1.04 (0.83-1.09); PROTHROMBIN TIME (PATIENT) 12.3 SEC (9.7-13.0)
[2018-10-04 09:03] LABS: ACTIVATED PTT 29.9 SECONDS (25.2-36.5)
--- NOTE | 2018-10-04 09:12 | CONSULT ---
Consult Consult Specialty:: Podiatry Reason for Consultation:: Cellulitis right foot - History of Present Illness Chief Complaint: Cellulitis right foot. 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 Patient has been putting antibiotic pills into a cream and applying to foot against medical advice. - History Source History Provided By: Patient - Alcohol/Substance Use Hx Alcohol Use: No - Smoking History Smoking history: Never smoked Have you smoked in the past 12 months: No Home Medications - Allergies Allergies/Adverse Reactions: Allergies Allergy/AdvReac Type Severity Reaction Status Date / Time Penicillins Allergy Verified 09/11/18 16:58 - Home Medications Home Medications: Ambulatory Orders Lisinopril/Hydrochlorothiazide [Lisinopril-Hctz 20-12.5 mg Tab] 1 each PO DAILY 05/12/17 metFORMIN HCL [Metformin HCl] 1,000 mg PO BID 05/12/17 Atorvastatin Ca [Lipitor] 20 mg PO DAILY 12/31/17 Insulin Glargine,Hum.rec.anlog [Basaglar Kwikpen U-100] 36 unit SQ HS 12/31/17 Insulin Lispro Protamin/Lispro [Humalog Mix 75-25 Kwikpen] 0 unit SQ TID Gabapentin 300 mg PO BID 05/12/18 Acetaminophen [Mapap] 325 mg PO Q8H 07/02/18 Docusate Sodium [Doc-Q-Lace] 100 mg PO BID 07/02/18 Famotidine [Pepcid] 40 mg PO DAILY 07/02/18 Clindamycin [Cleocin -] 300 mg PO Q8H #30 capsule 09/16/18 Clindamycin [Cleocin -] 300 mg PO TID #21 capsule 09/26/18 Lactobacillus Acidophilus [Bacid -] 1 each PO DAILY #30 capsule 09/26/18 levoFLOXacin [Levaquin -] 500 mg PO DAILY #14 tablet 09/26/18 Physical Exam Vital Signs: Vital Signs Temperature 98.5 F 10/04/18 05:28 Pulse Rate 93 H 10/04/18 05:28 Respiratory Rate 20 10/04/18 06:37 Blood Pressure 162/77 10/04/18 05:28 O2 Sat by Pulse Oximetry (%) 97 10/04/18 06:37 Extremities: Yes: Other (+cellulitis right foot, +2 clumps of dry cream removed upon culturing of wound, +drainage,) Labs: CBC, BMP 10/04/18 07:16 Imaging - Results X-ray: Image Reviewed Assessment/Plan cellulitis right foot om? HBO consult. Wound culture done. Vascular consult. ID on case. Discussed with ID. Will send home with PICC line. Betadine dressing to right foot. FUV in wound care.
[2018-10-04] MEDS: ENOXAPARIN NA (PORCINE) 40 MG/0.4 ML DISP.SYRIN SQ SCH (09:28)
[2018-10-04 09:33] LABS: ALBUMIN 2.8 g/dl (3.4-5.0); ALK PHOS 111 U/L (45-117); ANION GAP 8 MMOL/L (8-16); BILIRUBIN,TOTAL 0.4 mg/dL (0.2-1); BLOOD UREA NITROGEN 24 mg/dL (7-18); CALCIUM 8.4 mg/dL (8.5-10.1); CHLORIDE 101 mmol/L (98-107); CO2 25 mmol/L (21-32); CREATININE 1.3 mg/dL (0.55-1.3); MAGNESIUM 1.9 mg/dL (1.8-2.4); PHOSPHOROUS 3.3 mg/dL (2.5-4.9); POTASSIUM 4.4 mmol/L (3.5-5.1); SGOT/AST 12 U/L (15-37); SGPT/ALT 25 U/L (13-61); SODIUM 133 mmol/L (136-145); TOT PROT 6.1 g/dl (6.4-8.2)
[2018-10-04 10:00] LABS: GLUCOSE,RANDOM 322 mg/dL (74-106)
[2018-10-04] MEDS ORDERED: VANCOMYCIN 1 GM in D5W (PRE-DOCKED) 1,000 MG/250 ML IVPB SCH (10:00)
[2018-10-04] MEDS ORDERED: INSULIN (NOVOLOG) ASPART 100 UNITS/ML 10ML VIAL ONE ×2 (11:20→18:57)
[2018-10-04] MEDS ORDERED: PATIENT'S OWN MEDICATION (NON-FORMULARY) (Lisinopril/Hydrochlorothiazide [Lisinopril-Hctz PO SCH (14:00)
--- NOTE | 2018-10-04 14:19 | PN ---
Progress Note (short form) - Note Progress Note: ID consult dictated imp/reccd 38 yo with man recently hospitalized 09/11 to 09/16- for diabetic foot infection - infected toe was resected, abscess was drained he left AMA on po antiibotics which he has been taking he is taking the po levaquin and putting clindamycin in the wound alone with cream noted at wound care to have worsening erythema and drainage and sent to ED cellulitis wound infection diabetes foot infection cultures pending vancomycin and azactam for now po flagyl f/u cultures d/w podiatry Problem List - Problems (1) Cellulitis Code(s): L03.90 - CELLULITIS, UNSPECIFIED Qualifiers: Site of cellulitis: extremity Site of cellulitis of extremity: lower extremity Laterality: right Qualified Code(s): L03.115 - Cellulitis of right lower limb (2) Diabetic foot ulcer Code(s): E11.621 - TYPE 2 DIABETES MELLITUS WITH FOOT ULCER; L97.509 - NON- PRESSURE CHRONIC ULCER OTH PRT UNSP FOOT W UNSP SEVERITY Qualifiers: Diabetic foot ulcer location: unspecified part of foot Diabetes mellitus type: type 2 Laterality: right Non-pressure ulcer stage: with bone involvement without evidence of necrosis Qualified Code(s): E11.621 - Type 2 diabetes mellitus with foot ulcer; L97.516 - Non-pressure chronic ulcer of other part of right foot with bone involvement without evidence of necrosis
[2018-10-04] MEDS: AZTREONAM 2 GM in DEXTROSE 5%-WATER - 100 ML IVPB SCH (14:53)
[2018-10-04] MEDS: HYDROCHLOROTHIAZIDE 12.5 MG CAPSULE (FP) PO SCH (14:57)
[2018-10-04] MEDS: VANCOMYCIN 1 GRAM (PRE-DOCKED) 1,000 MG/250 ML BAG IVPB SCH (14:59)
[2018-10-04] MEDS ORDERED: VANCOMYCIN 1,000 MG in DEXTROSE 5%-WATER - 250 ML IVPB SCH (15:00)
[2018-10-04] MEDS ORDERED: LISINOPRIL 20 MG TABLET (FP) PO SCH (15:00)
--- NOTE | 2018-10-04 15:56 | CONS ---
DATE OF CONSULTATION: DATE OF DICTATION: 10/04/2018 INFECTIOUS DISEASE CONSULTATION REQUESTING PHYSICIAN: Hospitalist Service CONSULTING PHYSICIAN: Rosalia Gonzalez M.D. HISTORY OF PRESENT ILLNESS: This is a 38-year-old man who has history of diabetes, who was recently in the hospital from the to the 16 of September with a diabetic foot infection. At that time he had an abscess that was drained, and he had resection of the 5th metatarsal head. He left A on the on clindamycin. Levaquin was subsequently added for his foot infection. He was being followed in wound care. The foot was improving. It was felt that the removed bone had contained the infection, as cultures sent from the proximal portion of the bone were negative for any kind of infection. He was seen in wound care yesterday. He reported he was taking the Levaquin by mouth, but that he had started putting the clindamycin mixed in a cream directly onto the wound, per the recommendation of his mother who thought that would help it heal faster. He was noted to have increased erythema, increased drainage from the foot and advised admission. He denies fevers and chills and wanted to go home. PAST MEDICAL HISTORY: Notable for peripheral neuropathy, hypertension, hyperlipidemia, diabetes. SOCIAL HISTORY: He lives with his spouse. He is independent. 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 There is no history of any cigarette use. ALLERGIES: PENICILLIN. Remote allergy as a child. MEDICATION: Medications as an outpatient include lisinopril, hydrochlorothiazide, metformin, atorvastatin, insulin, gabapentin, Pepcid. He was taking clindamycin, which he was putting in the wound, and Levaquin by mouth. He was on lactobacillus as well. REVIEW OF SYSTEMS: He reports his leg has improved since yesterday. The casino beverage server has come by. He has probed the wound. Apparently he removed an antibiotic tablet from the foot as well as he cleaned it up, the cream that had been placed there. PHYSICAL EXAMINATION: GENERAL: He is awake and alert. He is impatient. He wants to leave. VITAL SIGNS: Temperature 97.8, pulse 95, blood pressure 161/97, respiratory rate 20, saturating 97% on room air. HEENT: Normocephalic. Eyes are anicteric. NECK: Supple. LUNGS: Clear to auscultation. HEART: Regular rate and rhythm. ABDOMEN: Soft, nontender. EXTREMITIES: His leg, he has a chronic plantar ulcer on the right lateral aspect he has open wound with surrounding erythema. Currently there is no discharge, as the wound was just cleaned by the nursing staff. LABORATORY: White count is 4, hemoglobin 12.3, platelets 156. BUN and creatinine are 24 and 1.3 with a glucose of 322. CRP is 0.9, but sedimentation rate is 83. His CRP in August was 7.9. Blood cultures and cultures of the foot have been taken. X-ray of the foot was done. Difficult to interpret given the recent surgery of the distal end of the 5th metatarsal. IMPRESSION: In summary, this is a 38-year-old man who at a minimum has cellulitis and a diabetic foot ulcer with wound infection. He has a remote PENICILLIN allergy. Would resume vancomycin and Azactam with oral Flagyl and follow up on cultures. Further recommendations to follow. He is hoping to leave on Sunday. I have encouraged him to stay at least through the weekend. I discussed the case with the casino beverage server. ROSALIA GONZALEZ M.D. [id number]
--- NOTE | 2018-10-04 16:59 | PN ---
Progress Note, Physician Chief Complaint: Mr Wilson is without complaint today. Denies cp, sob, n/v. - Current Medication List Current Medications: Active Medications Enoxaparin Sodium (Lovenox -) 40 mg SQ DAILY [facility] Last Admin: 10/04/18 09:28 Dose: 40 mg Hydrochlorothiazide (Hctz -) 12.5 mg PO DAILY [facility] Last Admin: 10/04/18 14:57 Dose: 12.5 mg Sodium Chloride (Normal Saline -) 1,000 mls @ 100 mls/hr IV ASDIR [facility] Last Admin: 10/03/18 23:14 Dose: 100 mls/hr Sodium Chloride (Normal Saline -) 1,000 mls @ 100 mls/hr IV ASDIR [facility] Last Admin: 10/04/18 06:07 Dose: Not Given Aztreonam 2 gm/ Dextrose 100 mls @ 100 mls/hr IVPB Q8H-IV [facility]; Protocol Vancomycin HCl (Vancomycin (Pre-Docked)) 1,000 mg in 250 mls @ 166.667 mls/hr IVPB BID@0300,1500 [facility]; Protocol Last Admin: 10/04/18 14:59 Dose: 166.667 mls/hr Insulin Aspart (Novolog Vial Sliding Scale -) 1 vial SQ ACHS [facility]; Protocol Last Admin: 10/04/18 11:23 Dose: 8 units Insulin Detemir (Levemir Vial) 38 units SQ HS [facility] Lisinopril (Prinivil) 20 mg PO DAILY [facility] Last Admin: 10/04/18 14:57 Dose: 20 mg Metronidazole (Flagyl -) 500 mg PO TID [facility] - Objective Vital Signs: Vital Signs Temperature 34.4 C L 10/04/18 13:49 Pulse Rate 94 H 10/04/18 13:49 Respiratory Rate 20 10/04/18 11:53 Blood Pressure 166/124 H 10/04/18 13:49 O2 Sat by Pulse Oximetry (%) 98 10/04/18 14:00 Constitutional: Yes: No Distress, Calm, Obese Cardiovascular: Yes: Regular Rate and Rhythm. No: Gallop, Murmur, Rub Respiratory: Yes: Regular, CTA Bilaterally. No: Rales, Rhonchi, Wheezes Gastrointestinal: Yes: Normal Bowel Sounds, Soft. No: Distention, Tenderness Extremities: Yes: Other (wrapped) Edema: No Labs: CBC, BMP 10/04/18 07:16 10/04/18 07:16 INR, PTT INR 1.04 (0.83-1.09) 10/04/18 07:16 Problem List - Problems (1) Diabetic foot ulcer Assessment/Plan: -appreciate ID and podiatry assistance -on aztreonam, vancomycin, and po flagyl -monitor for improvement Code(s): E11.621 - TYPE 2 DIABETES MELLITUS WITH FOOT ULCER; L97.509 - NON- PRESSURE CHRONIC ULCER OTH PRT UNSP FOOT W UNSP SEVERITY Qualifiers: Diabetic foot ulcer location: unspecified part of foot Diabetes mellitus type: type 2 Laterality: right Non-pressure ulcer stage: with bone involvement without evidence of necrosis Qualified Code(s): E11.621 - Type 2 diabetes mellitus with foot ulcer; L97.516 - Non-pressure chronic ulcer of other part of right foot with bone involvement without evidence of necrosis (2) T2DM (type 2 diabetes mellitus) Assessment/Plan: -very poorly controlled -check HgbA1c -monitor SSI today -adjust insulin regimen tomorrow pending insulin requirement Code(s): E11.9 - TYPE 2 DIABETES MELLITUS WITHOUT COMPLICATIONS Qualifiers: Diabetes mellitus implant polisher insulin use: without implant polisher use Diabetes mellitus complication status: with skin complications Diabetes mellitus complication detail: with foot ulcer Qualified Code(s): E11.621 - Type 2 diabetes mellitus with foot ulcer; L97.509 - Non-pressure chronic ulcer of other part of unspecified foot with unspecified severity (3) HTN (hypertension) Assessment/Plan: -restart lisinopril and HCTZ Code(s): I10 - ESSENTIAL (PRIMARY) HYPERTENSION
[2018-10-04] MEDS: AZTREONAM 2 GM in DEXTROSE 5%-WATER 100 ML IVPB SCH (18:24)
[2018-10-04] MEDS ORDERED: INSULIN (LEVEMIR) 100 UNITS/ML UNITS SQ SCH (22:00)
[2018-10-04] MEDS: metroNIDAZOLE 250 MG TABLET PO SCH (22:51)
[2018-10-05] MEDS ORDERED: hydrALAZINE HCL 25 MG TABLET (FP) PO ONE ×2 (00:31→02:00)
[2018-10-05] MEDS: AZTREONAM 2 GM in DEXTROSE 5%-WATER 100 ML IVPB SCH ×3 (01:41→17:47)
[2018-10-05] MEDS: VANCOMYCIN 1 GRAM (PRE-DOCKED) 1,000 MG/250 ML BAG IVPB SCH ×2 (03:31→14:54)
[2018-10-05] MEDS: metroNIDAZOLE 250 MG TABLET PO SCH ×3 (06:28→22:45)
[2018-10-05] MEDS: INSULIN SLIDING SCALE (NOVOLOG) 1 VIAL SQ SCH ×4 (06:28→22:45)
[2018-10-05 07:31] LABS: ANION GAP 7 MMOL/L (8-16); BLOOD UREA NITROGEN 25 mg/dL (7-18); CALCIUM 8.6 mg/dL (8.5-10.1); CHLORIDE 101 mmol/L (98-107); CO2 27 mmol/L (21-32); CREATININE 1.2 mg/dL (0.55-1.3); GLUCOSE,RANDOM 242 mg/dL (74-106); PHOSPHOROUS 3.6 mg/dL (2.5-4.9); POTASSIUM 4.2 mmol/L (3.5-5.1); SODIUM 135 mmol/L (136-145)
[2018-10-05 07:33] LABS: BASO % 1.1 % (0-2.0); EOS % 14.2 % (0-4.5); HEMATOCRIT 36.1 % (35.4-49); HEMOGLOBIN 12.7 GM/dL (11.7-16.9); LYMPH % 32.9 % (8-40); MCH 29.2 pg (25.7-33.7); MCHC 35.1 g/dl (32.0-35.9); MEAN CELL VOLUME 83.1 fl (80-96); MEAN PLT VOLUME 7.9 fl (7.5-11.1); MONO % 9.1 % (3.8-10.2); NEUT % 42.7 % (42.8-82.8); PLATELET COUNT 169 K/MM3 (134-434); RBC 4.35 M/mm3 (4.00-5.60); RDW 13.2 % (11.9-15.9); WHITE BLOOD COUNT 4.5 K/mm3 (4.0-10.0)
[2018-10-05] MEDS: INSULIN (LEVEMIR) 100 UNITS/ML UNITS SQ SCH ×2 (08:09→22:45)
[2018-10-05] MEDS ORDERED: PT OWN MED DRAWER 7, Y5N ONE ×2 (08:59→17:11)
[2018-10-05] MEDS: LISINOPRIL 20 MG TABLET (FP) PO SCH (09:01)
[2018-10-05] MEDS: ENOXAPARIN NA (PORCINE) 40 MG/0.4 ML DISP.SYRIN SQ SCH (09:01)
[2018-10-05] MEDS: HYDROCHLOROTHIAZIDE 12.5 MG CAPSULE (FP) PO SCH (09:01)
[2018-10-05] MEDS: SODIUM CHLORIDE 1,000 ML IV SCH (09:03)
--- NOTE | 2018-10-05 09:38 | PN ---
Progress Note (short form) - Note Progress Note: FUV right foot vss, tmax 98.5 +greatly improved cellulitis, +grade 3 wound, -mal odor, +drainage on bandage from plantar wound. Wound culture pending, WBC=4.5 Cellulitis non compliant patient IVABX as per ID. Betadine dressing change to right foot. Will follow.
[2018-10-05] MEDS ORDERED: POVIDONE-IODINE 10% SOLN 118 ML BOTTLE TP ONE (09:45)
[2018-10-05] MEDS ORDERED: HYDROCHLOROTHIAZIDE 12.5 MG CAPSULE (FP) PO SCH (10:00)
[2018-10-05] MEDS ORDERED: LISINOPRIL 20 MG TABLET (FP) PO SCH (10:00)
--- NOTE | 2018-10-05 11:33 | PN ---
Progress Note, Physician Chief Complaint: Mr Katie demarcoies cp, sob, n/v. - Current Medication List Current Medications: Active Medications Enoxaparin Sodium (Lovenox -) 40 mg SQ DAILY [facility] Last Admin: 10/05/18 09:01 Dose: 40 mg Hydrochlorothiazide (Hctz -) 12.5 mg PO DAILY [facility] Last Admin: 10/05/18 09:01 Dose: 12.5 mg Aztreonam 2 gm/ Dextrose 100 mls @ 100 mls/hr IVPB Q8H-IV [facility]; Protocol Last Admin: 10/05/18 09:01 Dose: 100 mls/hr Vancomycin HCl (Vancomycin (Pre-Docked)) 1,000 mg in 250 mls @ 166.667 mls/hr IVPB BID@0300,1500 [facility]; Protocol Last Admin: 10/05/18 03:31 Dose: 166.667 mls/hr Insulin Aspart (Novolog Vial Sliding Scale -) 1 vial SQ ACHS [facility]; Protocol Last Admin: 10/05/18 06:28 Dose: 4 units Insulin Detemir (Levemir Vial) 30 units SQ 0700,2200 [facility] Last Admin: 10/05/18 08:09 Dose: 30 units Lisinopril (Prinivil) 40 mg PO DAILY [facility] Last Admin: 10/05/18 09:01 Dose: 40 mg Metronidazole (Flagyl -) 500 mg PO TID [facility] Last Admin: 10/05/18 06:28 Dose: 500 mg - Objective Vital Signs: Vital Signs Temperature 36.9 C 10/05/18 09:38 Pulse Rate 96 H 10/05/18 09:38 Respiratory Rate 20 10/05/18 09:38 Blood Pressure 150/78 10/05/18 09:38 O2 Sat by Pulse Oximetry (%) 98 10/04/18 14:00 Constitutional: Yes: No Distress, Calm, Obese Cardiovascular: Yes: Regular Rate and Rhythm. No: Gallop, Murmur, Rub Respiratory: Yes: Regular, CTA Bilaterally. No: Rales, Rhonchi, Wheezes Gastrointestinal: Yes: Normal Bowel Sounds, Soft. No: Distention, Tenderness Extremities: Yes: Erythema Edema: No Labs: CBC, BMP 10/05/18 06:00 10/05/18 06:00 INR, PTT INR 1.04 (0.83-1.09) 10/04/18 07:16 Problem List - Problems (1) Diabetic foot ulcer Code(s): E11.621 - TYPE 2 DIABETES MELLITUS WITH FOOT ULCER; L97.509 - NON- PRESSURE CHRONIC ULCER OTH PRT UNSP FOOT W UNSP SEVERITY Qualifiers: Diabetic foot ulcer location: unspecified part of foot Diabetes mellitus type: type 2 Laterality: right Non-pressure ulcer stage: with bone involvement without evidence of necrosis Qualified Code(s): E11.621 - Type 2 diabetes mellitus with foot ulcer; L97.516 - Non-pressure chronic ulcer of other part of right foot with bone involvement without evidence of necrosis (2) T2DM (type 2 diabetes mellitus) Code(s): E11.9 - TYPE 2 DIABETES MELLITUS WITHOUT COMPLICATIONS Qualifiers: Diabetes mellitus tank terminal gauger insulin use: without snf use Diabetes mellitus complication status: with skin complications Diabetes mellitus complication detail: with foot ulcer Qualified Code(s): E11.621 - Type 2 diabetes mellitus with foot ulcer; L97.509 - Non-pressure chronic ulcer of other part of unspecified foot with unspecified severity (3) HTN (hypertension) Code(s): I10 - ESSENTIAL (PRIMARY) HYPERTENSION Assessment/Plan (1) Diabetic foot ulcer Assessment/Plan: -appreciate ID and podiatry assistance -continue IV aztreonam, vancomycin, and po flagyl -improving Code(s): E11.621 - TYPE 2 DIABETES MELLITUS WITH FOOT ULCER; L97.509 - NON- PRESSURE CHRONIC ULCER OTH PRT UNSP FOOT W UNSP SEVERITY Qualifiers: Diabetic foot ulcer location: unspecified part of foot Diabetes mellitus type: type 2 Laterality: right Non-pressure ulcer stage: with bone involvement without evidence of necrosis Qualified Code(s): E11.621 - Type 2 diabetes mellitus with foot ulcer; L97.516 - Non-pressure chronic ulcer of other part of right foot with bone involvement without evidence of necrosis (2) T2DM (type 2 diabetes mellitus) Assessment/Plan: -Hgb A1c 12.8 -very poorly controlled -will change levemir to 30 units bid -continue SSI -continue diabetic diet -suspect will need further increase Code(s): E11.9 - TYPE 2 DIABETES MELLITUS WITHOUT COMPLICATIONS Qualifiers: Diabetes mellitus tank terminal gauger insulin use: without tank terminal gauger use Diabetes mellitus complication status: with skin complications Diabetes mellitus complication detail: with foot ulcer Qualified Code(s): E11.621 - Type 2 diabetes mellitus with foot ulcer; L97.509 - Non-pressure chronic ulcer of other part of unspecified foot with unspecified severity (3) HTN (hypertension) Assessment/Plan: -still elevated -increase lisinopril to 40mg daily -continue HCTZ -may need 3rd agent for better control Code(s): I10 - ESSENTIAL (PRIMARY) HYPERTENSION
[2018-10-06] MEDS: AZTREONAM 2 GM in DEXTROSE 5%-WATER 100 ML IVPB SCH ×2 (01:55→09:16)
[2018-10-06] MEDS: VANCOMYCIN 1 GRAM (PRE-DOCKED) 1,000 MG/250 ML BAG IVPB SCH (03:05)
[2018-10-06] MEDS: metroNIDAZOLE 250 MG TABLET PO SCH ×2 (06:45→14:37)
[2018-10-06] MEDS: INSULIN (LEVEMIR) 100 UNITS/ML UNITS SQ SCH (06:45)
[2018-10-06] MEDS: INSULIN SLIDING SCALE (NOVOLOG) 1 VIAL SQ SCH ×2 (06:46→11:39)
[2018-10-06] MEDS ORDERED: INSULIN (NOVOLOG) ASPART 100 UNITS/ML 10ML VIAL ONE ×2 (06:53→11:04)
[2018-10-06] MEDS ORDERED: PT OWN MED DRAWER 7, Y5N ONE ×2 (06:53→09:10)
[2018-10-06 07:35] LABS: BASO % 1.4 % (0-2.0); EOS % 13.4 % (0-4.5); HEMATOCRIT 36.9 % (35.4-49); HEMOGLOBIN 13.1 GM/dL (11.7-16.9); LYMPH % 27.3 % (8-40); MCH 29.4 pg (25.7-33.7); MCHC 35.4 g/dl (32.0-35.9); MEAN PLT VOLUME 7.8 fl (7.5-11.1); MONO % 9.2 % (3.8-10.2); NEUT % 48.7 % (42.8-82.8); PLATELET COUNT 159 K/MM3 (134-434); RBC 4.45 M/mm3 (4.00-5.60); RDW 13.2 % (11.9-15.9); WHITE BLOOD COUNT 3.5 K/mm3 (4.0-10.0)
[2018-10-06 07:50] LABS: ANION GAP 8 MMOL/L (8-16); BLOOD UREA NITROGEN 28 mg/dL (7-18); CALCIUM 8.6 mg/dL (8.5-10.1); CHLORIDE 99 mmol/L (98-107); CO2 25 mmol/L (21-32); CREATININE 1.2 mg/dL (0.55-1.3); PHOSPHOROUS 3.4 mg/dL (2.5-4.9); POTASSIUM 4.5 mmol/L (3.5-5.1); SODIUM 132 mmol/L (136-145)
[2018-10-06 09:00] VITALS: BP 132/84; PULSE 108; TEMP 97.6
[2018-10-06] MEDS: HYDROCHLOROTHIAZIDE 12.5 MG CAPSULE (FP) PO SCH (09:16)
[2018-10-06] MEDS: ENOXAPARIN NA (PORCINE) 40 MG/0.4 ML DISP.SYRIN SQ SCH (09:16)
[2018-10-06] MEDS: LISINOPRIL 20 MG TABLET (FP) PO SCH (09:16)
[2018-10-06 09:25] LABS: GLUCOSE,RANDOM 414 mg/dL (74-106)
[2018-10-06 12:53] VITALS: BMI 40.6
--- NOTE | 2018-10-06 14:00 | PN ---
Progress Note, Physician History of Present Illness: NO C/O FOOT PAIN NO F/C TOLERATING ANTIBIOTICS WOUND C/S PRELIM ENTEROCOCCUS, YLO - Current Medication List Current Medications: Active Medications Enoxaparin Sodium (Lovenox -) 40 mg SQ DAILY [facility] Last Admin: 10/06/18 09:16 Dose: 40 mg Hydrochlorothiazide (Hctz -) 12.5 mg PO DAILY [facility] Last Admin: 10/06/18 09:16 Dose: 12.5 mg Aztreonam 2 gm/ Dextrose 100 mls @ 100 mls/hr IVPB Q8H-IV [facility]; Protocol Last Admin: 10/06/18 09:16 Dose: 100 mls/hr Vancomycin HCl (Vancomycin (Pre-Docked)) 1,000 mg in 250 mls @ 166.667 mls/hr IVPB BID@0300,1500 [facility]; Protocol Last Admin: 10/06/18 03:05 Dose: 166.667 mls/hr Insulin Aspart (Novolog Vial Sliding Scale -) 1 vial SQ ACHS [facility]; Protocol Last Admin: 10/06/18 11:39 Dose: 10 units Insulin Detemir (Levemir Vial) 30 units SQ 0700,2200 [facility] Last Admin: 10/06/18 06:45 Dose: 30 units Lisinopril (Prinivil) 40 mg PO DAILY [facility] Last Admin: 10/06/18 09:16 Dose: 40 mg Metronidazole (Flagyl -) 500 mg PO TID [facility] Last Admin: 10/06/18 06:45 Dose: 500 mg - Objective Vital Signs: Vital Signs Temperature 97.6 F 10/06/18 09:00 Pulse Rate 108 H 10/06/18 09:00 Respiratory Rate 20 10/06/18 09:00 Blood Pressure 132/84 10/06/18 09:00 O2 Sat by Pulse Oximetry (%) 98 10/04/18 14:00 Constitutional: Yes: No Distress Cardiovascular: Yes: Regular Rate and Rhythm, S1, S2 Respiratory: Yes: CTA Bilaterally Extremities: Yes: Other (L FOOT WOUNDS NO DRAINAGE OR FOUL ODOR) Labs: CBC, BMP 10/06/18 06:00 10/06/18 06:00 INR, PTT INR 1.04 (0.83-1.09) 10/04/18 07:16 Assessment/Plan DIABETIC FOOT INFECTION PCN ALLERGY AWAIT C/S CONTINUE VANCO/ AZTREONAM/ FLAGYL LOCAL WOUND CARE
--- NOTE | 2018-10-06 17:46 | DS ---
Physical Examination Vital Signs: Vital Signs Temperature 36.4 C 10/06/18 09:00 Pulse Rate 108 H 10/06/18 09:00 Respiratory Rate 20 10/06/18 09:00 Blood Pressure 132/84 10/06/18 09:00 O2 Sat by Pulse Oximetry (%) 98 10/04/18 14:00 Constitutional: Yes: Obese Cardiovascular: Yes: Regular Rate and Rhythm. No: Gallop, Murmur, Rub Respiratory: Yes: Regular, CTA Bilaterally. No: Rales, Rhonchi, Wheezes Gastrointestinal: Yes: Normal Bowel Sounds, Soft. No: Distention, Tenderness Extremities: Yes: Erythema (slight) Edema: No Labs: CBC, BMP 10/06/18 06:00 10/06/18 06:00 Discharge Summary Reason For Visit: INSULIN DEPENDENT DIAETESS MELLITUS/DIABETIC FOOT Hospital Course: Mr Wilson is a 38 year old male who came in with cellulitis and infected diabetic wound. He was admitted and seen by podiatry and ID. Cultures were sent and growing enterococcus. He was originally stated on vancomycin and aztreonam for coverage. He also had hyperglycemia and often refused his insulin so it remained high. He was seen today and made aware that he is still not stable for discharge, however he decided to leave A. Condition: Stable - Instructions Disposition: AGAINST MEDICAL ADVICE - Home Medications Comprehensive Discharge Medication List: Ambulatory Orders Lisinopril/Hydrochlorothiazide [Lisinopril-Hctz 20-12.5 mg Tab] 1 each PO DAILY 05/12/17 metFORMIN HCL [Metformin HCl] 1,000 mg PO BID 05/12/17 Atorvastatin Ca [Lipitor] 20 mg PO DAILY 12/31/17 Insulin Glargine,Hum.rec.anlog [Basaglar Kwikpen U-100] 36 unit SQ HS 12/31/17 Insulin Lispro Protamin/Lispro [Humalog Mix 75-25 Kwikpen] 0 unit SQ TID Gabapentin 300 mg PO BID 05/12/18 Acetaminophen [Mapap] 325 mg PO Q8H 07/02/18 Docusate Sodium [Doc-Q-Lace] 100 mg PO BID 07/02/18 Famotidine [Pepcid] 40 mg PO DAILY 07/02/18 Clindamycin [Cleocin -] 300 mg PO Q8H #30 capsule 09/16/18 Clindamycin [Cleocin -] 300 mg PO TID #21 capsule 09/26/18 Lactobacillus Acidophilus [Bacid -] 1 each PO DAILY #30 capsule 09/26/18 levoFLOXacin [Levaquin -] 500 mg PO DAILY #14 tablet 09/26/18
== END 2018-10-06 14:43 | disposition left against medical advice (07) | DRG 344 ==
LOC: JER 14:47 → INTOOBSV 19:14 → JERBED 19:14 → J6S 23:41 → OBSVTOIN 10-04 15:27
PROVIDERS: ADMIT Internal Medicine; ATTEND Internal Medicine
DX: E11.69 Type 2 diabetes mellitus with other specified complication (principal); E11.621 Type 2 diabetes mellitus with foot ulcer; F32.9 Major depressive disorder, single episode, unspecified; L97.518 Non-pressure chronic ulcer of other part of right foot with other specified severity; E11.65 Type 2 diabetes mellitus with hyperglycemia; Z79.4 Long term (current) use of insulin; L03.115 Cellulitis of right lower limb; I10 Essential (primary) hypertension; E78.5 Hyperlipidemia, unspecified; E87.1 Hypo-osmolality and hyponatremia; L08.89 Other specified local infections of the skin and subcutaneous tissue; B95.2 Enterococcus as the cause of diseases classified elsewhere; M86.8X7 Other osteomyelitis, ankle and foot; Z88.0 Allergy status to penicillin; E66.9 Obesity, unspecified; Z68.41 Body mass index [BMI] 40.0-44.9, adult
CPT/HCPCS: 36415; 73630-TC-RT-FY; 80048; 80053; 82962; 83036; 83605; 83735; 84100; 85025; 85610; 85651; 85730; 86140; 86850; 86900; 86901; 87040; 87070; 87186; 87205; 99284-25; G0378; G0480; J7030

== ENCOUNTER 2019-03-20 10:16 | Inpatient (IN) | payer OTHER ==
[2019-03-20] MEDS ORDERED: SODIUM CHLORIDE 1,000 ML IV STA (11:01)
[2019-03-20] MEDS ORDERED: INSULIN REGULAR HUMAN 100 UNITS/ML *VIAL IVPUSH ONE (11:02)
[2019-03-20] MEDS ORDERED: VANCOMYCIN 1 GM in D5W (PRE-DOCKED) 1,000 MG/250 ML IVPB ONE (11:02)
[2019-03-20] MEDS ORDERED: VANCOMYCIN 1 GRAM (PRE-DOCKED) 1,000 MG/250 ML BAG IVPB ONE (11:51)
[2019-03-20 12:00] LABS: BASO % 0.3 % (0-2.0); EOS % 1.6 % (0-4.5); HEMATOCRIT 36.6 % (35.4-49); HEMOGLOBIN 12.5 GM/dL (11.7-16.9); MCH 28.8 pg (25.7-33.7); MCHC 34.3 g/dl (32.0-35.9); MONO % 6.9 % (3.8-10.2); NEUT % 84.2 % (42.8-82.8); PLATELET COUNT 275 K/MM3 (134-434); RBC 4.36 M/mm3 (4.00-5.60); RDW 12.4 % (11.9-15.9); WHITE BLOOD COUNT 9.4 K/mm3 (4.0-10.0)
[2019-03-20 12:09] LABS: VENOUS PC02 43.6 mmHg (38-52); VENOUS PH 7.38 (7.31-7.41); VENOUS PO2 < 49 mmHg (28-48)
[2019-03-20 12:31] LABS: ALBUMIN 3.3 g/dl (3.4-5.0); BILIRUBIN,TOTAL 0.9 mg/dL (0.2-1); BLOOD UREA NITROGEN 27.8 mg/dL (7-18); CALCIUM 9.3 mg/dL (8.5-10.1); CREATININE 1.4 mg/dL (0.55-1.3); POTASSIUM 4.9 mmol/L (3.5-5.1); TOT PROT 7.7 g/dl (6.4-8.2)
--- NOTE | 2019-03-20 12:35 | PDOC ---
History of Present Illness - General Chief Complaint: Wound Stated Complaint: DIABETIC WOUND Time Seen by Provider: 03/20/19 10:25 History Source: Patient Exam Limitations: No Limitations Past History - Past Medical History Allergies/Adverse Reactions: Allergies Allergy/AdvReac Type Severity Reaction Status Date / Time Penicillins Allergy Verified 03/20/19 10:23 Home Medications: Ambulatory Orders Lisinopril/Hydrochlorothiazide [Lisinopril-Hctz 20-12.5 mg Tab] 1 each PO DAILY 05/12/17 metFORMIN HCL [Metformin HCl] 1,000 mg PO BID 05/12/17 Atorvastatin Ca [Lipitor] 20 mg PO DAILY 12/31/17 Insulin Glargine,Hum.rec.anlog [Basaglar Kwikpen U-100] 36 unit SQ HS 12/31/17 Insulin Lispro Protamin/Lispro [Humalog Mix 75-25 Kwikpen] 0 unit SQ TID Gabapentin 300 mg PO BID 05/12/18 Acetaminophen [Mapap] 325 mg PO Q8H 07/02/18 Docusate Sodium [Doc-Q-Lace] 100 mg PO BID 07/02/18 Famotidine [Pepcid] 40 mg PO DAILY 07/02/18 Clindamycin [Cleocin -] 300 mg PO Q8H #30 capsule 09/16/18 Clindamycin [Cleocin -] 300 mg PO TID #21 capsule 09/26/18 Lactobacillus Acidophilus [Bacid -] 1 each PO DAILY #30 capsule 09/26/18 levoFLOXacin [Levaquin -] 500 mg PO DAILY #14 tablet 09/26/18 Anemia: No Asthma: No Cancer: No Cardiac Disorders: Yes (OCC PALIPATIONS) CVA: No COPD: No CHF: No Dementia: No Diabetes: Yes (IDDM) GI Disorders: No Disorders: No HTN: Yes Hypercholesterolemia: Yes Liver Disease: No Psychiatric Problems: Yes (DEPRESSION) Seizures: No Thyroid Disease: No - Surgical History Abdominal Surgery: No Appendectomy: No Cardiac Surgery: No Cholecystectomy: No Lung Surgery: No Neurologic Surgery: No Orthopedic Surgery: Yes (r hand surgery and l le surgery) - Suicide/Smoking/Psychosocial Hx Smoking History: Never smoked Have you smoked in the past 12 months: No Cigars Per Day: 0 Information on smoking cessation initiated: No Hx Alcohol Use: No Drug/Substance Use Hx: No Substance Use Type: None Hx Substance Use Treatment: No *Physical Exam - Vital Signs Last Vital Signs Temp Pulse Resp BP Pulse Ox 98 F 123 H 19 159/97 98 03/20/19 10:20 03/20/19 10:20 03/20/19 10:20 03/20/19 10:20 03/20/19 10:20 - Physical Exam General Appearance: No: Apparent Distress Respiratory/Chest: positive: Lungs Clear, Normal Breath Sounds. negative: Respiratory Distress Cardiovascular: positive: Regular Rhythm, Regular Rate, S1, S2. negative: Murmur Extremity: positive: Other (around 2x2 cm open wound along plantar aspect of L foot with red base, surrounding skin slightly macerated, +swelling, warmth and erythema noted along dorsal aspect of L foot, no drainage, no foul odor, no fluctuance, no streaking, LLE pulses intact) Neurologic: positive: Alert, Normal Mood/Affect ED Treatment Course - LABORATORY CBC & Chemistry Diagram: 03/20/19 11:30 03/20/19 11:30 - ADDITIONAL ORDERS Additional order review: Laboratory Results 03/20/19 03/20/19 11:30 10:55 VBG pH 7.38 POC VBG pCO2 43.6 POC VBG pO2 < 49 H VBG HCO3 25.4 VBG O2 Sat (Jaswinder) 27.9 L VBG Base Excess 0.7 POC Glucometer 401 03/20/19 03/20/19 11:30 10:55 RBC 4.36 MCV 84.0 MCHC 34.3 RDW 12.4 MPV 8.0 Neutrophils % 84.2 H D Lymphocytes % 7.0 L D Monocytes % 6.9 Eosinophils % 1.6 D Basophils % 0.3 POC Glucometer 401 - Medications Given in the ED: ED Medications Discontinued Medications Generic Name Dose Route Start Last Admin Trade Name Freq PRN Reason Stop Dose Admin Sodium Chloride 1,000 mls @ 1,000 mls/hr 03/20/19 11:01 03/20/19 11:27 Normal Saline - IV 03/20/19 12:00 1,000 mls/hr ASDIR STA Administration Insulin Human Regular 6 units 03/20/19 11:02 03/20/19 11:27 Novolin R Vial *For Ivpush Or Iv Drip Only* IVPUSH 03/20/19 11:03 6 units ONCE ONE Administration Vancomycin HCl 1,000 mg 03/20/19 11:02 03/20/19 11:55 Vancomycin (Pre-Docked) IVPB 03/20/19 11:03 1,000 mg ONCE ONE Administration Protocol Medical Decision Making - Medical Decision Making 38 y/o M hx of HTN, HLD, IDDM, 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 Patient states it started off as a cut and then progressively got worse with open wound forming. Has been cleaning site with Betadine. Hasn't noted any purulent drainage from the area. Saw his PCP regarding this last week and was prescribed Keflex. Made an appointment with his house principal, Dr. Rodriguez, for today at 3 PM but decided to come in to ED in case he would need to be admitted. Denies fever, sob , cp, abd pain, vomiting. Diabetic L foot wound/cellulitis FS noted to be 401 (patient has not taken his insulin today) Called Dr. Rodriguez, who came by to see patient, recommends admission to hospital for IV abx Labs reviewed - no anion gap noted Given IV Vanc based on prior wound culture results (had grown enterococcus sensitive to Vanc) Unable to get another wound culture currently as no drainage from site Patient to be admitted 03/20/19 12:33 *DC/Admit/Observation/Transfer Diagnosis at time of Disposition: Diabetic foot ulcer Qualifiers: Diabetic foot ulcer location: other Diabetes mellitus type: type 2 Laterality: left Non-pressure ulcer stage: limited to breakdown of skin Qualified Code(s): E11.621 - Type 2 diabetes mellitus with foot ulcer; L97.521 - Non-pressure chronic ulcer of other part of left foot limited to breakdown of skin - Discharge Dispostion Condition at time of disposition: Stable Decision to Admit order: Yes - Referrals Referrals: Raissa Campbell [Primary Care Provider] - - Patient Instructions - Post Discharge Activity
--- NOTE | 2019-03-20 13:21 | PDOC ---
*Physical Exam - Vital Signs Last Vital Signs Temp Pulse Resp BP Pulse Ox 98 F 123 H 19 159/97 98 03/20/19 10:20 03/20/19 10:20 03/20/19 10:20 03/20/19 10:20 03/20/19 10:20 ED Treatment Course - LABORATORY CBC & Chemistry Diagram: 03/22/19 07:25 03/22/19 07:25 - ADDITIONAL ORDERS Additional order review: Laboratory Results 03/20/19 03/20/19 03/20/19 11:30 11:30 11:30 VBG pH 7.38 POC VBG pCO2 43.6 POC VBG pO2 < 49 H VBG HCO3 25.4 VBG O2 Sat (Jaswinder) 27.9 L VBG Base Excess 0.7 Sodium 131 L Potassium 4.9 Chloride 96 L Carbon Dioxide 25 Anion Gap 9 BUN 27.8 H Creatinine 1.4 H Est GFR (CKD-EPI)AfAm 72.83 Est GFR (CKD-EPI)NonAf 62.84 POC Glucometer Random Glucose 384 H Calcium 9.3 Total Bilirubin 0.9 AST 12 L ALT 21 Alkaline Phosphatase 101 Total Protein 7.7 Albumin 3.3 L Acetone, Qual Negative 03/20/19 10:55 VBG pH POC VBG pCO2 POC VBG pO2 VBG HCO3 VBG O2 Sat (Jaswinder) VBG Base Excess Sodium Potassium Chloride Carbon Dioxide Anion Gap BUN Creatinine Est GFR (CKD-EPI)AfAm Est GFR (CKD-EPI)NonAf POC Glucometer 401 Random Glucose Calcium Total Bilirubin AST ALT Alkaline Phosphatase Total Protein Albumin Acetone, Qual 03/20/19 03/20/19 11:30 10:55 RBC 4.36 MCV 84.0 MCHC 34.3 RDW 12.4 MPV 8.0 Neutrophils % 84.2 H D Lymphocytes % 7.0 L D Monocytes % 6.9 Eosinophils % 1.6 D Basophils % 0.3 POC Glucometer 401 - Medications Given in the ED: ED Medications Discontinued Medications Generic Name Dose Route Start Last Admin Trade Name Freq PRN Reason Stop Dose Admin Sodium Chloride 1,000 mls @ 1,000 mls/hr 03/20/19 11:01 03/20/19 11:27 Normal Saline - IV 03/20/19 12:00 1,000 mls/hr ASDIR STA Administration Insulin Human Regular 6 units 03/20/19 11:02 03/20/19 11:27 Novolin R Vial *For Ivpush Or Iv Drip Only* IVPUSH 03/20/19 11:03 6 units ONCE ONE Administration Vancomycin HCl 1,000 mg 03/20/19 11:02 03/20/19 11:55 Vancomycin (Pre-Docked) IVPB 03/20/19 11:03 1,000 mg ONCE ONE Administration Protocol Medical Decision Making - Medical Decision Making The patient was seen and evaluated in conjunction with [employer] under my direct supervision, ancillary studies were reviewed. I agree with the plan as outlined by [employer] . *DC/Admit/Observation/Transfer Diagnosis at time of Disposition: Diabetic foot ulcer - Discharge Dispostion Disposition: HOME Condition at time of disposition: Stable - Referrals - Patient Instructions - Post Discharge Activity
[2019-03-20] MEDS ORDERED: SODIUM CHLORIDE 1,000 ML IV SCH (14:45)
[2019-03-20] MEDS ORDERED: AZTREONAM 1 GM in DEXTROSE 5%-WATER - 50 ML IVPB SCH (15:30)
[2019-03-20] MEDS ORDERED: AZTREONAM 1 GM VIAL (RESTRICTED TO ID) ONE (16:09)
[2019-03-20] MEDS ORDERED: DEXTROSE 5%-WATER - 50 ML IVPB ONE (16:09)
[2019-03-20] MEDS ORDERED: PATIENT'S OWN MEDICATION (NON-FORMULARY) (Lisinopril/Hydrochlorothiazide [Lisinopril-Hctz PO SCH (16:30)
[2019-03-20] MEDS ORDERED: LISINOPRIL 10 MG TABLET (FP) PO ONE (16:36)
[2019-03-20] MEDS ORDERED: HYDROCHLOROTHIAZIDE 25 MG TABLET (FP) PO ONE (16:37)
[2019-03-20 16:57] VITALS: BMI 24.9
--- NOTE | 2019-03-20 17:05 | PN ---
Progress Note (short form) - Note Progress Note: ID consult dictated imp/reccd 38 yo man with diabetes history of prior diabetic foot ulcer right foot 09/2018, now admitted with worsening plantar foot ulcer for last one month he developed a plantar ulcer one month ago, then he went to to visit his - when he [place] the [place] 03/06/19 he went to see his PMD Dr Campbell and was started on Keflex- leg worsened with erythema and swelling he came to ED today fevers and chills since last night pen allergy (but just took keflex without difficulty) diabetic foot ulcer with cellulitis r/o osteomyelitis xray foot wound culture sent MRI foot esr/crp podiatry consult called vanco/cefepime/flagyl Problem List - Problems (1) Diabetic foot ulcer Code(s): E11.621 - TYPE 2 DIABETES MELLITUS WITH FOOT ULCER; L97.509 - NON- PRESSURE CHRONIC ULCER OTH PRT UNSP FOOT W UNSP SEVERITY Qualifiers: Diabetic foot ulcer location: other Diabetes mellitus type: type 2 Laterality: left Non-pressure ulcer stage: limited to breakdown of skin Qualified Code(s): E11.621 - Type 2 diabetes mellitus with foot ulcer; L97.521 - Non-pressure chronic ulcer of other part of left foot limited to breakdown of skin (2) Cellulitis Code(s): L03.90 - CELLULITIS, UNSPECIFIED Qualifiers: Site of cellulitis: extremity Site of cellulitis of extremity: lower extremity Laterality: right Qualified Code(s): L03.115 - Cellulitis of right lower limb
[2019-03-20] MEDS ORDERED: INSULIN (NOVOLOG) ASPART 100 UNITS/ML 10ML VIAL ONE ×2 (17:13→21:39)
[2019-03-20] MEDS: INSULIN SLIDING SCALE (NOVOLOG) 1 VIAL SQ SCH ×2 (17:16→22:32)
[2019-03-20] MEDS ORDERED: CEFEPIME 1 GM in DEXTROSE 5%-WATER 100 ML IVPB SCH (18:00)
--- NOTE | 2019-03-20 18:44 | CONS ---
DATE OF CONSULTATION: 03/20/2019 CONSULTATION REQUESTED BY: Hospitalist Service HISTORY OF PRESENT ILLNESS: The patient is a 38-year-old man with a past medical history of diabetes. He has a history of a diabetic foot ulcer on his right leg that has healed. He presents to the emergency room with complaints of an ulcer on the left foot with surrounding erythema. He reports that this ulcer started about a month ago. He developed it but he then went on a trip to [facility] to visit his , so he did not seek any care. He returned on March 06 and went to see his PCP, Dr. Campbell, who prescribed Keflex, which he has been taking. 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 He notes that since last night, he has felt feverish and has had chills. He notes erythema and swelling of the leg with some extension of the erythema to the anterior tibial surface. He has also had elevated blood glucose. PAST MEDICAL HISTORY: Notable for diabetes. PAST SURGICAL HISTORY: He has had right hand surgery in the past. He has had a right foot ulcer in the past that was debrided by podiatry. 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 He has no history of any cigarette, alcohol or substance use. He lives in [place]. ALLERGIES: PENICILLIN (although he has tolerated Keflex without any difficulty) . HOME MEDICATIONS: Lisinopril, hydrochlorothiazide, metformin, atorvastatin, insulin, gabapentin. He was recently on Keflex, of which he still has 4 pills left. REVIEW OF SYSTEMS: He denies headaches, nausea, vomiting, diarrhea, dysuria. In fact, he is hungry and wants to eat. PHYSICAL EXAMINATION: General: He is a pleasant man in no acute distress. Vital Signs: Temperature is 98.4, pulse 117, blood pressure 164/104. Respiratory rate 18. He is saturating 99%. Weight is 111 kg. HEENT: Normocephalic. His eyes are anicteric. Neck: Supple. Lungs: Clear to auscultation. Heart: Regular rate and rhythm. Abdomen: Soft, nontender. Extremities: His right foot is without edema. His left foot is swollen. He has a plantar ulcer that is hyperkeratotic. With pressure on the ulcer, we are able to express some purulent discharge. He has diffuse swelling of the foot and erythema of the dorsum with some erythema of the anterior tibia as well. The foot is warm. There is no fluctuance or crepitus. LABORATORY DATA: Notable for a white count of 9.4, hemoglobin 12.5, platelets 275. His BUN and creatinine are 27 and 1.4. Glucose is 384. Blood cultures have been sent. In summary, this is a 38-year-old man with an infected diabetic foot ulcer with surrounding cellulitis; cannot rule out osteomyelitis. We will x-ray his foot. A wound culture was done. He had seropurulent drainage, which was sent. An MRI of his foot has been ordered. We will check a sed rate and a CRP. A podiatry consult has been called. We will treat him with vancomycin, cefepime and Flagyl as he tolerates cephalosporins. Further recommendations to follow. ROSALIA GONZALEZ M.D. [id number] MTDD
--- NOTE | 2019-03-20 21:18 | HP ---
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 Pt failed outpt abx (Keflex). No drainage. No fever at home, though febrile in ED. [facility] was notable for: (1) seen by podiatry (2) afebrile without leukocytosis (3) Recent Travel: denies PAST MEDICAL HISTORY: as above PAST SURGICAL HISTORY: Social History: Smoking: denies Alcohol: denies Drugs: denies Family History: discussed, noncontributory Allergies Penicillins Allergy (Verified 03/20/19 10:23) HOME MEDICATIONS: Home Medications Medication Instructions Recorded metFORMIN HCL [Metformin HCl] 1,000 mg PO BID 05/12/17 Atorvastatin Ca [Lipitor] 20 mg PO DAILY 12/31/17 Insulin Glargine,Hum.rec.anlog 36 unit SQ HS 12/31/17 [Basaglar Kwikpen U-100] Insulin Lispro Protamin/Lispro 0 unit SQ TID 12/31/17 [Humalog Mix 75-25 Kwikpen] Gabapentin 300 mg PO BID 05/12/18 Lisinopril/Hydrochlorothiazide 1 each PO DAILY 03/20/19 [Lisinopril-Hctz 10-12.5 mg Tab] REVIEW OF SYSTEMS CONSTITUTIONAL: Absent: fever, chills, diaphoresis, generalized weakness, malaise, loss of appetite, weight change HEENT: Absent: rhinorrhea, nasal congestion, throat pain, throat swelling, difficulty swallowing, mouth swelling, ear pain, eye pain, visual changes CARDIOVASCULAR: Absent: chest pain, syncope, palpitations, irregular heart rate, lightheadedness , peripheral edema RESPIRATORY: Absent: cough, shortness of breath, dyspnea with exertion, orthopnea, wheezing, stridor, hemoptysis GASTROINTESTINAL: Absent: abdominal pain, abdominal distension, nausea, vomiting, diarrhea, constipation, melena, hematochezia GENITOURINARY: Absent: dysuria, frequency, urgency, hesitancy, hematuria, flank pain, genital pain MUSCULOSKELETAL: ulcer Absent: myalgia, arthralgia, joint swelling, back pain, neck pain SKIN: Absent: rash, itching, pallor HEMATOLOGIC/IMMUNOLOGIC: Absent: easy bleeding, easy bruising, lymphadenopathy, frequent infections ENDOCRINE: Absent: unexplained weight gain, unexplained weight loss, heat intolerance, cold intolerance NEUROLOGIC: Absent: headache, focal weakness or paresthesias, dizziness, unsteady gait, seizure, mental status changes, bladder or bowel incontinence PSYCHIATRIC: Absent: anxiety, depression, suicidal or homicidal ideation, hallucinations. PHYSICAL EXAMINATION Vital Signs - 24 hr 03/20/19 03/20/19 03/20/19 10:20 14:52 16:27 Temperature 98 F 98.4 F Pulse Rate 123 H 117 H Pulse Rate [ 118 H Apical] Respiratory 19 18 18 Rate Blood Pressure 159/97 165/104 H Blood Pressure 179/93 H [Left Arm] O2 Sat by Pulse 98 96 99 Oximetry (%) 03/20/19 19:47 Temperature Pulse Rate 105 H Pulse Rate [ Apical] Respiratory 18 Rate Blood Pressure 141/76 Blood Pressure [Left Arm] O2 Sat by Pulse Oximetry (%) Gen: AAOx3, NAD HEENT: NCAT, EOMI Neck: supple, no jvd Cardio: rrr, normal s1s2, no mrg Pulm: cta b/l Abd: soft, nontender, nondistended Ext: stage 2-3 ulcer plantar L foot Laboratory Results - last 24 hr 03/20/19 03/20/19 03/20/19 10:55 11:30 11:30 WBC 9.4 RBC 4.36 Hgb 12.5 Hct 36.6 MCV 84.0 MCH 28.8 MCHC 34.3 RDW 12.4 Plt Count 275 D MPV 8.0 Absolute Neuts (auto) 7.9 Neutrophils % 84.2 H D Lymphocytes % 7.0 L D Monocytes % 6.9 Eosinophils % 1.6 D Basophils % 0.3 Nucleated RBC % 0 VBG pH POC VBG pCO2 POC VBG pO2 VBG HCO3 VBG O2 Sat (Jaswinder) VBG Base Excess Sodium 131 L Potassium 4.9 Chloride 96 L Carbon Dioxide 25 Anion Gap 9 BUN 27.8 H Creatinine 1.4 H Est GFR (CKD-EPI)AfAm 72.83 Est GFR (CKD-EPI)NonAf 62.84 POC Glucometer 401 Random Glucose 384 H Calcium 9.3 Total Bilirubin 0.9 AST 12 L ALT 21 Alkaline Phosphatase 101 Total Protein 7.7 Albumin 3.3 L Acetone, Qual 09/05/19 09/05/19 09/05/19 11:30 11:30 14:47 WBC RBC Hgb Hct MCV MCH MCHC RDW Plt Count MPV Absolute Neuts (auto) Neutrophils % Lymphocytes % Monocytes % Eosinophils % Basophils % Nucleated RBC % VBG pH 7.38 POC VBG pCO2 43.6 POC VBG pO2 < 49 H VBG HCO3 25.4 VBG O2 Sat (Jaswinder) 27.9 L VBG Base Excess 0.7 Sodium Potassium Chloride Carbon Dioxide Anion Gap BUN Creatinine Est GFR (CKD-EPI)AfAm Est GFR (CKD-EPI)NonAf POC Glucometer 273 Random Glucose Calcium Total Bilirubin AST ALT Alkaline Phosphatase Total Protein Albumin Acetone, Qual Negative 03/20/19 17:04 WBC RBC Hgb Hct MCV MCH MCHC RDW Plt Count MPV Absolute Neuts (auto) Neutrophils % Lymphocytes % Monocytes % Eosinophils % Basophils % Nucleated RBC % VBG pH POC VBG pCO2 POC VBG pO2 VBG HCO3 VBG O2 Sat (Jaswinder) VBG Base Excess Sodium Potassium Chloride Carbon Dioxide Anion Gap BUN Creatinine Est GFR (CKD-EPI)AfAm Est GFR (CKD-EPI)NonAf POC Glucometer 269 Random Glucose Calcium Total Bilirubin AST ALT Alkaline Phosphatase Total Protein Albumin Acetone, Qual ASSESSMENT/PLAN: Pt is a 38 y/o M with PMH DM, ulcer, HLD, IDDM, 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 #ulcer -with cellulitis -vanc, flagyl, cefipime -podiatry -ID -gabapentin #HTN -hctz -lisinopril #HLD -atorvastatin Visit type - Emergency Visit Emergency Visit: Yes ED Registration Date: 03/20/19 Care time: The patient presented to the Emergency Department on the above date and was hospitalized for further evaluation of their emergent condition. - New Patient This patient is new to me today: Yes Date on this admission: 03/20/19 - Critical Care Critical Care patient: No ATTENDING PHYSICIAN STATEMENT I saw and evaluated the patient. I reviewed the resident's note and discussed the case with the resident. I agree with the resident's findings and plan as documented. SUBJECTIVE: OBJECTIVE: ASSESSMENT AND PLAN:
[2019-03-20] MEDS: HEPARIN NA (PORCINE) 5,000 UNITS/ML 1ML VIAL SQ SCH (21:56)
[2019-03-20] MEDS: VANCOMYCIN HCL 1,250 MG in DEXTROSE 5%-WATER - 250 ML IVPB SCH (21:57)
[2019-03-20] MEDS: GABAPENTIN 300 MG CAPSULE (FP) PO SCH (21:57)
[2019-03-20] MEDS: ATORVASTATIN CA 20 MG TABLET (FP) PO SCH (21:57)
--- NOTE | 2019-03-20 22:28 | PN ---
Teaching Attending Note Name of Resident: Sammy Chaidez ATTENDING PHYSICIAN STATEMENT I saw and evaluated the patient. I reviewed the resident's note and discussed the case with the resident. I agree with the resident's findings and plan as documented. Seen and examined; please refer to resident note for further historical information. Appreciate subspecialty care from Dr Motta and Dr. Cohen in managing this complicated patient. He has a hx DM ucler who now presents with affected opposite limb. Please see the history in resident note for further historical information. OP keflex failed. Ulcer present ~1 month. VS, labs, imaging reviewed NAD, AAO, resting in bed Improved tachy but still slightly >100, s1/2 NT ND +BS CN2-12 wnl, no fnd Normal mood, appropriate affect No white count noted, slightly elevated Cr above last values Deferring futher imaging to podiatry/ID EKG reviewed Prior admission/consult reviewed ASSESSMENT AND PLAN: Presents with DM foot wound. Imaging results consistent with osteomyelitis. Being seen by ID and podiatry; will need to delineate if any procedural work to be done as well as final abx recs. Appreciate subspecialty assistance. -DM foot infection (High risk with prior infections, continue current abx per ID. Monitor cultures, CBC, ESR, CRP.) -Tachycardia (resolved, 2/2 pain) -Uncontrolled HTN -Uncontrolled DM with hyperglycemia (started his longacting, titrate up with SSI , nephropathy and neuropathy) -Noncompliance (prior admits noted) Full Code
[2019-03-21] MEDS ORDERED: AZTREONAM 1 GM in DEXTROSE 5%-WATER - 50 ML IVPB SCH (02:00)
[2019-03-21] MEDS ORDERED: DEXTROSE 5%-WATER 100 ML IVPB ONE ×3 (02:34→17:26)
[2019-03-21] MEDS ORDERED: CEFEPIME HCL 1 GM VIAL (RESTRICTED TO ID) ONE ×3 (02:34→17:26)
[2019-03-21] MEDS: CEFEPIME 1 GM in DEXTROSE 5%-WATER 100 ML IVPB SCH ×3 (02:53→17:28)
[2019-03-21] MEDS ORDERED: ACETAMINOPHEN 500 MG TABLET (FP) PO ONE (03:15)
[2019-03-21] MEDS ORDERED: oxyCODONE HCL 5 MG TABLET PO ONE (05:28)
[2019-03-21] MEDS: INSULIN SLIDING SCALE (NOVOLOG) 1 VIAL SQ SCH ×4 (06:15→21:34)
[2019-03-21] MEDS: HEPARIN NA (PORCINE) 5,000 UNITS/ML 1ML VIAL SQ SCH ×3 (06:58→21:33)
[2019-03-21] MEDS ORDERED: INSULIN (NOVOLOG) ASPART 100 UNITS/ML 10ML VIAL ONE (06:59)
[2019-03-21 09:34] LABS: BASO % 0.6 % (0-2.0); EOS % 2.6 % (0-4.5); HEMATOCRIT 29.3 % (35.4-49); HEMOGLOBIN 10.3 GM/dL (11.7-16.9); LYMPH % 12.2 % (8-40); MCH 29.1 pg (25.7-33.7); MCHC 35.1 g/dl (32.0-35.9); MEAN PLT VOLUME 7.8 fl (7.5-11.1); MONO % 8.6 % (3.8-10.2); PLATELET COUNT 255 K/MM3 (134-434); RBC 3.53 M/mm3 (4.00-5.60); RDW 12.1 % (11.9-15.9); WHITE BLOOD COUNT 8.2 K/mm3 (4.0-10.0)
--- NOTE | 2019-03-21 09:52 | PN ---
Progress Note (short form) - Note Progress Note: no fevers Vital Signs Period Temp Pulse Resp BP Sys/Marinelli Pulse Ox Last 24 Hr 97.3 F-98.4 F 104-123 18-20 141-179/74-104 96-100 cor-rrr lungs clear abd soft,nt ext +erythema of the dorsum of the left foot +plantar ulcer CBC, BMP 03/21/19 07:55 cultures pending esr/crp pending MRI possible osteomyelitis 3rd/4th MT head/proximal phalanx, +effusion 3/4 metatarsalphalangeal joints pen allergy (but just took keflex without difficulty) a/p diabetic foot ulcer with cellulitis probable osteomyelitis awaiting podiatry for possible debridement f/u cultures f/u esr/crp vanco/cefepime/flagyl check vanco trough before am dose Problem List - Problems (1) Diabetic foot ulcer Code(s): E11.621 - TYPE 2 DIABETES MELLITUS WITH FOOT ULCER; L97.509 - NON- PRESSURE CHRONIC ULCER OTH PRT UNSP FOOT W UNSP SEVERITY Qualifiers: Diabetic foot ulcer location: other Diabetes mellitus type: type 2 Laterality: left Non-pressure ulcer stage: limited to breakdown of skin Qualified Code(s): E11.621 - Type 2 diabetes mellitus with foot ulcer; L97.521 - Non-pressure chronic ulcer of other part of left foot limited to breakdown of skin (2) Cellulitis Code(s): L03.90 - CELLULITIS, UNSPECIFIED Qualifiers: Site of cellulitis: extremity Site of cellulitis of extremity: lower extremity Laterality: right Qualified Code(s): L03.115 - Cellulitis of right lower limb
[2019-03-21 09:57] LABS: ALBUMIN 2.6 g/dl (3.4-5.0); BILIRUBIN,TOTAL 0.4 mg/dL (0.2-1); BLOOD UREA NITROGEN 24.6 mg/dL (7-18); CALCIUM 8.5 mg/dL (8.5-10.1); CREATININE 1.3 mg/dL (0.55-1.3); POTASSIUM 4.7 mmol/L (3.5-5.1); TOT PROT 6.2 g/dl (6.4-8.2)
[2019-03-21] MEDS: HYDROCHLOROTHIAZIDE 12.5 MG CAPSULE (FP) PO SCH (09:57)
[2019-03-21] MEDS: GABAPENTIN 300 MG CAPSULE (FP) PO SCH ×2 (09:57→21:35)
[2019-03-21] MEDS: LISINOPRIL 10 MG TABLET (FP) PO SCH (09:58)
[2019-03-21] MEDS ORDERED: PNEUMOC 13-VAL CONJ-DIP CRM/PF 0.5 ML DISP.SYRIN IM ONE (10:32)
[2019-03-21] MEDS ORDERED: PNEUMOCOCCAL 23 VACCINE 0.5 ML VIAL IM ONE (11:30)
[2019-03-21] MEDS: VANCOMYCIN HCL 1,250 MG in DEXTROSE 5%-WATER - 250 ML IVPB SCH ×2 (11:42→21:35)
--- NOTE | 2019-03-21 14:14 | EKG ---
Test Reason : Blood Pressure : / mmHG Vent. Rate : 118 BPM Atrial Rate : 118 BPM P-R Int : 150 ms QRS Dur : 074 ms QT Int : 316 ms P-R-T Axes : 059 009 001 degrees QTc Int : 442 ms SINUS TACHYCARDIA MINIMAL VOLTAGE CRITERIA FOR LVH, MAY BE NORMAL VARIANT WHEN COMPARED WITH ECG OF 11-SEP-2018 19:11, NO SIGNIFICANT CHANGE WAS FOUND Confirmed by PABLO VILLA MD ([id number]) on 03/21/2019 2:13:54 PM Referred By: Confirmed By:PABLO VILLA MD
--- NOTE | 2019-03-21 16:50 | PN ---
Progress Note (short form) - Note Progress Note: VA[facility] Surgery Asked to see pt by podiatry. Pt with cellulitis of left foot. MRI done today. Pt has palpable DP and PT pulses. No need for any vascular intervention. Cleared for possible podiatry intervention. Dionisio Malloy DO
--- NOTE | 2019-03-21 16:58 | CONSULT ---
Consult Consult Specialty:: Podiatry Reason for Consultation:: cellulitis left foot. - History of Present Illness History of Present Illness: Patient states the wound started on left foot 03/09/2019. Has not gotten diabetic shoes. Was lost to follow up on right foot in [facility]. - History Source History Provided By: Patient - Alcohol/Substance Use Hx Alcohol Use: No - Smoking History Smoking history: Never smoked Have you smoked in the past 12 months: No Home Medications - Allergies Allergies/Adverse Reactions: Allergies Allergy/AdvReac Type Severity Reaction Status Date / Time Penicillins Allergy Verified 03/20/19 10:23 - Home Medications Home Medications: Ambulatory Orders metFORMIN HCL [Metformin HCl] 1,000 mg PO BID 05/12/17 Atorvastatin Ca [Lipitor] 20 mg PO DAILY 12/31/17 Insulin Glargine,Hum.rec.anlog [Basaglar Kwikpen U-100] 36 unit SQ HS 12/31/17 Insulin Lispro Protamin/Lispro [Humalog Mix 75-25 Kwikpen] 0 unit SQ TID Gabapentin 300 mg PO BID 05/12/18 Lisinopril/Hydrochlorothiazide [Lisinopril-Hctz 10-12.5 mg Tab] 1 each PO DAILY 03/20/19 Physical Exam Vital Signs: Vital Signs Temperature 98.8 F 03/21/19 10:06 Pulse Rate 95 H 03/21/19 10:06 Respiratory Rate 20 03/21/19 10:06 Blood Pressure 161/88 03/21/19 10:06 O2 Sat by Pulse Oximetry (%) 100 03/21/19 09:00 Extremities: Yes: Other (+healed right foot, +cellulitis, +drainage, +om on MRI , -abscess on mri, wound culture pending) Labs: CBC, BMP 03/21/19 07:55 03/21/19 07:55 Assessment/Plan cellulitis om ivabx as per ID. betadine dressing left foot. vascular consult discussed with Dr. Malloy and he is cleared for foot sx if necessary. hbo consult. will follow
[2019-03-21] MEDS ORDERED: ACETAMINOPHEN 1000 MG/100 ML VIAL (NON FORMULARY) IVPB ONE (17:27)
[2019-03-21] MEDS ORDERED: ACETAMINOPHEN 325 MG TABLET (FP) PO PRN (17:35)
--- NOTE | 2019-03-21 18:56 | PN ---
Physical Exam: SUBJECTIVE: Patient seen and examined at bedside. No acute events. Feels well. OBJECTIVE: Vital Signs Period Temp Pulse Resp BP Sys/Marinelli Pulse Ox Last 24 Hr 97.3 F-98.8 F 95-106 18-20 141-161/74-96 100-100 Gen: AAOx3, NAD HEENT: NCAT, EOMI Neck: supple, no jvd Cardio: rrr, normal s1s2, no mrg Pulm: cta b/l Abd: soft, nontender, nondistended Ext: stage 2-3 ulcer plantar L foot Laboratory Results - last 24 hr 03/20/19 03/21/19 03/21/19 21:22 06:10 07:55 WBC 8.2 RBC 3.53 L Hgb 10.3 L Hct 29.3 L D MCV 83.0 MCH 29.1 MCHC 35.1 RDW 12.1 Plt Count 255 MPV 7.8 Absolute Neuts (auto) 6.2 Neutrophils % 76.0 Lymphocytes % 12.2 D Monocytes % 8.6 Eosinophils % 2.6 Basophils % 0.6 Nucleated RBC % 0 ESR Sodium Potassium Chloride Carbon Dioxide Anion Gap BUN Creatinine Est GFR (CKD-EPI)AfAm Est GFR (CKD-EPI)NonAf POC Glucometer 311 305 Random Glucose Calcium Total Bilirubin AST ALT Alkaline Phosphatase C-Reactive Protein Total Protein Albumin 03/21/19 03/21/19 03/21/19 07:55 07:55 07:55 WBC RBC Hgb Hct MCV MCH MCHC RDW Plt Count MPV Absolute Neuts (auto) Neutrophils % Lymphocytes % Monocytes % Eosinophils % Basophils % Nucleated RBC % ESR 108 H Sodium 134 L Potassium 4.7 Chloride 101 Carbon Dioxide 28 Anion Gap 5 L BUN 24.6 H Creatinine 1.3 Est GFR (CKD-EPI)AfAm 79.66 Est GFR (CKD-EPI)NonAf 68.73 POC Glucometer Random Glucose 261 H Calcium 8.5 Total Bilirubin 0.4 AST 12 L ALT 20 Alkaline Phosphatase 83 C-Reactive Protein 18.0 H Total Protein 6.2 L Albumin 2.6 L 03/21/19 03/21/19 11:28 15:54 WBC RBC Hgb Hct MCV MCH MCHC RDW Plt Count MPV Absolute Neuts (auto) Neutrophils % Lymphocytes % Monocytes % Eosinophils % Basophils % Nucleated RBC % ESR Sodium Potassium Chloride Carbon Dioxide Anion Gap BUN Creatinine Est GFR (CKD-EPI)AfAm Est GFR (CKD-EPI)NonAf POC Glucometer 299 287 Random Glucose Calcium Total Bilirubin AST ALT Alkaline Phosphatase C-Reactive Protein Total Protein Albumin Active Medications Generic Name Dose Route Start Last Admin Trade Name Freq PRN Reason Stop Dose Admin Acetaminophen 650 mg 03/21/19 17:35 Tylenol - PO Q6H PRN FEVER Atorvastatin Calcium 20 mg 03/20/19 22:00 03/20/19 21:57 Lipitor - PO 20 mg HS JORDY Administration Gabapentin 300 mg 03/20/19 22:00 03/21/19 09:57 Neurontin - PO 300 mg BID JORDY Administration Heparin Sodium (Porcine) 5,000 unit 03/20/19 22:00 03/21/19 13:16 Heparin - SQ 5,000 unit TID JORDY Administration Hydrochlorothiazide 12.5 mg 03/21/19 10:00 03/21/19 09:57 Hctz - PO 12.5 mg DAILY JORDY Administration Metronidazole 500 mg in 100 mls @ 100 mls/hr 03/20/19 15:00 03/21/19 17:29 Flagyl 500mg Premixed Ivpb - IVPB 100 mls/hr Q8H-IV JORDY Administration Vancomycin HCl 1,250 mg/ 250 mls @ 166.667 mls/hr 03/20/19 22:00 03/21/19 11: 42 Dextrose IVPB 166.667 mls/hr Q12H JORDY Administration Protocol Cefepime HCl 1 gm/ Dextrose 100 mls @ 200 mls/hr 03/21/19 02:00 03/21/19 17: 28 IVPB 200 mls/hr Q8H-IV JORDY Administration Protocol Insulin Aspart 1 vial 03/20/19 16:30 03/21/19 16:03 Novolog Vial Sliding Scale - SQ 6 units ACHS JORDY Administration Protocol Insulin Detemir 30 units 03/21/19 22:00 Levemir Vial SQ HS JORDY Lisinopril 10 mg 03/21/19 10:00 03/21/19 09:58 Prinivil PO 10 mg DAILY JORDY Administration ASSESSMENT/PLAN: Pt is a 38 y/o M with PMH DM, ulcer, HLD, IDDM, 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 #ulcer: improving -with cellulitis -vanc, flagyl, cefipime -podiatry -ID -gabapentin #HTN -hctz -lisinopril #HLD -atorvastatin Visit type - Emergency Visit Emergency Visit: No - New Patient This patient is new to me today: No - Critical Care Critical Care patient: No ATTENDING PHYSICIAN STATEMENT I saw and evaluated the patient. I reviewed the resident's note and discussed the case with the resident. I agree with the resident's findings and plan as documented. SUBJECTIVE: OBJECTIVE: ASSESSMENT AND PLAN:
[2019-03-21] MEDS ORDERED: PT OWN MED DRAWER 7, Y5N ONE (21:00)
[2019-03-21] MEDS: ATORVASTATIN CA 20 MG TABLET (FP) PO SCH (21:35)
[2019-03-21] MEDS ORDERED: INSULIN (LEVEMIR) 100 UNITS/ML UNITS SQ SCH (22:00)
[2019-03-22] MEDS ORDERED: CEFEPIME HCL 1 GM VIAL (RESTRICTED TO ID) ONE ×2 (02:01→09:34)
[2019-03-22] MEDS ORDERED: DEXTROSE 5%-WATER 100 ML IVPB ONE ×2 (02:01→09:35)
[2019-03-22] MEDS ORDERED: oxyCODONE HCL 5 MG TABLET PO ONE (03:03)
[2019-03-22] MEDS: CEFEPIME 1 GM in DEXTROSE 5%-WATER 100 ML IVPB SCH ×2 (03:10→09:40)
[2019-03-22 05:02] VITALS: BP 154/97; PULSE 108
[2019-03-22 05:03] VITALS: TEMP 98.5
[2019-03-22] MEDS: INSULIN SLIDING SCALE (NOVOLOG) 1 VIAL SQ SCH (06:24)
[2019-03-22] MEDS: HEPARIN NA (PORCINE) 5,000 UNITS/ML 1ML VIAL SQ SCH (06:25)
[2019-03-22 08:10] LABS: HEMATOCRIT 29.4 % (35.4-49); HEMOGLOBIN 10.3 GM/dL (11.7-16.9); MCH 29.1 pg (25.7-33.7); MCHC 35.1 g/dl (32.0-35.9); MEAN PLT VOLUME 7.5 fl (7.5-11.1); PLATELET COUNT 277 K/MM3 (134-434); RBC 3.55 M/mm3 (4.00-5.60); RDW 12.3 % (11.9-15.9); WHITE BLOOD COUNT 9.4 K/mm3 (4.0-10.0)
[2019-03-22 08:22] LABS: BLOOD UREA NITROGEN 23.7 mg/dL (7-18); CALCIUM 8.4 mg/dL (8.5-10.1); CREATININE 1.2 mg/dL (0.55-1.3); POTASSIUM 4.5 mmol/L (3.5-5.1)
--- NOTE | 2019-03-22 08:56 | PN ---
Progress Note (short form) - Note Progress Note: Patient seen in bed. No dressing on foot. +improving cellulitis, -drainage on palpation, -tender, mri negative for abscess cellulitis grade 3 wound left foot collagenase dressing changes, hbo consult. Will follow. Advised to follow up in wound care. Antibiotics as per ID.
[2019-03-22] MEDS ORDERED: PT OWN MED DRAWER 7, Y5N ONE (09:34)
[2019-03-22] MEDS: HYDROCHLOROTHIAZIDE 12.5 MG CAPSULE (FP) PO SCH (09:39)
[2019-03-22] MEDS: GABAPENTIN 300 MG CAPSULE (FP) PO SCH (09:39)
[2019-03-22] MEDS: LISINOPRIL 10 MG TABLET (FP) PO SCH (09:40)
[2019-03-22] MEDS ORDERED: COLLAGENASE CLOSTRIDIUM HIST. 30 GRAMS TUBE TP SCH (10:00)
--- NOTE | 2019-03-22 10:57 | DS ---
Physical Exam: SUBJECTIVE: Patient seen and examined; TORRES RN present. He wishes to leave [facility] due to social issues. Paperwork completed. Explained to him in detail that he risks losing his foot as well as worsening morbidity and mortality by leaving. He chose to sign and depart anyways. This is unfortunate. Updated subspecialty services. OBJECTIVE: Vital Signs Period Temp Pulse Resp BP Sys/Marinelli Pulse Ox Last 24 Hr 98.1 F-101.4 F 108-118 20-20 154-187/85-97 100 PHYSICAL EXAM GENERAL: The patient is awake, alert, and fully oriented HEAD: Normal with no signs of trauma. EYES: PERRL, extraocular movements intact, sclera anicteric, conjunctiva clear. ENT: Ears normal, nares patent, oropharynx clear without exudates, moist mucous membranes. NECK: Trachea midline, full range of motion, supple. LUNGS: Breath sounds equal, clear to auscultation bilaterally HEART: Regular rate and rhythm, S1, S2 without murmur, rub or gallop. ABDOMEN: Soft, nontender, nondistended, normoactive bowel sounds EXTREMITIES: 2+ pulses, warm, well-perfused. Foot still warm with wrapping; redness present and slightly improved margins from yesterday with obvious cellulitic changes. NEUROLOGICAL: Cranial nerves II through XII grossly intact. Normal speech PSYCH: Normal mood, normal affect. SKIN: Warm, dry, normal turgor, no rashes or lesions noted. LABS Laboratory Results - last 24 hr 03/21/19 03/21/19 03/21/19 11:28 15:54 21:31 WBC RBC Hgb Hct MCV MCH MCHC RDW Plt Count MPV Sodium Potassium Chloride Carbon Dioxide Anion Gap BUN Creatinine Est GFR (CKD-EPI)AfAm Est GFR (CKD-EPI)NonAf POC Glucometer 299 287 327 Random Glucose Calcium 03/22/19 03/22/19 03/22/19 06:23 07:25 07:25 WBC 9.4 RBC 3.55 L Hgb 10.3 L Hct 29.4 L MCV 83.0 MCH 29.1 MCHC 35.1 RDW 12.3 Plt Count 277 MPV 7.5 Sodium 135 L Potassium 4.5 Chloride 98 Carbon Dioxide 27 Anion Gap 10 BUN 23.7 H Creatinine 1.2 Est GFR (CKD-EPI)AfAm 87.75 Est GFR (CKD-EPI)NonAf 75.72 POC Glucometer 307 Random Glucose 303 H Calcium 8.4 L HOSPITAL COURSE: Patient presents with DM foot wound. Imaging results consistent with osteomyelitis. Being seen by ID and podiatry; will need to delineate if any procedural work to be done as well as final abx recs. Appreciate subspecialty assistance. He was pending HBO referral Cleared for foot procedure per vascular as described in Dr. Cohen's note Problems: -DM foot infection (High risk with prior infections, continue current abx per ID. Monitor cultures, CBC, ESR, CRP.) -Tachycardia (resolved, 2/2 pain) -Uncontrolled HTN -Uncontrolled DM with hyperglycemia (started his longacting, titrate up with SSI , nephropathy and neuropathy) -Noncompliance (prior admits noted) Full Code Date of Admission:03/20/19 Date of Discharge: 03/22/19 (AMA DISCHARGE) Minutes to complete discharge: 45 Discharge Summary Reason For Visit: DIABETIC FOOT ULCER Condition: Stable - Instructions Disposition: HOME - Home Medications Comprehensive Discharge Medication List: Ambulatory Orders metFORMIN HCL [Metformin HCl] 1,000 mg PO BID 05/12/17 Atorvastatin Ca [Lipitor] 20 mg PO DAILY 12/31/17 Insulin Glargine,Hum.rec.anlog [Basaglar Kwikpen U-100] 36 unit SQ HS 12/31/17 Insulin Lispro Protamin/Lispro [Humalog Mix 75-25 Kwikpen] 0 unit SQ TID Gabapentin 300 mg PO BID 05/12/18 Lisinopril/Hydrochlorothiazide [Lisinopril-Hctz 10-12.5 mg Tab] 1 each PO DAILY 03/20/19 This patient is new to me today: No Emergency Visit: No Critical Care patient: No - Discharge Referral [facility]erred to [facility] No
== END 2019-03-22 10:20 | disposition home or self-care (01) | DRG 344 ==
LOC: JER 10:16 → JERBED 13:42 → J6S 15:38
PROVIDERS: ADMIT Internal Medicine; ATTEND Internal Medicine
DX: E11.69 Type 2 diabetes mellitus with other specified complication (principal); L97.521 Non-pressure chronic ulcer of other part of left foot limited to breakdown of skin; I10 Essential (primary) hypertension; R00.0 Tachycardia, unspecified; L03.115 Cellulitis of right lower limb; E11.65 Type 2 diabetes mellitus with hyperglycemia; M86.9 Osteomyelitis, unspecified; E11.621 Type 2 diabetes mellitus with foot ulcer; E78.5 Hyperlipidemia, unspecified
CPT/HCPCS: 36415; 73630-TC-LT; 73718-TC-LT; 80048; 80053; 82009; 82803; 82962; 85025; 85027; 85651; 86140; 87040; 87070; 87186; 87205; 90732; 93005; 93010; 97116-GP; 97161-GP; 99284-25; G0009; J0131; J1644; J7030

== ENCOUNTER 2020-08-09 16:08 | Inpatient (IN) | payer OTHER ==
[2020-08-09] MEDS ORDERED: SODIUM CHLORIDE 3,130 ML IV ONE (16:54)
[2020-08-09] MEDS ORDERED: ACETAMINOPHEN 325 MG TABLET (FP) PO ONE (16:55)
[2020-08-09] MEDS ORDERED: ACETAMINOPHEN 325 MG TABLET (FP) ONE (20:36)
[2020-08-09 20:54] LABS: BASO % 1.1 % (0-2.0); EOS % 1.4 % (0-4.5); HEMATOCRIT 30.7 % (35.4-49); HEMOGLOBIN 10.3 GM/dL (11.7-16.9); LYMPH % 10.3 % (8-40); MCH 27.9 pg (25.7-33.7); MCHC 33.8 g/dl (32.0-35.9); MEAN CELL VOLUME 82.6 fl (80-96); MEAN PLT VOLUME 7.9 fl (7.5-11.1); MONO % 7.7 % (3.8-10.2); NEUT % 79.5 % (42.8-82.8); PLATELET COUNT 262 K/MM3 (134-434); RBC 3.71 M/mm3 (4.00-5.60); RDW 13.2 % (11.9-15.9); WHITE BLOOD COUNT 9.5 K/mm3 (4.0-10.0)
[2020-08-09] MEDS ORDERED: VANCOMYCIN 1,000 MG in DEXTROSE 5%-WATER - 250 ML IVPB ONE (20:57)
[2020-08-09 20:59] LABS: INR 1.15 (0.83-1.09); PROTHROMBIN TIME (PATIENT) 13.9 SEC (9.7-13.0)
[2020-08-09 21:02] LABS: ACTIVATED PTT 30.8 SECONDS (25.2-36.5)
[2020-08-09] MEDS ORDERED: CEFEPIME HCL/D5W 1 GM/50 ML BAG IVPB ONE (21:02)
[2020-08-09] MEDS ORDERED: AZTREONAM 1 GM in DEXTROSE 5%-WATER - 50 ML IVPB ONE (21:05)
[2020-08-09 21:15] LABS: CHLORIDE 97 mmol/L (98-107); POTASSIUM 4.6 mmol/L (3.5-5.1); SODIUM 131 mmol/L (136-145)
[2020-08-09 21:17] LABS: ALBUMIN 2.4 g/dl (3.4-5.0); ANION GAP 7 MMOL/L (8-16); CALCIUM 8.1 mg/dL (8.5-10.1); CO2 27 mmol/L (21-32); GLUCOSE,RANDOM 386 mg/dL (74-106)
[2020-08-09 21:18] LABS: BLOOD UREA NITROGEN 32.9 mg/dL (7-18)
[2020-08-09 21:21] LABS: SGOT/AST 14 U/L (15-37); SGPT/ALT 20 U/L (13-61)
[2020-08-09 21:22] LABS: BILIRUBIN,TOTAL 0.3 mg/dL (0.2-1); TOT PROT 6.5 g/dl (6.4-8.2)
[2020-08-09] MEDS ORDERED: VANCOMYCIN 1 GRAM (PRE-DOCKED) 1,000 MG/250 ML BAG IVPB ONE (21:23)
[2020-08-09 21:24] LABS: ALK PHOS 100 U/L (45-117)
[2020-08-09] MEDS ORDERED: AZTREONAM 1 GM VIAL (RESTRICTED TO ID) ONE (21:24)
[2020-08-10 00:59] LABS: EPI CELLS 23 /uL (0-25.1); HYALINE CASTS 3 /uL (0-3.1); URINE APPEARANCE CLEAR; URINE BACTERIA 38 /uL (0-1359); URINE BILIRUBIN NEGATIVE (NEGATIVE); URINE COLOR YELLOW; URINE GLUCOSE (UA) 3+ (NEGATIVE); URINE KETONE NEGATIVE (NEGATIVE); URINE LEUK ESTERASE NEGATIVE (NEGATIVE); URINE NITRITE NEGATIVE (NEGATIVE); URINE PROTEIN 3+ (NEGATIVE); URINE RBC 41 /uL (0-23.9); URINE UROBILINOGEN 0.2 mg/dL (0.2-1.0); URINE WBC 8 /uL (0-25.8)
[2020-08-10] MEDS: AZTREONAM 2 GM in DEXTROSE 5%-WATER 100 ML IVPB SCH ×2 (04:04→13:42)
[2020-08-10] MEDS ORDERED: AZTREONAM 1 GM in DEXTROSE 5%-WATER - 50 ML IVPB SCH (05:00)
[2020-08-10] MEDS: SODIUM CHLORIDE 1,000 ML IV SCH ×2 (06:03→16:31)
[2020-08-10] MEDS: HEPARIN NA (PORCINE) 5,000 UNITS/ML 1ML VIAL SQ SCH ×3 (06:30→21:48)
[2020-08-10 07:31] LABS: BASO % 0.7 % (0-2.0); EOS % 2.6 % (0-4.5); HEMOGLOBIN 9.1 GM/dL (11.7-16.9); LYMPH % 15.1 % (8-40); MCH 28.5 pg (25.7-33.7); MEAN CELL VOLUME 81.5 fl (80-96); MEAN PLT VOLUME 7.6 fl (7.5-11.1); NEUT % 71.6 % (42.8-82.8); PLATELET COUNT 217 K/MM3 (134-434); RDW 12.7 % (11.9-15.9); WHITE BLOOD COUNT 7.7 K/mm3 (4.0-10.0)
[2020-08-10 07:49] LABS: POTASSIUM 4.3 mmol/L (3.5-5.1)
[2020-08-10 07:55] LABS: CALCIUM 7.7 mg/dL (8.5-10.1)
[2020-08-10 07:56] LABS: ALBUMIN 1.9 g/dl (3.4-5.0); BLOOD UREA NITROGEN 33.6 mg/dL (7-18); MAGNESIUM 2.1 mg/dL (1.8-2.4)
[2020-08-10 07:59] LABS: CREATININE 1.9 mg/dL (0.55-1.3); PHOSPHOROUS 3.3 mg/dL (2.5-4.9)
[2020-08-10 08:00] LABS: BILIRUBIN,TOTAL 0.8 mg/dL (0.2-1)
[2020-08-10] MEDS ORDERED: VANCOMYCIN 1 GRAM (PRE-DOCKED) 1,000 MG/250 ML BAG IVPB SCH (08:00)
[2020-08-10 08:01] LABS: TOT PROT 5.5 g/dl (6.4-8.2)
[2020-08-10] MEDS ORDERED: VANCOMYCIN 1 GRAM (PRE-DOCKED) 1,000 MG/250 ML BAG IVPB ONE (08:37)
[2020-08-10] MEDS: INSULIN SLIDING SCALE (NOVOLOG) 1 VIAL SQ SCH ×4 (08:45→21:48)
[2020-08-10] MEDS ORDERED: VANCOMYCIN 1 GM in D5W (PRE-DOCKED) 1,000 MG/250 ML IVPB SCH (10:00)
[2020-08-10] MEDS: ACETAMINOPHEN 325 MG TABLET (FP) PO PRN ×2 (16:02→22:09)
[2020-08-10] MEDS ORDERED: INSULIN (NOVOLOG) ASPART 100 UNITS/ML 10ML VIAL ONE ×2 (17:02→21:40)
[2020-08-10 17:59] VITALS: BMI 34.7
[2020-08-10] MEDS ORDERED: CEFEPIME HCL 1 GM VIAL (RESTRICTED TO ID) ONE (21:01)
[2020-08-10] MEDS ORDERED: DEXTROSE 5%-WATER 100 ML IVPB ONE (21:01)
[2020-08-10] MEDS: CEFEPIME 1 GM in DEXTROSE 5%-WATER 1 GM/100 ML BAG IVPB SCH (21:07)
[2020-08-10] MEDS ORDERED: ACETAMINOPHEN 325 MG TABLET (FP) PO ONE (22:30)
[2020-08-10] MEDS ORDERED: oxyCODONE HCL 5 MG TABLET PO ONE (22:30)
[2020-08-11] MEDS: HEPARIN NA (PORCINE) 5,000 UNITS/ML 1ML VIAL SQ SCH ×3 (06:38→22:45)
[2020-08-11] MEDS: INSULIN SLIDING SCALE (NOVOLOG) 1 VIAL SQ SCH ×4 (06:38→22:44)
[2020-08-11] MEDS: SODIUM CHLORIDE 1,000 ML IV SCH (06:44)
[2020-08-11] MEDS ORDERED: oxyCODONE HCL 5 MG TABLET PO ONE (06:50)
[2020-08-11] MEDS ORDERED: LISINOPRIL 10 MG TABLET PO ONE (06:51)
[2020-08-11] MEDS ORDERED: amLODIPine BESYLATE 10 MG TABLET (FP) PO ONE (07:59)
[2020-08-11 09:07] LABS: BASO % 0.7 % (0-2.0); EOS % 3.2 % (0-4.5); HEMATOCRIT 28.1 % (35.4-49); HEMOGLOBIN 9.7 GM/dL (11.7-16.9); LYMPH % 10.7 % (8-40); MCH 28.1 pg (25.7-33.7); MCHC 34.5 g/dl (32.0-35.9); MEAN CELL VOLUME 81.4 fl (80-96); MEAN PLT VOLUME 7.1 fl (7.5-11.1); MONO % 8.6 % (3.8-10.2); NEUT % 76.8 % (42.8-82.8); PLATELET COUNT 242 K/MM3 (134-434); RBC 3.46 M/mm3 (4.00-5.60); RDW 12.6 % (11.9-15.9); WHITE BLOOD COUNT 6.7 K/mm3 (4.0-10.0)
[2020-08-11 09:26] LABS: POTASSIUM 4.7 mmol/L (3.5-5.1)
[2020-08-11 09:32] LABS: BLOOD UREA NITROGEN 33.4 mg/dL (7-18); CALCIUM 8.1 mg/dL (8.5-10.1)
[2020-08-11 09:35] LABS: CREATININE 1.7 mg/dL (0.55-1.3)
[2020-08-11] MEDS ORDERED: DEXTROSE 5%-WATER 100 ML IVPB ONE ×2 (10:37→22:04)
[2020-08-11] MEDS ORDERED: CEFEPIME HCL 1 GM VIAL (RESTRICTED TO ID) ONE ×2 (10:37→22:04)
[2020-08-11] MEDS: CEFEPIME 1 GM in DEXTROSE 5%-WATER 1 GM/100 ML BAG IVPB SCH ×2 (10:55→22:40)
[2020-08-11] MEDS ORDERED: AMMONIUM LACTATE 12% LOTION 225 GM BOTTLE TP PRN (12:12)
[2020-08-11] MEDS ORDERED: VANCOMYCIN 1 GM in D5W (PRE-DOCKED) 1,000 MG/250 ML IVPB ONE (13:25)
[2020-08-11] MEDS ORDERED: INSULIN (LEVEMIR) 100 UNITS/ML UNITS SQ ONE ×2 (15:34→23:27)
[2020-08-11] MEDS ORDERED: DOCUSATE SODIUM 100 MG CAPSULE (FP) PO PRN (17:22)
[2020-08-11] MEDS ORDERED: oxyCODONE HCL 5 MG TABLET PO PRN (17:22)
[2020-08-11] MEDS ORDERED: LIDOCAINE 5% TOPICAL PATCH TP ONE (17:30)
[2020-08-11] MEDS: ACETAMINOPHEN 325 MG TABLET (FP) PO PRN (18:28)
[2020-08-11] MEDS: COLLAGENASE CLOSTRIDIUM HIST. 30 GRAMS TUBE TP SCH (19:45)
[2020-08-11] MEDS ORDERED: ONDANSETRON 4 MG/2 ML VIAL IVPUSH ONE (21:03)
[2020-08-11] MEDS ORDERED: ACETAMINOPHEN 1000 MG/100 ML VIAL (NON FORMULARY) IVPB ONE (21:26)
[2020-08-11] MEDS ORDERED: INSULIN (LEVEMIR) 100 UNITS/ML UNITS SQ SCH (22:00)
[2020-08-11] MEDS: ATORVASTATIN CA 20 MG TABLET (FP) PO SCH (22:41)
[2020-08-11] MEDS: INSULIN (LEVEMIR) 100 UNITS/ML UNITS SQ SCH (22:41)
[2020-08-11] MEDS: GABAPENTIN 300 MG CAPSULE PO SCH (22:41)
[2020-08-12] MEDS: INSULIN (LEVEMIR) 100 UNITS/ML UNITS SQ SCH ×2 (00:41→21:24)
[2020-08-12] MEDS ORDERED: ONDANSETRON 4 MG TABLET PO ONE (03:15)
[2020-08-12] MEDS ORDERED: morphine CARPU-JECT 2 MG/1 ML DISP.SYRIN IVPUSH ONE (05:03)
[2020-08-12] MEDS ORDERED: MORPHINE SULFATE 2 MG/ML VIAL IVPUSH ONE ×2 (05:07→21:41)
[2020-08-12] MEDS ORDERED: PANTOPRAZOLE 40 MG TABLET PO ONE (05:15)
[2020-08-12] MEDS ORDERED: LIDOCAINE PATCH REMOVAL MC SCH (05:30)
[2020-08-12] MEDS: SODIUM CHLORIDE 1,000 ML IV SCH ×3 (05:49→19:41)
[2020-08-12] MEDS: HEPARIN NA (PORCINE) 5,000 UNITS/ML 1ML VIAL SQ SCH ×3 (06:32→21:24)
[2020-08-12] MEDS: INSULIN SLIDING SCALE (NOVOLOG) 1 VIAL SQ SCH ×4 (06:36→21:58)
[2020-08-12] MEDS ORDERED: INSULIN (LEVEMIR) 100 UNITS/ML UNITS SQ SCH (07:00)
[2020-08-12 09:34] LABS: BASO % 0.4 % (0-2.0); EOS % 3.2 % (0-4.5); HEMATOCRIT 27.9 % (35.4-49); HEMOGLOBIN 9.6 GM/dL (11.7-16.9); LYMPH % 11.4 % (8-40); MCH 27.9 pg (25.7-33.7); MCHC 34.4 g/dl (32.0-35.9); MEAN CELL VOLUME 81.3 fl (80-96); MEAN PLT VOLUME 7.6 fl (7.5-11.1); MONO % 6.1 % (3.8-10.2); NEUT % 78.9 % (42.8-82.8); PLATELET COUNT 279 K/MM3 (134-434); RBC 3.43 M/mm3 (4.00-5.60); RDW 12.7 % (11.9-15.9); WHITE BLOOD COUNT 6.6 K/mm3 (4.0-10.0)
[2020-08-12 09:48] LABS: POTASSIUM 4.6 mmol/L (3.5-5.1)
[2020-08-12] MEDS ORDERED: CEFTRIAXONE 1,000 MG in DEXTROSE 5%-WATER - 50 ML IVPB SCH (10:00)
[2020-08-12 10:02] LABS: CALCIUM 8.1 mg/dL (8.5-10.1)
[2020-08-12 10:03] LABS: BLOOD UREA NITROGEN 34.3 mg/dL (7-18)
[2020-08-12 10:07] LABS: BILIRUBIN,TOTAL 0.3 mg/dL (0.2-1)
[2020-08-12 10:09] LABS: MAGNESIUM 2.3 mg/dL (1.8-2.4)
[2020-08-12 10:12] LABS: CREATININE 1.7 mg/dL (0.55-1.3)
[2020-08-12 10:13] LABS: TOT PROT 6.3 g/dl (6.4-8.2)
[2020-08-12] MEDS ORDERED: CEFEPIME HCL 1 GM VIAL (RESTRICTED TO ID) ONE ×2 (10:30→21:21)
[2020-08-12] MEDS ORDERED: DEXTROSE 5%-WATER 100 ML IVPB ONE ×2 (10:30→21:21)
[2020-08-12] MEDS: ACETAMINOPHEN 325 MG TABLET (FP) PO PRN (11:29)
[2020-08-12] MEDS: CEFEPIME 1 GM in DEXTROSE 5%-WATER 1 GM/100 ML BAG IVPB SCH ×2 (11:30→21:24)
[2020-08-12] MEDS: FAMOTIDINE 20 MG TABLET PO SCH ×2 (11:32→21:25)
[2020-08-12] MEDS: GABAPENTIN 300 MG CAPSULE PO SCH ×2 (11:32→21:24)
[2020-08-12] MEDS: amLODIPine BESYLATE 10 MG TABLET (FP) PO SCH (11:33)
[2020-08-12] MEDS: COLLAGENASE CLOSTRIDIUM HIST. 30 GRAMS TUBE TP SCH (11:33)
[2020-08-12] MEDS ORDERED: VANCOMYCIN 1 GM in D5W (PRE-DOCKED) 1,000 MG/250 ML IVPB ONE (13:25)
[2020-08-12] MEDS ORDERED: VANCOMYCIN 1 GRAM (PRE-DOCKED) 1,000 MG/250 ML BAG IVPB SCH (16:00)
[2020-08-12] MEDS: VANCOMYCIN 1 GRAM (PRE-DOCKED) 1,000 MG/250 ML BAG IVPB SCH (17:36)
[2020-08-12] MEDS: ATORVASTATIN CA 20 MG TABLET (FP) PO SCH (21:24)
[2020-08-12] MEDS ORDERED: hydrALAZINE HCL 10 MG TABLET PO SCH (22:00)
[2020-08-13] MEDS: SODIUM CHLORIDE 1,000 ML IV SCH ×2 (02:19→13:55)
[2020-08-13] MEDS: VANCOMYCIN 1 GRAM (PRE-DOCKED) 1,000 MG/250 ML BAG IVPB SCH (05:40)
[2020-08-13] MEDS ORDERED: ONDANSETRON 4 MG/2 ML VIAL IVPUSH PRN (05:53)
[2020-08-13] MEDS: HEPARIN NA (PORCINE) 5,000 UNITS/ML 1ML VIAL SQ SCH ×3 (06:25→22:30)
[2020-08-13] MEDS: morphine SULFATE 4 MG/ML VIAL IVPUSH PRN (06:26)
[2020-08-13] MEDS: INSULIN (LEVEMIR) 100 UNITS/ML UNITS SQ SCH ×2 (06:27→22:30)
[2020-08-13] MEDS: INSULIN SLIDING SCALE (NOVOLOG) 1 VIAL SQ SCH ×4 (06:28→22:55)
[2020-08-13] MEDS ORDERED: CEFEPIME HCL 1 GM VIAL (RESTRICTED TO ID) ONE (09:10)
[2020-08-13] MEDS ORDERED: PT OWN MED DRAWER 7, Y5N ONE (09:10)
[2020-08-13] MEDS ORDERED: DEXTROSE 5%-WATER 100 ML IVPB ONE (09:10)
[2020-08-13] MEDS ORDERED: MAGNESIUM CITRATE 300 ML BOTTLE PO PRN (09:34)
[2020-08-13 10:12] LABS: BASO % 0.9 % (0-2.0); EOS % 4.1 % (0-4.5); HEMATOCRIT 28.1 % (35.4-49); HEMOGLOBIN 9.8 GM/dL (11.7-16.9); MCH 28.2 pg (25.7-33.7); MEAN CELL VOLUME 80.5 fl (80-96); MEAN PLT VOLUME 7.5 fl (7.5-11.1); MONO % 9.2 % (3.8-10.2); NEUT % 68.8 % (42.8-82.8); PLATELET COUNT 307 K/MM3 (134-434); RBC 3.49 M/mm3 (4.00-5.60); RDW 12.7 % (11.9-15.9); WHITE BLOOD COUNT 5.6 K/mm3 (4.0-10.0)
[2020-08-13] MEDS: CEFEPIME 1 GM in DEXTROSE 5%-WATER 1 GM/100 ML BAG IVPB SCH (10:15)
[2020-08-13] MEDS: GABAPENTIN 300 MG CAPSULE PO SCH ×3 (10:17→22:29)
[2020-08-13] MEDS: POLYETHYLENE GLYCOL 3350 119 GM BTL PO SCH (10:17)
[2020-08-13] MEDS: FAMOTIDINE 20 MG TABLET PO SCH ×3 (10:18→22:29)
[2020-08-13] MEDS: amLODIPine BESYLATE 10 MG TABLET (FP) PO SCH ×2 (10:18→13:57)
[2020-08-13 10:31] LABS: POTASSIUM 4.4 mmol/L (3.5-5.1)
[2020-08-13 10:46] LABS: ALBUMIN 1.9 g/dl (3.4-5.0); BLOOD UREA NITROGEN 30.7 mg/dL (7-18); CALCIUM 7.8 mg/dL (8.5-10.1)
[2020-08-13 10:47] LABS: CREATININE 1.6 mg/dL (0.55-1.3)
[2020-08-13 10:48] LABS: TOT PROT 6.1 g/dl (6.4-8.2)
[2020-08-13 10:55] LABS: BILIRUBIN,TOTAL 0.2 mg/dL (0.2-1)
[2020-08-13] MEDS ORDERED: MINERAL OIL ENEMA 133 ML ENEMA RC ONE (13:06)
[2020-08-13] MEDS: COLLAGENASE CLOSTRIDIUM HIST. 30 GRAMS TUBE TP SCH (15:19)
[2020-08-13] MEDS: ATORVASTATIN CA 20 MG TABLET (FP) PO SCH (22:29)
[2020-08-14] MEDS: LABETALOL HCL 100 MG TABLET (FP) PO SCH ×3 (00:05→22:33)
[2020-08-14] MEDS ORDERED: PT OWN MED DRAWER 7, Y5N ONE (06:34)
[2020-08-14] MEDS: HEPARIN NA (PORCINE) 5,000 UNITS/ML 1ML VIAL SQ SCH ×3 (06:35→22:33)
[2020-08-14] MEDS: INSULIN (LEVEMIR) 100 UNITS/ML UNITS SQ SCH ×2 (06:35→22:36)
[2020-08-14] MEDS: INSULIN SLIDING SCALE (NOVOLOG) 1 VIAL SQ SCH ×4 (06:42→22:34)
[2020-08-14] MEDS: ACETAMINOPHEN 325 MG TABLET (FP) PO PRN (08:18)
[2020-08-14 08:33] LABS: BASO % 0.7 % (0-2.0); EOS % 2.7 % (0-4.5); HEMATOCRIT 28.6 % (35.4-49); HEMOGLOBIN 9.9 GM/dL (11.7-16.9); LYMPH % 17.1 % (8-40); MCH 27.9 pg (25.7-33.7); MCHC 34.7 g/dl (32.0-35.9); MEAN CELL VOLUME 80.3 fl (80-96); MEAN PLT VOLUME 7.2 fl (7.5-11.1); MONO % 8.9 % (3.8-10.2); NEUT % 70.6 % (42.8-82.8); PLATELET COUNT 326 K/MM3 (134-434); RBC 3.56 M/mm3 (4.00-5.60); RDW 13.2 % (11.9-15.9); WHITE BLOOD COUNT 6.2 K/mm3 (4.0-10.0)
[2020-08-14 08:54] LABS: POTASSIUM 4.4 mmol/L (3.5-5.1)
[2020-08-14 09:08] LABS: CALCIUM 8.2 mg/dL (8.5-10.1)
[2020-08-14 09:09] LABS: ALBUMIN 1.9 g/dl (3.4-5.0); BLOOD UREA NITROGEN 25.2 mg/dL (7-18); MAGNESIUM 2.3 mg/dL (1.8-2.4)
[2020-08-14 09:10] LABS: CREATININE 1.5 mg/dL (0.55-1.3)
[2020-08-14 09:12] LABS: BILIRUBIN,TOTAL 0.8 mg/dL (0.2-1); TOT PROT 5.9 g/dl (6.4-8.2)
[2020-08-14] MEDS: amLODIPine BESYLATE 10 MG TABLET (FP) PO SCH ×2 (11:19→17:32)
[2020-08-14] MEDS: GABAPENTIN 300 MG CAPSULE PO SCH ×2 (11:19→22:33)
[2020-08-14] MEDS: LISINOPRIL 10 MG TABLET PO SCH (11:20)
[2020-08-14] MEDS: FAMOTIDINE 20 MG TABLET PO SCH ×2 (11:20→22:33)
[2020-08-14] MEDS: COLLAGENASE CLOSTRIDIUM HIST. 30 GRAMS TUBE TP SCH (11:22)
[2020-08-14] MEDS: POLYETHYLENE GLYCOL 3350 119 GM BTL PO SCH (11:32)
[2020-08-14] MEDS: VANCOMYCIN 1 GM in D5W (PRE-DOCKED) 1,000 MG/250 ML IVPB SCH (14:34)
[2020-08-14] MEDS: SODIUM CHLORIDE 1,000 ML IV SCH (17:32)
[2020-08-14] MEDS: ATORVASTATIN CA 20 MG TABLET (FP) PO SCH (22:33)
[2020-08-15] MEDS: morphine SULFATE 4 MG/ML VIAL IVPUSH PRN (02:53)
[2020-08-15] MEDS: SODIUM CHLORIDE 1,000 ML IV SCH ×2 (04:20→15:00)
[2020-08-15] MEDS: HEPARIN NA (PORCINE) 5,000 UNITS/ML 1ML VIAL SQ SCH ×3 (06:00→22:51)
[2020-08-15] MEDS: INSULIN SLIDING SCALE (NOVOLOG) 1 VIAL SQ SCH ×4 (06:01→21:07)
[2020-08-15] MEDS: INSULIN (LEVEMIR) 100 UNITS/ML UNITS SQ SCH ×2 (06:01→21:08)
[2020-08-15 09:27] LABS: BASO % 0.9 % (0-2.0); EOS % 3.1 % (0-4.5); HEMATOCRIT 25.9 % (35.4-49); HEMOGLOBIN 9.1 GM/dL (11.7-16.9); LYMPH % 17.4 % (8-40); MCH 28.4 pg (25.7-33.7); MEAN PLT VOLUME 7.2 fl (7.5-11.1); MONO % 8.6 % (3.8-10.2); PLATELET COUNT 335 K/MM3 (134-434); RDW 12.6 % (11.9-15.9); WHITE BLOOD COUNT 6.8 K/mm3 (4.0-10.0)
[2020-08-15 09:28] LABS: INR 1.03 (0.83-1.09); PROTHROMBIN TIME (PATIENT) 12.5 SEC (9.7-13.0)
[2020-08-15 09:29] LABS: POTASSIUM 4.7 mmol/L (3.5-5.1)
[2020-08-15 09:32] LABS: MAGNESIUM 2.5 mg/dL (1.8-2.4)
[2020-08-15 09:35] LABS: ALBUMIN 1.9 g/dl (3.4-5.0); BLOOD UREA NITROGEN 24.6 mg/dL (7-18)
[2020-08-15 09:36] LABS: CREATININE 1.7 mg/dL (0.55-1.3)
[2020-08-15 09:37] LABS: BILIRUBIN,TOTAL 0.8 mg/dL (0.2-1)
[2020-08-15] MEDS: LISINOPRIL 10 MG TABLET PO SCH ×2 (10:59→11:23)
[2020-08-15] MEDS: GABAPENTIN 300 MG CAPSULE PO SCH ×2 (10:59→21:06)
[2020-08-15] MEDS: amLODIPine BESYLATE 10 MG TABLET (FP) PO SCH ×2 (10:59→17:54)
[2020-08-15] MEDS: LABETALOL HCL 100 MG TABLET (FP) PO SCH ×2 (11:00→21:06)
[2020-08-15] MEDS: POLYETHYLENE GLYCOL 3350 119 GM BTL PO SCH (11:00)
[2020-08-15] MEDS: VANCOMYCIN 1 GM in D5W (PRE-DOCKED) 1,000 MG/250 ML IVPB SCH (11:01)
[2020-08-15] MEDS: ACETAMINOPHEN 325 MG TABLET (FP) PO PRN (11:03)
[2020-08-15] MEDS: FAMOTIDINE 20 MG TABLET PO SCH ×2 (11:04→21:06)
[2020-08-15] MEDS: COLLAGENASE CLOSTRIDIUM HIST. 30 GRAMS TUBE TP SCH (11:05)
[2020-08-15] MEDS: ATORVASTATIN CA 20 MG TABLET (FP) PO SCH (21:02)
[2020-08-16] MEDS: INSULIN (LEVEMIR) 100 UNITS/ML UNITS SQ SCH (06:13)
[2020-08-16] MEDS: INSULIN SLIDING SCALE (NOVOLOG) 1 VIAL SQ SCH ×3 (06:17→17:13)
[2020-08-16] MEDS ORDERED: MIDAZOLAM HCL 2 MG/2 ML SINGLE DOSE VIAL ONE (07:40)
[2020-08-16] MEDS ORDERED: PROPOFOL 20 ML ONE (07:40)
[2020-08-16] MEDS ORDERED: SODIUM CHLORIDE 0.9% P/F 10 ML VIAL IJ ONE (07:53)
[2020-08-16] MEDS ORDERED: LIDOCAINE HCL 1%, 10 MG/ML (20ML VIAL) INF ONE (08:27)
[2020-08-16] MEDS ORDERED: BUPIVACAINE HCL/PF 0.5% (5 MG/ML) 30 ML VIAL IJ ONE (08:27)
[2020-08-16] MEDS ORDERED: METOPROLOL TARTRATE 5 MG/5 ML VIAL ONE (08:45)
[2020-08-16] MEDS ORDERED: VANCOMYCIN 1,000 MG VIAL (RESTRICTED TO ID ONLY) ONE (09:19)
[2020-08-16] MEDS ORDERED: ONDANSETRON 4 MG/2 ML VIAL IVPUSH PRN ×2 (10:01→10:03)
[2020-08-16] MEDS ORDERED: AMMONIUM LACTATE 12% LOTION 225 GM BOTTLE TP PRN (10:01)
[2020-08-16] MEDS ORDERED: ACETAMINOPHEN 325 MG TABLET (FP) PO PRN (10:01)
[2020-08-16] MEDS ORDERED: SODIUM CHLORIDE 1,000 ML IV SCH (10:01)
[2020-08-16] MEDS ORDERED: MAGNESIUM CITRATE 300 ML BOTTLE PO PRN (10:01)
[2020-08-16] MEDS ORDERED: DOCUSATE SODIUM 100 MG CAPSULE (FP) PO PRN (10:01)
[2020-08-16 10:58] LABS: BASO % 0.8 % (0-2.0); EOS % 2.6 % (0-4.5); HEMATOCRIT 26.4 % (35.4-49); HEMOGLOBIN 9.1 GM/dL (11.7-16.9); LYMPH % 11.9 % (8-40); MCH 28.4 pg (25.7-33.7); MCHC 34.5 g/dl (32.0-35.9); MEAN CELL VOLUME 82.5 fl (80-96); MONO % 7.2 % (3.8-10.2); NEUT % 77.5 % (42.8-82.8); PLATELET COUNT 322 K/MM3 (134-434); RDW 13.1 % (11.9-15.9)
[2020-08-16] MEDS ORDERED: Insulin (LOG) Aspart 100 UNITS/ML VIAL SQ SCH (11:00)
[2020-08-16 11:07] LABS: INR 1.04 (0.83-1.09); PROTHROMBIN TIME (PATIENT) 12.8 SEC (9.7-13.0)
[2020-08-16 11:09] LABS: ACTIVATED PTT 31.2 SECONDS (25.2-36.5)
[2020-08-16 11:13] LABS: POTASSIUM 4.7 mmol/L (3.5-5.1)
[2020-08-16 11:14] LABS: CALCIUM 8.2 mg/dL (8.5-10.1)
[2020-08-16 11:16] LABS: ALBUMIN 2.1 g/dl (3.4-5.0); BLOOD UREA NITROGEN 27.4 mg/dL (7-18); MAGNESIUM 2.4 mg/dL (1.8-2.4)
[2020-08-16 11:19] LABS: BILIRUBIN,TOTAL 0.3 mg/dL (0.2-1); CREATININE 1.7 mg/dL (0.55-1.3); PHOSPHOROUS 3.3 mg/dL (2.5-4.9)
[2020-08-16 11:21] LABS: TOT PROT 6.1 g/dl (6.4-8.2)
[2020-08-16] MEDS: POLYETHYLENE GLYCOL 3350 119 GM BTL PO SCH (11:26)
[2020-08-16] MEDS: COLLAGENASE CLOSTRIDIUM HIST. 30 GRAMS TUBE TP SCH (11:27)
[2020-08-16] MEDS ORDERED: GABAPENTIN 300 MG CAPSULE PO SCH ×2 (11:34→22:00)
[2020-08-16] MEDS ORDERED: LABETALOL HCL 100 MG TABLET (FP) PO SCH ×2 (11:34→22:00)
[2020-08-16] MEDS ORDERED: VANCOMYCIN 1 GM in D5W (PRE-DOCKED) 1,000 MG/250 ML IVPB SCH ×2 (11:34→13:00)
[2020-08-16] MEDS: VANCOMYCIN 1 GM in D5W (PRE-DOCKED) 1,000 MG/250 ML IVPB SCH (11:40)
[2020-08-16] MEDS: FAMOTIDINE 20 MG TABLET PO SCH (11:40)
[2020-08-16] MEDS: GABAPENTIN 300 MG CAPSULE PO SCH ×2 (11:41→12:30)
[2020-08-16] MEDS: amLODIPine BESYLATE 10 MG TABLET (FP) PO SCH (11:41)
[2020-08-16] MEDS: LABETALOL HCL 100 MG TABLET (FP) PO SCH ×2 (11:41→12:30)
[2020-08-16] MEDS: SUCRALFATE 1 GM TABLET (FP) PO SCH ×2 (12:15→17:10)
[2020-08-16] MEDS ORDERED: INSULIN (NOVOLOG) ASPART 100 UNITS/ML 10ML VIAL SQ SCH (16:30)
[2020-08-16] MEDS ORDERED: ACETAMINOPHEN 1000 MG/100 ML VIAL (NON FORMULARY) IVPB ONE (16:47)
[2020-08-16 21:29] VITALS: BP 136/69; PULSE 100; TEMP 97.6
[2020-08-16] MEDS ORDERED: FAMOTIDINE 20 MG TABLET PO SCH (22:00)
[2020-08-16] MEDS ORDERED: INSULIN (LEVEMIR) 100 UNITS/ML UNITS SQ SCH (22:00)
[2020-08-16] MEDS ORDERED: ATORVASTATIN CA 20 MG TABLET (FP) PO SCH (22:00)
[2020-08-17] MEDS: GABAPENTIN 300 MG CAPSULE PO SCH (00:13)
[2020-08-17] MEDS: LABETALOL HCL 100 MG TABLET (FP) PO SCH (00:13)
[2020-08-17] MEDS: INSULIN SLIDING SCALE (NOVOLOG) 1 VIAL SQ SCH (00:14)
[2020-08-17] MEDS: VANCOMYCIN 1 GM in D5W (PRE-DOCKED) 1,000 MG/250 ML IVPB ONE ×2 (00:24→01:26)
[2020-08-17] MEDS ORDERED: VANCOMYCIN 1 GM in D5W (PRE-DOCKED) 1,000 MG/250 ML IVPB SCH (10:00)
[2020-08-17] MEDS ORDERED: amLODIPine BESYLATE 10 MG TABLET (FP) PO SCH (10:00)
[2020-08-17] MEDS ORDERED: POLYETHYLENE GLYCOL 3350 119 GM BTL PO SCH (10:00)
== END 2020-08-17 03:33 | disposition left against medical advice (07) | DRG 710 ==
LOC: JER 16:08 → JERBED 08-10 00:23 → J5S 08-10 15:27 → J6S 08-16 21:42
PROVIDERS: ADMIT Hospitalist; ATTEND Internal Medicine
PROC: 0Y6N0Z6 Detachment at Left Foot, Complete 3rd Ray, Open Approach (ICD-10-PCS; principal; 2020-08-16 08:00)
DX: A41.02 Sepsis due to Methicillin resistant Staphylococcus aureus (principal); L03.116 Cellulitis of left lower limb; E11.40 Type 2 diabetes mellitus with diabetic neuropathy, unspecified; N17.9 Acute kidney failure, unspecified; I10 Essential (primary) hypertension; E78.5 Hyperlipidemia, unspecified; E11.65 Type 2 diabetes mellitus with hyperglycemia; K59.00 Constipation, unspecified; R00.0 Tachycardia, unspecified; E11.621 Type 2 diabetes mellitus with foot ulcer; L97.529 Non-pressure chronic ulcer of other part of left foot with unspecified severity; K21.9 Gastro-esophageal reflux disease without esophagitis; E66.9 Obesity, unspecified; Z68.34 Body mass index [BMI] 34.0-34.9, adult
CPT/HCPCS: 36415; 71045-TC-FY; 73630-TC-LT; 73718-TC-LT; 76775-TC; 80048; 80053; 81003; 82565; 82962; 83036; 83605; 83735; 84100; 84300; 84460; 84484; 85025; 85610; 85651; 85730; 86140; 86803; 86850; 86900; 86901; 87040; 87070; 87075; 87186; 87205; 87340; 88305-TC; 88307-TC; 88311-TC; 93005; 93010; 94760; 99285-25; C9803; G0480; J0131; J1644; U0003

== ENCOUNTER 2020-08-19 15:39 | Emergency (ER) | payer OTHER ==
[2020-08-19 15:52] VITALS: BP 170/99; PULSE 100; TEMP 97.9; BMI 31.6
[2020-08-19 16:58] LABS: BASO % 0.2 % (0-2.0); EOS % 4.1 % (0-4.5); HEMATOCRIT 28.7 % (35.4-49); HEMOGLOBIN 9.7 GM/dL (11.7-16.9); LYMPH % 15.3 % (8-40); MCH 27.8 pg (25.7-33.7); MCHC 33.8 g/dl (32.0-35.9); MEAN CELL VOLUME 82.2 fl (80-96); MEAN PLT VOLUME 7.1 fl (7.5-11.1); MONO % 7.8 % (3.8-10.2); NEUT % 72.6 % (42.8-82.8); PLATELET COUNT 429 K/MM3 (134-434); WHITE BLOOD COUNT 7.5 K/mm3 (4.0-10.0)
[2020-08-19 17:15] LABS: POTASSIUM 4.4 mmol/L (3.5-5.1)
[2020-08-19 17:18] LABS: ALBUMIN 2.3 g/dl (3.4-5.0); BLOOD UREA NITROGEN 26.7 mg/dL (7-18); CALCIUM 8.9 mg/dL (8.5-10.1)
[2020-08-19 17:21] LABS: CREATININE 1.5 mg/dL (0.55-1.3)
[2020-08-19 17:22] LABS: BILIRUBIN,TOTAL 0.2 mg/dL (0.2-1)
[2020-08-19] MEDS ORDERED: DALBAVANCIN HCL 1,500 MG in DEXTROSE 5%-WATER - 500 ML IVPB ONE (17:29)
[2020-08-19] MEDS ORDERED: DALBAVANCIN HCL 500 MG VIAL (RESTRICTED TO ID ONLY) IVPB ONE (17:47)
== END 2020-08-19 20:45 | disposition home or self-care (01) ==
LOC: JER 15:39
DX: L08.9 Local infection of the skin and subcutaneous tissue, unspecified (principal)
CPT/HCPCS: 36415; 80053; 83605; 85025; 99284-25; G0463-25; J0875

== ENCOUNTER 2020-08-26 16:23 | Emergency (ER) | payer OTHER ==
[2020-08-26 16:40] VITALS: BP 165/97; PULSE 104; TEMP 98.4; BMI 29.0
[2020-08-26] MEDS ORDERED: DALBAVANCIN HCL 1,500 MG in DEXTROSE 5%-WATER - 500 ML IVPB ONE (18:23)
[2020-08-26] MEDS ORDERED: DALBAVANCIN HCL 500 MG VIAL (RESTRICTED TO ID ONLY) IVPB ONE (18:52)
[2020-08-26 19:20] LABS: BASO % 1.2 % (0-2.0); EOS % 4.1 % (0-4.5); HEMATOCRIT 32.3 % (35.4-49); LYMPH % 28.7 % (8-40); MCH 27.6 pg (25.7-33.7); MEAN CELL VOLUME 81.3 fl (80-96); MEAN PLT VOLUME 7.2 fl (7.5-11.1); MONO % 8.4 % (3.8-10.2); NEUT % 57.6 % (42.8-82.8); PLATELET COUNT 352 K/MM3 (134-434); RBC 3.97 M/mm3 (4.00-5.60); RDW 13.6 % (11.9-15.9); WHITE BLOOD COUNT 5.9 K/mm3 (4.0-10.0)
[2020-08-26 19:50] LABS: POTASSIUM 4.3 mmol/L (3.5-5.1)
[2020-08-26 19:55] LABS: ALBUMIN 2.6 g/dl (3.4-5.0); BLOOD UREA NITROGEN 29.3 mg/dL (7-18); CALCIUM 8.6 mg/dL (8.5-10.1)
[2020-08-26 19:59] LABS: CREATININE 1.7 mg/dL (0.55-1.3)
[2020-08-26 20:00] LABS: BILIRUBIN,TOTAL 0.3 mg/dL (0.2-1); TOT PROT 7.3 g/dl (6.4-8.2)
== END 2020-08-26 22:20 | disposition left against medical advice (07) ==
LOC: JER 16:23
DX: L97.522 Non-pressure chronic ulcer of other part of left foot with fat layer exposed (principal); E11.621 Type 2 diabetes mellitus with foot ulcer; M86.172 Other acute osteomyelitis, left ankle and foot
CPT/HCPCS: 11042; 29581-LT; 29581-RT; 36415; 80053; 85025; 99284-25; A6021; J0875

== ENCOUNTER 2021-01-26 10:56 | Emergency (ER) | payer OTHER ==
[2021-01-26 11:01] VITALS: BP 158/102; PULSE 107; TEMP 97.9; BMI 30.6
[2021-01-26] MEDS ORDERED: DALBAVANCIN HCL 1,000 MG in DEXTROSE 5%-WATER - 500 ML IVPB ONE (11:22)
[2021-01-26 12:02] LABS: BASO % 0.9 % (0-2.0); EOS % 1.4 % (0-4.5); HEMATOCRIT 36.7 % (35.4-49); HEMOGLOBIN 12.4 GM/dL (11.7-16.9); LYMPH % 20.6 % (8-40); MCHC 33.8 g/dl (32.0-35.9); MEAN PLT VOLUME 8.4 fl (7.5-11.1); MONO % 6.5 % (3.8-10.2); NEUT % 70.6 % (42.8-82.8); PLATELET COUNT 251 10^3/uL (134-434); RBC 4.41 M/mm3 (4.00-5.60); RDW 14.2 % (11.9-15.9); WHITE BLOOD COUNT 4.9 K/mm3 (4.0-10.0)
[2021-01-26 12:23] LABS: CHLORIDE 102 mmol/L (98-107); SODIUM 132 mmol/L (136-145)
[2021-01-26 12:25] LABS: ALBUMIN 2.5 g/dl (3.4-5.0); ANION GAP 4 MMOL/L (8-16); BLOOD UREA NITROGEN 24.7 mg/dL (7-18); CALCIUM 8.3 mg/dL (8.5-10.1); CO2 27 mmol/L (21-32)
[2021-01-26 12:28] LABS: SGOT/AST 38 U/L (15-37); SGPT/ALT 27 U/L (13-61)
[2021-01-26 12:29] LABS: CREATININE 1.9 mg/dL (0.55-1.3)
[2021-01-26 12:30] LABS: BILIRUBIN,TOTAL 0.7 mg/dL (0.2-1); TOT PROT 6.2 g/dl (6.4-8.2)
[2021-01-26 12:31] LABS: ALK PHOS 110 U/L (45-117); GLUCOSE,RANDOM 406 mg/dL (74-106)
[2021-01-26] MEDS ORDERED: SODIUM CHLORIDE 0.9% 500 ML INFUS.BAG IV ONE (12:34)
[2021-01-26] MEDS ORDERED: Insulin (LOG) Aspart 100 UNITS/ML VIAL SQ ONE (12:40)
[2021-01-26] MEDS ORDERED: DALBAVANCIN HCL 500 MG VIAL (RESTRICTED TO ID ONLY) IVPB ONE (12:51)
[2021-01-26 13:34] LABS: ERYTHROCYTE SEDIMENTATION RATE 88 mm/hr (0-10)
== END 2021-01-26 15:03 | disposition left against medical advice (07) ==
LOC: JER 10:56
DX: M86.172 Other acute osteomyelitis, left ankle and foot (principal)
CPT/HCPCS: 36415; 73630-TC-LT; 80053; 83036; 85025; 85651; 86140; 87070; 87205; 97597; 99284-25; J0875

== ENCOUNTER 2021-02-02 11:52 | Emergency (ER) | payer OTHER ==
[2021-02-02 11:58] VITALS: TEMP 98.3; BMI 37.6
[2021-02-02] MEDS ORDERED: DEXTROSE 5% IVPB ONE (12:01)
[2021-02-02] MEDS ORDERED: SODIUM CHLORIDE 0.9% 500 ML INFUS.BAG IV ONE (12:01)
[2021-02-02] MEDS ORDERED: DALBAVANCIN HCL IVPB ONE (12:01)
[2021-02-02] MEDS ORDERED: WATER IVPB ONE (12:01)
[2021-02-02] MEDS ORDERED: DALBAVANCIN HCL 500 MG VIAL (RESTRICTED TO ID ONLY) IVPB ONE (12:21)
[2021-02-02 13:27] LABS: EOS % 1.2 % (0-4.5); HEMATOCRIT 33.7 % (35.4-49); HEMOGLOBIN 11.4 GM/dL (11.7-16.9); LYMPH % 19.3 % (8-40); MCH 27.9 pg (25.7-33.7); MCHC 33.9 g/dl (32.0-35.9); MEAN CELL VOLUME 82.6 fl (80-96); MEAN PLT VOLUME 7.6 fl (7.5-11.1); MONO % 8.8 % (3.8-10.2); NEUT % 69.7 % (42.8-82.8); PLATELET COUNT 212 10^3/uL (134-434); RBC 4.08 M/mm3 (4.00-5.60); RDW 13.7 % (11.9-15.9); WHITE BLOOD COUNT 5.4 K/mm3 (4.0-10.0)
[2021-02-02 13:47] LABS: CALCIUM 8.1 mg/dL (8.5-10.1)
[2021-02-02 13:49] LABS: ALBUMIN 2.5 g/dl (3.4-5.0); BLOOD UREA NITROGEN 31.3 mg/dL (7-18)
[2021-02-02 13:51] LABS: CREATININE 2.4 mg/dL (0.55-1.3)
[2021-02-02 13:53] LABS: BILIRUBIN,TOTAL 0.2 mg/dL (0.2-1)
[2021-02-02 15:03] VITALS: BP 145/85; PULSE 99
== END 2021-02-02 14:59 | disposition left against medical advice (07) ==
LOC: JER 11:52
DX: N17.9 Acute kidney failure, unspecified (principal); S99.922A Unspecified injury of left foot, initial encounter
CPT/HCPCS: 36415; 80053; 85025; 97597; 99284-25; A6022; J0875

== ENCOUNTER 2022-03-12 01:47 | Inpatient (IN) | payer OTHER ==
[2022-03-12] MEDS ORDERED: FUROSEMIDE 40 MG/4 ML INJECTABLE VIAL IVPUSH ONE (02:47)
[2022-03-12] MEDS ORDERED: FUROSEMIDE 40 MG/4 ML INJECTABLE VIAL ONE ×2 (03:00→13:20)
[2022-03-12 05:04] LABS: BASO % 0.8 % (0-2.0); EOS % 3.3 % (0-4.5); HEMATOCRIT 24.3 % (35.4-49); HEMOGLOBIN 7.9 GM/dL (11.7-16.9); LYMPH % 20.7 % (8-40); MCH 26.3 pg (25.7-33.7); MCHC 32.5 g/dl (32.0-35.9); MEAN CELL VOLUME 80.8 fl (80-96); MEAN PLT VOLUME 7.9 fl (7.5-11.1); NEUT % 67.2 % (42.8-82.8); PLATELET COUNT 328 10^3/uL (134-434); RBC 3.01 M/mm3 (4.00-5.60); RDW 16.9 % (11.9-15.9); WHITE BLOOD COUNT 5.9 K/mm3 (4.0-10.0)
[2022-03-12 05:23] LABS: ALBUMIN 1.7 g/dl (3.4-5.0); BLOOD UREA NITROGEN 67.4 mg/dL (7-18)
[2022-03-12 05:25] LABS: CREATININE 4.2 mg/dL (0.55-1.3)
[2022-03-12 05:27] LABS: BILIRUBIN,TOTAL 0.2 mg/dL (0.2-1)
[2022-03-12] MEDS ORDERED: CALCIUM GLUCONATE 10% - 1,000 MG/10 ML VIAL IVPB ONE (05:45)
[2022-03-12] MEDS ORDERED: INSULIN REGULAR HUMAN 100 UNITS/ML *VIAL IVPUSH ONE ×2 (05:46→05:51)
[2022-03-12] MEDS ORDERED: ALBUTEROL SO4 0.083% IH SOL 2.5 MG/3 ML VIAL.NEB. NEB ONE ×2 (05:46→05:57)
[2022-03-12] MEDS ORDERED: CALCIUM GLUCONATE 10% - 1,000 MG/10 ML VIAL ONE (05:57)
[2022-03-12] MEDS: INSULIN (NOVOLOG) ASPART 100 UNITS/ML 10ML VIAL SQ SCH ×2 (13:13→17:18)
[2022-03-12] MEDS ORDERED: SUCRALFATE 1 GM TABLET (FP) ONE ×2 (13:14→22:47)
[2022-03-12] MEDS: SUCRALFATE 1 GM TABLET (FP) PO SCH ×2 (13:18→22:56)
[2022-03-12] MEDS ORDERED: METOPROLOL TARTRATE 25 MG TABLET (FP) ONE ×2 (13:20→22:47)
[2022-03-12] MEDS: METOPROLOL TARTRATE 25 MG TABLET (FP) PO SCH ×2 (13:47→22:56)
[2022-03-12] MEDS: FUROSEMIDE 40 MG/4 ML INJECTABLE VIAL IVPUSH SCH (13:47)
[2022-03-12] MEDS ORDERED: GABAPENTIN 300 MG CAPSULE ONE (22:47)
[2022-03-12] MEDS ORDERED: ATORVASTATIN CA 20 MG TABLET (FP) ONE (22:47)
[2022-03-12] MEDS: INSULIN (LEVEMIR) 100 UNITS/ML UNITS SQ SCH (22:56)
[2022-03-12] MEDS: ATORVASTATIN CA 20 MG TABLET (FP) PO SCH (22:56)
[2022-03-12] MEDS: GABAPENTIN 300 MG CAPSULE PO SCH (22:56)
[2022-03-13] MEDS ORDERED: FUROSEMIDE 40 MG/4 ML INJECTABLE VIAL ONE ×2 (06:12→18:45)
[2022-03-13] MEDS ORDERED: INSULIN (LEVEMIR) 100 UNITS/ML UNITS SQ ONE (06:16)
[2022-03-13] MEDS: INSULIN (NOVOLOG) ASPART 100 UNITS/ML 10ML VIAL SQ SCH ×3 (06:28→17:00)
[2022-03-13] MEDS: INSULIN (LEVEMIR) 100 UNITS/ML UNITS SQ SCH (06:28)
[2022-03-13] MEDS: FUROSEMIDE 40 MG/4 ML INJECTABLE VIAL IVPUSH SCH ×2 (06:28→18:15)
[2022-03-13 06:33] LABS: BASO % 1.3 % (0-2.0); HEMATOCRIT 23.2 % (35.4-49); HEMOGLOBIN 7.3 GM/dL (11.7-16.9); MCH 25.3 pg (25.7-33.7); MCHC 31.6 g/dl (32.0-35.9); MEAN PLT VOLUME 7.8 fl (7.5-11.1); NEUT % 67.7 % (42.8-82.8); PLATELET COUNT 325 10^3/uL (134-434); RDW 16.7 % (11.9-15.9); WHITE BLOOD COUNT 5.2 K/mm3 (4.0-10.0)
[2022-03-13 06:55] LABS: ALBUMIN 1.6 g/dl (3.4-5.0); BLOOD UREA NITROGEN 68.1 mg/dL (7-18); CALCIUM 8.2 mg/dL (8.5-10.1)
[2022-03-13 06:57] LABS: CREATININE 4.3 mg/dL (0.55-1.3)
[2022-03-13 07:00] LABS: BILIRUBIN,TOTAL 0.2 mg/dL (0.2-1); TOT PROT 5.7 g/dl (6.4-8.2)
[2022-03-13] MEDS ORDERED: TAMSULOSIN HCL 0.4 MG CAP PO ONE (09:30)
[2022-03-13] MEDS ORDERED: SUCRALFATE 1 GM TABLET (FP) ONE (09:43)
[2022-03-13] MEDS ORDERED: CARVEDILOL 12.5 MG TABLET (FP) ONE (09:43)
[2022-03-13] MEDS ORDERED: hydrALAZINE HCL 25 MG TABLET (FP) ONE (09:43)
[2022-03-13] MEDS ORDERED: LOSARTAN POTASSIUM 50 MG TABLET ONE (09:43)
[2022-03-13] MEDS ORDERED: TAMSULOSIN HCL 0.4 MG CAP ONE (09:43)
[2022-03-13] MEDS ORDERED: SODIUM ZIRCONIUM CYCLOSILICATE (LOKELMA) 5 GM PACKET ONE (09:43)
[2022-03-13] MEDS ORDERED: GABAPENTIN 300 MG CAPSULE ONE (09:44)
[2022-03-13] MEDS ORDERED: LOSARTAN POTASSIUM 50 MG TABLET PO SCH (10:00)
[2022-03-13] MEDS ORDERED: hydrALAZINE HCL 25 MG TABLET (FP) PO SCH (10:00)
[2022-03-13] MEDS: SUCRALFATE 1 GM TABLET (FP) PO SCH (10:55)
[2022-03-13] MEDS: SODIUM ZIRCONIUM CYCLOSILICATE (LOKELMA) 5 GM PACKET PO SCH (10:56)
[2022-03-13] MEDS: GABAPENTIN 300 MG CAPSULE PO SCH (10:56)
[2022-03-13] MEDS: CARVEDILOL 12.5 MG TABLET (FP) PO SCH (10:56)
[2022-03-13] MEDS ORDERED: FUROSEMIDE 40 MG/4 ML INJECTABLE VIAL IVPUSH ONE (12:06)
[2022-03-13] MEDS ORDERED: FUROSEMIDE 40 MG/4 ML INJECTABLE VIAL IVPUSH SCH (12:07)
[2022-03-13] MEDS ORDERED: VANCOMYCIN/WATER FOR INJ (PEG) 1,000 MG/200 ML BAG IVPB ONE ×2 (12:53→18:46)
[2022-03-13] MEDS: CEFEPIME 1 GM in DEXTROSE 5%-WATER 100 ML IVPB SCH (18:30)
[2022-03-13] MEDS ORDERED: LIDOCAINE HCL 2% JELLY 10 ML CARTRIDGE UR ONE (18:41)
[2022-03-13] MEDS ORDERED: CEFEPIME 1 GM/100 ML BAG IVPB ONE (18:45)
[2022-03-14] MEDS ORDERED: SODIUM ZIRCONIUM CYCLOSILICATE (LOKELMA) 5 GM PACKET ONE (00:32)
[2022-03-14] MEDS ORDERED: CARVEDILOL 12.5 MG TABLET (FP) ONE (00:32)
[2022-03-14] MEDS ORDERED: hydrALAZINE HCL 25 MG TABLET (FP) ONE (00:32)
[2022-03-14] MEDS ORDERED: HEPARIN NA (PORCINE) 5,000 UNITS/ML 1ML VIAL ONE (00:33)
[2022-03-14] MEDS ORDERED: GABAPENTIN 300 MG CAPSULE ONE (00:33)
[2022-03-14] MEDS: hydrALAZINE HCL 25 MG TABLET (FP) PO SCH ×4 (00:44→21:24)
[2022-03-14] MEDS: GABAPENTIN 300 MG CAPSULE PO SCH ×3 (00:44→21:24)
[2022-03-14] MEDS: INSULIN (LEVEMIR) 100 UNITS/ML UNITS SQ SCH ×3 (00:44→21:23)
[2022-03-14] MEDS: HEPARIN NA (PORCINE) 5,000 UNITS/ML 1ML VIAL SQ SCH ×4 (00:44→21:24)
[2022-03-14] MEDS: CARVEDILOL 12.5 MG TABLET (FP) PO SCH ×3 (00:44→21:24)
[2022-03-14] MEDS: ATORVASTATIN CA 20 MG TABLET (FP) PO SCH ×2 (00:44→21:24)
[2022-03-14] MEDS: SODIUM ZIRCONIUM CYCLOSILICATE (LOKELMA) 5 GM PACKET PO SCH ×2 (00:44→09:22)
[2022-03-14] MEDS: FUROSEMIDE 40 MG/4 ML INJECTABLE VIAL IVPUSH SCH ×2 (06:51→13:32)
[2022-03-14] MEDS: INSULIN (NOVOLOG) ASPART 100 UNITS/ML 10ML VIAL SQ SCH ×3 (06:52→16:53)
[2022-03-14] MEDS: CEFEPIME 1 GM in DEXTROSE 5%-WATER 100 ML IVPB SCH (09:20)
[2022-03-14] MEDS: ISOSORBIDE MONONITRATE 30 MG TAB.SR.24H (FP) PO SCH (11:10)
[2022-03-14] MEDS ORDERED: ALBUTEROL SO4 0.083% IH SOL 2.5 MG/3 ML VIAL.NEB. NEB PRN ×2 (13:58→14:00)
[2022-03-14] MEDS ORDERED: VANCOMYCIN/WATER FOR INJ (PEG) 1,000 MG/200 ML BAG IVPB ONE (14:51)
[2022-03-14 19:50] LABS: BASO % 0.7 % (0-2.0); HEMATOCRIT 22.3 % (35.4-49); HEMOGLOBIN 7.2 GM/dL (11.7-16.9); LYMPH % 19.5 % (8-40); MCH 25.9 pg (25.7-33.7); MCHC 32.3 g/dl (32.0-35.9); MEAN CELL VOLUME 80.1 fl (80-96); MEAN PLT VOLUME 7.6 fl (7.5-11.1); MONO % 8.1 % (3.8-10.2); NEUT % 68.7 % (42.8-82.8); PLATELET COUNT 293 10^3/uL (134-434); RBC 2.78 M/mm3 (4.00-5.60); RDW 16.8 % (11.9-15.9); WHITE BLOOD COUNT 5.6 K/mm3 (4.0-10.0)
[2022-03-14 19:56] LABS: ALBUMIN 1.7 g/dl (3.4-5.0); BLOOD UREA NITROGEN 74.3 mg/dL (7-18); CALCIUM 8.3 mg/dL (8.5-10.1)
[2022-03-14 19:59] LABS: CREATININE 4.3 mg/dL (0.55-1.3)
[2022-03-14 20:01] LABS: BILIRUBIN,TOTAL 0.2 mg/dL (0.2-1); TOT PROT 5.7 g/dl (6.4-8.2)
[2022-03-15] MEDS: hydrALAZINE HCL 25 MG TABLET (FP) PO SCH ×4 (06:30→22:12)
[2022-03-15] MEDS: HEPARIN NA (PORCINE) 5,000 UNITS/ML 1ML VIAL SQ SCH ×3 (06:30→21:59)
[2022-03-15] MEDS: FUROSEMIDE 40 MG/4 ML INJECTABLE VIAL IVPUSH SCH (06:30)
[2022-03-15] MEDS: INSULIN (LEVEMIR) 100 UNITS/ML UNITS SQ SCH ×2 (06:31→22:00)
[2022-03-15] MEDS: INSULIN (NOVOLOG) ASPART 100 UNITS/ML 10ML VIAL SQ SCH ×3 (06:31→16:34)
[2022-03-15] MEDS: VITAMIN B COMP W-C 1 EA TABLET (NEPHRO-VITE) PO SCH (10:40)
[2022-03-15] MEDS: CARVEDILOL 12.5 MG TABLET (FP) PO SCH ×3 (10:40→22:12)
[2022-03-15] MEDS: GABAPENTIN 300 MG CAPSULE PO SCH ×2 (10:40→21:59)
[2022-03-15] MEDS: SODIUM ZIRCONIUM CYCLOSILICATE (LOKELMA) 10 GM PACKET PO SCH (10:42)
[2022-03-15] MEDS: CEFEPIME 1 GM in DEXTROSE 5%-WATER 100 ML IVPB SCH (10:42)
[2022-03-15] MEDS: ISOSORBIDE MONONITRATE 30 MG TAB.SR.24H (FP) PO SCH (10:42)
[2022-03-15 11:36] LABS: BASO % 1.1 % (0-2.0); EOS % 2.9 % (0-4.5); HEMATOCRIT 23.8 % (35.4-49); HEMOGLOBIN 7.6 GM/dL (11.7-16.9); LYMPH % 22.3 % (8-40); MCH 25.6 pg (25.7-33.7); MEAN CELL VOLUME 80.2 fl (80-96); MEAN PLT VOLUME 7.6 fl (7.5-11.1); MONO % 8.6 % (3.8-10.2); NEUT % 65.1 % (42.8-82.8); PLATELET COUNT 326 10^3/uL (134-434); RBC 2.96 M/mm3 (4.00-5.60); RDW 16.7 % (11.9-15.9); WHITE BLOOD COUNT 5.4 K/mm3 (4.0-10.0)
[2022-03-15 12:12] LABS: CALCIUM 8.8 mg/dL (8.5-10.1)
[2022-03-15 12:14] LABS: ALBUMIN 1.8 g/dl (3.4-5.0); BLOOD UREA NITROGEN 69.1 mg/dL (7-18); MAGNESIUM 2.2 mg/dL (1.8-2.4)
[2022-03-15 12:16] LABS: CREATININE 4.1 mg/dL (0.55-1.3)
[2022-03-15 12:18] LABS: BILIRUBIN,TOTAL 0.3 mg/dL (0.2-1); TOT PROT 6.3 g/dl (6.4-8.2)
[2022-03-15] MEDS: BUMETANIDE INJECTION 1 MG/4 ML VIAL IVPUSH SCH (13:24)
[2022-03-15] MEDS: ATORVASTATIN CA 20 MG TABLET (FP) PO SCH (21:59)
[2022-03-16 05:06] VITALS: RESP 18
[2022-03-16] MEDS: hydrALAZINE HCL 25 MG TABLET (FP) PO SCH ×3 (05:39→21:48)
[2022-03-16] MEDS: BUMETANIDE INJECTION 1 MG/4 ML VIAL IVPUSH SCH (05:40)
[2022-03-16] MEDS: HEPARIN NA (PORCINE) 5,000 UNITS/ML 1ML VIAL SQ SCH ×3 (05:40→21:49)
[2022-03-16] MEDS: INSULIN (LEVEMIR) 100 UNITS/ML UNITS SQ SCH ×2 (06:25→21:49)
[2022-03-16] MEDS: INSULIN (NOVOLOG) ASPART 100 UNITS/ML 10ML VIAL SQ SCH ×3 (06:25→16:43)
[2022-03-16 09:54] LABS: BASO % 1.1 % (0-2.0); EOS % 2.5 % (0-4.5); HEMATOCRIT 25.8 % (35.4-49); HEMOGLOBIN 8.1 GM/dL (11.7-16.9); LYMPH % 18.1 % (8-40); MCH 25.3 pg (25.7-33.7); MCHC 31.3 g/dl (32.0-35.9); MEAN CELL VOLUME 80.9 fl (80-96); MEAN PLT VOLUME 7.8 fl (7.5-11.1); MONO % 6.8 % (3.8-10.2); NEUT % 71.5 % (42.8-82.8); PLATELET COUNT 341 10^3/uL (134-434); RBC 3.19 M/mm3 (4.00-5.60); RDW 16.4 % (11.9-15.9); WHITE BLOOD COUNT 5.1 K/mm3 (4.0-10.0)
[2022-03-16] MEDS: CARVEDILOL 12.5 MG TABLET (FP) PO SCH ×2 (10:14→21:52)
[2022-03-16] MEDS: ISOSORBIDE MONONITRATE 30 MG TAB.SR.24H (FP) PO SCH (10:14)
[2022-03-16] MEDS: SODIUM ZIRCONIUM CYCLOSILICATE (LOKELMA) 10 GM PACKET PO SCH ×2 (10:14→21:53)
[2022-03-16] MEDS: GABAPENTIN 300 MG CAPSULE PO SCH ×2 (10:16→21:53)
[2022-03-16] MEDS: VITAMIN B COMP W-C 1 EA TABLET (NEPHRO-VITE) PO SCH (10:16)
[2022-03-16] MEDS: CEFEPIME 1 GM in DEXTROSE 5%-WATER 100 ML IVPB SCH (10:16)
[2022-03-16 10:32] LABS: ALBUMIN 1.9 g/dl (3.4-5.0); BLOOD UREA NITROGEN 73.5 mg/dL (7-18); CALCIUM 8.3 mg/dL (8.5-10.1)
[2022-03-16 10:33] LABS: MAGNESIUM 2.1 mg/dL (1.8-2.4)
[2022-03-16 10:36] LABS: CREATININE 4.5 mg/dL (0.55-1.3)
[2022-03-16 10:38] LABS: BILIRUBIN,TOTAL 0.2 mg/dL (0.2-1); TOT PROT 6.4 g/dl (6.4-8.2)
[2022-03-16] MEDS ORDERED: FUROSEMIDE 40 MG/4 ML INJECTABLE VIAL IVPB SCH (14:00)
[2022-03-16] MEDS ORDERED: FUROSEMIDE 40 MG/4 ML INJECTABLE VIAL IVPUSH SCH (14:07)
[2022-03-16] MEDS: FUROSEMIDE 40 MG/4 ML INJECTABLE VIAL IVPUSH SCH (14:53)
[2022-03-16] MEDS: MEROPENEM 500 MG in DEXTROSE 5%-WATER 100 ML IVPB SCH (16:43)
[2022-03-16] MEDS: ATORVASTATIN CA 20 MG TABLET (FP) PO SCH (21:52)
[2022-03-17] MEDS: MEROPENEM 500 MG in DEXTROSE 5%-WATER 100 ML IVPB SCH ×2 (02:54→16:31)
[2022-03-17] MEDS: FUROSEMIDE 40 MG/4 ML INJECTABLE VIAL IVPUSH SCH ×2 (06:27→13:37)
[2022-03-17] MEDS: HEPARIN NA (PORCINE) 5,000 UNITS/ML 1ML VIAL SQ SCH ×3 (06:33→22:08)
[2022-03-17] MEDS: INSULIN (NOVOLOG) ASPART 100 UNITS/ML 10ML VIAL SQ SCH ×3 (06:33→16:31)
[2022-03-17] MEDS: INSULIN (LEVEMIR) 100 UNITS/ML UNITS SQ SCH ×2 (06:33→22:08)
[2022-03-17] MEDS: hydrALAZINE HCL 25 MG TABLET (FP) PO SCH ×3 (06:33→22:07)
[2022-03-17] MEDS ORDERED: INSULIN (NOVOLOG) ASPART 100 UNITS/ML 10ML VIAL ONE (10:41)
[2022-03-17] MEDS: CARVEDILOL 12.5 MG TABLET (FP) PO SCH ×2 (10:45→22:08)
[2022-03-17] MEDS: ISOSORBIDE MONONITRATE 30 MG TAB.SR.24H (FP) PO SCH (10:45)
[2022-03-17] MEDS: VITAMIN B COMP W-C 1 EA TABLET (NEPHRO-VITE) PO SCH (10:45)
[2022-03-17] MEDS: SODIUM ZIRCONIUM CYCLOSILICATE (LOKELMA) 10 GM PACKET PO SCH ×2 (10:45→22:08)
[2022-03-17] MEDS: GABAPENTIN 300 MG CAPSULE PO SCH ×2 (10:45→22:08)
[2022-03-17 14:07] LABS: ATYPICAL pANCA <1:20 titer (Neg:<1:20); C-ANCA <1:20 titer (Neg:<1:20)
[2022-03-17] MEDS: ATORVASTATIN CA 20 MG TABLET (FP) PO SCH (22:08)
[2022-03-18] MEDS: MEROPENEM 500 MG in DEXTROSE 5%-WATER 100 ML IVPB SCH ×2 (02:55→15:17)
[2022-03-18] MEDS: HEPARIN NA (PORCINE) 5,000 UNITS/ML 1ML VIAL SQ SCH ×3 (06:10→23:06)
[2022-03-18] MEDS: hydrALAZINE HCL 25 MG TABLET (FP) PO SCH ×3 (06:10→23:06)
[2022-03-18] MEDS: FUROSEMIDE 40 MG/4 ML INJECTABLE VIAL IVPUSH SCH ×2 (06:10→14:13)
[2022-03-18] MEDS: INSULIN (LEVEMIR) 100 UNITS/ML UNITS SQ SCH ×2 (06:11→23:07)
[2022-03-18] MEDS: INSULIN (NOVOLOG) ASPART 100 UNITS/ML 10ML VIAL SQ SCH ×3 (06:11→16:26)
[2022-03-18] MEDS: GABAPENTIN 300 MG CAPSULE PO SCH ×2 (10:20→23:06)
[2022-03-18] MEDS: CARVEDILOL 12.5 MG TABLET (FP) PO SCH ×2 (10:20→23:06)
[2022-03-18] MEDS: ISOSORBIDE MONONITRATE 30 MG TAB.SR.24H (FP) PO SCH (10:20)
[2022-03-18] MEDS: VITAMIN B COMP W-C 1 EA TABLET (NEPHRO-VITE) PO SCH (10:21)
[2022-03-18] MEDS: SODIUM ZIRCONIUM CYCLOSILICATE (LOKELMA) 10 GM PACKET PO SCH ×2 (10:21→23:13)
[2022-03-18 10:45] LABS: BASO % 0.8 % (0-2.0); EOS % 2.9 % (0-4.5); HEMATOCRIT 25.5 % (35.4-49); HEMOGLOBIN 7.8 GM/dL (11.7-16.9); LYMPH % 24.2 % (8-40); MCH 25.1 pg (25.7-33.7); MCHC 30.5 g/dl (32.0-35.9); MEAN CELL VOLUME 82.3 fl (80-96); MEAN PLT VOLUME 7.6 fl (7.5-11.1); MONO % 7.2 % (3.8-10.2); NEUT % 64.9 % (42.8-82.8); PLATELET COUNT 291 10^3/uL (134-434); RBC 3.09 M/mm3 (4.00-5.60); RDW 16.6 % (11.9-15.9); WHITE BLOOD COUNT 5.5 K/mm3 (4.0-10.0)
[2022-03-18 11:12] LABS: BLOOD UREA NITROGEN 64.5 mg/dL (7-18); MAGNESIUM 1.9 mg/dL (1.8-2.4)
[2022-03-18 11:15] LABS: CREATININE 3.6 mg/dL (0.55-1.3)
[2022-03-18 11:16] LABS: CALCIUM 8.3 mg/dL (8.5-10.1)
[2022-03-18 11:17] LABS: ALBUMIN 1.8 g/dl (3.4-5.0); BILIRUBIN,TOTAL 0.3 mg/dL (0.2-1); TOT PROT 5.8 g/dl (6.4-8.2)
[2022-03-18] MEDS: METOLAZONE 5 MG TABLET PO SCH (15:26)
[2022-03-18 20:59] VITALS: BMI 35.7
[2022-03-18] MEDS ORDERED: INSULIN (NOVOLOG) ASPART 100 UNITS/ML 10ML VIAL ONE (22:42)
[2022-03-18] MEDS: ATORVASTATIN CA 20 MG TABLET (FP) PO SCH (23:06)
[2022-03-19] MEDS: MEROPENEM 500 MG in DEXTROSE 5%-WATER 100 ML IVPB SCH ×2 (04:27→16:14)
[2022-03-19] MEDS: FUROSEMIDE 40 MG/4 ML INJECTABLE VIAL IVPUSH SCH ×2 (05:59→14:49)
[2022-03-19] MEDS: hydrALAZINE HCL 25 MG TABLET (FP) PO SCH ×3 (05:59→23:00)
[2022-03-19] MEDS: INSULIN (LEVEMIR) 100 UNITS/ML UNITS SQ SCH ×2 (05:59→23:00)
[2022-03-19] MEDS: HEPARIN NA (PORCINE) 5,000 UNITS/ML 1ML VIAL SQ SCH ×3 (05:59→23:00)
[2022-03-19] MEDS: METOLAZONE 5 MG TABLET PO SCH (05:59)
[2022-03-19] MEDS: INSULIN (NOVOLOG) ASPART 100 UNITS/ML 10ML VIAL SQ SCH ×3 (06:00→16:59)
[2022-03-19] MEDS: SODIUM ZIRCONIUM CYCLOSILICATE (LOKELMA) 10 GM PACKET PO SCH ×2 (11:35→23:00)
[2022-03-19] MEDS: VITAMIN B COMP W-C 1 EA TABLET (NEPHRO-VITE) PO SCH (11:35)
[2022-03-19] MEDS: CARVEDILOL 12.5 MG TABLET (FP) PO SCH ×2 (11:35→23:00)
[2022-03-19] MEDS: GABAPENTIN 300 MG CAPSULE PO SCH ×2 (11:35→23:00)
[2022-03-19] MEDS: ISOSORBIDE MONONITRATE 30 MG TAB.SR.24H (FP) PO SCH (11:35)
[2022-03-19 16:56] LABS: BASO % 1.1 % (0-2.0); EOS % 2.9 % (0-4.5); HEMATOCRIT 24.1 % (35.4-49); HEMOGLOBIN 7.7 GM/dL (11.7-16.9); LYMPH % 23.8 % (8-40); MCHC 32.1 g/dl (32.0-35.9); MEAN CELL VOLUME 81.1 fl (80-96); MEAN PLT VOLUME 7.5 fl (7.5-11.1); MONO % 6.6 % (3.8-10.2); NEUT % 65.6 % (42.8-82.8); PLATELET COUNT 288 10^3/uL (134-434); RBC 2.97 M/mm3 (4.00-5.60); RDW 17.1 % (11.9-15.9); WHITE BLOOD COUNT 5.8 K/mm3 (4.0-10.0)
[2022-03-19 17:14] LABS: CALCIUM 8.2 mg/dL (8.5-10.1)
[2022-03-19 17:15] LABS: ALBUMIN 1.9 g/dl (3.4-5.0); BLOOD UREA NITROGEN 55.1 mg/dL (7-18); MAGNESIUM 2.1 mg/dL (1.8-2.4)
[2022-03-19 17:18] LABS: CREATININE 3.3 mg/dL (0.55-1.3)
[2022-03-19 17:20] LABS: BILIRUBIN,TOTAL 0.2 mg/dL (0.2-1); TOT PROT 5.8 g/dl (6.4-8.2)
[2022-03-19] MEDS: ATORVASTATIN CA 20 MG TABLET (FP) PO SCH (23:00)
[2022-03-20] MEDS: MEROPENEM 500 MG in DEXTROSE 5%-WATER 100 ML IVPB SCH ×2 (04:30→15:30)
[2022-03-20] MEDS: hydrALAZINE HCL 25 MG TABLET (FP) PO SCH ×3 (05:06→22:10)
[2022-03-20] MEDS: FUROSEMIDE 40 MG/4 ML INJECTABLE VIAL IVPUSH SCH ×2 (05:06→14:30)
[2022-03-20] MEDS: HEPARIN NA (PORCINE) 5,000 UNITS/ML 1ML VIAL SQ SCH ×3 (05:09→22:10)
[2022-03-20] MEDS: INSULIN (LEVEMIR) 100 UNITS/ML UNITS SQ SCH ×2 (06:23→22:10)
[2022-03-20] MEDS: INSULIN (NOVOLOG) ASPART 100 UNITS/ML 10ML VIAL SQ SCH ×3 (06:23→16:48)
[2022-03-20] MEDS: VITAMIN B COMP W-C 1 EA TABLET (NEPHRO-VITE) PO SCH (10:31)
[2022-03-20] MEDS: GABAPENTIN 300 MG CAPSULE PO SCH ×2 (10:31→22:10)
[2022-03-20] MEDS: ISOSORBIDE MONONITRATE 30 MG TAB.SR.24H (FP) PO SCH (10:39)
[2022-03-20] MEDS: SODIUM ZIRCONIUM CYCLOSILICATE (LOKELMA) 10 GM PACKET PO SCH (10:39)
[2022-03-20] MEDS: CARVEDILOL 12.5 MG TABLET (FP) PO SCH ×2 (10:39→22:10)
[2022-03-20] MEDS ORDERED: INSULIN (LEVEMIR) 100 UNITS/ML UNITS SQ ONE (11:22)
[2022-03-20 13:24] LABS: EOS % 3.2 % (0-4.5); HEMOGLOBIN 8.5 GM/dL (11.7-16.9); LYMPH % 22.7 % (8-40); MCH 26.1 pg (25.7-33.7); MCHC 32.6 g/dl (32.0-35.9); MEAN CELL VOLUME 80.2 fl (80-96); MEAN PLT VOLUME 7.3 fl (7.5-11.1); MONO % 7.9 % (3.8-10.2); NEUT % 65.2 % (42.8-82.8); PLATELET COUNT 260 10^3/uL (134-434); RBC 3.24 M/mm3 (4.00-5.60); RDW 17.1 % (11.9-15.9)
[2022-03-20] MEDS ORDERED: METOLAZONE 2.5 MG TABLET (FP) PO ONE (13:30)
[2022-03-20 13:41] LABS: CALCIUM 8.1 mg/dL (8.5-10.1)
[2022-03-20 13:42] LABS: BLOOD UREA NITROGEN 55.8 mg/dL (7-18)
[2022-03-20 13:45] LABS: CREATININE 3.3 mg/dL (0.55-1.3)
[2022-03-20 13:47] LABS: BILIRUBIN,TOTAL 0.3 mg/dL (0.2-1)
[2022-03-20 14:39] VITALS: BP 163/109; PULSE 98; TEMP 97.3
[2022-03-20] MEDS ORDERED: MEROPENEM 500 MG VIAL (RESTRICTED TO ID) IVPB ONE (14:52)
[2022-03-20] MEDS: ATORVASTATIN CA 20 MG TABLET (FP) PO SCH (22:11)
[2022-03-21] MEDS: MEROPENEM 500 MG in DEXTROSE 5%-WATER 100 ML IVPB SCH ×2 (04:15→15:36)
[2022-03-21] MEDS: HEPARIN NA (PORCINE) 5,000 UNITS/ML 1ML VIAL SQ SCH ×2 (07:10→13:25)
[2022-03-21] MEDS: hydrALAZINE HCL 25 MG TABLET (FP) PO SCH ×2 (07:10→13:26)
[2022-03-21] MEDS: INSULIN (LEVEMIR) 100 UNITS/ML UNITS SQ SCH (07:11)
[2022-03-21] MEDS: FUROSEMIDE 40 MG/4 ML INJECTABLE VIAL IVPUSH SCH ×2 (07:11→13:26)
[2022-03-21] MEDS: INSULIN (NOVOLOG) ASPART 100 UNITS/ML 10ML VIAL SQ SCH ×2 (07:12→11:11)
[2022-03-21] MEDS ORDERED: SODIUM ZIRCONIUM CYCLOSILICATE (LOKELMA) 10 GM PACKET PO SCH (10:00)
[2022-03-21] MEDS: VITAMIN B COMP W-C 1 EA TABLET (NEPHRO-VITE) PO SCH (10:02)
[2022-03-21] MEDS: ISOSORBIDE MONONITRATE 30 MG TAB.SR.24H (FP) PO SCH (10:02)
[2022-03-21] MEDS: GABAPENTIN 300 MG CAPSULE PO SCH (10:02)
[2022-03-21] MEDS: CARVEDILOL 12.5 MG TABLET (FP) PO SCH (10:02)
== END 2022-03-21 16:41 | disposition left against medical advice (07) | DRG 194 ==
LOC: JER 01:47 → JERBED 06:26 → J6S 03-14 03:59
PROVIDERS: ADMIT Internal Medicine; ATTEND Nurse Practitioner Family
DX: I13.0 Hypertensive heart and chronic kidney disease with heart failure and stage 1 through stage 4 chronic kidney disease, or unspecified chronic kidney disease (principal); J81.1 Chronic pulmonary edema; N17.9 Acute kidney failure, unspecified; E11.610 Type 2 diabetes mellitus with diabetic neuropathic arthropathy; E88.09 Other disorders of plasma-protein metabolism, not elsewhere classified; L03.115 Cellulitis of right lower limb; E11.51 Type 2 diabetes mellitus with diabetic peripheral angiopathy without gangrene; E11.621 Type 2 diabetes mellitus with foot ulcer; E11.69 Type 2 diabetes mellitus with other specified complication; E87.5 Hyperkalemia; M86.9 Osteomyelitis, unspecified; D63.1 Anemia in chronic kidney disease; E87.70 Fluid overload, unspecified; R33.9 Retention of urine, unspecified; N18.9 Chronic kidney disease, unspecified; R18.8 Other ascites; E66.9 Obesity, unspecified; Z68.35 Body mass index [BMI] 35.0-35.9, adult; K21.9 Gastro-esophageal reflux disease without esophagitis; I50.9 Heart failure, unspecified
CPT/HCPCS: 36415; 71045-TC-FY; 73610-TC-RT-FY; 73630-TC-RT-FY; 73718-TC-RT; 76775-TC; 76856-TC; 80053; 82607; 82728; 82746; 82962; 82977; 83010; 83036; 83520; 83540; 83550; 83735; 83880; 84155; 84165; 84439; 84443; 84484; 85025; 85045; 85651; 86038; 86140; 86160; 86256; 87040; 87070; 87081; 87186; 87205; 93005; 93010; 93306-TC; 93926-TC; 94640; 99285-25; C9803-CS; G0480; J1644; U0003; U0005

== ENCOUNTER 2022-04-13 14:52 | Inpatient (IN) | payer OTHER ==
[2022-04-13] MEDS ORDERED: IMIPENEM/CILASTATIN SODIUM 500 MG in SODIUM CHLORIDE 100 ML IV ONE (16:35)
[2022-04-13] MEDS ORDERED: CLINDAMYCIN HCL 150 MG CAPSULE (FP) PO ONE (16:42)
[2022-04-13] MEDS ORDERED: VANCOMYCIN 1 GM in D5W (PRE-DOCKED) 1,000 MG/250 ML IVPB ONE (16:53)
[2022-04-13] MEDS ORDERED: VANCOMYCIN/WATER FOR INJ (PEG) 1,000 MG/200 ML BAG IVPB ONE (17:09)
[2022-04-13 18:17] LABS: BASO % 0.9 % (0-2.0); EOS % 2.8 % (0-4.5); HEMATOCRIT 25.1 % (35.4-49); HEMOGLOBIN 7.8 GM/dL (11.7-16.9); LYMPH % 16.1 % (8-40); MCH 24.5 pg (25.7-33.7); MCHC 31.1 g/dl (32.0-35.9); MEAN CELL VOLUME 78.9 fl (80-96); MEAN PLT VOLUME 7.5 fl (7.5-11.1); MONO % 7.8 % (3.8-10.2); NEUT % 72.4 % (42.8-82.8); PLATELET COUNT 304 10^3/uL (134-434); RBC 3.18 M/mm3 (4.00-5.60); RDW 17.6 % (11.9-15.9)
[2022-04-13 18:29] LABS: INR 1.29 (0.83-1.09); PROTHROMBIN TIME (PATIENT) 14.9 SEC (9.7-13.0)
[2022-04-13 18:32] LABS: ACTIVATED PTT 33.4 SECONDS (25.2-36.5)
[2022-04-13 18:34] LABS: BLOOD UREA NITROGEN 50.2 mg/dL (7-18)
[2022-04-13 18:35] LABS: CALCIUM 8.2 mg/dL (8.5-10.1)
[2022-04-13 18:36] LABS: ALBUMIN 1.8 g/dl (3.4-5.0)
[2022-04-13 18:39] LABS: CREATININE 3.8 mg/dL (0.55-1.3)
[2022-04-13 18:41] LABS: BILIRUBIN,TOTAL 0.2 mg/dL (0.2-1); TOT PROT 6.4 g/dl (6.4-8.2)
[2022-04-13] MEDS ORDERED: CALCIUM GLUCONATE 10% - 1,000 MG/10 ML VIAL IVPUSH ONE (18:58)
[2022-04-13] MEDS ORDERED: INSULIN REGULAR HUMAN 100 UNITS/ML *VIAL IVPUSH ONE (19:01)
[2022-04-13] MEDS ORDERED: DEXTROSE 50%-WATER - 25 GM/50 ML VIAL IVPUSH ONE (19:01)
[2022-04-13] MEDS ORDERED: FUROSEMIDE 40 MG/4 ML INJECTABLE VIAL IVPUSH ONE ×2 (19:02→23:59)
[2022-04-13] MEDS ORDERED: DEXTROSE 50%-WATER 25 GM/50 ML DISP.SYRIN ONE (20:09)
[2022-04-13] MEDS ORDERED: CALCIUM GLUC IN NACL, ISO-OSM 1 GM/50 ML BAG IVPB ONE (20:10)
[2022-04-13] MEDS ORDERED: FUROSEMIDE 40 MG/4 ML INJECTABLE VIAL ONE (20:10)
[2022-04-13 23:02] LABS: BLOOD UREA NITROGEN 49.3 mg/dL (7-18); CALCIUM 8.4 mg/dL (8.5-10.1)
[2022-04-13 23:06] LABS: CREATININE 3.7 mg/dL (0.55-1.3)
[2022-04-14] MEDS ORDERED: MEROPENEM 1 GM in DEXTROSE 5%-WATER 100 ML IVPB ONE (06:00)
[2022-04-14] MEDS ORDERED: CARVEDILOL 12.5 MG TABLET (FP) ONE ×2 (06:19→09:39)
[2022-04-14] MEDS ORDERED: hydrALAZINE HCL 25 MG TABLET (FP) ONE ×2 (06:19→09:39)
[2022-04-14] MEDS ORDERED: HEPARIN NA (PORCINE) 5,000 UNITS/ML 1ML VIAL ONE ×2 (06:19→16:36)
[2022-04-14] MEDS ORDERED: amLODIPine BESYLATE 5 MG TABLET (FP) ONE ×2 (06:19→09:39)
[2022-04-14] MEDS ORDERED: FUROSEMIDE 40 MG/4 ML INJECTABLE VIAL ONE (06:20)
[2022-04-14] MEDS: HEPARIN NA (PORCINE) 5,000 UNITS/ML 1ML VIAL SQ SCH ×3 (06:37→22:42)
[2022-04-14] MEDS: CARVEDILOL 12.5 MG TABLET (FP) PO SCH ×3 (06:37→22:42)
[2022-04-14] MEDS: hydrALAZINE HCL 25 MG TABLET (FP) PO SCH ×4 (06:37→22:42)
[2022-04-14] MEDS: amLODIPine BESYLATE 5 MG TABLET (FP) PO SCH ×2 (06:37→10:22)
[2022-04-14] MEDS ORDERED: VANCOMYCIN/WATER FOR INJ (PEG) 1,000 MG/200 ML BAG IVPB ONE ×2 (08:15→09:37)
[2022-04-14] MEDS: INSULIN SLIDING SCALE (NOVOLOG) 1 VIAL SQ SCH ×4 (08:22→22:57)
[2022-04-14] MEDS ORDERED: MEROPENEM 500 MG VIAL (RESTRICTED TO ID) IVPB ONE (09:37)
[2022-04-14] MEDS: MEROPENEM 500 MG in DEXTROSE 5%-WATER 100 ML IVPB SCH ×2 (10:18→22:42)
[2022-04-14] MEDS: COLLAGENASE CLOSTRIDIUM HIST. 30 GRAMS TUBE TP SCH (11:55)
[2022-04-14] MEDS ORDERED: VANCOMYCIN 1 GM/200 ML PREMIX BAG IVPB SCH (17:00)
[2022-04-14] MEDS ORDERED: VANCOMYCIN 1 GM in D5W (PRE-DOCKED) 1,000 MG/250 ML IVPB SCH (17:00)
[2022-04-14 20:28] LABS: HEMATOCRIT 22.4 % (35.4-49); MCH 24.6 pg (25.7-33.7); MCHC 31.3 g/dl (32.0-35.9); MEAN CELL VOLUME 78.6 fl (80-96); MEAN PLT VOLUME 7.4 fl (7.5-11.1); PLATELET COUNT 257 10^3/uL (134-434); RBC 2.85 M/mm3 (4.00-5.60); RDW 17.5 % (11.9-15.9); WHITE BLOOD COUNT 5.9 K/mm3 (4.0-10.0)
[2022-04-14 20:59] LABS: CALCIUM 8.3 mg/dL (8.5-10.1)
[2022-04-14 21:00] LABS: BLOOD UREA NITROGEN 50.4 mg/dL (7-18)
[2022-04-14 21:02] LABS: CREATININE 4.1 mg/dL (0.55-1.3)
[2022-04-14] MEDS ORDERED: DEXTROSE 50%-WATER - 25 GM/50 ML VIAL IVPUSH ONE (23:08)
[2022-04-14] MEDS ORDERED: INSULIN REGULAR HUMAN 100 UNITS/ML *VIAL IVPUSH ONE (23:09)
[2022-04-14] MEDS ORDERED: SODIUM CHLORIDE 0.45% 500 ML IV SCH (23:15)
[2022-04-15] MEDS ORDERED: DEXTROSE 50%-WATER 25 GM/50 ML DISP.SYRIN ONE (00:59)
[2022-04-15] MEDS: SODIUM ZIRCONIUM CYCLOSILICATE (LOKELMA) 5 GM PACKET PO SCH ×2 (01:14→10:27)
[2022-04-15] MEDS: HEPARIN NA (PORCINE) 5,000 UNITS/ML 1ML VIAL SQ SCH ×3 (05:12→22:22)
[2022-04-15] MEDS: INSULIN SLIDING SCALE (NOVOLOG) 1 VIAL SQ SCH ×4 (06:23→22:20)
[2022-04-15 08:20] LABS: HEMATOCRIT 22.9 % (35.4-49); HEMOGLOBIN 7.2 GM/dL (11.7-16.9); MCH 24.9 pg (25.7-33.7); MCHC 31.5 g/dl (32.0-35.9); MEAN PLT VOLUME 7.6 fl (7.5-11.1); PLATELET COUNT 245 10^3/uL (134-434); RDW 17.5 % (11.9-15.9); WHITE BLOOD COUNT 5.6 K/mm3 (4.0-10.0)
[2022-04-15] MEDS: MEROPENEM 500 MG in DEXTROSE 5%-WATER 100 ML IVPB SCH ×2 (08:38→20:01)
[2022-04-15 08:42] LABS: ALBUMIN 1.7 g/dl (3.4-5.0); CALCIUM 8.3 mg/dL (8.5-10.1); MAGNESIUM 2.3 mg/dL (1.8-2.4)
[2022-04-15 08:45] LABS: CREATININE 4.1 mg/dL (0.55-1.3); PHOSPHOROUS 3.8 mg/dL (2.5-4.9)
[2022-04-15 08:46] LABS: BILIRUBIN,TOTAL 0.5 mg/dL (0.2-1); TOT PROT 6.2 g/dl (6.4-8.2)
[2022-04-15] MEDS ORDERED: INSULIN (LEVEMIR) 100 UNITS/ML UNITS SQ SCH (10:00)
[2022-04-15] MEDS: GABAPENTIN 300 MG CAPSULE PO SCH ×2 (10:24→22:17)
[2022-04-15] MEDS: LISINOPRIL 20 MG TABLET PO SCH (10:24)
[2022-04-15] MEDS: CARVEDILOL 12.5 MG TABLET (FP) PO SCH ×2 (10:24→22:17)
[2022-04-15] MEDS: amLODIPine BESYLATE 5 MG TABLET (FP) PO SCH (10:24)
[2022-04-15] MEDS: COLLAGENASE CLOSTRIDIUM HIST. 30 GRAMS TUBE TP SCH (10:25)
[2022-04-15] MEDS: hydrALAZINE HCL 25 MG TABLET (FP) PO SCH ×2 (10:25→22:17)
[2022-04-16] MEDS: HEPARIN NA (PORCINE) 5,000 UNITS/ML 1ML VIAL SQ SCH ×3 (05:01→14:27)
[2022-04-16] MEDS: INSULIN SLIDING SCALE (NOVOLOG) 1 VIAL SQ SCH ×4 (08:22→17:43)
[2022-04-16] MEDS: hydrALAZINE HCL 25 MG TABLET (FP) PO SCH ×2 (11:45→12:22)
[2022-04-16] MEDS: LISINOPRIL 20 MG TABLET PO SCH ×2 (11:45→12:23)
[2022-04-16] MEDS: amLODIPine BESYLATE 5 MG TABLET (FP) PO SCH ×2 (11:45→12:23)
[2022-04-16] MEDS: MEROPENEM 500 MG in DEXTROSE 5%-WATER 100 ML IVPB SCH ×3 (11:45→20:59)
[2022-04-16] MEDS: COLLAGENASE CLOSTRIDIUM HIST. 30 GRAMS TUBE TP SCH (11:45)
[2022-04-16] MEDS: GABAPENTIN 300 MG CAPSULE PO SCH ×2 (11:45→12:23)
[2022-04-16] MEDS: SODIUM ZIRCONIUM CYCLOSILICATE (LOKELMA) 5 GM PACKET PO SCH (11:45)
[2022-04-16] MEDS: CARVEDILOL 12.5 MG TABLET (FP) PO SCH ×2 (11:45→12:23)
[2022-04-16] MEDS ORDERED: LORazepam 2 MG/ML SDV VIAL IVPUSH ONE (13:00)
[2022-04-16] MEDS ORDERED: FUROSEMIDE 40 MG/4 ML INJECTABLE VIAL IVPUSH ONE (17:08)
[2022-04-17] MEDS: INSULIN SLIDING SCALE (NOVOLOG) 1 VIAL SQ SCH ×5 (01:04→21:14)
[2022-04-17] MEDS: HEPARIN NA (PORCINE) 5,000 UNITS/ML 1ML VIAL SQ SCH ×4 (01:06→21:14)
[2022-04-17] MEDS: CARVEDILOL 12.5 MG TABLET (FP) PO SCH ×3 (01:06→21:14)
[2022-04-17] MEDS: GABAPENTIN 300 MG CAPSULE PO SCH ×3 (01:06→21:14)
[2022-04-17] MEDS: hydrALAZINE HCL 25 MG TABLET (FP) PO SCH ×3 (01:07→21:14)
[2022-04-17] MEDS: FUROSEMIDE 20 MG TABLET (FP) PO SCH ×2 (01:07→12:58)
[2022-04-17] MEDS ORDERED: LIDOCAINE HCL 2% JELLY 10 ML CARTRIDGE UR ONE ×3 (02:19)
[2022-04-17 02:30] LABS: BASO % 1.2 % (0-2.0); EOS % 2.9 % (0-4.5); HEMATOCRIT 24.6 % (35.4-49); HEMOGLOBIN 7.5 GM/dL (11.7-16.9); LYMPH % 19.4 % (8-40); MCH 24.2 pg (25.7-33.7); MCHC 30.6 g/dl (32.0-35.9); MEAN CELL VOLUME 78.9 fl (80-96); MEAN PLT VOLUME 7.7 fl (7.5-11.1); MONO % 7.2 % (3.8-10.2); NEUT % 69.3 % (42.8-82.8); PLATELET COUNT 276 10^3/uL (134-434); RBC 3.12 M/mm3 (4.00-5.60); RDW 17.9 % (11.9-15.9); WHITE BLOOD COUNT 5.7 K/mm3 (4.0-10.0)
[2022-04-17 02:35] LABS: INR 1.34 (0.83-1.09); PROTHROMBIN TIME (PATIENT) 15.4 SEC (9.7-13.0)
[2022-04-17] MEDS ORDERED: FUROSEMIDE 40 MG/4 ML INJECTABLE VIAL IVPUSH ONE ×2 (02:47→11:50)
[2022-04-17 02:52] LABS: MAGNESIUM 2.2 mg/dL (1.8-2.4)
[2022-04-17 02:54] LABS: ALBUMIN 1.6 g/dl (3.4-5.0); BLOOD UREA NITROGEN 56.1 mg/dL (7-18)
[2022-04-17 02:55] LABS: CREATININE 4.8 mg/dL (0.55-1.3)
[2022-04-17 02:57] LABS: PHOSPHOROUS 4.9 mg/dL (2.5-4.9)
[2022-04-17 02:58] LABS: TOT PROT 6.1 g/dl (6.4-8.2)
[2022-04-17 02:59] LABS: BILIRUBIN,TOTAL 0.2 mg/dL (0.2-1)
[2022-04-17] MEDS: MEROPENEM 500 MG in DEXTROSE 5%-WATER 100 ML IVPB SCH ×2 (09:13→21:15)
[2022-04-17 11:15] LABS: EPI CELLS 28 /uL (0-25.1); HYALINE CASTS 4 /uL (0-3.1); PH,URINE 5.5 (5.0-8.0); URINE APPEARANCE CLEAR; URINE BACTERIA 27 /uL (0-1359); URINE BILIRUBIN NEGATIVE (NEGATIVE); URINE COLOR YELLOW; URINE GLUCOSE (UA) 2+ (NEGATIVE); URINE KETONE NEGATIVE (NEGATIVE); URINE LEUK ESTERASE NEGATIVE (NEGATIVE); URINE NITRITE NEGATIVE (NEGATIVE); URINE PROTEIN 3+ (NEGATIVE); URINE RBC 14 /uL (0-23.9); URINE UROBILINOGEN 0.2 mg/dL (0.2-1.0); URINE WBC 12 /uL (0-25.8)
[2022-04-17 11:22] LABS: PHENCYCLIDINE,URINE NEGATIVE (NEGATIVE)
[2022-04-17 11:24] LABS: COCAINE, UR NEGATIVE (NEGATIVE); METHADONE, UR NEGATIVE (NEGATIVE); OPIATES, URI NEGATIVE (NEGATIVE); URINE BARBITURATES NEGATIVE (NEGATIVE); URINE BENZODIAZEPINES NEGATIVE (NEGATIVE)
[2022-04-17 11:31] LABS: URINE AMPHETAMINES NEGATIVE (NEGATIVE)
[2022-04-17] MEDS: COLLAGENASE CLOSTRIDIUM HIST. 30 GRAMS TUBE TP SCH (12:59)
[2022-04-17] MEDS: amLODIPine BESYLATE 5 MG TABLET (FP) PO SCH (12:59)
[2022-04-17] MEDS: SODIUM ZIRCONIUM CYCLOSILICATE (LOKELMA) 5 GM PACKET PO SCH (13:45)
[2022-04-17] MEDS: LISINOPRIL 20 MG TABLET PO SCH (13:45)
[2022-04-18] MEDS: HEPARIN NA (PORCINE) 5,000 UNITS/ML 1ML VIAL SQ SCH ×3 (06:11→22:53)
[2022-04-18] MEDS: INSULIN SLIDING SCALE (NOVOLOG) 1 VIAL SQ SCH ×4 (06:11→22:53)
[2022-04-18] MEDS: MEROPENEM 500 MG in DEXTROSE 5%-WATER 100 ML IVPB SCH ×2 (12:10→22:53)
[2022-04-18] MEDS: SODIUM ZIRCONIUM CYCLOSILICATE (LOKELMA) 5 GM PACKET PO SCH (12:10)
[2022-04-18] MEDS: amLODIPine BESYLATE 5 MG TABLET (FP) PO SCH (12:11)
[2022-04-18] MEDS: CARVEDILOL 12.5 MG TABLET (FP) PO SCH ×2 (12:11→22:53)
[2022-04-18] MEDS: FUROSEMIDE 20 MG TABLET (FP) PO SCH (12:11)
[2022-04-18] MEDS: GABAPENTIN 300 MG CAPSULE PO SCH ×2 (12:12→22:53)
[2022-04-18] MEDS: hydrALAZINE HCL 25 MG TABLET (FP) PO SCH ×2 (12:12→22:53)
[2022-04-18] MEDS ORDERED: ALBUTEROL SO4 2.5/IPRATROPIUM 0.5 INH SOL 3 ML VIAL.NEB. NEB ONE (13:58)
[2022-04-18] MEDS ORDERED: FUROSEMIDE 100 MG/10 ML INJECTABLE VIAL IVPB SCH (15:00)
[2022-04-18] MEDS: COLLAGENASE CLOSTRIDIUM HIST. 30 GRAMS TUBE TP SCH (17:12)
[2022-04-18] MEDS: FUROSEMIDE 40 MG/4 ML INJECTABLE VIAL IVPB SCH (18:27)
[2022-04-19] MEDS ORDERED: MELATONIN 5 MG TABLETS PO ONE (05:36)
[2022-04-19] MEDS: INSULIN SLIDING SCALE (NOVOLOG) 1 VIAL SQ SCH ×4 (06:17→22:02)
[2022-04-19] MEDS: HEPARIN NA (PORCINE) 5,000 UNITS/ML 1ML VIAL SQ SCH (06:17)
[2022-04-19] MEDS: MEROPENEM 500 MG in DEXTROSE 5%-WATER 100 ML IVPB SCH ×2 (08:58→20:14)
[2022-04-19] MEDS: hydrALAZINE HCL 25 MG TABLET (FP) PO SCH ×2 (11:44→22:01)
[2022-04-19] MEDS: CARVEDILOL 12.5 MG TABLET (FP) PO SCH ×2 (11:45→22:01)
[2022-04-19] MEDS: amLODIPine BESYLATE 5 MG TABLET (FP) PO SCH (11:46)
[2022-04-19] MEDS: FUROSEMIDE 40 MG/4 ML INJECTABLE VIAL IVPB SCH (11:46)
[2022-04-19] MEDS: COLLAGENASE CLOSTRIDIUM HIST. 30 GRAMS TUBE TP SCH (11:46)
[2022-04-19] MEDS: SODIUM ZIRCONIUM CYCLOSILICATE (LOKELMA) 5 GM PACKET PO SCH (11:46)
[2022-04-19] MEDS: GABAPENTIN 300 MG CAPSULE PO SCH ×2 (11:46→22:01)
[2022-04-20] MEDS ORDERED: LIDOCAINE HCL 1%, 10 MG/ML (20ML VIAL) ONE (07:19)
[2022-04-20] MEDS ORDERED: GENTAMICIN SO4 80 MG/2 ML VIAL ONE (07:19)
[2022-04-20] MEDS ORDERED: VANCOMYCIN 1,000 MG VIAL (RESTRICTED TO ID ONLY) ONE (07:19)
[2022-04-20] MEDS ORDERED: BUPIVACAINE HCL/PF 0.5% (5MG/ML) 10 ML VIAL ONE (07:20)
[2022-04-20] MEDS ORDERED: PROPOFOL 20 ML ONE (07:26)
[2022-04-20] MEDS ORDERED: SUCCINYLCHOLINE CHLORIDE 200 MG/10 ML SYRINGE ONE (07:26)
[2022-04-20] MEDS ORDERED: MIDAZOLAM HCL 2 MG/2 ML SINGLE DOSE VIAL ONE (07:27)
[2022-04-20] MEDS: INSULIN SLIDING SCALE (NOVOLOG) 1 VIAL SQ SCH ×4 (08:11→23:05)
[2022-04-20] MEDS ORDERED: ALBUTEROL SO4 0.083% IH SOL 2.5 MG/3 ML VIAL.NEB. NEB ONE ×2 (08:29→09:37)
[2022-04-20] MEDS ORDERED: ONDANSETRON 4 MG/2 ML VIAL IVPUSH PRN (09:37)
[2022-04-20] MEDS ORDERED: LACTATED RINGERS SOLUTION 1,000 ML IV SCH (09:45)
[2022-04-20] MEDS: MEROPENEM 500 MG in DEXTROSE 5%-WATER 100 ML IVPB SCH ×3 (11:19→22:25)
[2022-04-20] MEDS: FUROSEMIDE 40 MG/4 ML INJECTABLE VIAL IVPB SCH ×2 (11:28→12:38)
[2022-04-20] MEDS: amLODIPine BESYLATE 5 MG TABLET (FP) PO SCH (11:31)
[2022-04-20] MEDS: GABAPENTIN 300 MG CAPSULE PO SCH ×2 (11:31→23:05)
[2022-04-20] MEDS: SODIUM ZIRCONIUM CYCLOSILICATE (LOKELMA) 5 GM PACKET PO SCH ×2 (11:31→13:47)
[2022-04-20] MEDS: hydrALAZINE HCL 25 MG TABLET (FP) PO SCH ×2 (11:32→23:05)
[2022-04-20] MEDS: CARVEDILOL 12.5 MG TABLET (FP) PO SCH ×2 (11:32→23:05)
[2022-04-20] MEDS: COLLAGENASE CLOSTRIDIUM HIST. 30 GRAMS TUBE TP SCH (11:33)
[2022-04-20] MEDS ORDERED: INSULIN SLIDING SCALE (NOVOLOG) 1 VIAL SQ ONE (11:48)
[2022-04-20] MEDS ORDERED: ALBUTEROL SO4 2.5/IPRATROPIUM 0.5 INH SOL 3 ML VIAL.NEB. NEB ONE (14:29)
[2022-04-20] MEDS ORDERED: MEROPENEM 500 MG in DEXTROSE 5%-WATER 100 ML IVPB SCH (20:00)
[2022-04-21] MEDS: INSULIN SLIDING SCALE (NOVOLOG) 1 VIAL SQ SCH ×5 (06:54→23:26)
[2022-04-21] MEDS ORDERED: ACETAMINOPHEN 325 MG TABLET (FP) PO ONE (08:45)
[2022-04-21] MEDS: FUROSEMIDE 40 MG/4 ML INJECTABLE VIAL IVPB SCH (09:49)
[2022-04-21] MEDS: amLODIPine BESYLATE 5 MG TABLET (FP) PO SCH (09:49)
[2022-04-21] MEDS: CARVEDILOL 12.5 MG TABLET (FP) PO SCH ×3 (09:51→23:26)
[2022-04-21] MEDS: SODIUM ZIRCONIUM CYCLOSILICATE (LOKELMA) 5 GM PACKET PO SCH ×2 (09:51→10:03)
[2022-04-21] MEDS: hydrALAZINE HCL 25 MG TABLET (FP) PO SCH ×3 (09:51→23:26)
[2022-04-21] MEDS: GABAPENTIN 300 MG CAPSULE PO SCH ×2 (09:51→23:22)
[2022-04-21] MEDS: COLLAGENASE CLOSTRIDIUM HIST. 30 GRAMS TUBE TP SCH (09:52)
[2022-04-21] MEDS: MEROPENEM 500 MG in DEXTROSE 5%-WATER 100 ML IVPB SCH ×3 (11:29→23:27)
[2022-04-21] MEDS ORDERED: ALBUTEROL SO4 2.5/IPRATROPIUM 0.5 INH SOL 3 ML VIAL.NEB. NEB ONE (23:35)
[2022-04-22] MEDS: INSULIN SLIDING SCALE (NOVOLOG) 1 VIAL SQ SCH ×4 (07:04→21:47)
[2022-04-22] MEDS ORDERED: ALBUTEROL SO4 2.5/IPRATROPIUM 0.5 INH SOL 3 ML VIAL.NEB. NEB PRN (07:07)
[2022-04-22 12:31] LABS: BASO % 1.8 % (0-2.0); EOS % 2.9 % (0-4.5); HEMATOCRIT 24.3 % (35.4-49); HEMOGLOBIN 7.5 GM/dL (11.7-16.9); LYMPH % 18.2 % (8-40); MCHC 30.8 g/dl (32.0-35.9); MEAN CELL VOLUME 77.9 fl (80-96); MEAN PLT VOLUME 7.7 fl (7.5-11.1); MONO % 6.2 % (3.8-10.2); NEUT % 70.9 % (42.8-82.8); PLATELET COUNT 288 10^3/uL (134-434); RBC 3.12 M/mm3 (4.00-5.60); RDW 17.6 % (11.9-15.9); WHITE BLOOD COUNT 5.6 K/mm3 (4.0-10.0)
[2022-04-22] MEDS: SODIUM ZIRCONIUM CYCLOSILICATE (LOKELMA) 5 GM PACKET PO SCH ×2 (12:32→18:24)
[2022-04-22] MEDS: FUROSEMIDE 40 MG/4 ML INJECTABLE VIAL IVPB SCH ×2 (12:32→15:38)
[2022-04-22] MEDS: hydrALAZINE HCL 25 MG TABLET (FP) PO SCH ×2 (12:32→21:45)
[2022-04-22] MEDS: GABAPENTIN 300 MG CAPSULE PO SCH ×2 (12:32→21:45)
[2022-04-22] MEDS: CARVEDILOL 12.5 MG TABLET (FP) PO SCH ×2 (12:32→21:45)
[2022-04-22] MEDS: amLODIPine BESYLATE 5 MG TABLET (FP) PO SCH ×2 (12:35→15:28)
[2022-04-22] MEDS: MEROPENEM 500 MG in DEXTROSE 5%-WATER 100 ML IVPB SCH ×2 (12:35→22:53)
[2022-04-22] MEDS: COLLAGENASE CLOSTRIDIUM HIST. 30 GRAMS TUBE TP SCH (12:36)
[2022-04-22 12:53] LABS: ALBUMIN 1.7 g/dl (3.4-5.0); BLOOD UREA NITROGEN 66.7 mg/dL (7-18); CALCIUM 8.2 mg/dL (8.5-10.1)
[2022-04-22 12:57] LABS: BILIRUBIN,TOTAL 0.2 mg/dL (0.2-1); CREATININE 3.9 mg/dL (0.55-1.3); TOT PROT 6.1 g/dl (6.4-8.2)
[2022-04-23] MEDS: FUROSEMIDE 40 MG/4 ML INJECTABLE VIAL IVPB SCH ×2 (06:13→13:18)
[2022-04-23] MEDS: INSULIN SLIDING SCALE (NOVOLOG) 1 VIAL SQ SCH ×4 (06:36→23:04)
[2022-04-23 11:00] LABS: ALBUMIN 1.7 g/dl (3.4-5.0); BLOOD UREA NITROGEN 67.3 mg/dL (7-18)
[2022-04-23 11:01] LABS: CALCIUM 8.2 mg/dL (8.5-10.1)
[2022-04-23] MEDS: hydrALAZINE HCL 25 MG TABLET (FP) PO SCH ×2 (11:01→23:04)
[2022-04-23] MEDS: GABAPENTIN 300 MG CAPSULE PO SCH ×2 (11:02→23:04)
[2022-04-23] MEDS: SODIUM ZIRCONIUM CYCLOSILICATE (LOKELMA) 5 GM PACKET PO SCH (11:02)
[2022-04-23] MEDS: MEROPENEM 500 MG in DEXTROSE 5%-WATER 100 ML IVPB SCH ×2 (11:02→23:04)
[2022-04-23] MEDS: amLODIPine BESYLATE 5 MG TABLET (FP) PO SCH (11:02)
[2022-04-23] MEDS: CARVEDILOL 12.5 MG TABLET (FP) PO SCH ×2 (11:02→23:04)
[2022-04-23 11:04] LABS: CREATININE 3.6 mg/dL (0.55-1.3)
[2022-04-23 11:06] LABS: BILIRUBIN,TOTAL 0.2 mg/dL (0.2-1)
[2022-04-24] MEDS: INSULIN SLIDING SCALE (NOVOLOG) 1 VIAL SQ SCH ×4 (07:11→21:56)
[2022-04-24] MEDS: FUROSEMIDE 40 MG/4 ML INJECTABLE VIAL IVPB SCH ×2 (07:11→14:13)
[2022-04-24] MEDS: GABAPENTIN 300 MG CAPSULE PO SCH ×2 (11:01→21:56)
[2022-04-24] MEDS: hydrALAZINE HCL 25 MG TABLET (FP) PO SCH ×2 (11:01→21:56)
[2022-04-24] MEDS: amLODIPine BESYLATE 5 MG TABLET (FP) PO SCH (11:01)
[2022-04-24] MEDS: SODIUM ZIRCONIUM CYCLOSILICATE (LOKELMA) 5 GM PACKET PO SCH (11:01)
[2022-04-24] MEDS: MEROPENEM 500 MG in DEXTROSE 5%-WATER 100 ML IVPB SCH (11:02)
[2022-04-24] MEDS: CARVEDILOL 12.5 MG TABLET (FP) PO SCH ×2 (11:02→21:56)
[2022-04-24] MEDS ORDERED: VANCOMYCIN/WATER FOR INJ (PEG) 1,000 MG/200 ML BAG IVPB ONE (13:00)
[2022-04-24] MEDS ORDERED: METOLAZONE 5 MG TABLET PO ONE (13:06)
[2022-04-25] MEDS: INSULIN SLIDING SCALE (NOVOLOG) 1 VIAL SQ SCH ×4 (06:41→21:01)
[2022-04-25] MEDS: FUROSEMIDE 40 MG/4 ML INJECTABLE VIAL IVPB SCH ×2 (06:45→13:34)
[2022-04-25] MEDS: GABAPENTIN 300 MG CAPSULE PO SCH ×2 (09:40→21:01)
[2022-04-25] MEDS: VITAMIN B COMP W-C 1 EA TABLET (NEPHRO-VITE) PO SCH (09:40)
[2022-04-25] MEDS: CARVEDILOL 12.5 MG TABLET (FP) PO SCH ×2 (09:40→21:01)
[2022-04-25] MEDS: SODIUM ZIRCONIUM CYCLOSILICATE (LOKELMA) 5 GM PACKET PO SCH (09:40)
[2022-04-25] MEDS: amLODIPine BESYLATE 5 MG TABLET (FP) PO SCH (09:40)
[2022-04-25] MEDS: hydrALAZINE HCL 25 MG TABLET (FP) PO SCH ×2 (09:40→21:02)
[2022-04-25 11:09] LABS: BASO % 0.9 % (0-2.0); EOS % 2.9 % (0-4.5); HEMATOCRIT 23.4 % (35.4-49); HEMOGLOBIN 7.4 GM/dL (11.7-16.9); LYMPH % 22.8 % (8-40); MCH 24.6 pg (25.7-33.7); MCHC 31.7 g/dl (32.0-35.9); MEAN CELL VOLUME 77.8 fl (80-96); MEAN PLT VOLUME 7.7 fl (7.5-11.1); MONO % 8.9 % (3.8-10.2); NEUT % 64.5 % (42.8-82.8); PLATELET COUNT 241 10^3/uL (134-434); RDW 18.2 % (11.9-15.9); WHITE BLOOD COUNT 4.6 K/mm3 (4.0-10.0)
[2022-04-25 11:27] LABS: ALBUMIN 1.6 g/dl (3.4-5.0); CALCIUM 8.4 mg/dL (8.5-10.1)
[2022-04-25 11:28] LABS: BLOOD UREA NITROGEN 57.9 mg/dL (7-18)
[2022-04-25 11:30] LABS: CREATININE 3.3 mg/dL (0.55-1.3)
[2022-04-25 11:32] LABS: BILIRUBIN,TOTAL 0.2 mg/dL (0.2-1); TOT PROT 5.8 g/dl (6.4-8.2)
[2022-04-25] MEDS ORDERED: VANCOMYCIN/WATER FOR INJ (PEG) 1,000 MG/200 ML BAG IVPB ONE (15:30)
[2022-04-25] MEDS ORDERED: ACETAMINOPHEN 325 MG TABLET (FP) PO ONE (15:40)
[2022-04-25] MEDS ORDERED: METOLAZONE 5 MG TABLET PO ONE (16:14)
[2022-04-26] MEDS: FUROSEMIDE 40 MG/4 ML INJECTABLE VIAL IVPB SCH ×2 (06:15→15:28)
[2022-04-26] MEDS: amLODIPine BESYLATE 5 MG TABLET (FP) PO SCH (10:46)
[2022-04-26] MEDS: INSULIN SLIDING SCALE (NOVOLOG) 1 VIAL SQ SCH ×4 (10:46→22:00)
[2022-04-26] MEDS: GABAPENTIN 300 MG CAPSULE PO SCH ×2 (10:46→22:00)
[2022-04-26] MEDS: VITAMIN B COMP W-C 1 EA TABLET (NEPHRO-VITE) PO SCH (10:46)
[2022-04-26] MEDS: SODIUM ZIRCONIUM CYCLOSILICATE (LOKELMA) 5 GM PACKET PO SCH (10:46)
[2022-04-26] MEDS: hydrALAZINE HCL 25 MG TABLET (FP) PO SCH ×2 (10:46→22:00)
[2022-04-26] MEDS: CARVEDILOL 12.5 MG TABLET (FP) PO SCH ×2 (10:46→22:00)
[2022-04-26] MEDS ORDERED: METOLAZONE 2.5 MG TABLET (FP) PO ONE (13:30)
[2022-04-27] MEDS ORDERED: ACETAMINOPHEN 325 MG TABLET (FP) PO PRN (03:57)
[2022-04-27] MEDS: FUROSEMIDE 40 MG/4 ML INJECTABLE VIAL IVPB SCH ×2 (06:08→14:16)
[2022-04-27] MEDS: INSULIN SLIDING SCALE (NOVOLOG) 1 VIAL SQ SCH ×4 (08:01→22:10)
[2022-04-27] MEDS: CARVEDILOL 12.5 MG TABLET (FP) PO SCH ×2 (10:32→22:10)
[2022-04-27] MEDS: hydrALAZINE HCL 25 MG TABLET (FP) PO SCH ×2 (10:32→22:10)
[2022-04-27] MEDS: amLODIPine BESYLATE 5 MG TABLET (FP) PO SCH (10:33)
[2022-04-27] MEDS: VITAMIN B COMP W-C 1 EA TABLET (NEPHRO-VITE) PO SCH (10:33)
[2022-04-27] MEDS: GABAPENTIN 300 MG CAPSULE PO SCH ×2 (10:33→22:10)
[2022-04-27] MEDS: SODIUM ZIRCONIUM CYCLOSILICATE (LOKELMA) 5 GM PACKET PO SCH (10:33)
[2022-04-27 10:47] LABS: HEMATOCRIT 24.5 % (35.4-49); HEMOGLOBIN 7.6 GM/dL (11.7-16.9); MCH 24.1 pg (25.7-33.7); MEAN CELL VOLUME 77.7 fl (80-96); MEAN PLT VOLUME 8.1 fl (7.5-11.1); PLATELET COUNT 273 10^3/uL (134-434); RBC 3.16 M/mm3 (4.00-5.60); RDW 18.2 % (11.9-15.9); WHITE BLOOD COUNT 5.2 K/mm3 (4.0-10.0)
[2022-04-27 11:20] LABS: CALCIUM 8.3 mg/dL (8.5-10.1)
[2022-04-27 11:21] LABS: ALBUMIN 1.8 g/dl (3.4-5.0); BLOOD UREA NITROGEN 54.6 mg/dL (7-18)
[2022-04-27 11:25] LABS: CREATININE 3.8 mg/dL (0.55-1.3)
[2022-04-27 11:26] LABS: BILIRUBIN,TOTAL 0.3 mg/dL (0.2-1)
[2022-04-27] MEDS ORDERED: METOLAZONE 2.5 MG TABLET (FP) PO ONE (14:57)
[2022-04-27] MEDS ORDERED: VANCOMYCIN/WATER FOR INJ (PEG) 1,000 MG/200 ML BAG IVPB ONE (15:02)
[2022-04-27] MEDS: FLUCONAZOLE 100 MG TABLET (UD) PO SCH (17:10)
[2022-04-28] MEDS: FUROSEMIDE 40 MG/4 ML INJECTABLE VIAL IVPB SCH ×2 (06:37→14:39)
[2022-04-28] MEDS: INSULIN SLIDING SCALE (NOVOLOG) 1 VIAL SQ SCH ×4 (06:43→22:52)
[2022-04-28] MEDS: CARVEDILOL 12.5 MG TABLET (FP) PO SCH ×2 (09:57→22:51)
[2022-04-28] MEDS: amLODIPine BESYLATE 5 MG TABLET (FP) PO SCH (09:57)
[2022-04-28] MEDS: VITAMIN B COMP W-C 1 EA TABLET (NEPHRO-VITE) PO SCH (09:57)
[2022-04-28] MEDS: hydrALAZINE HCL 25 MG TABLET (FP) PO SCH ×2 (09:58→22:52)
[2022-04-28] MEDS: GABAPENTIN 300 MG CAPSULE PO SCH ×2 (09:58→22:52)
[2022-04-28] MEDS: SODIUM ZIRCONIUM CYCLOSILICATE (LOKELMA) 5 GM PACKET PO SCH (09:58)
[2022-04-28] MEDS: FLUCONAZOLE 100 MG TABLET (UD) PO SCH (09:58)
[2022-04-28] MEDS ORDERED: FLUCONAZOLE 100 MG TABLET (UD) PO SCH (10:00)
[2022-04-28 11:46] LABS: HEMATOCRIT 23.9 % (35.4-49); HEMOGLOBIN 7.3 GM/dL (11.7-16.9); MCH 23.6 pg (25.7-33.7); MCHC 30.6 g/dl (32.0-35.9); MEAN CELL VOLUME 77.1 fl (80-96); MEAN PLT VOLUME 8.3 fl (7.5-11.1); PLATELET COUNT 273 10^3/uL (134-434); RDW 18.3 % (11.9-15.9); WHITE BLOOD COUNT 5.8 K/mm3 (4.0-10.0)
[2022-04-28 12:16] LABS: BLOOD UREA NITROGEN 57.5 mg/dL (7-18); CALCIUM 8.2 mg/dL (8.5-10.1)
[2022-04-28] MEDS ORDERED: INSULIN SLIDING SCALE (NOVOLOG) 1 VIAL SQ ONE (12:17)
[2022-04-28 12:18] LABS: ALBUMIN 1.7 g/dl (3.4-5.0)
[2022-04-28 12:20] LABS: CREATININE 4.1 mg/dL (0.55-1.3)
[2022-04-28 12:22] LABS: BILIRUBIN,TOTAL 0.3 mg/dL (0.2-1); TOT PROT 5.8 g/dl (6.4-8.2)
[2022-04-28] MEDS ORDERED: VANCOMYCIN/WATER FOR INJ (PEG) 1,000 MG/200 ML BAG IVPB ONE (13:00)
[2022-04-28] MEDS: METOLAZONE 5 MG TABLET PO SCH (17:08)
[2022-04-29] MEDS: FUROSEMIDE 40 MG/4 ML INJECTABLE VIAL IVPB SCH ×2 (06:51→15:39)
[2022-04-29] MEDS: INSULIN SLIDING SCALE (NOVOLOG) 1 VIAL SQ SCH ×4 (06:51→22:05)
[2022-04-29] MEDS: amLODIPine BESYLATE 5 MG TABLET (FP) PO SCH (11:01)
[2022-04-29] MEDS: VITAMIN B COMP W-C 1 EA TABLET (NEPHRO-VITE) PO SCH (11:01)
[2022-04-29] MEDS: CARVEDILOL 12.5 MG TABLET (FP) PO SCH ×2 (11:01→21:58)
[2022-04-29] MEDS: hydrALAZINE HCL 25 MG TABLET (FP) PO SCH ×2 (11:01→21:58)
[2022-04-29] MEDS: GABAPENTIN 300 MG CAPSULE PO SCH ×2 (11:02→21:58)
[2022-04-29] MEDS: SODIUM ZIRCONIUM CYCLOSILICATE (LOKELMA) 5 GM PACKET PO SCH (11:02)
[2022-04-29] MEDS: FLUCONAZOLE 100 MG TABLET (UD) PO SCH (11:02)
[2022-04-29] MEDS: METOLAZONE 5 MG TABLET PO SCH (11:03)
[2022-04-29 13:29] LABS: HEMATOCRIT 22.6 % (35.4-49); MCH 23.9 pg (25.7-33.7); MCHC 31.1 g/dl (32.0-35.9); MEAN CELL VOLUME 76.9 fl (80-96); MEAN PLT VOLUME 8.3 fl (7.5-11.1); PLATELET COUNT 252 10^3/uL (134-434); RBC 2.94 M/mm3 (4.00-5.60); RDW 17.9 % (11.9-15.9); WHITE BLOOD COUNT 5.3 K/mm3 (4.0-10.0)
[2022-04-29 13:43] LABS: ALBUMIN 1.7 g/dl (3.4-5.0); BLOOD UREA NITROGEN 59.5 mg/dL (7-18); CALCIUM 7.9 mg/dL (8.5-10.1)
[2022-04-29 13:47] LABS: CREATININE 4.2 mg/dL (0.55-1.3)
[2022-04-29 13:48] LABS: BILIRUBIN,TOTAL 0.2 mg/dL (0.2-1); TOT PROT 5.9 g/dl (6.4-8.2)
[2022-04-29] MEDS ORDERED: VANCOMYCIN/WATER FOR INJ (PEG) 1,000 MG/200 ML BAG IVPB ONE (17:14)
[2022-04-30] MEDS: INSULIN SLIDING SCALE (NOVOLOG) 1 VIAL SQ SCH ×4 (07:07→22:15)
[2022-04-30] MEDS: FUROSEMIDE 40 MG/4 ML INJECTABLE VIAL IVPB SCH ×3 (07:07→15:24)
[2022-04-30] MEDS: VITAMIN B COMP W-C 1 EA TABLET (NEPHRO-VITE) PO SCH (09:15)
[2022-04-30] MEDS: amLODIPine BESYLATE 5 MG TABLET (FP) PO SCH (09:15)
[2022-04-30] MEDS: SODIUM ZIRCONIUM CYCLOSILICATE (LOKELMA) 5 GM PACKET PO SCH (09:15)
[2022-04-30] MEDS: CARVEDILOL 12.5 MG TABLET (FP) PO SCH ×2 (09:15→22:10)
[2022-04-30] MEDS: hydrALAZINE HCL 25 MG TABLET (FP) PO SCH ×2 (09:15→22:10)
[2022-04-30] MEDS: GABAPENTIN 300 MG CAPSULE PO SCH ×2 (09:15→22:10)
[2022-04-30] MEDS: METOLAZONE 5 MG TABLET PO SCH (09:17)
[2022-04-30 10:31] LABS: HEMATOCRIT 21.8 % (35.4-49); MEAN CELL VOLUME 77.3 fl (80-96); MEAN PLT VOLUME 8.4 fl (7.5-11.1); PLATELET COUNT 245 10^3/uL (134-434); RBC 2.82 M/mm3 (4.00-5.60); WHITE BLOOD COUNT 5.1 K/mm3 (4.0-10.0)
[2022-04-30 10:35] LABS: HEMOGLOBIN 6.8 GM/dL (11.7-16.9)
[2022-04-30 10:49] LABS: ALBUMIN 1.7 g/dl (3.4-5.0); CALCIUM 7.9 mg/dL (8.5-10.1)
[2022-04-30 10:50] LABS: BLOOD UREA NITROGEN 66.6 mg/dL (7-18)
[2022-04-30 10:52] LABS: CREATININE 4.6 mg/dL (0.55-1.3)
[2022-04-30 10:54] LABS: BILIRUBIN,TOTAL 0.2 mg/dL (0.2-1)
[2022-04-30] MEDS ORDERED: IRON SUCROSE INJECTION 100 MG in SODIUM CHLORIDE 95 ML IVPB ONE (12:31)
[2022-04-30] MEDS: FLUCONAZOLE 100 MG TABLET (UD) PO SCH (14:42)
[2022-04-30 14:51] VITALS: BMI 36.1
[2022-04-30] MEDS: FERROUS SO4 325 MG TABLET (FP) PO SCH (22:10)
[2022-05-01] MEDS: FUROSEMIDE 40 MG/4 ML INJECTABLE VIAL IVPB SCH ×2 (06:24→15:24)
[2022-05-01] MEDS: INSULIN SLIDING SCALE (NOVOLOG) 1 VIAL SQ SCH ×4 (06:24→21:17)
[2022-05-01 11:38] LABS: CALCIUM 7.7 mg/dL (8.5-10.1)
[2022-05-01 11:39] LABS: ALBUMIN 1.6 g/dl (3.4-5.0); BLOOD UREA NITROGEN 73.9 mg/dL (7-18); MAGNESIUM 2.2 mg/dL (1.8-2.4)
[2022-05-01 11:42] LABS: CREATININE 4.8 mg/dL (0.55-1.3); PHOSPHOROUS 5.2 mg/dL (2.5-4.9)
[2022-05-01 11:43] LABS: BILIRUBIN,TOTAL 0.3 mg/dL (0.2-1)
[2022-05-01 11:44] LABS: TOT PROT 5.7 g/dl (6.4-8.2)
[2022-05-01] MEDS ORDERED: VANCOMYCIN/WATER FOR INJ (PEG) 1,000 MG/200 ML BAG IVPB ONE (14:04)
[2022-05-01] MEDS ORDERED: EPOETIN ALFA-EPBX 10,000 UNIT/ML VIAL SQ ONE (14:12)
[2022-05-01] MEDS: VITAMIN B COMP W-C 1 EA TABLET (NEPHRO-VITE) PO SCH (15:09)
[2022-05-01] MEDS: amLODIPine BESYLATE 5 MG TABLET (FP) PO SCH (15:10)
[2022-05-01] MEDS: SODIUM ZIRCONIUM CYCLOSILICATE (LOKELMA) 5 GM PACKET PO SCH (15:10)
[2022-05-01] MEDS: CARVEDILOL 12.5 MG TABLET (FP) PO SCH ×2 (15:10→21:08)
[2022-05-01] MEDS: FERROUS SO4 325 MG TABLET (FP) PO SCH ×2 (15:10→21:08)
[2022-05-01] MEDS: hydrALAZINE HCL 25 MG TABLET (FP) PO SCH ×2 (15:10→21:08)
[2022-05-01] MEDS: METOLAZONE 5 MG TABLET PO SCH (15:13)
[2022-05-01] MEDS: FLUCONAZOLE 100 MG TABLET (UD) PO SCH (15:13)
[2022-05-01] MEDS: GABAPENTIN 300 MG CAPSULE PO SCH ×2 (18:02→21:08)
[2022-05-01] MEDS ORDERED: INSULIN (NOVOLOG) ASPART 100 UNITS/ML 10ML VIAL ONE (21:04)
[2022-05-02] MEDS: FUROSEMIDE 40 MG/4 ML INJECTABLE VIAL IVPB SCH ×2 (07:12→14:49)
[2022-05-02] MEDS: INSULIN SLIDING SCALE (NOVOLOG) 1 VIAL SQ SCH ×4 (07:21→21:15)
[2022-05-02] MEDS: amLODIPine BESYLATE 5 MG TABLET (FP) PO SCH (10:32)
[2022-05-02] MEDS: GABAPENTIN 300 MG CAPSULE PO SCH ×2 (10:32→21:10)
[2022-05-02] MEDS: CARVEDILOL 12.5 MG TABLET (FP) PO SCH ×2 (10:32→21:10)
[2022-05-02] MEDS: hydrALAZINE HCL 25 MG TABLET (FP) PO SCH ×2 (10:32→21:10)
[2022-05-02] MEDS: FERROUS SO4 325 MG TABLET (FP) PO SCH ×2 (10:32→21:10)
[2022-05-02] MEDS: VITAMIN B COMP W-C 1 EA TABLET (NEPHRO-VITE) PO SCH (10:32)
[2022-05-02] MEDS: FLUCONAZOLE 100 MG TABLET (UD) PO SCH (10:48)
[2022-05-02 10:54] LABS: BASO % 0.5 % (0-2.0); EOS % 1.7 % (0-4.5); HEMATOCRIT 20.5 % (35.4-49); LYMPH % 16.6 % (8-40); MCH 24.6 pg (25.7-33.7); MCHC 31.9 g/dl (32.0-35.9); MEAN CELL VOLUME 77.1 fl (80-96); MEAN PLT VOLUME 8.1 fl (7.5-11.1); MONO % 9.8 % (3.8-10.2); NEUT % 71.4 % (42.8-82.8); PLATELET COUNT 210 10^3/uL (134-434); RBC 2.66 M/mm3 (4.00-5.60); RDW 17.7 % (11.9-15.9); WHITE BLOOD COUNT 5.5 K/mm3 (4.0-10.0)
[2022-05-02 11:04] LABS: HEMOGLOBIN 6.6 GM/dL (11.7-16.9)
[2022-05-02 11:27] LABS: CALCIUM 7.8 mg/dL (8.5-10.1)
[2022-05-02 11:28] LABS: ALBUMIN 1.6 g/dl (3.4-5.0); BLOOD UREA NITROGEN 80.9 mg/dL (7-18); MAGNESIUM 2.2 mg/dL (1.8-2.4)
[2022-05-02 11:30] LABS: PHOSPHOROUS 5.7 mg/dL (2.5-4.9)
[2022-05-02 11:31] LABS: CREATININE 5.4 mg/dL (0.55-1.3)
[2022-05-02 11:32] LABS: BILIRUBIN,TOTAL 0.3 mg/dL (0.2-1); TOT PROT 5.7 g/dl (6.4-8.2)
[2022-05-02] MEDS: METOLAZONE 5 MG TABLET PO SCH (13:26)
[2022-05-02] MEDS: SODIUM ZIRCONIUM CYCLOSILICATE (LOKELMA) 5 GM PACKET PO SCH (13:36)
[2022-05-02 16:14] LABS: BASO % 0.8 % (0-2.0); EOS % 2.3 % (0-4.5); HEMATOCRIT 21.3 % (35.4-49); LYMPH % 19.7 % (8-40); MCHC 31.1 g/dl (32.0-35.9); MEAN CELL VOLUME 77.2 fl (80-96); MEAN PLT VOLUME 8.6 fl (7.5-11.1); MONO % 9.5 % (3.8-10.2); NEUT % 67.7 % (42.8-82.8); PLATELET COUNT 212 10^3/uL (134-434); RBC 2.76 M/mm3 (4.00-5.60); RDW 17.3 % (11.9-15.9); WHITE BLOOD COUNT 5.8 K/mm3 (4.0-10.0)
[2022-05-02 16:26] LABS: HEMOGLOBIN 6.6 GM/dL (11.7-16.9)
[2022-05-03 01:44] LABS: BASO % 0.7 % (0-2.0); EOS % 2.4 % (0-4.5); HEMATOCRIT 24.3 % (35.4-49); HEMOGLOBIN 7.6 GM/dL (11.7-16.9); LYMPH % 17.6 % (8-40); MCH 24.5 pg (25.7-33.7); MCHC 31.4 g/dl (32.0-35.9); MEAN CELL VOLUME 78.1 fl (80-96); MEAN PLT VOLUME 8.4 fl (7.5-11.1); MONO % 8.8 % (3.8-10.2); NEUT % 70.5 % (42.8-82.8); PLATELET COUNT 228 10^3/uL (134-434); RBC 3.12 M/mm3 (4.00-5.60); RDW 17.3 % (11.9-15.9); WHITE BLOOD COUNT 6.1 K/mm3 (4.0-10.0)
[2022-05-03] MEDS: FUROSEMIDE 40 MG/4 ML INJECTABLE VIAL IVPB SCH ×2 (06:43→15:14)
[2022-05-03] MEDS: INSULIN SLIDING SCALE (NOVOLOG) 1 VIAL SQ SCH ×4 (06:52→23:00)
[2022-05-03 10:10] LABS: BASO % 0.5 % (0-2.0); EOS % 1.7 % (0-4.5); HEMATOCRIT 22.3 % (35.4-49); HEMOGLOBIN 7.3 GM/dL (11.7-16.9); LYMPH % 11.8 % (8-40); MCH 25.4 pg (25.7-33.7); MCHC 32.7 g/dl (32.0-35.9); MEAN CELL VOLUME 77.9 fl (80-96); MEAN PLT VOLUME 8.4 fl (7.5-11.1); MONO % 8.6 % (3.8-10.2); NEUT % 77.4 % (42.8-82.8); PLATELET COUNT 207 10^3/uL (134-434); RBC 2.86 M/mm3 (4.00-5.60); RDW 17.3 % (11.9-15.9); WHITE BLOOD COUNT 6.2 K/mm3 (4.0-10.0)
[2022-05-03 10:24] LABS: ALBUMIN 1.7 g/dl (3.4-5.0); BLOOD UREA NITROGEN 88.9 mg/dL (7-18)
[2022-05-03 10:25] LABS: CALCIUM 7.4 mg/dL (8.5-10.1); MAGNESIUM 2.1 mg/dL (1.8-2.4)
[2022-05-03 10:27] LABS: CREATININE 5.9 mg/dL (0.55-1.3); PHOSPHOROUS 6.1 mg/dL (2.5-4.9)
[2022-05-03 10:29] LABS: BILIRUBIN,TOTAL 0.3 mg/dL (0.2-1)
[2022-05-03] MEDS: FERROUS SO4 325 MG TABLET (FP) PO SCH (11:18)
[2022-05-03] MEDS: CARVEDILOL 12.5 MG TABLET (FP) PO SCH (11:18)
[2022-05-03] MEDS: hydrALAZINE HCL 25 MG TABLET (FP) PO SCH (11:18)
[2022-05-03] MEDS: VITAMIN B COMP W-C 1 EA TABLET (NEPHRO-VITE) PO SCH (11:18)
[2022-05-03] MEDS: GABAPENTIN 300 MG CAPSULE PO SCH (11:18)
[2022-05-03] MEDS: amLODIPine BESYLATE 5 MG TABLET (FP) PO SCH (11:18)
[2022-05-03] MEDS: FLUCONAZOLE 100 MG TABLET (UD) PO SCH (11:20)
[2022-05-03] MEDS: SODIUM ZIRCONIUM CYCLOSILICATE (LOKELMA) 5 GM PACKET PO SCH (13:11)
[2022-05-03] MEDS ORDERED: SODIUM ZIRCONIUM CYCLOSILICATE (LOKELMA) 5 GM PACKET PO SCH (18:29)
[2022-05-03] MEDS: NOREPINEPHRINE BITARTRATE/D5W 8 MG/250 ML BAG IVPB SCH ×2 (20:00→20:52)
[2022-05-03] MEDS ORDERED: NOREPINEPHRINE BITARTRATE 4 MG/4 ML ML IV ONE (20:41)
[2022-05-03 20:42] LABS: HEMATOCRIT 23.7 % (35.4-49); HEMOGLOBIN 7.5 GM/dL (11.7-16.9); MCH 25.2 pg (25.7-33.7); MCHC 31.9 g/dl (32.0-35.9); MEAN CELL VOLUME 79.2 fl (80-96); MEAN PLT VOLUME 8.3 fl (7.5-11.1); PLATELET COUNT 247 10^3/uL (134-434); RBC 2.99 M/mm3 (4.00-5.60); RDW 17.8 % (11.9-15.9); WHITE BLOOD COUNT 7.9 K/mm3 (4.0-10.0)
[2022-05-03 20:58] LABS: CHLORIDE 105 mmol/L (98-107); SODIUM 139 mmol/L (136-145)
[2022-05-03 21:01] LABS: ALBUMIN 1.6 g/dl (3.4-5.0); BLOOD UREA NITROGEN 94.3 mg/dL (7-18); CALCIUM 7.7 mg/dL (8.5-10.1); CO2 21 mmol/L (21-32); GLUCOSE,RANDOM 237 mg/dL (74-106); MAGNESIUM 2.1 mg/dL (1.8-2.4)
[2022-05-03 21:05] LABS: CREATININE 6.9 mg/dL (0.55-1.3); SGOT/AST 123 U/L (15-37); SGPT/ALT 74 U/L (13-61)
[2022-05-03 21:06] LABS: BILIRUBIN,TOTAL 0.4 mg/dL (0.2-1)
[2022-05-03 21:07] LABS: ARTERIAL BLD GAS O2 SATURATION 93.4 % (95-98); ARTERIAL BLOOD GAS BASE EXCESS -10.3 mmol/L (-2-2); ARTERIAL BLOOD GAS PO2 90.2 mmHg (80-100)
[2022-05-03 21:12] LABS: ALK PHOS 477 U/L (45-117); ANION GAP 13 MMOL/L (8-16)
[2022-05-03 21:22] LABS: ARTERIAL BLOOD GAS pH 7.106 (7.350-7.450)
[2022-05-03 21:31] LABS: ANISOCYTOSIS 3+; MACROCYTOSIS 0; ROULEAU 1+
[2022-05-03] MEDS ORDERED: HEPARIN NA (PORCINE) 5,000 UNITS/ML 1ML VIAL IVPUSH ONE ×2 (21:34→23:31)
[2022-05-03] MEDS ORDERED: HEPARIN NA (PORCINE) 5,000 UNITS/ML 1ML VIAL IVPUSH PRN ×2 (21:34)
[2022-05-03 21:45] LABS: N-TERMINAL BNP 7325.5 pg/ml (5-125)
[2022-05-03] MEDS ORDERED: HEPARIN INFUSION - 25,000 UNITS/500 ML INFUS.BAG IVPB SCH (21:45)
[2022-05-03] MEDS ORDERED: CHLORHEXIDINE GLUCONATE 4% CLEANSER FOR DECOLONIZATION TP SCH (22:00)
[2022-05-03] MEDS: MUPIROCIN 2% TOPICAL OINTMENT FOR DECOLONIZATION NS SCH (22:28)
[2022-05-04] MEDS ORDERED: CALCIUM GLUCONATE 10% - 1,000 MG/10 ML VIAL IVPB ONE (00:02)
[2022-05-04] MEDS ORDERED: SODIUM ZIRCONIUM CYCLOSILICATE (LOKELMA) 5 GM PACKET NGT ONE (00:06)
[2022-05-04] MEDS ORDERED: MIDAZOLAM HCL 2 MG/2 ML SINGLE DOSE VIAL IVPUSH PRN (00:10)
[2022-05-04] MEDS: HEPARIN INFUSION - 25,000 UNITS/500 ML INFUS.BAG IVPB SCH ×2 (00:42→10:17)
[2022-05-04] MEDS: GABAPENTIN 300 MG CAPSULE PO SCH ×2 (00:47→09:50)
[2022-05-04] MEDS: FERROUS SO4 325 MG TABLET (FP) PO SCH ×3 (00:52→09:50)
[2022-05-04 01:05] LABS: ARTERIAL BLD GAS O2 SATURATION 99.7 % (95-98); ARTERIAL BLOOD GAS BASE EXCESS -8.7 mmol/L (-2-2); ARTERIAL BLOOD GAS PO2 309.9 mmHg (80-100); ARTERIAL BLOOD GAS pH 7.299 (7.350-7.450)
[2022-05-04] MEDS: NOREPINEPHRINE BITARTRATE/D5W 8 MG/250 ML BAG IVPB SCH ×3 (05:30→20:50)
[2022-05-04 06:56] LABS: ARTERIAL BLD GAS O2 SATURATION 97.9 % (95-98); ARTERIAL BLOOD GAS BASE EXCESS -9.1 mmol/L (-2-2); ARTERIAL BLOOD GAS PO2 124.3 mmHg (80-100); ARTERIAL BLOOD GAS pH 7.248 (7.350-7.450)
[2022-05-04 07:03] LABS: VENT MODE A/C; VENT RATE 26
[2022-05-04] MEDS: INSULIN SLIDING SCALE (NOVOLOG) 1 VIAL SQ SCH ×4 (07:31→21:59)
[2022-05-04 07:48] LABS: HEMATOCRIT 27.5 % (35.4-49); HEMOGLOBIN 8.4 GM/dL (11.7-16.9); MCH 23.8 pg (25.7-33.7); MCHC 30.7 g/dl (32.0-35.9); MEAN CELL VOLUME 77.7 fl (80-96); MEAN PLT VOLUME 8.8 fl (7.5-11.1); PLATELET COUNT 291 10^3/uL (134-434); RBC 3.54 M/mm3 (4.00-5.60); RDW 17.5 % (11.9-15.9); WHITE BLOOD COUNT 20.8 K/mm3 (4.0-10.0)
[2022-05-04 08:01] LABS: HEMATOCRIT 25.2 % (35.4-49); HEMOGLOBIN 7.9 GM/dL (11.7-16.9); MCH 24.4 pg (25.7-33.7); MCHC 31.2 g/dl (32.0-35.9); MEAN CELL VOLUME 78.1 fl (80-96); MEAN PLT VOLUME 12.7 fl (7.5-11.1); PLATELET COUNT 76 10^3/uL (134-434); RBC 3.23 M/mm3 (4.00-5.60); RDW 18.2 % (11.9-15.9); WHITE BLOOD COUNT 18.2 K/mm3 (4.0-10.0)
[2022-05-04 08:12] LABS: CHLORIDE 107 mmol/L (98-107); SODIUM 144 mmol/L (136-145)
[2022-05-04 08:13] LABS: CHLORIDE 105 mmol/L (98-107); SODIUM 140 mmol/L (136-145)
[2022-05-04 08:14] LABS: CALCIUM 8.5 mg/dL (8.5-10.1)
[2022-05-04 08:15] LABS: ANION GAP 10 MMOL/L (8-16); CO2 26 mmol/L (21-32); GLUCOSE,RANDOM 163 mg/dL (74-106); MAGNESIUM 2.3 mg/dL (1.8-2.4)
[2022-05-04 08:17] LABS: SGPT/ALT 182 U/L (13-61)
[2022-05-04 08:18] LABS: CREATININE 2.7 mg/dL (0.55-1.3); PHOSPHOROUS 4.4 mg/dL (2.5-4.9); SGOT/AST 64 U/L (15-37)
[2022-05-04 08:19] LABS: BILIRUBIN,TOTAL 1.9 mg/dL (0.2-1); TOT PROT 4.4 g/dl (6.4-8.2)
[2022-05-04 08:26] LABS: ALBUMIN 1.5 g/dl (3.4-5.0); ANION GAP 16 MMOL/L (8-16); CALCIUM 7.9 mg/dL (8.5-10.1); CO2 19 mmol/L (21-32)
[2022-05-04 08:26] LABS: ALK PHOS 115 U/L (45-117); BLOOD UREA NITROGEN 109.6 mg/dL (7-18)
[2022-05-04 08:27] LABS: GLUCOSE,RANDOM 279 mg/dL (74-106); MAGNESIUM 2.1 mg/dL (1.8-2.4)
[2022-05-04 08:28] LABS: SGPT/ALT 59 U/L (13-61)
[2022-05-04 08:29] LABS: CREATININE 6.9 mg/dL (0.55-1.3); PHOSPHOROUS 7.6 mg/dL (2.5-4.9)
[2022-05-04 08:30] LABS: BILIRUBIN,TOTAL 0.4 mg/dL (0.2-1); SGOT/AST 47 U/L (15-37); TOT PROT 5.5 g/dl (6.4-8.2)
[2022-05-04] MEDS: PROPOFOL 1,000,000 MCG/100 ML VIAL IVPB SCH ×2 (08:59→20:49)
[2022-05-04 09:40] LABS: ANISOCYTOSIS 1+; MACROCYTOSIS 0
[2022-05-04] MEDS: VITAMIN B COMP W-C 1 EA TABLET (NEPHRO-VITE) PO SCH (09:50)
[2022-05-04] MEDS: MUPIROCIN 2% TOPICAL OINTMENT FOR DECOLONIZATION NS SCH ×3 (09:50→21:54)
[2022-05-04] MEDS: FLUCONAZOLE 100 MG TABLET (UD) PO SCH (09:50)
[2022-05-04] MEDS ORDERED: FERROUS SO4 325 MG TABLET (FP) PO SCH (10:00)
[2022-05-04] MEDS ORDERED: FLUCONAZOLE 100 MG TABLET (UD) PO SCH (10:00)
[2022-05-04] MEDS ORDERED: PANTOPRAZOLE SOD 40 MG SUSPENSION PACKET PO SCH (10:00)
[2022-05-04] MEDS ORDERED: GABAPENTIN 300 MG CAPSULE PO SCH (10:00)
[2022-05-04] MEDS ORDERED: VITAMIN B COMP W-C 1 EA TABLET (NEPHRO-VITE) PO SCH (10:00)
[2022-05-04] MEDS ORDERED: VITAMIN B COMP W-C 1 EA TABLET (NEPHRO-VITE) GT SCH (10:45)
[2022-05-04] MEDS ORDERED: PANTOPRAZOLE SODIUM 40 MG VIAL IVPUSH SCH (10:45)
[2022-05-04] MEDS ORDERED: VANCOMYCIN/WATER FOR INJ (PEG) 1,000 MG/200 ML BAG IVPB ONE (10:49)
[2022-05-04] MEDS: FERROUS SO4 300 MG/5 ML ORAL SOLN UNIT DOSE CUPS NGT SCH ×2 (10:51→21:53)
[2022-05-04] MEDS ORDERED: FLUCONAZOLE 100 MG/D5W 50 ML IVPB SCH (11:00)
[2022-05-04] MEDS: GABAPENTIN 250 MG/5 ML ORAL SOLUTION, 470 ML BOTTLE NGT SCH ×2 (11:09→21:58)
[2022-05-04 13:07] LABS: ALK PHOS 400 U/L (45-117)
[2022-05-04] MEDS: FLUCONAZOLE 100 MG/NS 50 ML IVPB SCH (13:11)
[2022-05-04 14:37] LABS: ARTERIAL BLD GAS O2 SATURATION 98.3 % (95-98); ARTERIAL BLOOD GAS BASE EXCESS -8.8 mmol/L (-2-2)
[2022-05-04 14:40] LABS: VENT MODE A/C; VENT RATE 20
[2022-05-04] MEDS: SODIUM ZIRCONIUM CYCLOSILICATE (LOKELMA) 5 GM PACKET NGT SCH ×2 (16:17→21:53)
[2022-05-04 16:35] LABS: BASO % 0.2 % (0-2.0); EOS % 0.1 % (0-4.5); HEMATOCRIT 25.8 % (35.4-49); HEMOGLOBIN 8.2 GM/dL (11.7-16.9); LYMPH % 3.2 % (8-40); MCH 24.6 pg (25.7-33.7); MCHC 31.8 g/dl (32.0-35.9); MEAN CELL VOLUME 77.4 fl (80-96); MEAN PLT VOLUME 8.6 fl (7.5-11.1); MONO % 3.5 % (3.8-10.2); PLATELET COUNT 262 10^3/uL (134-434); RBC 3.33 M/mm3 (4.00-5.60); RDW 17.5 % (11.9-15.9); WHITE BLOOD COUNT 24.2 K/mm3 (4.0-10.0)
[2022-05-04 16:43] LABS: INR 1.73 (0.83-1.09)
[2022-05-04 16:46] LABS: ACTIVATED PTT 32.7 SECONDS (25.2-36.5)
[2022-05-04 16:54] LABS: ARTERIAL BLD GAS O2 SATURATION 96.5 % (95-98); ARTERIAL BLOOD GAS BASE EXCESS -8.7 mmol/L (-2-2); ARTERIAL BLOOD GAS PO2 92.5 mmHg (80-100); ARTERIAL BLOOD GAS pH 7.306 (7.350-7.450)
[2022-05-04 16:55] LABS: EPI CELLS >36 /uL (0-25.1); HYALINE CASTS 50 /uL (0-3.1); URINE APPEARANCE TURBID; URINE BILIRUBIN NEGATIVE (NEGATIVE); URINE COLOR YELLOW; URINE GLUCOSE (UA) 3+ (NEGATIVE); URINE KETONE NEGATIVE (NEGATIVE); URINE LEUK ESTERASE TRACE (NEGATIVE); URINE NITRITE NEGATIVE (NEGATIVE); URINE PROTEIN 3+ (NEGATIVE); URINE RBC 42 /uL (0-23.9); URINE UROBILINOGEN 0.2 mg/dL (0.2-1.0); URINE WBC 2078 /uL (0-25.8)
[2022-05-04 16:59] LABS: VENT MODE A/C
[2022-05-04 17:00] LABS: VENT RATE 18
[2022-05-04] MEDS: INSULIN (NOVOLOG) ASPART 100 UNITS/ML 10ML VIAL SQ SCH (17:08)
[2022-05-04 17:17] LABS: ANISOCYTOSIS 2+; MACROCYTOSIS 0; OVALOCYTE 1+; TARGET CELLS 1+
[2022-05-04 17:19] LABS: URINE BACTERIA 40.1 /uL (0-1359)
[2022-05-04 20:28] LABS: ARTERIAL BLD GAS O2 SATURATION 96.4 % (95-98); ARTERIAL BLOOD GAS BASE EXCESS -9.4 mmol/L (-2-2); ARTERIAL BLOOD GAS PO2 91.2 mmHg (80-100); ARTERIAL BLOOD GAS pH 7.308 (7.350-7.450)
[2022-05-04 20:32] LABS: VENT MODE A/C; VENT RATE 12
[2022-05-04] MEDS: FENTANYL NS IVPB 500 MCG/100 ML BAG IVPB SCH (21:47)
[2022-05-04] MEDS: INSULIN (LEVEMIR) 100 UNITS/ML UNITS SQ SCH (21:59)
[2022-05-04] MEDS ORDERED: CHLORHEXIDINE GLUCONATE 4% CLEANSER FOR DECOLONIZATION TP SCH (22:00)
[2022-05-05 00:29] LABS: ARTERIAL BLD GAS O2 SATURATION 93.8 % (95-98); ARTERIAL BLOOD GAS BASE EXCESS -9.2 mmol/L (-2-2); ARTERIAL BLOOD GAS PO2 78.8 mmHg (80-100)
[2022-05-05] MEDS ORDERED: SODIUM BICARBONATE 8.4% 50 MEQ/50 ML DISP.SYRIN IVPUSH ONE ×2 (00:36→09:26)
[2022-05-05] MEDS ORDERED: DEXTROSE 5%-WATER - 1,000 ML with SODIUM BICARBONATE 8.4% - 150 MEQ IV SCH (00:45)
[2022-05-05] MEDS ORDERED: MIDAZOLAM IN 0.9 % SOD.CHLORID 100 MG/100 ML PLAST..BAG IVPB SCH (06:15)
[2022-05-05] MEDS ORDERED: MIDAZOLAM IN 0.9 % SOD.CHLORID 1 MG/1 ML PLAST..BAG ONE (06:24)
[2022-05-05] MEDS ORDERED: VASOPRESSIN 20 UNITS/ML VIAL IV ONE (06:28)
[2022-05-05] MEDS ORDERED: EPINEPHrine 1:10,000 (P-F SYR) 1 MG/10 ML DISP.SYRIN ONE (06:32)
[2022-05-05] MEDS: FENTANYL NS IVPB 500 MCG/100 ML BAG IVPB SCH (06:57)
[2022-05-05] MEDS: INSULIN SLIDING SCALE (NOVOLOG) 1 VIAL SQ SCH ×3 (07:17→16:53)
[2022-05-05] MEDS: INSULIN (NOVOLOG) ASPART 100 UNITS/ML 10ML VIAL SQ SCH ×3 (07:17→16:54)
[2022-05-05 07:20] LABS: ARTERIAL BLD GAS O2 SATURATION 84.4 % (95-98); ARTERIAL BLOOD GAS BASE EXCESS -17.3 mmol/L (-2-2); ARTERIAL BLOOD GAS PO2 80.7 mmHg (80-100)
[2022-05-05 07:23] LABS: ARTERIAL BLOOD GAS pH 6.896 (7.350-7.450); VENT MODE A/C; VENT RATE 12
[2022-05-05] MEDS ORDERED: VASOPRESSIN 40 UNITS in SODIUM CHLORIDE 98 ML IVPB SCH (07:45)
[2022-05-05 08:03] LABS: HEMATOCRIT 27.3 % (35.4-49); HEMOGLOBIN 8.3 GM/dL (11.7-16.9); MCHC 30.4 g/dl (32.0-35.9); MEAN CELL VOLUME 78.9 fl (80-96); MEAN PLT VOLUME 8.9 fl (7.5-11.1); PLATELET COUNT 380 10^3/uL (134-434); RBC 3.46 M/mm3 (4.00-5.60); RDW 17.7 % (11.9-15.9); WHITE BLOOD COUNT 29.4 K/mm3 (4.0-10.0)
[2022-05-05 08:16] LABS: INR 1.85 (0.83-1.09); PROTHROMBIN TIME (PATIENT) 21.4 SEC (9.7-13.0)
[2022-05-05 08:21] LABS: CHLORIDE 102 mmol/L (98-107); SODIUM 139 mmol/L (136-145)
[2022-05-05 08:22] LABS: CALCIUM 7.6 mg/dL (8.5-10.1)
[2022-05-05 08:24] LABS: ANION GAP 13 MMOL/L (8-16); CO2 24 mmol/L (21-32); GLUCOSE,RANDOM 225 mg/dL (74-106); MAGNESIUM 2.2 mg/dL (1.8-2.4)
[2022-05-05 08:26] LABS: CREATININE 7.2 mg/dL (0.55-1.3); SGOT/AST 24 U/L (15-37); SGPT/ALT 40 U/L (13-61)
[2022-05-05 08:27] LABS: BILIRUBIN,TOTAL 0.3 mg/dL (0.2-1)
[2022-05-05 08:28] LABS: TOT PROT 5.2 g/dl (6.4-8.2)
[2022-05-05] MEDS ORDERED: CALCIUM GLUCONATE 10% - 1,000 MG/10 ML VIAL IVPB ONE (08:32)
[2022-05-05] MEDS: SODIUM ZIRCONIUM CYCLOSILICATE (LOKELMA) 5 GM PACKET NGT SCH (09:04)
[2022-05-05] MEDS: MUPIROCIN 2% TOPICAL OINTMENT FOR DECOLONIZATION NS SCH (09:14)
[2022-05-05 09:19] LABS: ARTERIAL BLD GAS O2 SATURATION 95.3 % (95-98); ARTERIAL BLOOD GAS BASE EXCESS -14.6 mmol/L (-2-2); ARTERIAL BLOOD GAS PO2 106.5 mmHg (80-100)
[2022-05-05 09:25] LABS: ALLENS TEST POSITIVE
[2022-05-05 09:26] LABS: VENT MODE A/C; VENT RATE 14
[2022-05-05 09:28] LABS: ARTERIAL BLOOD GAS pH 7.057 (7.350-7.450)
[2022-05-05 09:28] LABS: ALBUMIN 1.3 g/dl (3.4-5.0); ALK PHOS 273 U/L (45-117); BLOOD UREA NITROGEN 113.5 mg/dL (7-18); PHOSPHOROUS 8.6 mg/dL (2.5-4.9)
[2022-05-05] MEDS: GABAPENTIN 250 MG/5 ML ORAL SOLUTION, 470 ML BOTTLE NGT SCH (09:30)
[2022-05-05] MEDS: FLUCONAZOLE 100 MG/NS 50 ML IVPB SCH (09:30)
[2022-05-05] MEDS: FERROUS SO4 300 MG/5 ML ORAL SOLN UNIT DOSE CUPS NGT SCH (09:30)
[2022-05-05 09:47] LABS: ANISOCYTOSIS 1+; MACROCYTOSIS 0; TEAR DROP CELLS 1+
[2022-05-05] MEDS: INSULIN (LEVEMIR) 100 UNITS/ML UNITS SQ SCH (09:56)
[2022-05-05] MEDS ORDERED: ASPIRIN 81 MG CHEWABLE TABLETS GT SCH (10:00)
[2022-05-05] MEDS ORDERED: PANTOPRAZOLE SODIUM 40 MG VIAL IVPUSH SCH (10:00)
[2022-05-05 11:22] LABS: ARTERIAL BLD GAS O2 SATURATION 93.8 % (95-98); ARTERIAL BLOOD GAS BASE EXCESS -10.7 mmol/L (-2-2); ARTERIAL BLOOD GAS PO2 89.5 mmHg (80-100)
[2022-05-05 11:42] LABS: ALLENS TEST POSITIVE
[2022-05-05 11:43] LABS: VENT MODE AC; VENT RATE 14
[2022-05-05 11:45] LABS: ARTERIAL BLOOD GAS pH 7.133 (7.350-7.450)
[2022-05-05] MEDS ORDERED: SODIUM BICARBONATE 8.4% - 75 MEQ in SODIUM CHLORIDE 0.45% 950 ML IV SCH (12:15)
[2022-05-05] MEDS ORDERED: SODIUM BICARBONATE 8.4% - 100 ML ONE (12:16)
[2022-05-05] MEDS ORDERED: EPINEPHrine 1:1,000 1,000 MCG in DEXTROSE 5%-WATER - 249 ML IVPB SCH (12:45)
[2022-05-05 13:44] LABS: HEMATOCRIT 26.4 % (35.4-49); HEMOGLOBIN 7.7 GM/dL (11.7-16.9); MCH 23.4 pg (25.7-33.7); MCHC 29.2 g/dl (32.0-35.9); MEAN CELL VOLUME 79.9 fl (80-96); MEAN PLT VOLUME 8.8 fl (7.5-11.1); PLATELET COUNT 435 10^3/uL (134-434)
[2022-05-05 14:04] LABS: CHLORIDE 104 mmol/L (98-107); SODIUM 140 mmol/L (136-145); WHITE BLOOD COUNT 31.1 K/mm3 (4.0-10.0)
[2022-05-05 14:06] LABS: ALBUMIN 1.2 g/dl (3.4-5.0); ANION GAP 15 MMOL/L (8-16); CALCIUM 7.7 mg/dL (8.5-10.1); CO2 22 mmol/L (21-32); GLUCOSE,RANDOM 205 mg/dL (74-106); MAGNESIUM 2.2 mg/dL (1.8-2.4)
[2022-05-05 14:09] LABS: CREATININE 7.2 mg/dL (0.55-1.3); SGOT/AST 42 U/L (15-37); SGPT/ALT 43 U/L (13-61)
[2022-05-05 14:11] LABS: BILIRUBIN,TOTAL 0.3 mg/dL (0.2-1); TOT PROT 5.1 g/dl (6.4-8.2)
[2022-05-05 14:12] LABS: ALK PHOS 264 U/L (45-117)
[2022-05-05 14:27] VITALS: TEMP 98
[2022-05-05 14:39] LABS: ANISOCYTOSIS 0; HELMET CELLS 0; HOWELL-JOLLY BODIES 0; MACROCYTOSIS 0; OVALOCYTE 0; ROULEAU 0; SICKELED CELLS 0; TARGET CELLS 0; TEAR DROP CELLS 0; TOXIC GRANULATION 0
[2022-05-05 14:42] LABS: BLOOD UREA NITROGEN 114.9 mg/dL (7-18); PHOSPHOROUS 9.2 mg/dL (2.5-4.9)
[2022-05-05] MEDS: NOREPINEPHRINE BITARTRATE/D5W 8 MG/250 ML BAG IVPB SCH (16:53)
[2022-05-05 18:49] VITALS: BP 154/78; PULSE 114; RESP 26
[2022-05-05] MEDS ORDERED: ATORVASTATIN CA 80 MG TABLET (FP) NGT SCH (22:00)
== END 2022-05-05 22:17 | disposition expired | DRG 344 ==
LOC: JER 14:52 → JERBED 19:44 → J5S 04-14 18:03 → J8W 04-28 19:23 → JICU 05-03 20:01
PROVIDERS: ADMIT Internal Medicine; ATTEND Internal Medicine Pulmonary Disease
PROC: 0QBN3ZX Excision of Right Metatarsal, Percutaneous Approach, Diagnostic (ICD-10-PCS; 2022-04-20)
PROC: 30233N1 Transfusion of Nonautologous Red Blood Cells into Peripheral Vein, Percutaneous Approach (ICD-10-PCS; 2022-04-30)
PROC: 4A133B1 Monitoring of Arterial Pressure, Peripheral, Percutaneous Approach (ICD-10-PCS; principal; 2022-05-03)
PROC: 4A133J1 Monitoring of Arterial Pulse, Peripheral, Percutaneous Approach (ICD-10-PCS; 2022-05-03)
PROC: 5A1945Z Respiratory Ventilation, 24-96 Consecutive Hours (ICD-10-PCS; 2022-05-03)
PROC: 0BH17EZ Insertion of Endotracheal Airway into Trachea, Via Natural or Artificial Opening (ICD-10-PCS; 2022-05-03)
PROC: 05HM33Z Insertion of Infusion Device into Right Internal Jugular Vein, Percutaneous Approach (ICD-10-PCS; 2022-05-03)
PROC: B543ZZA Ultrasonography of Right Jugular Veins, Guidance (ICD-10-PCS; 2022-05-03)
PROC: 5A12012 Performance of Cardiac Output, Single, Manual (ICD-10-PCS; 2022-05-04)
DX: E11.621 Type 2 diabetes mellitus with foot ulcer (principal); E11.69 Type 2 diabetes mellitus with other specified complication; M86.8X7 Other osteomyelitis, ankle and foot; L03.115 Cellulitis of right lower limb; J96.01 Acute respiratory failure with hypoxia; J96.02 Acute respiratory failure with hypercapnia; D64.9 Anemia, unspecified; E83.39 Other disorders of phosphorus metabolism; N17.9 Acute kidney failure, unspecified; E87.70 Fluid overload, unspecified; E87.5 Hyperkalemia; R65.21 Severe sepsis with septic shock; A41.9 Sepsis, unspecified organism; E78.5 Hyperlipidemia, unspecified; K21.9 Gastro-esophageal reflux disease without esophagitis; L97.519 Non-pressure chronic ulcer of other part of right foot with unspecified severity; I46.9 Cardiac arrest, cause unspecified; I95.9 Hypotension, unspecified; E66.9 Obesity, unspecified; Z68.35 Body mass index [BMI] 35.0-35.9, adult; M86.9 Osteomyelitis, unspecified; G93.1 Anoxic brain damage, not elsewhere classified; E11.65 Type 2 diabetes mellitus with hyperglycemia; N18.4 Chronic kidney disease, stage 4 (severe); I50.22 Chronic systolic (congestive) heart failure; I13.0 Hypertensive heart and chronic kidney disease with heart failure and stage 1 through stage 4 chronic kidney disease, or unspecified chronic kidney disease; J18.9 Pneumonia, unspecified organism; J81.1 Chronic pulmonary edema; J90 Pleural effusion, not elsewhere classified; R57.0 Cardiogenic shock; A52.16 Charcot's arthropathy (tabetic); B37.89 Other sites of candidiasis; I31.39 Other pericardial effusion (noninflammatory); E11.22 Type 2 diabetes mellitus with diabetic chronic kidney disease; E11.319 Type 2 diabetes mellitus with unspecified diabetic retinopathy without macular edema; E11.42 Type 2 diabetes mellitus with diabetic polyneuropathy; I50.82 Biventricular heart failure; K92.2 Gastrointestinal hemorrhage, unspecified; L97.909 Non-pressure chronic ulcer of unspecified part of unspecified lower leg with unspecified severity; D50.9 Iron deficiency anemia, unspecified; E11.628 Type 2 diabetes mellitus with other skin complications; F31.9 Bipolar disorder, unspecified
CPT/HCPCS: 0241U-QW; 31500; 36415; 36430; 36600; 70450-TC; 71045-TC-FY; 71250-TC; 73630-TC-RT-FY; 73718-TC-RT; 76870-TC; 80048; 80053; 80307; 81003; 82140; 82272; 82570; 82728; 82803; 82962; 83036; 83540; 83550; 83605; 83615; 83735; 83880; 84100; 84156; 84484; 85025; 85027; 85610; 85651; 85730; 86140; 86850; 86900; 86901; 86922; 87040; 87045; 87046; 87070; 87075; 87077; 87086; 87106; 87186; 87205; 87493; 87899; 93005; 93010; 93306-TC; 93970-TC; 94002; 94640; 94760; 95816; 99285-25; G0463-25; G0480; J1250; J1644; J1756; P9058; Q5106